=== PATIENT | female | born 1935 | race Caucasian/White ===

== ENCOUNTER 2017-06-09 12:30 | Emergency (ER) | payer MEDICARE, OTHER ==
[~2017-06-09] VITALS: Ht 167.6 cm; Wt 78.8 kg
--- OUTSIDE RECORDS SUMMARY | ~2017-06-09 | XMS ---
Demographics + + + | Address | [address] | | | [place] [address] | + + + | Preferred Language | Unknown | + + + | Marital Status | Unknown | + + + | Cheondoism Affiliation | Unknown | + + + | Race | Unknown | + + + | Ethnic Group | Unknown | + + + Author + + + | Author | [facility] | + + + | Organization | [facility] | + + + | Address | [address] [facility] [address] | | | [place] [id number] | + + + | Phone | | + + + Care Team Providers + + + + | Care Plaster Block Layer Name | Role | Phone | + + + + Unavailable | Unavailable | + + + + PROBLEMS Unknown Problems ALLERGIES Unknown Allergies SOCIAL HISTORY No smoking Hx information available PLAN OF CARE VITAL SIGNS MEDICATIONS Unknown Medications RESULTS No Results PROCEDURES No Known procedures IMMUNIZATIONS No Known Immunizations"
--- OUTSIDE RECORDS SUMMARY | ~2017-06-09 | XMS ---
Demographics + + + | Address | [address] | | | [place] [address] | + + + | Preferred Language | Unknown | + + + | Marital Status | Unknown | + + + | Jain Affiliation | Unknown | + + + | Race | Unknown | + + + | Ethnic Group | Unknown | + + + Author + + + | Author | [facility] | + + + | Organization | [facility] | + + + | Address | [address] | | | [place] [address] | + + + | Phone | | + + + Care Team Providers + + + + | Care Php Mysql Developer Name | Role | Phone | + + + + Unavailable | Unavailable | + + + + PROBLEMS Unknown Problems ALLERGIES No Information SOCIAL HISTORY Never Assessed PLAN OF CARE VITAL SIGNS MEDICATIONS Unknown Medications RESULTS No Results PROCEDURES No Known procedures IMMUNIZATIONS No Known Immunizations MEDICAL (GENERAL) HISTORY + + +---------+ | Type | Description | Date | + + +---------+ | Medical History | Hypertension | | + + +---------+ | Medical History | Hypothyroidism | | + + +---------+ | Medical History | CAD | | + + +---------+ | Medical History | Depression | | + + +---------+ | Medical History | Ovarian Cancer | | + + +---------+ | Surgical 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
--- OUTSIDE RECORDS SUMMARY | ~2017-06-09 | XMS ---
Demographics + + + | Address | [address] | | | [place] [address] | + + + | Preferred Language | Unknown | + + + | Marital Status | Unknown | + + + | Shinto Affiliation | Unknown | + + + | Race | Unknown | + + + | Ethnic Group | Unknown | + + + Author + + + | Author | [facility] | + + + | Organization | [facility] | + + + | Address | [address] [facility] [address] | | | [place] [phone] | + + + | Phone | | + + + Care Team Providers + + + + | Care Advertising Material Distributor Name | Role | Phone | + + + + Unavailable | Unavailable | + + + + PROBLEMS Unknown Problems ALLERGIES Unknown Allergies SOCIAL HISTORY No smoking Hx information available PLAN OF CARE VITAL SIGNS MEDICATIONS Unknown Medications RESULTS No Results PROCEDURES No Known procedures IMMUNIZATIONS No Known Immunizations"
--- OUTSIDE RECORDS SUMMARY | ~2017-06-09 | XMS ---
Demographics + + + | Address | [address] | | | [place] [address] | + + + | Preferred Language | Unknown | + + + | Marital Status | Unknown | + + + | Amish Affiliation | Unknown | + + + | Race | Unknown | + + + | Ethnic Group | Unknown | + + + Author + + + | Author | [facility] | + + + | Organization | [facility] | + + + | Address | [address] | | | [place] [address] | + + + | Phone | | + + + Care Team Providers + + + + | Care Suit Attendant Name | Role | Phone | + + + + Unavailable | Unavailable | + + + + PROBLEMS Unknown Problems ALLERGIES No Known Allergies SOCIAL HISTORY Never Assessed PLAN OF CARE + +---------+ | Activity | Details | + +---------+ +---+ | | +---+ + + + | Follow Up | 2 Months Reason:null | + + + | Pending Test | Urinalysis, Micro | + + + VITAL SIGNS + + + + | Height | 67 in | 2017-03-23 | + + + + | Weight | 153 lbs | 2017-03-23 | + + + + | BMI | 23.96 kg/m2 | 2017-03-23 | + + + + | Heart Rate | 73 /min | 2017-03-23 | + + + + | Blood pressure systolic | 141 mm Hg | 2017-03-23 | + + + + | Blood pressure diastolic | 76 mm Hg | 2017-03-23 | + + + + MEDICATIONS + + + + + + + +--------+ | Medicati | Instruct | Dosage | Frequenc | Start | End Date | Duration | Status | | on | ions | | y | Date | | | | + + + + + + + +--------+ | Detrol | Orally | 1 | 24h | Feb, | 25 Mar, | 30 | Active | | LA 4 MG | Once a | capsule | | 2016 | 2017 | day(s) | | | | day | | | | | | | + + + + + + + +--------+ | Clonazep | Orally | 1 tablet | 12h | | | | Active | | am 0.5 | Twice a | | | | | | | | MG | day | | | | | | | + + + + + + + +--------+ | D3-1000 | Orally | 1 | 24h | | | | Active | | 1000 | Once a | capsule | | | | | | | UNIT | day | | | | | | | + + + + + + + +--------+ | Furosemi | Orally | 1 tablet | 24h | | | | Active | | de 40 MG | Once a | | | | | | | | | day | | | | | | | + + + + + + + +--------+ | Atorvast | Orally | 1 tablet | 24h | | | | Active | | atin | Once a | | | | | | | | Calcium | day | | | | | | | | 40 MG | | | | | | | | + + + + + + + +--------+ | Aspirin | Orally | 1 tablet | 24h | | | | Active | | 81 MG | Once a | | | | | | | | | day | | | | | | | + + + + + + + +--------+ | Levothyr | Orally | 1 tablet | 24h | | | | Active | | oxine | Once a | on an | | | | | | | Sodium | day | empty | | | | | | | 75 MCG | | stomach | | | | | | | | | in the | | | | | | | | | morning | | | | | | + + + + + + + +--------+ | Calcium | Orally | 1 tablet | 24h | | | | Active | | 1200-100 | Once a | with a | | | | | | | 0 | day | meal | | | | | | | MG-UNIT | | | | | | | | + + + + + + + +--------+ | Potassiu | Orally | 1 tablet | 24h | | | | Active | | m 99 MG | Once a | | | | | | | | | day | | | | | | | + + + + + + + +--------+ | Atenolol | Orally | 1 tablet | 24h | | | | Active | | 25 MG | Once a | | | | | | | | | day | | | | | | | + + + + + + + +--------+ | Vision | | | | | | | Active | | Formula | | | | | | | | | - | | | | | | | | + + + + + + + +--------+ | Gabapent | Orally | 1 | 8h | | | | Active | | in 300 | Three | capsule | | | | | | | MG | times a | | | | | | | | | day | | | | | | | + + + + + + + +--------+ RESULTS + +--------+ + + | Name | Result | Date | Reference Range | + +--------+ + + | Urinalysis, Dip | | 2017-03-23 | | | (IH) | | | | + +--------+ + + | Specific [place] | 1.010 | | | + +--------+ + + | pH | 8 | | | + +--------+ + + | Leukocytes | 500 | | | + +--------+ + + | Nitrite, Urine | neg | | | + +--------+ + + | Protein | neg | | | + +--------+ + + | Glucose | norm | | | + +--------+ + + | Ketones | neg | | | + +--------+ + + | Urobilingen, | norm | | | | Semi-Qn | | | | + +--------+ + + | Bilirubin | neg | | | + +--------+ + + | Blood Hemoglobin | TR | | | | (BLD) | | | | + +--------+ + + PROCEDURES + + +--------+ + | Procedure | Date Ordered | Result | Body Site | + + +--------+ + | LAB URINALYSIS (DIP | Mar 23, 2017 | | | | STICK ONLY | | | | + + +--------+ + IMMUNIZATIONS No Known Immunizations MEDICAL (GENERAL) HISTORY [...]
[~2017-06-09 12:30] MED LIST: ASPIRIN EC81 MG PO; ATORVASTATIN CA40 MG PO; CIPROFLOXACIN500 MG PO; CITALOPRAM HBR20 MG PO; CLONAZEPAM0.5 MG PO; CLONAZEPAM1 MG PO; FUROSEMIDE40 MG PO; GABAPENTIN300 MG PO; KEFLEX500 MG PO; LEVOTHYROXINE75 MCG PO; MELOXICAM15 MG PO; NEURONTIN300 MG PO; SERTRALINE HCL100 MG PO; ULTRAM50 MG PO
[2017-06-09] MEDS ORDERED: TAMSULOSIN HCL0.4 MG PO (13:02)
[2017-06-09] MEDS ORDERED: ATENOLOL50 MG PO (13:02)
== END 2017-06-09 15:53 | disposition home or self-care (01) ==
LOC: ED 12:30
DX: M54.5 Low back pain (principal); F41.9 Anxiety disorder, unspecified; I25.2 Old myocardial infarction; Z95.1 Presence of aortocoronary bypass graft; Z90.710 Acquired absence of both cervix and uterus; Z87.891 Personal history of nicotine dependence; Z79.899 Other long term (current) drug therapy; Z79.82 Long term (current) use of aspirin; Z85.43 Personal history of malignant neoplasm of ovary
CPT/HCPCS: 72100; 99283

== ENCOUNTER 2017-07-29 08:15 | Inpatient (IN) | payer MEDICARE, OTHER ==
[~2017-07-29] VITALS: Ht 167.6 cm; Wt 84.7 kg
--- OUTSIDE RECORDS SUMMARY | ~2017-07-29 | XMS | Clinical Summary ---
Demographics + + + | Address | [address] | | | [place] [address] | + + + | Home Phone | | + + + | Preferred Language | Unknown | + + + | Marital Status | | + + + | Shinto Affiliation | Unknown | + + + | Race | White | + + + | Ethnic Group | Not or | + + + Author + + + | Author | [facility] | + + + | Organization | [facility] | + + + | Address | Unknown | + + + | Phone | Unavailable | + + + Support +------+ + + + +-------+ | Name | Relationship | Address | Phone | +------+ + + + +-------+ ECON | [address] | | [place] | [address] | +------+ + + + +-------+ Care Team Providers + +------+ + | Care [place] Representative Name | Role | Phone | + +------+ + PP | Unavailable | + +------+ + Source Comments NANDINI is fully live on both [employer] [facility] and [facility] Allergies Not on File Current Medications + + +-------+---------+------+------+-------+ | Prescription | Sig. | Disp. | Refills | Star | End | Statu | | | | | | t | Date | s | | | | | | Date | | | + + +-------+---------+------+------+-------+ | ATENOLOL 25 MG TAB | 1 tab po daily | | | | | Activ | | | | | | | | e | + + +-------+---------+------+------+-------+ | PRAVASTATIN 40 MG | 1 tab po bid | | | | | Activ | | TAB | | | | | | e | + + +-------+---------+------+------+-------+ | LEVOTHYROXINE 50 | 1 tab po daily | | | | | Activ | | MCG TAB | | | | | | e | + + +-------+---------+------+------+-------+ Active Problems Not on file Family History + + +------+ + | Medical History | Relation | Name | Comments | + + +------+ + | Cancer | Mother | | colon | + + +------+ + + +------+--------+ + | Relation | Name | Status | Comments | + +------+--------+ + | Mother | | | | + +------+--------+ + Social History + +-------+ +--------+------+ | Tobacco Use | Types | Packs/Day | Years | Date | | | | | Used | | + +-------+ +--------+------+ | Never Smoker | | | | | + +-------+ +--------+------+ + + +---------+ + | Alcohol Use | Drinks/We | oz/Week | Comments | | | ek | | | + + +---------+ + | No | | | | + + +---------+ + + + + | Sex Assigned at | Date Recorded | | | | + + + | Not on file | | + + + Last Filed Vital Signs + + + + | Vital Sign | Reading | Time Taken | + + + + | Blood Pressure | 138/72 | 08/25/2006 1:05 PM PST | + + + + | Pulse | - | - | + + + + | Temperature | 36.3 C (97.4 F) | 08/25/2006 1:05 PM PST | + + + + | Respiratory Rate | - | - | + + + + | Oxygen Saturation | - | - | + + + + | Inhaled Oxygen | - | - | | Concentration | | | + + + + | Weight | 76.6 kg (168 lb 12.8 | 08/25/2006 1:05 PM PST | | | oz) | | + + + + | Height | 167.6 cm (5' 6") | 08/25/2006 1:05 PM PST | + + + + | Body Mass Index | 27.25 | 08/25/2006 1:05 PM PST | + + + + Plan of Treatment + + + + + | Health Maintenance | Due Date | Last Done | Comments | + + + + + | INFLUENZA VACCINE | | | | | (FLU SHOT) | 7 | | | + + + + + Results Not on filefrom Last 3 Months
--- OUTSIDE RECORDS SUMMARY | ~2017-07-29 | XMS | Clinical Summary ---
Demographics + + + | Address | [address] | | | [place] [address] | + + + | Home Phone | | + + + | Preferred Language | Unknown | + + + | Marital Status | | + + + | Worship Affiliation | Unknown | + + + [...] [address] | | [place] | [address] | +------+ + + + +-------+ Care Team Providers + +------+ + | Care Detailer Furniture Name | Role | Phone | + +------+ + PP | Unavailable | + +------+ + Source Comments NANDINI is fully live on both [facility] and [facility] Allergies Not on File Current Medications [...]
--- OUTSIDE RECORDS SUMMARY | ~2017-07-29 | XMS | Clinical Summary ---
Demographics + + + | Address | [address] | | | [place] [address] | + + + | Home Phone | | + + + | Preferred Language | Unknown | + + + | Marital Status | | + + + | Adventism Affiliation | Unknown | + + + [...] [address] | | [place] | [address] | +------+ + + + +-------+ Care Team Providers + +------+ + | Care Chief Marketing Officer Name | Role | Phone | + +------+ + PP | Unavailable | + +------+ + Source Comments NANDINI is fully live on both [facility] and [facility] Allergies Not on File Current Medications + [...]
--- OUTSIDE RECORDS SUMMARY | ~2017-07-29 | XMS | Clinical Summary ---
Demographics + + + | Address | [address] | | | [place] [address] | + + + | Home Phone | | + + + | Preferred Language | Unknown | + + + | Marital Status | | + + + | Methodist Affiliation | Unknown | + + + [...] [address] | | [place] | [address] | +------+ + + + +-------+ Care Team Providers + +------+ + | Care Milk Driver Name | Role | Phone | + +------+ + PP | Unavailable | + +------+ + Source Comments NANDINI is fully live on both [facility] and [facility] Allergies Not on File Current [...]
[~2017-07-29 08:15] MED LIST changes: +ATENOLOL50 MG PO; +TAMSULOSIN HCL0.4 MG PO
--- NOTE | 2017-07-29 17:10 | NUR ---
PATIENT TO ROOM FROM ED. PATIENT NEEDING SEVERAL PEOPLE TO ASSIST TO BED. INCREASE PAIN WITH ACTIVITY. DINNER WAS BROUGHT TO ROOM. STARTED ADMIT ASSESSMENT.
[2017-07-29] MEDS ORDERED: ULTRAM50 MG PO (17:28)
--- NOTE | 2017-07-29 18:20 | NUR ---
PATIENT TOLERATED 25 PERCENT OF DINNER. STATING THAT SHE WAS HAVING ACHING ON R SIDE/ HIP AREA. PATIENT GIVEN TYLENOL FOR PAIN. LASIX THAT WAS SCHEDULED ORDERED. PATIENT SITTING UP IN BED. PATIENT ORIENTED TO SELF, DATE, AND LOCATION. FORGETFUL AT TIMES. UNABLE TO ANSWER SOME MEDICAL QUESTIONS. PATIENT REPORTING THAT SHE IS CONSTIPATED. OFFERED PRUNE JUICE AND ADDED BOWEL CARE. PATIENT HAS BED IN LOW POSITION. CALL LIGHT WITHIN REACH. PATIENT HAS BEEN CALLING CORRECTLY.
--- NOTE | 2017-07-29 18:24 | NUR ---
PATIENT ED ADMIT AT 1710. PATIENT LIVES ALONE AT HOME AND HAD A GROUND LEVEL FALL. PAITENT HAS BEEN ALERT AND ORIENTED. FORGETFUL AT TIMES. HAS BEEN USING CALL LIGHT. BEING TREATED WITH ROCEPHEN FOR UTI. TYLENOL FOR PAIN. C/O BEING CONSTIPATED. STOOL SOFTENER ORDERED. PATIENT WAS UNABLE TO GO HOME DUE TO NOT BEING ABLE TO GET OFF OXYGEN. PATIENT UNABLE TO MOVE SELF WITHOUT ASSISTANCES. NEEDING CONTINUED CARE AND PT/OT TO DARRYN.
--- NOTE | 2017-07-29 18:55 | NUR ---
CHANGED PATIENTS ATTENDS. PATIENT HAD HARD STOOL. HAS TO DISIMPACT PATIENT. STOOL SOFTENER ORDERED. FAMILY AT BEDSIDE AFTER ASSESSMENT DONE. PICTURES TAKEN OF COCCYX AND IN CHART.
--- NOTE | 2017-07-29 19:07 | EKG ---
[facility] [address] [facility] [place] [address] Signed Normal sinus rhythm Left ventricular hypertrophy with repolarization abnormality Inferior infarct , age undetermined Abnormal ECG When compared with ECG of 23-SEP-2016 10:36, HI interval has decreased Inferior infarct is now present Inverted T waves have replaced nonspecific T wave abnormality in Lateral leads Confirmed by ERIC ORO MD ([id number]) on 07/29/2017 7:07:24 PM Electronically Signed By: ERIC ORO MD 07/29/17 1907 PATIENT NAME: ROYA LIRA ISELA Electrocardiogram DATE OF : 35 PHYSICIAN: ERIC ORO MD REPORT #: [id number] REPORT IS CONFIDENTIAL AND NOT TO BE RELEASED WITHOUT AUTHORIZATION
--- NOTE | 2017-07-29 19:45 | NUR ---
FAMILY IN ROOM, PT AWAKE, NO S/SX DISCOMFORT, NO REQUESTS AT THIS TIME
--- NOTE | 2017-07-29 20:00 | NUR ---
RECEIVED REPORT AT 1900, FOUND PT IN BED TALKING WITH HER FAMILY. PT HAD NO NEEDS OR COMPLIANTS AT THAT TIME.
--- NOTE | 2017-07-29 22:00 | NUR ---
PT HAD AN ORDER FOR 1800MG OF GABAPENTIN. I ASKED PT HOW MUCH SHE USUALY TAKES, PT AND HER FAMILY WAS UNALBLE TO PROVIDE EXACT DOSE FOR HER GABAPENTIN. MD JAMA WAS CALLED AND ORDER WAS CHANGED TO 600MG FOR THE 2100 DOSE. THIS ISSUE NEEDS TO BE CALRYDIED TOMORROW MORNING WITH HER PCP PERHAPS OR HER FAMILY. V/S ARE WDL, ALL LOBES ARE CLEAR, PT DENIES SOB, ABD SOUNDS ARE PRESENT, NO EDEMA HAS BEEN NOTED. PT HAS NO NEEDS AT THIS TIME.
--- NOTE | 2017-07-30 00:30 | NUR ---
PT IS SLEEPING AT THIS TIME.
--- NOTE | 2017-07-30 02:08 | NUR ---
PT IS TRYING TO SLEEP
--- NOTE | 2017-07-30 02:48 | NUR ---
VITALS AND I&OS DONE AND CHARTED. CHANGED HER ATTEND WITH SOURAV MANSFIELD. BEDSIDE TABLE AND CALL LIGHT WITHIN REACH.
--- NOTE | 2017-07-30 04:10 | NUR ---
PT IS ONLY SLEEPING FOR ABOUT 1/2 HOUR AT THE TIME. PT IS RESTING AT THIS TIME. PT HAS NO NEEDS.
--- NOTE | 2017-07-30 05:31 | NUR ---
PT OVERALL HAD AN UNEVENTFUL NIGHT. V/S OVERALL WERE WDL. PT DID HAVE A SLIGHT TEMP OF 99.1 WITH 0200 V/S. WILL CONTINUE TO MONITOR. ALL LOBES ARE CLEAR, PT DENIED SOB, PT IS ON 2L OF O2 NC. NEW IV PLACED. PT SEEMS TO STILL BE IMPACTED AND STOOL IS SEEPING OUT OF HER RECTUM. DAY SHIFT DID DISIMPACTION YESTERDAY. PT IS STILL VERY WEAK AND NOT ABLE TO STAND OR USE BSC. GABAPENTIN HOME DOSE NEEDS TO BE CLARIEFIED TODAY, SEE E-MAR INSTRUCTION NOTE. FAMILY HAS NOT CALLED BACK SO FAR WITH AT HOME DOSAGE. PT ALSO HAS A POLST FORM IN CHART BUT WAS LISTED A FULL CODE. PLEASE VERIFY DNR/DNI STATUS.
--- NOTE | 2017-07-30 06:57 | NUR ---
VITALS AND I&OS DONE AND CHARTED . SOURAV HARRIS AND I CHANGED PT . GOT HER A WARM BLANKET. BEDSIDE TABLE AND CALL LIGHT WITHIN REACH. FRESH WATER GIVEN.
--- NOTE | 2017-07-30 08:00 | NUR ---
PATIENT MOVED TO CHAIR VIA TWO ASSIST AND HOANG LIFT. TOLERATED WELL. ONCE IN CHAIR PATIENT STATED NO PAIN AT THIS TIME. ATTEMPTED TO TITRATE TO RA. PATIENT SATING 787 ON RA. TOLERATING 1 L PER NC. SATING 91-94 PERCENT ON 1 L. UP EATING BREAKFAST. LUNGS CLEAR. ACTIVE BS. NO EDEMA NOTED. MORNING MEDICATION TAKEN. VITALS TAKEN. PLAN OF CARE DISCUSSED WITH PATIENT.
--- NOTE | 2017-07-30 09:04 | NUR ---
TALKED WITH DR. ORO ABOUT PATIENT BEING IMPACTED. NEW ORDER FOR ENEMA ORDERED.
--- NOTE | 2017-07-30 10:00 | NUR ---
EDEMA GIVEN. PATIENT ATTEMPTED TO HOLD LONG SHE COULD. RT WAS IN ROOM. PLACED PATIENT ON RA. PATIENT SATING 92 PERCENT AT THIS TIME.
--- NOTE | 2017-07-30 10:15 | NUR ---
ENEMA GIVEN. PATIENT TOLERATED WELL.
--- NOTE | 2017-07-30 10:30 | NUR ---
CHANGED ATTENDS PATIENT HAD SOFTER BM. PATIENT VERY PAIN IN R HIP WITH TURNING. REPOSITIONED IN BED WITH PILLOWS AND HEEL PROTECTORS.
--- NOTE | 2017-07-30 10:46 | NUR ---
NURSE AND I CHANGED HER. SHE IS SITTING UP IN HER BED DOING HER IS.
--- NOTE | 2017-07-30 11:20 | NUR ---
MED REC COMPLETE
--- NOTE | 2017-07-30 12:17 | NUR ---
MOUTH SWABS GIVEN FOR C/O OF DRY MOUTH. ULTRAM GIVEN FOR PAIN OF R HIP. FLU SHOT GIVEN IN R ARM. CONSENT PLACED IN CHART.
--- NOTE | 2017-07-30 13:54 | NUR ---
PT IN ROOM WORKING WITH PATIENT. GATO RECOMMENDS SNF PLACEMENT FOR PATIENT.
--- NOTE | 2017-07-30 14:13 | NUR ---
BROUGHT PATIENT AN ICE PACK.
--- NOTE | 2017-07-30 16:01 | NUR ---
PATIENT CONTINUE TO DO WELL. SATING 90 PERCENT ON 2 L PER NC. IS ENCOURAGED. PATIENT AGREED TO SIT IN CHAIR FOR DINNER.
--- NOTE | 2017-07-30 16:15 | NUR ---
PATIENT CONT TO HAVE R HIP PAIN. ULTRAM ADDED FOR PAIN CONTROL. PATIENT WORKED WITH PT TODAY, BUT WAS UNABLE TO STAND FOR MORE THAN A COUPLE SEC. PT IS RECOMMENDING SNF REHAB. OT TO WORK WITH PATIENT. PATINET UNABLE TO TOLERATE RA. PLACED ON 1 - 2 L. NEEDING MORE OXYGEN WITH THE INCREASE OF ACTIVITY. PATIENT C/O DRY MOUTH THROUGHOUT THE DAY. OFFERED MOUTH SWAPS, ICE, AND COLD WATER FOR COMFORT. PATIENT HAS BEEN INCONT OF URINE. ENEMA GIVEN. PATIENT HAS BEEN INCONT OF STOOL WELL URINE.
--- NOTE | 2017-07-30 16:57 | NUR ---
NURSE AND I CHANGED HER THAN HOYERED HER TO HER CHAIR NOW SHE IS EATING HER DINNER. NURSE CHANGED HER BED LINENS.
--- NOTE | 2017-07-30 17:11 | NUR ---
SHERINE MOVED TO CHAIR VIA HOANG LIFT FOR DINNER. PATIENT HAD XLG BM SOFT WHILE IN HOANG LIFT. PATIENT TOLERATED TRANSFER WELL. PATIENT ABLE TO TOLERATE TRANSFER. PAIN REMAINS PRESENT IN R UPPER LEG. WARM BLANKET APPLIED TO LEG. PATIENT STATING MORE IMPROVED THAT EARLIER BUT STILL HURTS WITH ACTIVITY. ATTEMPTING TO TITRATE TO RA AGAIN. SATING 90 PERCENT ON RA.
--- NOTE | 2017-07-30 18:26 | NUR ---
SPOKE WITH PATIENT. PATIENT UP IN CHAIR. PT STATES SHE WANTS TO RETURN HOME. LIVES ALONE BUT DAUGHTER COMES IN DAILY AND GRANDDAUGHTER COMES IN AND CLEANS AND HELPS WITH CARE. PT STATES SHE FEELS SAFE TO GO HOME. DISCUSSED THAT SHE FELL AND CONCERNS ABOUT HER LEGS BEING WEAK. SHE STATES SHE FEELS IT WILL BE BETTER WITH BRACE THAT IS ORDERING. DISCUSSED AND SHE STATES UNDERSTANDING THAT PT WILL CONTINUE WITH HER AND SHE MAY NEED EXTRA HELP AFTER SHE GOES HOME. SHE IS INTERESTED IN CHW CALLING HER AND FOLLOWING UP WITH HER AFTER DISCHARGE.
--- NOTE | 2017-07-30 20:00 | NUR ---
RECEIVED REPORT AT 1900. FOUND PT IN BED WITH FAMILY AT BEDSIDE TALKING. PT STATED THAT SHE FELT MUCH BETTER TODAY. PT HAD NO NEEDS AT THAT TIME.
--- NOTE | 2017-07-30 22:00 | NUR ---
V/S ARE WDL, ALL LOBES ARE CLEAR BUT DIMINISHED, PT IS STILL VERY WEAK, NO EDEMA NOTED. NO NEW CONCERNS.
--- NOTE | 2017-07-31 00:30 | NUR ---
PT IS SLEEPING AT THIS TIME.
--- NOTE | 2017-07-31 02:17 | NUR ---
PT IS RESTING AT THIS TIME. PT WILL BE CHANGED SOON.
--- NOTE | 2017-07-31 02:29 | NUR ---
SOURAV HARRIS AND I CHANGED PTS ATTEND. SHE WAS INCONTINENT AND A SMEAR OF BM. FRESH WATER GIVEN. BEDSIDE TABLE AND CALL LIGHT WITHIN REACH. EMPTIED ONE OF THE GARBAGES.
--- NOTE | 2017-07-31 04:09 | NUR ---
PT IS RESTING AT THIS TIME.
--- NOTE | 2017-07-31 06:40 | NUR ---
V/S ARE WDL, ALL LOBES ARE CLEAR, ABD SOUND ARE PRESENT, NO PERIPHERAL EDEMA NOTED, PT IS STILL NOT ABLE TO STAND UP SO FAR. PT HAS BEEN CHANGED X2 THIS SHIFT. PT RESTED/SLEPT MOST OF THIS SHIFT. NO NEW CONCERNS NOTED SO FAR. PT IS ON ROOM AIR SINCE O2 SATS HAVE REMAINED >92% ALL NIGHT.
--- NOTE | 2017-07-31 08:42 | NUR ---
PT FINISHED BREAKFAST. WHITEBOARD UPDATED AT BEDSIDE SHIFT REPORT. PT APPETITE GOOD. PATIENT ASKED THIS RN "WHO DO I TALK TO ABOUT GOING HOME TODAY?" PATIENT INFORMED DR ORO, HOSPITALIST, WOULD BE THE ONE TO SPEAK TO ABOUT GOING HOME, BUT TO REMEMBER THAT HER STRENGTH IS A SAFETY ISSUE RIGHT NOW. SHE IS OPEN TO THE IDEA OF ASSISTED LIVING "IF I HAVE TO". PT SET UP TO BRUSH TEETH BY THIS NURSE. WATCHING TELEVISION NOW. PROVIDED NEW ICE WATER. MEAL TRAY REMOVED FROM ROOM.
--- NOTE | 2017-07-31 09:42 | NUR ---
TRANSFERRED PATIENT TO BS AND THEN CHAIR WITH 2PA AND FWW AND GAIT BELT. TOLERATED FAIR. UNABLE TO MOVE RIGHT LEG OFF BED FROM LYING POSITION. INCONTINENT OF URINE. CHANGED LINENS AND ATTENDS. RESPIRATORY THERAPIST WORKING WITH PATIENT NOW TO QUALIFY FOR 02. PATIENT KEEPING SATS ABOVE 92%.
[2017-07-31] MEDS ORDERED: NORCO 10-325 T1 EACH PO (09:56)
[2017-07-31] MEDS ORDERED: NEURONTIN300 MG PO (11:30)
--- NOTE | 2017-07-31 15:48 | NUR ---
FAMILY VISITING PATIENT NOW. PATIENT TRANSFERRED TO BED AFTER LUNCH WITH 2PA AND GAIT BELT. TOLERATED WELL. DIFFICULTY WITH STRENGTH.
--- NOTE | 2017-07-31 16:09 | NUR ---
INCONTINENT. 2PA WITH FWW AND GAIT BELT TO TRANSFER TO COMMODE OR CHAIR. SATURATING WELL ON ROOM AIR. SALINE LOCKED. HEEL BOOTS IN BED. ENCOURAGE REPOSITIONING. RIGHT THIGH SORE FROM LIKELY PULLED MUSCLE. TRAMADOL GIVEN X1. PT/OT. UNSAFE TO DISCHARGE HOME. BM 07/31/17 LAST.
--- NOTE | 2017-07-31 19:05 | NUR ---
RECEIVED REPORT FROM RN. PATIENT IS RESTING COMFORTABLY IN BED, BREATHING IS EVEN AND UNLABORED ON ROOM AIR. DENIES NEEDS AT THIS TIME. CALL LIGHT WITHIN REACH.
--- NOTE | 2017-07-31 19:07 | NUR ---
PT WAS TRANSFERED FROM BEDSIDE COMMODE VIA TWO PERSON MANUAL LIFT. PT IS NOW RESTING IN BED SAFELY WITH CALL LIGHT IN REACH.
--- NOTE | 2017-07-31 21:20 | NUR ---
PATIENT RESTING COMFORTABLY IN BED, BREATHING IS EVEN AND UNLABORED. REPORTS 3/10 PAIN IN RIGHT LEG. HOT PACK GIVEN FOR COMFORT. DENIES FURTHER NEEDS AT THIS TIME. ASSESSMENT DONE, MEDICATIONS GIVEN. CALL LIGHT WITHIN REACH.
--- NOTE | 2017-07-31 23:15 | NUR ---
PATIENT RESTING COMFORTABLY IN BED, BREATHING IS EVEN AND UNLABORED. FLACC SCORE OF 0. CALL LIGHT WITHIN REACH.
--- NOTE | 2017-08-01 00:13 | NUR ---
PATIENT'S ATTENDS CHANGED DUE TO INCONTINENCE OF STOOL AND URINE. REQUIRED 2PA TO TURN IN BED FOR ATTENDS CHANGE. PATIENT STATES "THE PAIN ISN'T TOO BAD IF I GO SLOW." DENIES NEEDS AT THIS TIME. CALL LIGHT WITHIN REACH.
--- NOTE | 2017-08-01 03:07 | NUR ---
PATIENT'S ATTENDS CHANGED DUE TO INCONTINENCE OF URINE AND STOOL. REQUIRED 2PA TO TURN IN BED FOR ATTENDS CHANGE. PATIENT REPORTS 3/10 PAIN IN RIGHT LEG, PRN TYLENOL GIVEN PER EMAR. APPLIED HOT PACK FOR COMFORT. PATIENT STATES "THE HOT PACKS ARE HELPING MORE THAN THE ICE WAS." DENIES FURTHER NEEDS. ASSESSMENT DONE. CALL LIGHT WITHIN REACH.
--- NOTE | 2017-08-01 03:13 | NUR ---
SOURAV VALENZUELA AND I CHANGED SOILED ATTENDS, HAD SMALL SOFT BOWEL MOVEMENT. CALL LIGHT WITHIN REACH. ICE WATER REFILLED.
--- NOTE | 2017-08-01 04:30 | NUR ---
PATIENT'S NIGHT HAS BEEN UNEVENTFUL. SHE HAS BEEN RESTING IN BED THROUGHOUT SHIFT. VSS, URINE OUTPUT QS. PAIN HAS BEEN WELL CONTROLLED WITH PRN TYLENOL AND HOT PACK. PATIENT IS ALERT AND ORIENTED X4. REQUIRES FREQUENT ATTENDS CHANGES DUE TO INCONTINENCE OF BOTH URINE AND STOOL. PATIENT REQUIRES 2PA TO TURN IN BED FOR ATTENDS CHANGES, PATIENT'S MOTOR STRENGTH IS OF SIGNIFICANT WEAKNESS. NO ACUTE CHANGES FROM BEGINNING OF SHIFT.
--- NOTE | 2017-08-01 05:37 | NUR ---
PATIENT RESTING COMFORTABLY IN BED, BREATHING IS EVEN AND UNLABORED. FLACC SCORE OF 0. CALL LIGHT WITHIN REACH.
--- NOTE | 2017-08-01 06:23 | NUR ---
PATIENT RESTING COMFORTABLY IN BED, BREATHING IS EVEN AND UNLABORED. ATTENDS CHANGED FOR INCONTINENCE OF URINE. PATIENT CONTINUES TO REQUIRES 2PA TO TURN WHILE IN BED. ONCE AT REST, PATIENT DENIES PAIN, DENIES NEED FOR PAIN MEDICATION. NO NEEDS AT THIS TIME. CALL LIGHT WITHIN REACH.
--- NOTE | 2017-08-01 07:56 | NUR ---
pt asleep during bedside shift report this morning. updated whiteboard. all questions answered during report from Nguyễn BENJAMIN. 2PA with fww and gait belt to bsc now. Pt able to get legs off side of bed on own. encouraged to be more independent and motivated with therapies. flat affect and monotone voice. Right thigh painful with movement. WIll get patient up to chair after finished on commode. linens straightened up. new attends in place. tolerating room air. no SOB. breakfast delivered and ready when patient gets to recliner.
--- NOTE | 2017-08-01 08:00 | NUR ---
ASSISTED SOURAV ALEGRE, GETTING PT UP TO THE COMMODE AND TRANSFERING PT TO THE CHAIR TO SIT UP FOR BREAKFAST. LINENS STRAIGHTENED AND BED MADE. PT STATES NO OTHER NEEDS AT THIS TIME. CALL LIGHT IS IN REACH.
--- NOTE | 2017-08-01 10:11 | NUR ---
PT WORKED WITH PHYSICAL THERAPY. TRANSFERRED FROM CHAIR BACK TO BED. ADJUSTED FOR COMFORT IN BED. ENCOURAGE MOTIVATION FOR PATIENT TO MOVE MORE OFTEN.
--- NOTE | 2017-08-01 12:06 | NUR ---
PT DAUGHTER IN ROOM VISITING WITH PATIENT NOW. NO COMPLAINTS. ULTRAM GIVEN FOR RIGHT LEG PAIN.
--- NOTE | 2017-08-01 13:52 | NUR ---
PT'S VS AND I&O'S TAKEN AND DOCUMENTED. PT WAS CHANGED AND NEW ATTEND WAS PLACED. PT STATES NO OTHER NEEDS AT THIS TIME. INFORMED PT TO CALL IF SHE THINKS OF ANYTHING. CALL LIGHT IS IN REACH.
--- NOTE | 2017-08-01 17:36 | NUR ---
INCONTINENT MOST TIMES. WORKING WITH PHYSICAL THERAPY. TRAMADOL, TYLENOL, AND HEAT PACK FOR RIGHT THIGH. GABAPENTIN STARTED TODAY. PHYSICAL THERAPY. WILL NEED SNF AT DISCHARGE. HELD MIRALAX THIS MORNING. LOOSE STOOL. APPETITE GOOD. ROOM AIR.
--- NOTE | 2017-08-01 18:12 | NUR ---
PT'S VS AND I&O'S TAKEN AND DOCUMENTED. ATTEND CHANGED AND A NEW ONE WAS PLACED. FRESH WATER GIVEN AND CALL LIGHT IS IN REACH.
--- NOTE | 2017-08-01 19:10 | NUR ---
RECEIVED REPORT FROM DAY NURSE SIS. PT WATCHING FOOTBALL GAME.
--- NOTE | 2017-08-01 20:35 | NUR ---
PT INCONT CHANGED, WITH DRAY DRIVER. PT TURNED TO HER RIGHT SIDE, HAD A BM. DENIED PAIN IN HER RIGHT LEG/HIP SAID IS "ISN'T HURTING", AND SAW NO VISUAL SIGN PAIN. RIGHT LEG SUPPORTED ON PILLOW. MEDS GIVEN. DAUGHTER LEFT JUST PRIOR TO INCONT CARE. CALL LIGHT WITH IN REACH. HAS NO OTHER NEEDS AT THIS TIME
--- NOTE | 2017-08-01 23:00 | NUR ---
PT WITH EYES CLOSED RESP EVEN AND UNLABORED. CALL LIGHT WITHIN REACH.
--- NOTE | 2017-08-02 02:30 | NUR ---
PT WITH EYES CLOSED, RESP EVEN AND UNLABORED. NOTED WATER CUP WITH LESS WATER, AND REMOTE CONTROL MOVED SINCE LAST CHECK.
--- NOTE | 2017-08-02 06:28 | NUR ---
PT SLEPT MOST SHIFT, INCONT CARE DONE, TURNED FREQUENTLY. DENIED PAIN WHEN ASKED, SAID ONCE RT. LEG IS ON BED, THE PAIN GOES AWAY. PLEASANT AND COOPERATIVE. NOTE PT WATCHED THIS NURSE GIVE HER FRESH ICEWATER EARLIER, THEN WHEN SHE WAS GIVEN A DRINK OF ICE WATER, SHE SAID "OH I DON'T LIKE ICE IN MY WATER!". ROOM AIR, SATS IN 90'S.
--- NOTE | 2017-08-02 07:40 | NUR ---
patient sitting straight up in bed set up with breakfast tray. water in cup. call button in reach. no other needs at this time.
--- NOTE | 2017-08-02 08:20 | NUR ---
PATIENT DENIES ANY PAIN, FLAT AFFECT. PREPARING FOR BREAFAST, BUT STILL SITTING UP IN BED.
--- NOTE | 2017-08-02 09:30 | NUR ---
PATIENT UP TO BSC WITH 3 PERSON ASSIST WITH FWW AND GATE BELT. PATIENT HAD HARD TIME MOVING RIGHT LEG. DAUGHTER IN ROOM.
--- NOTE | 2017-08-02 10:00 | NUR ---
PATIENT TO CHAIR [place] [facility] [place] 3 PERSON ASSIST WITH FWW AND GATE BELT. CHAIR ALARM ON FEET ELEVATED. PATIENT BRUSHING TEETH. WASH CLOTH GIVEN FOR FACE AND HANDS. OT IN ROOM TO WORK WITH PATIENT. CALL BUTTON IN REACH. NO OTHER NEEDS AT THIS TIME.
--- NOTE | 2017-08-02 10:45 | NUR ---
SPOKE WITH PATIENT IN ROOM. DISCUSSED THAT PATIENT IS NOT ABLE TO TRANSFER OR WALK ON HER OWN AND WILL MOST LIKELY NEED REHAB STAY BEFORE BEING SAFE TO RETURN TO HOME ENVIRONMENT SHE LIVES ALONE. PATIENT IS IN AGREEMENT. SHE STATES SHE WOULD WANT TO STAY IN [place] FOR REHAB. AGREED TO MY SENDING REFERRAL TO [facility]. ASKED IF SHE WANTED ME TO CALL HER DAUGHTER, SHE STATES SHE WILL TELL HER LATER WHEN SHE TALKS WITH HER. DISCUSSED SHE COULD POSSIBLY BE GOING TO SNF TOMORROW.
--- NOTE | 2017-08-02 11:28 | NUR ---
PATIENT UP IN BEDSIDE RECLINER AFTER SEEING PT. PATIENT HAS ALREADY ORDERED LUNCH, AND IS USING A WARM PACK FOR SOME DISCOMFORT IN HER UPPER RT THIGH.
--- NOTE | 2017-08-02 14:00 | NUR ---
PATIENT BACK IN BED NOT HAVING ANY PAIN AT THIS TIME. 2 PERSON ASSIST WITH WALKER. PATIENT ONLY ATE ABOUT 5% OF HER LUNCH.
--- NOTE | 2017-08-02 14:00 | NUR ---
CLINICALS AND FACE SHEET FAXED TO [facility]. FAX CONFIRMATION RECEIVED.
[2017-08-02] MEDS ORDERED: ATENOLOL25 MG PO (14:26)
[2017-08-02] MEDS ORDERED: CLONAZEPAM0.5 MG PO (14:29)
[2017-08-02] MEDS ORDERED: ULTRAM50 MG PO (14:29)
--- NOTE | 2017-08-02 16:26 | NUR ---
PATIENT'S PAIN IS DOWN TO 3/10 IN HER LOWER EXTREMETIES FROM 5/10 WHEN SHE GOT TYLENOL EARLIER. SEE e-MAR. PATIENT COMFORTABLE AT 4/10.
--- NOTE | 2017-08-02 17:24 | NUR ---
PATIENT UP IN THE BEDSIDE RECLINER EATING DINNER AT THIS TIME.
--- NOTE | 2017-08-02 17:57 | NUR ---
PATIENT HAS FINISHED HER DINNER AND IS VISITING WITH FAMILY AT THIS TIME. PATIENT ATE 80% AND IS TAKING FLUIDS WELL.
--- NOTE | 2017-08-02 18:41 | NUR ---
PATIENT HAS HAD A FAIRLY GOOD DAY. ATE A GREAT BREAKFAST, LESS FOR , LUNCH AND DINNER. IV SL PATENT. UP MULTIPLE TIMES TO COMMODE AND TO THE BEDSIDE RECLINER WITH 2 PERSON ASSIST, WALKER, AND GAIT BELT, PLAN TO TRY AND DISCHARGE TO [place] TOMORROW. PATIENT GETTING BACK INTO BED AT THIS TIME.
--- NOTE | 2017-08-02 18:52 | NUR ---
PT CALL LIGHT ON. PT REQUESTS ASSISTANCE TO MOVE BACK TO BED. THIS RN AND KAI RN, ASSISTED PT BACK TO BED. HEEL PROTECTORS APPLIED. PT IN SEMIFOWLES AND WATCHING TV. GRANDDAUGTHER AT BEDSIDE. BED RAILS UP. CALL LIGHT WITHIN REACH.
--- NOTE | 2017-08-02 19:59 | NUR ---
PATIENT CALLED WANTING WARM BLANKET, GIVEN. ASK ABOUT NIGHT MEDS IF GIVEN OR NOT, I TOLD HER I WILL FIND OUT FROM HER RN MERVAT.
--- NOTE | 2017-08-02 20:07 | NUR ---
SOURAV SAEZ NOTIFIED RE; PATIENT'S QUESTION.
--- NOTE | 2017-08-02 20:23 | NUR ---
PT LAYING IN BED, WATCHING TV. FLAT AFFECT, BUT PLEASENT, ANSWERS QUESTIONS APPROPRIATLY, NOT VERY TALKATIVE OTHER THAN ANSWERING QUESTIONS. ALERT AND ORIENTED X4. DENIES PAIN. FRESH ICE WATER AT BEDSIDE. CALL LIGHT IN REACH. NO FURTHER NEEDS. TOLERATING RA.
--- NOTE | 2017-08-02 20:52 | NUR ---
PT INCONTINENT OF URINE. CHANGED ENTIRE BEDDING AND CLEANED PT UP AND NEW ATTENDS IN PLACE. PT TOLERATED WELL. NO FURTHER NEEDS.
--- NOTE | 2017-08-03 | NUR ---
pt incontinent. changed attends. repositioned pt in bed.
--- NOTE | 2017-08-03 02:53 | NUR ---
pt appears to be sleeping. rr wnl and unlabored. lights and tv off in room.
--- NOTE | 2017-08-03 04:51 | NUR ---
PT SLEPT MAJORITY OF SHIFT. INCONTINENT OF URINE SEVERAL TIMES, CALLS WHEN SHE NEEDS CHANGED. ALERT AND ORIENTED X4, FLAT AFFECT. PO ANTIBIOTICS. POSSIBLE DC TO [place] TODAY.
--- NOTE | 2017-08-03 07:34 | NUR ---
REPORT RECEIVED FROM SOURAV SAEZ. PT AWAKE AND ALERT. SITTING UP IN BED EATING BREAKFAST. DENIES NEEDS AT THIS TIME. CALL LIGHT WITHIN REACH.
--- NOTE | 2017-08-03 09:05 | NUR ---
PT UP IN PHYS. THER. ROOM DOING THE EXERCISE BIKE. PT REQUESTED GRAPE JUICE FOR MIRALAX.
--- NOTE | 2017-08-03 09:30 | NUR ---
STUDENT RN IN ROOM TO TAKE VITALS. THIS MUCK MINER BLASTING TALKED TO PATIENT ABOUT SHOWERING THIS AM BEFORE DISCHARGE SNF. PATIENT AGREED. CALL BUTTON IN REACH. FRESH ICE WATER GIVEN. ORAL CARE DONE. HANDS AND FACE WASHED. NO OTHER NEEDS AT THIS TIME. DAUGHTER IN ROOM.
--- NOTE | 2017-08-03 09:40 | NUR ---
PT RETURNED FROM PHYSICAL THERAPY. UP IN CHAIR. PT IS AWAKE AND ALERT. RN PATIENT CARE IN ROOM ASSISTING WITH ADL'S. PT STATES PAIN IS 5/10 AND IS ACCEPTABLE. VS STABLE. DENIES OTHERN NEEDS. COMMUNITY HEALTH WORKER IN, BUT WILL RETURN LATER ALSO.
--- NOTE | 2017-08-03 10:29 | NUR ---
SPOKE WITH PT ABOUT GOING TO [facility] TODAY AND SHE SAID SHE KNEW THAT. PT HAD NO OTHER ISSUES. FAXED ORDERS AND PASRR TO [facility]. CALLED AND SPOKE WITH ELENA AND SHE STATED SHE WILL CALL WHEN THE ORDERS ARE READY.
--- NOTE | 2017-08-03 10:30 | NUR ---
PATIENT UP TO SHOWER CHAIR WITH 3 PERSON ASSIST WITH GATE BELT AND FWW. SHOWER DONE WITH AJAY AND SKIN CARE. PATIENT BACK TO CHAIR WITH FEET ELEVATED. LUNCH SET UP. CALL BUTTON IN REACH. NO OTHER NEEDS AT THIS TIME.
--- NOTE | 2017-08-03 11:51 | NUR ---
PT TOOK SHOWER WITH ASSISTANCE OF GREG RUDOLPH. OUT OF SHOWER AND BACK TO CHAIR WITH LUNCH.
--- NOTE | 2017-08-03 12:57 | NUR ---
PT SHOWERED THIS AM. ATE LUNCH PRIOR TO DISCHARGE. IV DC'D WNL. TRANSFERED TO WHEELCHAIR WITH 2 PERSON, GAIT BELT, AND FWW. VS STABLE. TRANSPORTER FROM [facility] PICKED UP IN WHEELCHAIR. BELONGINGS RETURNED TO PT.
[2017-08-03] MEDS ORDERED: DICLOXACILLIN500 MG PO (13:12)
--- NOTE | 2017-08-04 08:45 | NUR ---
MADE VISIT WITH PATIENT IN ROOM. EXPLAINED THE ROLE OF CHW AND LET HER AND HER DAUGHTER KULWINDER KNOW THAT I WOULD LIKE TO FOLLOW HER TO HELP ENSURE SHE HAS RESOURCES NEEDED FOR A SUCCESSFUL RECOVERY. PATIENT AND DAUGHTER AGREED AND PATIENT SIGNED THE CONSENT. ONCE PATIENT WAS DISCHARGED FROM HOSPITAL. MADE SECOND VISIT WITH PATIENT AT [facility]. PATIENT DOING WELL BUT STATED SHE DIDN'T LIKE THE FACILITY BECAUSE IT IS TOO LOUD. SHE ALSO STATED HER LEG WAS HURTING AND SHE DIDN'T KNOW WHY. SHE DID EXPRESS THAT IT WAS NOT HURTING ANY MORE THAN WHAT IT WAS WHILE SHE WAS IN THE HOSPITAL.
--- NOTE | 2017-08-11 11:42 | NUR ---
Patient visit at [facility]. Overall patient is doing well and eager to return home. Occupational Therapy "Aida" present upon my arrival. Stated patient "Dilia" is slowly making progress. Only receptive to OT the past 4 days. Today Dilia was able to walk an estimate of 20 feet but plans to continue working to increase mobility. She is able to partially dress self using extended gripper. Stands and toilets as 1PA. Physical Therapy arrived at the end of my visit. Pat and I discussed the importance of participation with therapies so she can meet her goal to "go home". Also brought up the idea of a senior clinical informatics specialist when she returns home. Dilia is agreeable to this idea and we will revisit the topic when she is released from [facility]. Dilia did voice some concerns/dislikes that she was experiencing. She was sent with oxygen and insisted she didn't need it. The oxygen was attached to her wheelchair and the bolt holding it on had been poking her in the back. [facility] did remove the oxygen and she is not currently using it. Dilia is still experiencing pain in the groin area. States she is on a pain medication that she is allow every six hours. Dilia states she takes one once a day but when she request additional pain medication she isn't receiving it so her pain continues. Plan to continue to follow patient through transition home and as needed after.
--- NOTE | 2017-08-19 10:20 | NUR ---
Phone call to [facility]. They stated Pat did not get transfered out to [facility] and returned to [facility] as her hip fx presented stable.
== END 2017-08-03 12:41 | disposition home or self-care (01) | DRG 690 ==
LOC: ED 08:15 → MS 08:17 → ED 15:55 → MS 15:55
PROVIDERS: ADMIT Internal Medicine
DX: N39.0 Urinary tract infection, site not specified (principal); F11.20 Opioid dependence, uncomplicated; I10 Essential (primary) hypertension; E03.9 Hypothyroidism, unspecified; F41.8 Other specified anxiety disorders; Z79.899 Other long term (current) drug therapy; Z66 Do not resuscitate; R26.2 Difficulty in walking, not elsewhere classified; Z91.81 History of falling; I25.10 Atherosclerotic heart disease of native coronary artery without angina pectoris; Z95.1 Presence of aortocoronary bypass graft; Z85.44 Personal history of malignant neoplasm of other female genital organs; Z90.710 Acquired absence of both cervix and uterus; Z87.891 Personal history of nicotine dependence; B95.8 Unspecified staphylococcus as the cause of diseases classified elsewhere; G89.4 Chronic pain syndrome
CPT/HCPCS: 36415; 71046; 71260; 73502; 80048; 80053; 81001; 82803; 84484; 85025; 85379; 87077; 87088; 87186; 87502; 90662; 93005; 93010; 94761; 96361; 96374; 97110; 97116; 97162; 97165; 97530; 99285; J0696; J7040; Q9967

== ENCOUNTER 2017-08-13 14:20 | Emergency (ER) | payer MEDICARE, OTHER ==
[~2017-08-13] VITALS: Ht 167.6 cm; Wt 84.7 kg
[~2017-08-13 14:20] MED LIST changes: +ATENOLOL25 MG PO; +DICLOXACILLIN500 MG PO; +NORCO 10-325 T1 EACH PO
== END 2017-08-13 16:13 | disposition home or self-care (01) ==
LOC: ED 14:20
PROC: 0T9B70Z Drainage of Bladder with Drainage Device, Via Natural or Artificial Opening (ICD-10-PCS; principal; 2017-08-13)
DX: S72.92XD Unspecified fracture of left femur, subsequent encounter for closed fracture with routine healing (principal); E03.9 Hypothyroidism, unspecified; E78.5 Hyperlipidemia, unspecified; I25.2 Old myocardial infarction; Z87.891 Personal history of nicotine dependence; Z79.82 Long term (current) use of aspirin; Z79.899 Other long term (current) drug therapy; W19.XXXD Unspecified fall, subsequent encounter
CPT/HCPCS: 51702; 80053; 81001; 85025; 99283

== ENCOUNTER 2019-02-12 14:37 | Inpatient (IN) | payer MEDICARE, OTHER ==
[~2019-02-12] VITALS: Ht 167.6 cm; Wt 78.0 kg
--- OUTSIDE RECORDS SUMMARY | 2019-02-12 14:40 | XMS ---
PreManage Notification: ROYA LIRA Security Grapple Crew Leader Events No recent Security Events currently on file CRITERIA MET - [facility] C[facility] PROVIDERS [facility] Family [facility] 08/29/2018-Current PHONE: Unknown [facility] Case or Batch Plant Supervisor 07/14/2017-[facility] PHONE: [phone] Albert Gates MD PHONE: Unknown Dr. Petersen Primary Care David Gates MD PHONE: [phone] Estefania has no Care Guidelines for this patient. Ivette VISIT COUNT (12 MO.) 2 JEAN CARLOS Sim TOTAL 2 NOTE: Visits indicate total known visits. ED/UCC VISIT TRACKING (12 MO.) 02/12/2019 14:38 JEAN CARLOS [facility] [place] TYPE: Emergency COMPLAINT: - GROIN PAIN 08/26/2018 07:05 JE[facility] CARLOS [facility] TYPE: Emergency COMPLAINT: - HEAD LAC/GLF DIAGNOSES: - MCC (current) use of aspirin - Old myocardial infarction - Other fpc (current) drug therapy - Personal history of malignant neoplasm of ovary - Acquired absence of both cervix and uterus - Personal history of nicotine dependence - Laceration without foreign body of scalp, initial encounter - Kitchen of unspecified non-institutional (private) residence as the place of occurrence of the external cause - Anxiety disorder, unspecified - Hyperlipidemia, unspecified - Fall on same level from slipping, tripping and stumbling with subsequent striking against unspecified object, initial encounter - Gastro-esophageal reflux disease without esophagitis - Hypothyroidism, unspecified INPATIENT VISIT TRACKING (12 MO.) No inpatient visits to display in this time frame [email or web address]
--- NOTE | 2019-02-12 19:13 | NUR ---
PT ARRIVED TO THE FLOOR VIA STRETCHER WITH DAY CARE DIRECTOR. ASSESSMENT COMPLETE. PT IS ALERT AND ORIENTED, SLIGHTLY CONFUSED. PLEASANT AND COOPERATIVE. PT STATES HER ONLY PERSONAL BELONGING IS HER RING, WHICH WAS LEFT ON HER FINGER. OFFERED TO PLACE HER RING IN THE SAFE AND PT DECLINED. PT HAS HER LIFE ALERT ALARM IN HER ROOM. PT IS ABLE TO ROLL SIDE TO SIDE WITH ASSISTANCE. PT REPORTS NO PAIN, EXCEPT WHEN SHE TRIES TO AMBULATE. PT WEARS ATTENDS AT BASELINE DUE TO INCONTIENCE. DRIED FECAL MATTER ON HER HIPS. ATTEMPTED TO STRAIGHT CATH PT, GOT A FEW DROPS OF URINE, BUT NOT ENOUGH TO SAMPLE. ADVISED SOURAV RIVAS TO ATTEMPT CATH AT A LATER TIME. IVF HANGING.
--- NOTE | 2019-02-12 19:20 | NUR ---
RECEIVED REPORT FROM SOURAV PIEDRA. pt RESTING IN BED. REQUESTED SANDWICH, SEAFOOD AND SERVICE MEAT MANAGER AWARE. WHITEBOARD UPDATED. CALL LIGHT WITHIN REACH.
--- NOTE | 2019-02-12 19:38 | NUR ---
CALL LIGHT ANSWERED. PATIENT STATED SHE IS HUNGRY, DID NOT EAT SINCE BREAKFAST. ENSURE PROVIDED WHILE WAITING FOR THE ELECTRICAL SIGN SERVICER BRING THE FOOD.
--- NOTE | 2019-02-12 19:47 | NUR ---
SNACK PACK CAME AND BROUGHT TO PATIENT. PATIENT ASKED HELP TO PUT MUSTARD AND HERNDON STATED HER RIGHT HAND IS BAD. PATIENT IS EATING NOW.
--- NOTE | 2019-02-12 20:51 | NUR ---
V/S AND I&O TAKEN AND RECORDED. CHANGED BED LINEN AND ATTENDS. PATIENT IS INCONTENENT. FAMILY IN ROOM.
--- NOTE | 2019-02-12 21:30 | NUR ---
MEDICATIONS ADMINISTERED. DENIES PAIN AT THIS TIME. STRAIGHT CATH DONE FOR UA. pt TOLERATED WELL. CALL LIGHT WITHIN REACH. NO REQUESTS AT THIS TIME.
--- NOTE | 2019-02-12 21:40 | NUR ---
INSTRUMENT CALIBRATOR ROUNDING NOTE. PRIMARY RN IN ROOM TO ADMINISTER PILLS. THIS KILN LABOURER ASSISTS WITH OBTAINING CATH SAMPLE URINE. PT TOLERATED WELL. PT DENIES QUESTIONS OR CONCERNS. CALL LIGHT IN REACH. WHITE BOARD UPDATED.
--- NOTE | 2019-02-12 22:26 | NUR ---
CALL LIGHT ANSWERED. PATIENT NEEDS HELP ADJUSTING HER LEGS. DONE.
--- NOTE | 2019-02-12 22:40 | NUR ---
IV PUMP BEEPING. NEW FLUIDS HUNG AND INFUSING PER ORDERS (SEE MAR). pt DESCRIBED "ALL OVER, UNCOMFORTABLE, I JUST CAN'T GET SO I CAN SLEEP" REQUESTED PAIN MEDICATION, PRN GIVEN SINCE TYLENOL WAS RECENTLY ADMINISTERED (SEE MAR). CALL LIGHT WITHIN REACH.
--- NOTE | 2019-02-12 23:36 | NUR ---
CALLED MD WITH LAB RESULTS FROM . NEW ORDER ENTERED.
--- NOTE | 2019-02-13 | NUR ---
IV ABX HUNG AND INFUSING (SEE MAR). pt RESTING WITH EYES CLOSED, RESPIRATIONS REGULAR AND UNLABORED, RATE = 18. CALL LIGHT WITHIN REACH.
--- NOTE | 2019-02-13 01:28 | NUR ---
ROUNDED ON pt. RESTING WITH EYES CLOSED, RESPIRATIONS REGULAR AND UNLABORED, RATE = 18. CALL LIGHT WITHIN REACH.
--- NOTE | 2019-02-13 02:00 | NUR ---
VITALS AND I&O RECORDED. pt CHANGED, PERICARE DONE. ASSESSMENT DONE. DENIES PAIN AT THIS TIME. O2 SAT <90, RT INSTRUCTED IS, O2 SAT 94%. CALL LIGHT WITHIN REACH. WATER PROVIDED. POSSESSIONS WITHIN REACH.
--- NOTE | 2019-02-13 03:40 | NUR ---
CHANGED PATIENT'S ATTENDS. PATIENT IS INCONTINENT.
--- NOTE | 2019-02-13 04:48 | NUR ---
ROUNDED ON pt. RESTING WITH EYES CLOSED, RESPIRATIONS REGULAR AND UNLABORED, CALL LIGHT WITHIN REACH.
--- NOTE | 2019-02-13 05:33 | NUR ---
pt RESTED ON AND OFF DURING SHIFT. PAIN CONTROLLED WITH PRN AND SCHEDULED MEDS. INCONTENIENT OF STOOL AND URINE AT BASELINE. WEIGHT BEARING TOLERATED. LAST ORDERED BAG OF IVF INFUSING, IV ABX. USES CALL LIGHT APPROPRIATELY.
--- NOTE | 2019-02-13 06:00 | NUR ---
CHANGED ATTENDS. V/S AND I&O TAKEN AND RECORDED.
--- NOTE | 2019-02-13 06:09 | NUR ---
MEDICATION GIVEN (SEE MAR). PATIENT CHANGED. VITALS AND I&O RECORDED. BREAKFAST ORDER TAKEN. WATER PROVIDED. CALL LIGHT WITHIN REACH. NO REQUESTS AT THIS TIME.
--- NOTE | 2019-02-13 07:23 | NUR ---
RECIEVED BEDSIDE REPORT FROM SOURAV RIVAS. PT IS AWAKE AND ALERT IN BED. PT WAS INCONTIENT OVERNIGHT. STRAIGHT CATH RECIEVED AND SENT TO LAB.
--- NOTE | 2019-02-13 09:15 | NUR ---
PATIENT WITH STAFF. WILL RETURN LATER.
--- NOTE | 2019-02-13 09:25 | NUR ---
PT'S DAUGHTER BROUGHT IN A BACKPACK OF HER HOME MEDS. CALLED PHARMACY TO COME LOOK AT MEDS. MEDS AT RN STATION.
[2019-02-13] MEDS ORDERED: CITALOPRAM HBR20 MG PO (09:41)
[2019-02-13] MEDS ORDERED: TROSPIUM CHLORI20 MG PO (09:43)
[2019-02-13] MEDS ORDERED: TAMSULOSIN HCL0.4 MG PO (09:44)
[2019-02-13] MEDS ORDERED: BACTRIM DS TAB1 EACH PO (09:45)
[2019-02-13] MEDS ORDERED: VITAMIN D-32000 UNIT PO (10:26)
[2019-02-13] MEDS ORDERED: CALCIUM + VITA1 EACH PO (10:27)
[2019-02-13] MEDS ORDERED: B COMPLEX1 EACH PO (10:28)
[2019-02-13] MEDS ORDERED: POTASSIUM99 M1 PO (10:29)
[2019-02-13] MEDS ORDERED: LIQUITEARS15 ML OU (10:29)
[2019-02-13] MEDS ORDERED: PROBIOTIC1 EAC5 PO (10:30)
--- NOTE | 2019-02-13 10:31 | NUR ---
Patient's medications mostly reconciled. This pharmacist reviewed pharmacy records and physically verified patient's current home medications brought in by patient's daughter. Only additional verification needed is to determine how patient takes her gabapentin. Per daughter, she takes (8) gabapentin 300mg capsules daily. It appears that the patient splits her doses to twice daily, but I will verify that once daughter returns. She will use her own artificial tears at beside during her stay
--- NOTE | 2019-02-13 12:43 | EKG ---
[facility] [address] [place] [address] Signed Sinus rhythm with 1st degree AV block Incomplete right bundle branch block Minimal voltage criteria for LVH, may be normal variant Nonspecific T wave abnormality Abnormal ECG When compared with ECG of 29-JUL-2017 08:27, [place] interval has increased Incomplete right bundle branch block is now present Confirmed by ROMY GARCIA MD ([id number]) on 02/13/2019 12:42:52 PM Electronically Signed By: ROMY GARCIA MD 02/13/19 1243 PATIENT NAME: ROYA LIRA ISELA Electrocardiogram DATE OF : 35 PHYSICIAN: ROMY GARCIA MD REPORT #: [id number] REPORT IS CONFIDENTIAL AND NOT TO BE RELEASED WITHOUT AUTHORIZATION
--- NOTE | 2019-02-13 13:00 | NUR ---
SPOKE WITH PATIENT IN ROOM. PATIENT LIVES ALONE. IS NOT SURE HOW SHE FELL, IS UNSURE IF SHE CAUGHT HER FOOT ON WALKER OR TOOK A TURN TO FAST. PATIENT STATES SHE WANTS TO RETURN HOME EVENTUALLY BUT THAT SHE PROBABLY NEEDS TO GO TO [place] FIRST SHE DOESN'T THINK SHE CAN GET AROUND AT HOME. PATIENT STATES SHE WAS THERE BEFORE AND THEY "DID A GOOD JOB GETTING ME BACK ON MY FEET". PATIENT STATES SHE HAS FWW AND 4WW, HER 4WW IS HERE IN ROOM. DISCUSSED THAT MAYBE SHE SHOULD CONSIDER ASSISTED LIVING SO THAT SHE WOULD HAVE HELP / SHE HAS HAD A LONG HISTORY OF FALLS. SHE STATES SHE HAS BEEN THINKING OF THIS. QUESTIONS ANSWERED. SHE STATES SHE IS GOING TO HAVE HER DAUGHTER LOOK INTO SOME IN TOWN. WILL CONTINUE TO FOLLOW.
--- NOTE | 2019-02-13 14:00 | NUR ---
PT WAS SLEEPING, SOURAV PIEDRA REQUESTED I LET PT REST. WILL FOLLOW NEEDED
--- NOTE | 2019-02-13 19:03 | NUR ---
CHARGE NURSE REPORT RECEIVED FROM RASHAD. PT IN BED, NO NEEDS.
--- NOTE | 2019-02-13 19:49 | NUR ---
3 PA HELPED PATIENT USE THE BEDSIDE COMMODE USING WALKER AND GAIT BELT. CHANGED BED LINEN. PATIENT IS INCONTINENT. PATIENT IS BACK IN BED. FAMILY IN THE ROOM.
--- NOTE | 2019-02-13 19:54 | NUR ---
RECEIVED REPORT FROM DAY SHIFT RN. PATIENT ASSISTED A 3PA W/FWW, [place]IV[place] [facility] [place] HAD LARGE LOOSE BM. PATIENTS ATTEND AND BEDDING WAS SOAKED WITH URINE. PATIENTS ATTEND AND BEDDING CHANGED. PATIENTS GOWN CHANGED. AJAY CARE COMPLETED. PATIENT IS BACK IN BED RESTING. PATIENT DENIES ANY NEEDS. PATIENT DENIES ANY NEEDS. CALL LIGHT IN REACH. VISITOR AT THE BEDSIDE.
--- NOTE | 2019-02-13 21:23 | NUR ---
PATIENT IS RESTING IN BED WATCHING TV. PATIENTS ASSESMENT COMPLETED. PATIENTS VITALS TAKEN AND RECORDED. PATIENTS INTAKE AND OUPUT RECORDED. PATIENTS EVENING MEDICATIONS GIVEN PER ORDER. PATIENT DENIES ANY PAIN AT REST BUT STATED "IT GETS BAD WHEN I AM UP". PATIENT DENIES THE NEED FOR PAIN MEDICATION. NO FURTHER NEEDS NOTED AT THIS TIME. CALL LIGHT IN REACH.
--- NOTE | 2019-02-13 23:38 | NUR ---
PATIENT IS RESTING IN BED WITH EYES CLOSED, RR 17. CALL LIGHT IN REACH.
--- NOTE | 2019-02-13 23:58 | NUR ---
CALL LIGHT ANSWERED. PRIMARY RN AND THIS BILLIARD PLAYER CHANGED PATIENT'S ATTENDS.
--- NOTE | 2019-02-14 00:51 | NUR ---
PATIENTS ATTEDN CHANGED. BARRIER CREAM APPLIED. PATIENT TOLERATED ACTIVITY WELL. PATIENT DENIES ANY NEEDS. CALL LIGHT IN REACH.
--- NOTE | 2019-02-14 01:52 | NUR ---
CALL LIGHT ANSWERED. CHANGED ATTENDS/PATIENT IS INCONTINENT. ICE WATER REFILLED. PHYSICIAN LIAISON AND THIS PROGRAMS ASSISTANT REPOSITIONED PATIENT. CALL LIGHT AND TABLE IN REACH.
--- NOTE | 2019-02-14 02:25 | NUR ---
PATIENT IS RESTING IN BED WITH EYES CLOSED, RR 17. CALL LIGHT IN REACH.
--- NOTE | 2019-02-14 04:21 | NUR ---
PATIENT REPOSITIONED IN BED. PATIENTS ATTEND IS DRY AT THIS TIME. PATIENT DENIES ANY PAIN. NO NEEDS NOTED. CALL LIGHT IN REACH.
--- NOTE | 2019-02-14 04:52 | NUR ---
PATIENT CALLED AND REQUESTED HER ATTEND TO BE CHANGED. AJAY CARE COMPLETED. PATIENTS VITALS TAKEN AND RECORDED. PATIENTS INTAKE AND OUPUT RECORDED. PATIENT DENIES ANY PAIN. NO FURTHER NEEDS NOTED. CALL LIGHT IN REACH.
--- NOTE | 2019-02-14 04:53 | NUR ---
V/S AND I&O TAKEN AND CHARTED. PRIMARY RN AND THIS INSTRUCTOR EXTENSION WORK CHANGED PATIENT'S ATTENDS.
--- NOTE | 2019-02-14 05:06 | NUR ---
PATIENT RESTED ON AND OFF THROUGHOUT THE SHIFT. PATIENT IS ON A 2GM NA LIMIT DIET, TOLERATING WELL, AND NO COMPLAINTS OF NAUSEA. PATIENT ENCOURAGED TO DRINK ENSURES. PATIENT IS A 2-3PA W/FWW, PIVOT TRANSFER TO [facility] [place] PATIENT IS SL. PATIENT IS ON RA. PATIENT HAD LARGE FORMED BM X1. PATIENT HAS NO PAIN AT REST AND IT GOES UP TO 6-7 WITH MOVEMENT. PATIENT HAS DENIED THE NEED FOR PRN PAIN MEDICATION. PATIENT IS AAOX3 AND USES CALL LIGHT APPROPRIATELY.
--- NOTE | 2019-02-14 06:23 | NUR ---
PATIENTS VITALS TAKEN AND RECORDED. PATIENTS ATTEND CHANGED. PATIENTS INTAKE AND OUPUT RECORDED. PATIENT DENIES ANY PAIN AT REST. PATIENT DENIES THE NEED FOR PAIN MEDICATION AT THIS TIME. PATIENTS MORNING MEDICATIONS GIVEN PER ORDER. NO FURTHER NEEDS NOTED. CALL LIGHT IN REACH.
--- NOTE | 2019-02-14 07:25 | NUR ---
Recieved report from [place]. Pt resting quietly in bed with even and unlabored respirations. Call light within reach.
--- NOTE | 2019-02-14 08:30 | NUR ---
Pt resting quietly in bed. Pt morning medications given and assessment complete. Pt eating breakfast; armenian toast. Pt states that she normally only eats one meal a day and protein shakes for the rest of her meals. Pt currently in no pain at this time, states the only time that she gets pain is when she is up ambulating. Pt has slight redness to bilateral heels. Heel protectors placed. Call light within reach no needs/concerns at this time.
--- NOTE | 2019-02-14 10:56 | NUR ---
Pt resting in bed watching tv with no needs/concerns at this time. Pt states that she is a little sore from doing thearpy. Pt states pain is 5/10. Pt declines pain medication at this time and states that she would like to take before therapy. This nurse verified therapy time at 1400. Will administer prn pain medication at 1315. Pt agrees and does not want pain medication at this time. Call light within reach no further needs/concerns at this time.
--- NOTE | 2019-02-14 11:22 | NUR ---
Patient has been up and changed twice 3 PA early am she was transfered to the bed side [facility]. Therphy came in and GREG Castanon and GREG Palomino changed patient re positioned patient up in bed. Patient is now resting in Bed. call light in reach ADLs done by Patient with 1PA,
--- NOTE | 2019-02-14 12:40 | NUR ---
Pt up to chair reading a magazine. Pt just finished lunch; steak and states that it was very good. Pt states that she was not very hungry due to eating a large breakfast. Call light within reach. No needs/concerns at this time.
--- NOTE | 2019-02-14 13:34 | NUR ---
PT SITTING IN CHAIR-GREG DOWNS IN TAKING VS. PT KEPT BLANK EXPRESSION ON HER FACE, ANSWERED QUESTIONS AND MILDLY ENGAGED IN CONVERSATION MATTER OF FACTLY. LEFT G.POST AND EXTENDED A BLESSING. WILL FOLLOW NEEDED
--- NOTE | 2019-02-14 13:40 | NUR ---
Pt resting quietly in chair. Assessment complete and afternoon medication given. Pt waiting for physical thearpy to come in at 1400. Water refilled. Call light within reach.
--- NOTE | 2019-02-14 15:17 | NUR ---
Pt working with PT. Answered call light they need assistance with changing brief. Pt cleaned and new brief placed. Pt walking with gait belt and 2PA. Pt states that her pain is in legs 12/05. Scheduled tyelnol given. Drink glass refilled. No additional needs/concerns at this time. Call light within reach.
--- NOTE | 2019-02-14 16:04 | NUR ---
Answered call light pt needs phone to contact daughter. Phone given to pt. No further needs/concerns at this time. Call light within reach.
--- NOTE | 2019-02-14 19:40 | NUR ---
PATIENT RESTING IN BED WATCHING TV AND IN NO DISTRESS, REPOSITIONED.
--- NOTE | 2019-02-14 20:46 | NUR ---
PATIENT CHUX AND ATTENDS CHANGED DUE TO INCONTINENCE. PATIENT REPOSITIONED. PATIENT HAVING SOME NAUSEA AND GIVEN 4MG IV ZOFRAN.
--- NOTE | 2019-02-14 23:00 | NUR ---
PATIENT RESTING QUIETLY IN BED, RESPIRATIONS REGULAR AND EVEN AT 16 AND IN NO DISTRESS. EYES CLOSED.
--- NOTE | 2019-02-14 23:26 | NUR ---
PATIENT JUST INCONTINENT OF URINE AND PATIENT CLEANED AND NEW ATTENDS AND CHUX PLACED WITH GREG MOORE.
--- NOTE | 2019-02-14 23:31 | NUR ---
CALL LIGHT ANSWERED. 2 PA CHANGED PATIENT'S ATTEND. ICE WATER REFILLED.
--- NOTE | 2019-02-15 01:08 | NUR ---
PATIENT RESTING QUIETLY IN SEMI-FOWLERS POSITION, RESPIRATIONS REGULAR AND EVEN AT 16 AND IN NO DISTRESS. CALL LIGHT IN REACH.
--- NOTE | 2019-02-15 02:26 | NUR ---
CALL LIGHT ANSWERED. JOB DEVELOPER AND THIS HAND TAPPER CHANGED PATIENT'S ATTENDS.
--- NOTE | 2019-02-15 03:09 | NUR ---
PATIENT RESTING QUIETLY IN HER SEMI-FOWLERS POSITION. NO S/S OF PAIN NOTED. CALL LIGHT IN REACH.
--- NOTE | 2019-02-15 05:00 | NUR ---
PATIENT HAS RESTED WELL MOSTOFTHE NIGHT WITHJUST SOME TYLENOL FOR DISCOMFORT. INCONTITNENT A COUPLE OF TIMES AND HAD TO BE CHANGED, IS A BIT FORETFUL, BUT ALL IN ALL HAS HAD A GOOD.
--- NOTE | 2019-02-15 07:40 | NUR ---
PATIENT RESTING IN BED. FACE AND HANDS CLEANED. PATIENT'S BREAKFAST ORDERED. CALL LIGHT WITHIN REACH. NO OTHER NEEDS AT THIS TIME
--- NOTE | 2019-02-15 08:55 | NUR ---
PATIENT SITTING UP IN BED WATCHING TV. VITAL SIGNS AND I&O DONE. CALL LIGHT WITHIN REACH. NO OTHER NEEDS AT THIS TIME
[2019-02-15] MEDS ORDERED: OXYCODONE HCL5 MG PO (09:38)
[2019-02-15] MEDS ORDERED: CLONAZEPAM0.5 MG PO (09:38)
[2019-02-15] MEDS ORDERED: GABAPENTIN600 MG PO (09:38)
[2019-02-15] MEDS ORDERED: GABAPENTIN300 MG PO (09:39)
--- NOTE | 2019-02-15 09:45 | NUR ---
IN ROOM WITH PT AND SHE AND I WERE DISCUSSING IF HER DAUGHTER WAS AWARE OF THE PLAN FOR HER TO GO TO [facility] TODAY. PT STATED SHE LEFT RIGHT BEFORE THEY CAME AND SAID ANYTHING ABOUT IT. SHE SAID IF I COULD REACH THE PHONE I WOULD CALL HER. PHONE GIVEN TO PT, PT DIALED HER DAUGHTER # NO ANSWER. UNSURE IF PT LEFT A MESSAGE OF NOT FOR HER DAUGHTER.
--- NOTE | 2019-02-15 09:55 | NUR ---
FAXED ORDERS, PASRR AND RX TO [facility], RECEIVED CONFIRMATION OF FAX. ALSO ATTEMPTED TO CALL PT DAUGHTER NIYAH AT [phone], MESSAGE LEFT FOR HER TO CALL HERE.
--- NOTE | 2019-02-15 09:55 | NUR ---
PT RESTING IN BED ALERT AND ORIENTED, DAUGHTER IN RM. PT DENIES ANY PAIN WHILE LAYING IN BED. PT PRE-MEDICATED FOR PHYSICAL THERAPY. DR. SEN IN PT ROOM DISCUSSING PLAN OF CARE AND DISCHARGE TO [place]. PT ATTENDS CHANGED WITH 2 RN ASSIST. CALL LIGHT WITHIN REACH.
--- NOTE | 2019-02-15 11:00 | NUR ---
PATIENT RESTING IN BED. RN IN ROOM. ATTENDS CHANGED. TWO PERSON ASSISTING. CALL LIGHT WITHIN REACH. NO OTHER NEEDS AT THIS TIME
--- NOTE | 2019-02-15 11:24 | NUR ---
PT DRESSED AND PERSONAL BELONGINGS GATHERED FOR ANTICIPATED DISCHARGE TO [place].
--- NOTE | 2019-02-15 11:38 | NUR ---
attempted to CALL AND TALK WITH THE PT DAUGHTER NIYAH AND THE WRONG PHONE NUMBER IS IN HER ASSESSMENT SO TRIED THE NUMBER THAT IS ON THE PT FACE SHEET [phone] MESSAGE LEFT FOR HER TO CALL THIS OFFICE.
--- NOTE | 2019-02-15 13:26 | NUR ---
PATIENT SITTING UP IN WHEELCHAIR. VITAL SIGNS AND I&O DONE BEFORE TO DISCHARGE FROM THE UNIT.
== END 2019-02-15 13:25 | DRG 536 ==
LOC: ED 14:37 → MS 17:14
PROVIDERS: ADMIT Internal Medicine
DX: S32.591A Other specified fracture of right pubis, initial encounter for closed fracture (principal); N17.9 Acute kidney failure, unspecified; F13.20 Sedative, hypnotic or anxiolytic dependence, uncomplicated; I50.22 Chronic systolic (congestive) heart failure; E86.0 Dehydration; F41.9 Anxiety disorder, unspecified; G62.9 Polyneuropathy, unspecified; I10 Essential (primary) hypertension; I25.10 Atherosclerotic heart disease of native coronary artery without angina pectoris; E03.9 Hypothyroidism, unspecified; W18.30XA Fall on same level, unspecified, initial encounter; Z66 Do not resuscitate; Z79.82 Long term (current) use of aspirin; Z79.899 Other long term (current) drug therapy
CPT/HCPCS: 36415; 51701; 73502; 80048; 80053; 81001; 82565; 82570; 84300; 84520; 84540; 85025; 93005; 93010; 97110; 97116; 97162; 97165; 97535; 99285-25; J0696; J1650; J2405; J7030; J7120

== ENCOUNTER 2019-08-03 11:07 | Emergency (ER) | payer MEDICARE, OTHER ==
[~2019-08-03] VITALS: Ht 167.6 cm; Wt 80.7 kg
[~2019-08-03 11:07] MED LIST changes: +B COMPLEX1 EACH PO; +BACTRIM DS TAB1 EACH PO; +CALCIUM + VITA1 EACH PO; +GABAPENTIN600 MG PO; +LIQUITEARS15 ML OU; +OXYCODONE HCL5 MG PO; +POTASSIUM99 M1 PO; +PROBIOTIC1 EAC5 PO; +TROSPIUM CHLORI20 MG PO; +VITAMIN D-32000 UNIT PO
--- OUTSIDE RECORDS SUMMARY | 2019-08-03 11:10 | XMS ---
PreManage Notification: ROYA LIRA Security Organizational Development Specialist Events No recent Security Events currently on file CRITERIA MET - PDMP CARE PROVIDERS Name Unknown Senior Living Facility Current PHONE: [phone] [facility] 08/29/2018-Current PHONE: [phone] [facility] Case or Vessel Ordinary Seaman 07/14/2017-[facility] PHONE: [phone] Albert Gates MD PHONE: Unknown Dr. Petersen [facility] Current MD Yajaira PHONE: [phone] Estefania has no Care Guidelines for this patient. EEnrico. VISIT COUNT (12 MO.) 3 [facility] TOTAL 3 NOTE: Visits indicate total known visits. ED/UCC VISIT TRACKING (12 MO.) 08/03/2019 11:08 [facility] [place] TYPE: Emergency COMPLAINT: - BACK PAIN 02/12/2019 14:38 [facility] [place] TYPE: Emergency COMPLAINT: - GROIN PAIN 08/26/2018 07:05 [facility] [place] TYPE: Emergency COMPLAINT: - HEAD LAC/GLF DIAGNOSES: - long-term (current) use of aspirin - Old myocardial infarction - Other skilled nursing (current) drug therapy - Personal history of malignant neoplasm of ovary - Acquired absence of both cervix and uterus - Personal history of nicotine dependence - Laceration without foreign body of scalp, initial encounter - [facility] (private) residence as place - Anxiety disorder, unspecified - Hyperlipidemia, unspecified - Fall same lev from slip/trip w strike agnst [facility] obj, init - Gastro-esophageal reflux disease without esophagitis - Hypothyroidism, unspecified INPATIENT VISIT TRACKING (12 MO.) 02/12/2019 17:[address] 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 - Sedative, hypnotic or anxiolytic dependence, uncomplicated - Sedative, hypnotic or anxiolytic dependence, uncomplicated - Other intermediate project manager (current) drug therapy - Acute kidney failure, unspecified - long-term (current) use of aspirin - Acute kidney failure, unspecified - Fall on same level, unspecified, initial encounter - Fall on same level, unspecified, initial encounter - Other skilled nursing (current) drug therapy - Oth fracture of right pubis, init encntr for closed fracture - Anxiety disorder, unspecified - Chronic systolic (congestive) heart failure - long-term (current) use of aspirin - Essential (primary) hypertension - Anxiety disorder, unspecified - Essential (primary) hypertension - Polyneuropathy, unspecified - Chronic systolic (congestive) heart failure [email or web address]
[2019-08-03] MEDS ORDERED: NORCO 5-325 TA1 EACH PO (13:49)
== END 2019-08-03 15:17 | disposition home or self-care (01) ==
LOC: ED 11:07
DX: S32.029A Unspecified fracture of second lumbar vertebra, initial encounter for closed fracture (principal); S32.039A Unspecified fracture of third lumbar vertebra, initial encounter for closed fracture; S32.049A Unspecified fracture of fourth lumbar vertebra, initial encounter for closed fracture; X58.XXXA Exposure to other specified factors, initial encounter; F41.9 Anxiety disorder, unspecified; E78.5 Hyperlipidemia, unspecified; E03.9 Hypothyroidism, unspecified; K21.9 Gastro-esophageal reflux disease without esophagitis; Z87.891 Personal history of nicotine dependence; Z79.899 Other long term (current) drug therapy; Z79.82 Long term (current) use of aspirin
CPT/HCPCS: 36415; 72080; 80053; 83880; 85025; 99284-25

== ENCOUNTER 2020-03-13 13:07 | Emergency (ER) | payer OTHER, MEDICARE ==
[~2020-03-13] VITALS: Ht 167.6 cm; Wt 80.7 kg
--- OUTSIDE RECORDS SUMMARY | ~2020-03-13 | XMS | Encounter Summary ---
Demographics + + + | Address | [address] | | | [place] [address] | + + + | Home Phone | | + + + | Preferred Language | Unknown | + + + | Marital Status | | + + + | Yazdanism Affiliation | Unknown | + + + | Race | White | + + + | Ethnic Group | Not or | + + + Author + + + | Author | [facility] | + + + | Organization | [facility] | + + + | Address | Unknown | + + + | Phone | Unavailable | + + + Support + + + + + | Name | Relationship | Address | Phone | + + + + + | Papa Klein | ECON | [address] | | | | | [place] | | | | | [address] | | + + + + + Care Team Providers + +------+ + | Care Journeyman Pressman Name | Role | Phone | + +------+ + PCP | Unavailable | + +------+ + Encounter Details +--------+ + + + + | Date | Type | Department | Care Team | Description | +--------+ + + + + | 08/09/ | Discharge | [facility] Clinic at | Summary, Discharge | D/C Summary ODDS | | 2007 | Summary-Tra | [facility] [address] | | | | | nscribed | [address] | | | | | | [place] | | | | | | [facility] floor | | | | | | [place], [place] | | | | | | [address] | | | | | | [phone] | | | +--------+ + + + + Social History + +-------+ +--------+------+ | Tobacco Use | Types | Packs/Day | Years | Date | | | | | Used | | + +-------+ +--------+------+ | Never Smoker | | | | | + +-------+ +--------+------+ + + +---------+ + | Alcohol Use | Drinks/Week | oz/Week | Comments | + + +---------+ + | No | | | | + + +---------+ + + + + | Sex Assigned at | Date Recorded | | | | + + + | Not on file | | + + + documented as of this encounter Discharge Summaries Interface, Special Education Curriculum Specialist In - 10/14/2006 2:37 AM PDT [id number] SORAYA Michel [id number] Admission Date: 08/05/2006 Discharge Date: 08/09/2006 Staff Physician: Giovany Suarez M.D. Principal Final Diagnosis: Ovarian carcinoma. Additional Diagnosis: None. Principal Procedure: Exploratory laparotomy. Additional Procedures: Epidural anesthesia, general endotracheal anesthesia, total abdominal hysterectomy, bilateral salpingo-oophorectomy, omentectomy, pelvic and periaortic lymph node dissection, and peritoneal biopsies. Reason for Admission: Ms. Klein is a 71-year-old female with a history of a pelvic mass discovered incidentally on pelvic exam in April 2006. Subsequent evaluation revealed the complex mass with no evidence of any other intraabdominal disease. 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 She underwent an optimal staging of her malignancy. She tolerated the procedure well. Please see operative note for further details. Postoperatively, she did quite well. We slowly advanced her diet due to her omentectomy, but she tolerated clears and began passing flatus on postoperative day #2. She initially had an epidural for pain control, but this was discontinued on postoperative day #2, and she was transitioned to oral pain medications. Her Perez catheter was discontinued also on postoperative day #2, and she began voiding without difficulty. Her only postoperative issue was a decrease in O2 saturation on postop day #3, and this was evaluated closely but did not ultimately require augmentation with any supplementary oxygen. Her postoperative hematocrit remained stable at 31.9%, and she was asymptomatic from blood loss. By postoperative day #4, she was ambulating, voiding, tolerating a regular diet, had passed flatus and bowel movement, and her pain was well controlled with p.o. pain medications. She felt ready for discharge to home. She was discharged home in good condition. Discharge Medication(s): Oxycodone 5 mg, to be taken 1 tablet p.o. q.4-6 h. p.r.n. pain; also ibuprofen 600 mg, to be taken 1 tablet p.o. q.6 h. p.r.n. pain; and Colace 100 mg, to be taken 1 tablet p.o. b.i.d. Discharge Instruction(s): Her discharge diet will be regular. Activity will be no driving while on pain medication. No lifting greater than 15 pounds x6 weeks, no strenuous activity x6 weeks, no sexual activity x6 weeks, and no tub bath x2 weeks. Shower is okay. Stairs are okay slowly and return to work or school in 2 to 4 weeks or as tolerated. Her followup will be with her primary doctor in 4 to 5 days in [place] for staple removal and also with Dr. Suarez in 2 to 3 weeks for postoperative appointment to determine postop treatment course. Jas Faulkner M.D. Giovany Suarez M.D. [facility] / [id number] / [id number] / [id number] / [id number] Reviewed or Edited By Jas Faulkner on 08-18-2006 Electronically signed by Giovany Suarez 10-13-2006 04:22:38 PM documented in this encounter Plan of Treatment Not on filedocumented as of this encounter Visit Diagnoses Not on filedocumented in this encounter"
--- OUTSIDE RECORDS SUMMARY | ~2020-03-13 | XMS | Encounter Summary ---
Demographics + + + | Address | [address] | | | [place] [address] | + + + | Home Phone | | + + + | Preferred Language | Unknown | + + + | Marital Status | | + + + | Gnosticism Affiliation | Unknown | + + + | Race | White | + + + | Ethnic Group | Not or | + + + Author + + + | Author | [facility] | + + + | Organization | [facility] | + + + | Address | Unknown | + + + | Phone | Unavailable | + + + Support + + + + + | Name | Relationship | Address | Phone | + + + + + | Papa Klein | ECON | [address] | | | | | [place] | | | | | [address] | | + + + + + Care Team Providers + +------+ + | Care Mathematician Research Name | Role | Phone | + +------+ + PCP | Unavailable | + +------+ + Encounter Details +--------+ + + + + | Date | Type | Department | Care Team | Description | +--------+ + + + + | 03/12/ | [facility] Only | [facility] | Kaylene Bautista MD | | | 2012 | | [facility] | [address] | | | | | [address] | [address] | | | | | [address] | [place], [place] | | | | | [address] floor | [address] | | | | | [place], [place] | [phone] | | | | | [address] | | | | | | [phone] | | | +--------+ + + + [...] + + documented as of this encounter Plan of Treatment Not on filedocumented as of this encounter Visit Diagnoses Not on filedocumented in this encounter"
--- OUTSIDE RECORDS SUMMARY | ~2020-03-13 | XMS | Clinical Summary ---
Demographics + + + | Address | [address] | | | [place] [address] | + + + | Home Phone | | + + + | Preferred Language | Unknown | + + + | Marital Status | | + + + | Hinduism Affiliation | Unknown | + + + | Race | White | + + + | Ethnic Group | Not or | + + + Author + + + | Author | [facility] | + + + | Organization | [facility] | + + + | Address | Unknown | + + + | Phone | Unavailable | + + + Support + + + + + | Name | Relationship | Address | Phone | + + + + + | Papa Klein | JERONIMO | [address] | | | | | [place] | | | | | [address] | | + + + + + Care Team Providers + +------+ + | Care Psychological Operations Specialist Name | Role | Phone | + +------+ + PCP | Unavailable | + +------+ + Source Comments NANDINI is fully live on both [facility] Ambulatory and [facility] InPatient.[facility] Allergies Not on File Medications + + + +---------+------+------+-------+ | Medication | Sig | Dispensed | Refills | Star | End | Statu | | | | | | t | Date | s | | | | | | Date | | | + + + +---------+------+------+-------+ | ATENOLOL 25 MG TAB | 1 tab po daily | | 0 | | | Activ | | | | | | | | e | + + + +---------+------+------+-------+ | PRAVASTATIN 40 MG | 1 tab po bid | | 0 | | | Activ | | TAB | | | | | | e | + + + +---------+------+------+-------+ | LEVOTHYROXINE 50 | 1 tab po daily | | 0 | | | Activ | | MCG TAB | | | | | | e | + + + +---------+------+------+-------+ Active Problems Not on file Family History [...] Filed Vital Signs + + + + + | Vital Sign | Reading | Time Taken | Comments | + + + + + | Blood Pressure | 138/72 | 08/25/2006 1:05 PM | | | | | PST | | + + + + + | Pulse | - | - | | + + + + + | Temperature | 36.3 C (97.4 F) | 08/25/2006 1:05 PM | | | | | PST | | + + + + + | Respiratory Rate | - | - | | + + + + + | Oxygen Saturation | - | - | | + + + + + | Inhaled Oxygen | - | - | | | Concentration | | | | + + + + + | Weight | 76.6 kg (168 lb 12.8 | 08/25/2006 1:05 PM | | | | oz) | PST | | + + + + + | Height | 167.6 cm (5' 6") | 08/25/2006 1:05 PM | | | | | PST | | + + + + + | Body Mass Index | 27.25 | 08/25/2006 1:05 PM | | | | | PST | | + + + + + Plan of Treatment + + +-------+ + | Health Maintenance | Due Date | Last | Comments | | | | Done | | + + +-------+ + | Pneumococcal | | | | | vaccination (1 of 1 | 0 | | | | - PPSV23) | | | | + + +-------+ + | Influenza (Flu) | | | | | vaccination (#1) | 0 | | | + + +-------+ + Results Not on filefrom Last 3 Months Insurance + +--------+ +--------+ + +--------+ | Payer | Benefi | Subscriber | Effect | Phone | Address | Type | | | t Plan | ID | howard | | | | | | / | | Dates | | | | | | Group | | | | | | + +--------+ +--------+ + +--------+ | MEDICARE | MEDICA | [id number] | 09/27/19 | [phone] | [address] | [address] | | | RE A & | | 01-Pre | [address] | [phone] | | | [address] | | sent | | [place], [place] | | | | | | | | [address] | | + +--------+ +--------+ + +--------+ | COMMERCIAL | INDIVI | [id number] | | | | Indemn | | INDIVIDUAL | DUAL | 98 | 007-Pr | | | ity | | | COMMER | | esent | | | | | | CIAL | | | | | | + +--------+ +--------+ + +--------+ + +--------+ +--------+ + + | Guarantor Name | Accoun | Relation to | Date | Phone | Billing Address | | | t Type | Patient | of | | | | | | | | | | + +--------+ +--------+ + + | Shereen Klein | Person | Self [birth year] | [address] | | | al/Fam | | 1935 | [phone] | [place] [address] | | | mell | | | 6 (Home) | | + +--------+ +--------+ + +
--- OUTSIDE RECORDS SUMMARY | ~2020-03-13 | XMS | Encounter Summary ---
Demographics + + + | Address | [address] | | | [place] [address] | + + + | Home Phone | | + + + | Preferred Language | Unknown | + + + | Marital Status | | + + + | Congregational Affiliation | Unknown | + + + | Race | White | + + + | Ethnic Group | Not or | + + + Author + + + | Author | [facility] | | | and [place] | + + + | Organization | [facility] | | | and [place] | + + + | Address | Unknown | + + + | Phone | Unavailable | + + + Support + + +---------+ + | Name | Relationship | Address | Phone | + + +---------+ + | Josias Melara Ernie | ECON | Unknown | | + + +---------+ + Care Team Providers + +------+ + | Care Electrical Technician Instructor Name | Role | Phone | + +------+ + | Nicola Gates | PCP | | | MD | | | + +------+ + Encounter Details +--------+ + + + + | Date | Type | Department | Care Team | Description | +--------+ + + + + | /15/ | Orders Only | [facility] | Conversion | | | 2019 | | CONVERSION [address] | Transaction, | | | | | [address] | Provider Unknown | | | | | [place], [place] | [phone] | | | | | [address] | | | | | | [phone] | | | +--------+ + + + + Social History + +-------+ +--------+------+ | Tobacco Use | Types | Packs/Day | Years | Date | | | | | Used | | + +-------+ +--------+------+ | Never Assessed | | | | | + +-------+ +--------+------+ + + + | Sex Assigned at | Date Recorded | | | | + + + | Not on file | | + + + documented as of this encounter Plan of Treatment Not on filedocumented as of this encounter Visit Diagnoses Not on filedocumented in this encounter"
--- OUTSIDE RECORDS SUMMARY | ~2020-03-13 | XMS | Encounter Summary ---
Demographics + + + | Address | [address] | | | [place] [address] | + + + | Home Phone | | + + + | Preferred Language | Unknown | + + + | Marital Status | | + + + | Yazidi Affiliation | Unknown | + + + | Race | White | + + + | Ethnic Group | Not or | + + + Author + + + | Author | [facility] | + + + | Organization | [facility] | + + + | Address | Unknown | + + + | Phone | Unavailable | + + + Support + + + + + | Name | Relationship | Address | Phone | + + + + + | Papa Klein | ECON | [address] | | | | | [place] | | | | | [address] | | + + + + + Care Team Providers + +------+ + | Care Roll On Worker Name | Role | Phone | + +------+ + PCP | Unavailable | + +------+ + Encounter Details +--------+ + + + + | Date | Type | Department | Care Team | Description | +--------+ + + + + | 08/05/ | Hospital | Registration 3181 | Giovany Suarez, | | | 2006 | Activity | [address] | Obstetrics and | | | | | Rafael Mailcode: [id number] | [facility] [address] | | | | | [place] | [address] | | | | | [address] | [place], [place] | | | | | [phone] | [address] | | | | | | [phone] | | +--------+ + + + + [...] Not on filedocumented as of this encounter Procedures + +--------+ + + + | Procedure Name | Priori | Date/Time | Associated Diagnosis | Comments | | | ty | | | | + +--------+ + + + | SPECIMEN ROUTING | Routin | 08/08/2006 | | Results for this | | | e | 10:31 AM | | procedure are in the | | | | PST | | results section. | + +--------+ + + + | CULTURE, VRE SCREEN | Routin | 08/08/2006 | | Results for this | | ONLY | e | 10:30 AM | | procedure are in the | | | | PST | | results section. | + +--------+ + + + | BASIC METABOLIC SET | Routin | 08/06/2006 | | Results for this | | (NA, K, CL, TCO2, | e | 6:28 AM | | procedure are in the | | BUN, CR, GLU, CA) | | PST | | results section. | + +--------+ + + + | CBC ONLY | Routin | 08/06/2006 | | Results for this | | | e | 6:28 AM | | procedure are in the | | | | PST | | results section. | + +--------+ + + + | TYPE AND SCREEN | Urgent | 08/05/2006 | | Results for this | | | | 6:30 AM | | procedure are in the | | | | PST | | results section. | + +--------+ + + + | NON VIDEO GAME ANIMATOR CYTOLOGY | Routin | 08/05/2006 | | Results for this | | | e | | | procedure are in the | | | | | | results section. | + +--------+ + + + | SURGICAL PATHOLOGY | Routin | 08/05/2006 | | Results for this | | | e | | | procedure are in the | | | | | | results section. | + +--------+ + + + documented in this encounter Results SPECIMEN ROUTING (08/08/2006 10:31 AM PST) + + + + + + | Component | Value | Ref Range | Performed | Pathologist | | | | | At | Signature | + + + + + + | SAMPLE | Rectal Swab | | [facility] | | | TYPE-ROUTIN | | | DEPARTMENT | | | G | | | OF | | | | | | PATHOLOGY | | + + + + + + | TEST | VRE PCR | | [facility] | | | REQUESTED | | | DEPARTMENT | | | | | | OF | | | | | | PATHOLOGY | | + + + + + + | SENT TO | [facility] | | [facility] | | | | [id number] | | DEPARTMENT | | | | [place], [facility], | | [place] | | | | [place] [address] | | PATHOLOGY | | + + + + + + + + | Specimen | + + | | + + + + + + + | Performing | Address | City/State/Zipcode | Phone Number | | Organization | | | | + + + + + | [facility] | [facility] | [place] [address] | | | PATHOLOGY | [address] | | | + + + + + | [facility] | [address] [facility] | [place] [address] | | | PATHOLOGY | [address] | | | + + + + + CULTURE, VRE SCREEN ONLY (08/08/2006 10:30 AM PST) + + + + + + | Component | Value | Ref Range | Performed | Pathologist | | | | | At | Signature | + + + + + + | SOURCE BODY | Rectal Swab | | | | | SITE | | | | | + + + + + + | CULTURE | VRE Screen | | | | | RESULT | Source...............: | | | | | | Rectal Swab | | | | | | Culture: Vancomycin | | | | | | Resistant Enterococci | | | | | | NOT Isolated. Final | | | | | | ReportComment: Test | | | | | | performed at [place] | | | | | | [facility] | | | | | | Laboratory. | | | | + + + + + + + + | Specimen | + + | | + + + + + + + | Performing | Address | City/State/Zipcode | Phone Number | | Organization | | | | + + + + + | [facility] | [address] | [place] [address] | | | LAB-MICRO | | | | + + + + + BASIC METABOLIC SET (08/06/2006 6:28 AM PST) + +---------+ + + + | Component | Value | Ref Range | Performed | Pathologist | | | | | At | Signature | + +---------+ + + + | GLUCOSE, | 110 | 65 - 110 mg/dL | [facility] | | | PLASMA | | | DEPARTMENT | | | (LAB) | | | OF | | | | | | PATHOLOGY | | + +---------+ + + + | BUN, PLASMA | 7 | 6 - 20 mg/dL | [facility] | | | (LAB) | | | DEPARTMENT | | | | | | OF | | | | | | PATHOLOGY | | + +---------+ + + + | CREATININE | 1.1 | 0.6 - 1.1 mg/dL | [facility] | | | PLASMA | | | DEPARTMENT | | | (LAB) | | | OF | | | | | | PATHOLOGY | | + +---------+ + + + | SODIUM, | 139 | 136 - 145 | [facility] | | | PLASMA | | mmol/L | DEPARTMENT | | | (LAB) | | | OF | | | | | | PATHOLOGY | | + +---------+ + + + | POTASSIUM, | 3.9 | 3.5 - 5.1 | [facility] | | | PLASMA | | mmol/L | DEPARTMENT | | | (LAB) | | | OF | | | | | | PATHOLOGY | | + +---------+ + + + | CHLORIDE, | 109 (H) | 98 - 107 mmol/L | [facility] | | | PLASMA | | | DEPARTMENT | | | (LAB) | | | OF | | | | | | PATHOLOGY | | + +---------+ + + + | TOTAL CO2, | 25 | 23 - 29 mmol/L | [facility] | | | PLASMA | | | DEPARTMENT | | | (LAB) | | | OF | | | | | | PATHOLOGY | | + +---------+ + + + | CALCIUM, | 8.3 (L) | 8.5 - 10.5 | [facility] | | | PLASMA | | mg/dL | DEPARTMENT | | | (LAB) | | | OF | | | | | | PATHOLOGY | | + +---------+ + + + + + | Specimen | + + | | + + + + + + + | Performing | Address | City/State/Zipcode | Phone Number | | Organization | | | | + + + + + | [facility] | [address] | [place] [address] | | | PATHOLOGY | [address] | | | + + + + + | [facility] | [address] | [place] [address] | | | PATHOLOGY | [address] | | | + + + + + CBC ONLY WITH PLATELET (08/06/2006 6:28 AM PST) + + + + + + | Component | Value | Ref Range | Performed | Pathologist | | | | | At | Signature | + + + + + + | WHITE CELL | 11.0 | 4.4 - 11.0 K/cu | [facility] | | | COUNT | | mm | DEPARTMENT | | | | | | OF | | | | | | PATHOLOGY | | + + + + + + | RED CELL | 3.69 (L) | 4.00 - 5.20 | [facility] | | | COUNT | | M/cu mm | DEPARTMENT | | | | | | OF | | | | | | PATHOLOGY | | + + + + + + | HEMOGLOBIN | 10.8 (L) | 12.0 - 16.0 | [facility] | | | | | g/dL | DEPARTMENT | | | | | | OF | | | | | | PATHOLOGY | | + + + + + + | HEMATOCRIT | 31.9 (L) | 36.0 - 46.0 % | [facility] | | | | | | DEPARTMENT | | | | | | OF | | | | | | PATHOLOGY | | + + + + + + | MCV | 86.5 | 80.0 - 96.0 fL | [facility] | | | | | | DEPARTMENT | | | | | | OF | | | | | | PATHOLOGY | | + + + + + + | MCHC | 33.8 | 33.4 - 35.5 | [facility] | | | | | g/dL | DEPARTMENT | | | | | | OF | | | | | | PATHOLOGY | | + + + + + + | RDW | 15.5 (H) | 11.5 - 15.0 % | [facility] | | | | | | DEPARTMENT | | | | | | OF | | | | | | PATHOLOGY | | + + + + + + | PLATELET | 218 | 150 - 400 K/cu | [facility] | | | COUNT | | mm | DEPARTMENT | | | | | | OF | | | | | | PATHOLOGY | | + + + + + + + + | Specimen | + + | | + + + + + + + | Performing | Address | City/State/Zipcode | Phone Number | | Organization | | | | + + + + + | [facility] | [address] [facility] | [place] [address] | | | PATHOLOGY | [address] | | | + + + + + | [facility] | [address] [facility] | [facility] [place] [address] | | | PATHOLOGY | [address] | | | + + + + + TYPE AND SCREEN (08/05/2006 6:30 AM PST) + +-------+ + + + | Component | Value | Ref Range | Performed | Pathologist | | | | | At | Signature | + +-------+ + + + | ABO GROUP | A | | [facility] | | | | | | DEPARTMENT | | | | | | OF | | | | | | PATHOLOGY | | + +-------+ + + + | RH TYPE | POS | | [facility] | | | | | | DEPARTMENT | | | | | | OF | | | | | | PATHOLOGY | | + +-------+ + + + | ANTIBODY | NEG | | [facility] | | | SCREEN | | | DEPARTMENT | | | | | | OF | | | | | | PATHOLOGY | | + +-------+ + + + + + | Specimen | + + | | + + + + + | Narrative | Performed At | + + + | Instrument Testing Instrument Testing | [facility] | | | DEPARTMENT OF | | | PATHOLOGY | + + + + + + + + | Performing | Address | City/State/Zipcode | Phone Number | | Organization | | | | + + + + + | [facility] | [address] | [place] [address] | | | PATHOLOGY | [address] | | | + + + + + | [facility] | [address] [place] [address] | [place] [address] | | | PATHOLOGY | [address] | | | + + + + + NON-VIDEO GAME ANIMATOR CYTOLOGY (08/05/2006) + + + + + + | Component | Value | Ref Range | Performed | Pathologist | | | | | At | Signature | + + + + + + | NON-VIDEO GAME ANIMATOR | SOURCE OF SPECIMEN:A | | [facility] | | | CYTOLOGY | Peritoneal fluid | | DEPARTMENT | | | | washingsGROSS | | OF | | | | DESCRIPTION: 70 ml | | PATHOLOGY | | | | bloody fluid: 1 | | | | | | [employer] slide and a | | | | | | cell | | | | | | blockprepared.CLINICAL | | | | | | HISTORY: None given | | | | | | Diagnosis:Positive for | | | | | | malignancy - | | | | | | adenocarcinoma. | | | | | | Adequacy:Satisfactory | | | | | | for evaluation. The | | | | | | diagnosis is based on | | | | | | gross and microscopic | | | | | | examinations. It was | | | | | | madeby the attending | | | | | | pathologist after review | | | | | | of all microscopic | | | | | | slides. Body Site:Pelvic | | | | | | cavity Specimen | | | | | | Type:Washing Specimen | | | | | | Description:70 ml bloody | | | | | | fluid: 1 [employer] | | | | | | slide and a cell block | | | | | | prepared. Specimen: A. | | | | | | Peritoneal fluid | | | | | | washings Final | | | | | | Cytologic | | | | | | Diagnosis:Rendering | | | | | | Diagnostician: Derrick | | | | | | Veyliotti | | | | | | CT([facility])Electric Lineman | | | | | | Electronically Signed | | | | | | 08/06/2006Rendering | | | | | | Diagnostician: Malcolm | | | | | | Dontrell Gamboa, | | | | | | Ph.DPathologistElectroni | | | | | | taylor Signed 08/06/2006 | | | | + + + + + + + + | Specimen | + + | | + + + + + + + | Performing | Address | City/State/Zipcode | Phone Number | | Organization | | | | + + + + + | [facility] | [address] [place] [address] | [place] [address] | | | PATHOLOGY | [address] | | | + + + + + | [facility] | [address] [place] [address] | [place] [address] | | | PATHOLOGY | [address] | | | + + + + + SURGICAL PATHOLOGY (08/05/2006) + + + + + + | Component | Value | Ref Range | Performed | Pathologist | | | | | At | Signature | + + + + + + | SURGICAL | SOURCE OF SPECIMEN:A | | [facility] | | | PATHOLOGY | Peritoneal Fluid, Sent | | DEPARTMENT | | | | to CytologySOURCE OF | | OF | | | | SPECIMEN:B Left ovary | | PATHOLOGY | | | | and fallopian | | | | | | yvbi-TW-lieu out | | | | | | cancerSOURCE OF | | | | | | SPECIMEN:C Uterus, right | | | | | | ovary and fallopian | | | | | | tubeSOURCE OF SPECIMEN:D | | | | | | OmentumSOURCE OF | | | | | | SPECIMEN:E Left pelvic | | | | | | peritoneal biopsySOURCE | | | | | | OF SPECIMEN:F Right | | | | | | pelvic peritoneal | | | | | | biopsySOURCE OF | | | | | | SPECIMEN:G Bladder | | | | | | peritoneal biopsySOURCE | | | | | | OF SPECIMEN:H Left | | | | | | pelvic lymph nodesSOURCE | | | | | | OF SPECIMEN:I Right | | | | | | pelvic lymph nodesSOURCE | | | | | | OF SPECIMEN:J Right | | | | | | ovarian veinSOURCE OF | | | | | | SPECIMEN:K Periaortic | | | | | | lymph nodes Final | | | | | | Pathologic Diagnosis:A: | | | | | | Peritoneal fluid: | | | | | | - Positive for | | | | | | malignancy Cytology | | | | | | ([id number])B: Left | | | | | | ovary and fallopian | | | | | | tube, | | | | | | salpingo-oophorectomy: | | | | | | - 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, grade 3 | | | | | | of 3 (see Staging | | | | | | Summary) - | | | | | | Fallopian tube with no | | | | | | diagnostic abnormalityC: | | | | | | Uterus, right ovary, | | | | | | and fallopian tube, | | | | | | hysterectomy and | | | | | | unilateralsalpingo-oopho | | | | | | rectomy: - Cervix | | | | | | with no diagnostic | | | | | | abnormality - | | | | | | 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 - | | | | | | 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 - | | | | | | Right ovary negative for | | | | | | malignancy - | | | | | | Fallopian tube with no | | | | | | diagnostic abnormalityD: | | | | | | Omentum, resection: | | | | | | - Omentum with no | | | | | | diagnostic abnormalityE: | | | | | | Left pelvic | | | | | | peritoneal, biopsy: | | | | | | - Fibroconnective | | | | | | tissue, negative for | | | | | | malignancyF: Right | | | | | | pelvic peritoneal, | | | | | | biopsy: - | | | | | | Fibroconnective tissue, | | | | | | negative for | | | | | | malignancyG: Bladder | | | | | | peritoneal, biopsy: | | | | | | - Dense | | | | | | fibroconnective tissue, | | | | | | negative for | | | | | | malignancyH: Lymph | | | | | | node, left pelvic, | | | | | | dissection: - | | | | | | Twelve lymph nodes, | | | | | | negative for malignancy | | | | | | (0/12)I: Lymph node, | | | | | | right pelvic, | | | | | | dissection: - | | | | | | Sixteen lymph nodes, | | | | | | negative for malignancy | | | | | | (0/16)J: Right ovarian | | | | | | vein, biopsy: - | | | | | | Vascular connective | | | | | | tissue, negative for | | | | | | malignancyK: Lymph | | | | | | node, periaortic, | | | | | | biopsy: - One | | | | | | lymph node, negative for | | | | | | malignancy (0/1) Ovary | | | | | | Cancer SynopsisSpecimens | | | | | | InvolvedSpecimens: | | | | | | B: Left ovary and | | | | | | fallopian twod-OW-nnzq | | | | | | out cancerSpecimen Type: | | | | | | Left | | | | | | salpingo-oophorectomyPri | | | | | | jeff tumor site: Left | | | | | | ovaryGrowth: | | | | | | Parenchymal | | | | | | growthSpecimen | | | | | | integrity: IntactTumor | | | | | | size greatest dimension: | | | | | | 14 cmHistologic Type: | | | | | | Serous, | | | | | | carcinomaHistologic | | | | | | Grade: G3: Poorly | | | | | | differentiatedAJCC Stage | | | | | | (pTNM- FIGO)Primary | | | | | | Tumor (pT): pT1c | | | | | | (IC)Regional Lymph Nodes | | | | | | (pN): mV7Vxcswp of | | | | | | regional nodes | | | | | | involved: 0Number of | | | | | | regional nodes examined: | | | | | | 29Distant Metastasis | | | | | | (pM): pMX: Cannot be | | | | | | assessedImplants | | | | | | (borderline tumors): Not | | | | | | applicable/none | | | | | | sampledOrgans/Tissues | | | | | | Microscopically involved | | | | | | by tumor: One | | | | | | ovaryAngiolymphatic | | | | | | Invasion: Absent Case | | | | | | reviewed by:Calixto | | | | | | Jim /Student | | | | | | FellowMalcolm Jon, | | | | | | MUrbano, Ph.D. | | | | | | /PathologistT:08/09/06 | | | | | | I have reviewed all | | | | | | diagnostic slides and | | | | | | have edited the gross | | | | | | and/ormicroscopic | | | | | | portion of this report | | | | | | as part of my pathologic | | | | | | assessment andfinal | | | | | | diagnosis. Frozen | | | | | | Section Diagnosis:Left | | | | | | ovary and fallopian tube | | | | | | (specimen B): - | | | | | | Adenocarcinoma, favor | | | | | | papillary serous | | | | | | adenocarcinoma Confirmed | | | | | | by: Tu Pires, | | | | | | Student Fellow and | | | | | | Jonny Winn | | | | | | Cooper Wyman, Ph.D. / | | | | | | Pathologist Clinical | | | | | | History:71-year-old | | | | | | female with pelvic mass. | | | | | | Per LCR: Imaging of | | | | | | the massdemonstrated a | | | | | | 10 cm solid mass located | | | | | | adjacent to the fundus | | | | | | of theuterus. Gross | | | | | | Description:Eleven | | | | | | specimens are received | | | | | | fresh in containers with | | | | | | the patient'sinitials | | | | | | PD. A: Peritoneal | | | | | | fluid washings: | | | | | | Specimen sent to | | | | | | Cytology. B: Left | | | | | | ovary and fallopian | | | | | | tube, FS: Received is | | | | | | a | | | | | | 367.0-grammultilobulated | | | | | | , predominantly solid, | | | | | | well circumscribed, | | | | | | dusky red-purplemass | | | | | | that measures 14.0 x | | | | | | 11.0 x 8.0 cm. There | | | | | | is an attached | | | | | | fallopiantube with | | | | | | mesovarian and | | | | | | mesosalpingeal tissue | | | | | | measuring 7.0 cm in | | | | | | length x0.6 cm in | | | | | | diameter. The serosa | | | | | | is dusky red-purple. | | | | | | The specimen is | | | | | | inkedand sectioned to | | | | | | reveal a predominantly | | | | | | solid, lobular mass with | | | | | | focalfluid-filled cysts | | | | | | containing | | | | | | serosanguineous fluid. | | | | | | The solid componenthas | | | | | | a granular, homogeneous | | | | | | floyd cut surface with a | | | | | | bulging, focally | | | | | | friableappearance. | | | | | | There are hemorrhagic | | | | | | and gross necrotic foci. | | | | | | The cysticcomponents | | | | | | reveal focal | | | | | | excrescences having a | | | | | | papillary, granular, | | | | | | floyd-pinkappearance that | | | | | | measures up to 3.0 x 1.5 | | | | | | x 1.0 cm. No obvious | | | | | | residualovarian | | | | | | parenchyma is | | | | | | identified. Sectioning | | | | | | of the fallopian tube | | | | | | revealsno obvious | | | | | | lesions, and there is a | | | | | | thin-walled cyst | | | | | | containing clear | | | | | | serousfluid within the | | | | | | mesosalpingeal tissue | | | | | | that measures 0.9 x 0.8 | | | | | | x 0.6 cm.The cyst has a | | | | | | smooth inner lining, and | | | | | | the wall averages less | | | | | | than 0.1 cmthick. | | | | | | Portions of the mass | | | | | | are submitted for Tumor | | | | | | Bank. | | | | | | Representativesections | | | | | | are submitted. C: | | | | | | Uterus and right ovary | | | | | | and fallopian tube: | | | | | | Received is a | | | | | | 59.0-gram,8.0 (SI) x 4.0 | | | | | | (ML) x 3.0 (AP)-cm | | | | | | uterus with attached | | | | | | right adnexa andcervix. | | | | | | The serosa is smooth, | | | | | | dusky red-purple. The | | | | | | cervix measures 3.0(ML) | | | | | | x 2.7 (AP) cm. The | | | | | | exocervix is | | | | | | predominantly smooth | | | | | | lerner-white withfocal | | | | | | hemorrhage noted from | | | | | | 5:00-9:00. The os | | | | | | appears pinpoint | | | | | | andstenotic and measures | | | | | | 0.2 cm in greatest | | | | | | dimension. The outer | | | | | | endocervicaltissues are | | | | | | inked. On opening, the | | | | | | endocervical canal is | | | | | | patent andgrossly | | | | | | unremarkable. The | | | | | | endometrial cavity | | | | | | measures 3.4 cm in | | | | | | length and2.6 cm in | | | | | | width. The endometrium | | | | | | is smooth, floyd, and | | | | | | averages less than0.1 cm | | | | | | thick. The myometrium | | | | | | averages 1.5 cm thick | | | | | | and on sectioningreveals | | | | | | ten intramural, well | | | | | | circumscribed nodules, | | | | | | each with a | | | | | | whorled,bulging, | | | | | | lerner-white, floyd cut | | | | | | surface consistent with | | | | | | myomata, ranging from0.2 | | | | | | x 0.2 x 0.2 cm to 1.0 x | | | | | | 0.7 x 0.7 cm. No | | | | | | areas of hemorrhage | | | | | | orsoftening consistent | | | | | | with necrosis are noted. | | | | | | The right fallopian | | | | | | tubemeasures 8.5 cm in | | | | | | length x 0.3 cm in | | | | | | diameter with a dusky | | | | | | red-purple,smooth | | | | | | serosa. There is a | | | | | | paratubal, thin-walled | | | | | | cyst containing | | | | | | clearserous fluid that | | | | | | measures 2.0 x 1.7 x1.2 | | | | | | cm. The inner lining | | | | | | of the cyst is smooth | | | | | | with a wall averaging | | | | | | lessthan 0.1 cm thick. | | | | | | The right ovary | | | | | | measures 2.5 x 1.5 x 0.8 | | | | | | cm with aslightly | | | | | | nodular, pale floyd, | | | | | | unremarkable serosal | | | | | | surface. | | | | | | Sectioningreveals an | | | | | | unremarkable cut | | | | | | surface. The attached | | | | | | mesovarian | | | | | | andmesosalpingeal | | | | | | tissues are | | | | | | unremarkable. | | | | | | [employer] | | | | | | sections aresubmitted. | | | | | | D: Omentum: Received | | | | | | is a 43.0 x 11.2 x | | | | | | 1.3-cm finely lobulated, | | | | | | goldenyellow, fatty | | | | | | tissue consistent with | | | | | | omentum. Sectioning | | | | | | and palpationreveals no | | | | | | obvious lesions. The | | | | | | specimen has a finely | | | | | | lobulated, fatty | | | | | | cutsurface. | | | | | | [employer] Super[employer] | | | | | | sections are submitted. | | | | | | E: Left pelvic | | | | | | peritoneal biopsy: | | | | | | Received is a 3.8 x | | | | | | 1.2 x 0.1-cmirregular | | | | | | tissue. One aspect is | | | | | | smooth, dusky congested | | | | | | red-purple, andthe | | | | | | opposite is rough with | | | | | | areas of cautery. No | | | | | | obvious lesions | | | | | | arepalpated, and the | | | | | | specimen is entirely | | | | | | submitted. F: Right | | | | | | pelvic peritoneal | | | | | | biopsy: Received is a | | | | | | 2.8 x 1.8 x | | | | | | 0.8-cmirregular tissue. | | | | | | One aspect is | | | | | | predominantly smooth, | | | | | | congested | | | | | | duskyred-purple. The | | | | | | opposite has extensive | | | | | | cautery. Sectioning | | | | | | and palpationreveals no | | | | | | obvious lesions. The | | | | | | specimen is submitted in | | | | | | toto. G: Bladder | | | | | | peritoneal biopsy: | | | | | | Received are two | | | | | | irregular, | | | | | | translucenttissues, each | | | | | | with one aspect having | | | | | | a smooth appearance | | | | | | consistent | | | | | | withperitoneum, | | | | | | measuring 1.0 x 0.5 x | | | | | | 0.2 cm and 2.2 x 1.0 x | | | | | | 0.2 cm. | | | | | | Palpationreveals no | | | | | | suspicious areas of | | | | | | induration, and the | | | | | | specimen is submitted | | | | | | intoto. H: Left pelvic | | | | | | lymph nodes: Received | | | | | | are multiple irregular, | | | | | | yellow,lobular to dusky | | | | | | purple, fatty tissues | | | | | | that measure 6.0 x 4.5 x | | | | | | 2.0 cm inaggregate. | | | | | | Sectioning and | | | | | | palpation reveals seven | | | | | | possible pale | | | | | | floyd-yellowlymph nodes | | | | | | ranging from 0.8 x 0.6 x | | | | | | 0.3 cm to 2.5 x 1.5 x | | | | | | 1.0 cm. Alllymphoid | | | | | | tissue is submitted in | | | | | | toto. I: Right pelvic | | | | | | lymph nodes: Received | | | | | | are multiple irregular, | | | | | | yellow,lobular to dusky | | | | | | purple, fatty tissues | | | | | | measuring 6.2 x 4.8 x | | | | | | 2.0 cm inaggregate. | | | | | | Sectioning and | | | | | | palpation reveals | | | | | | possible | | | | | | [id number] | | | | | | lymph nodes, ranging | | | | | | from 0.5 x 0.4 x 0.3 cm | | | | | | to 3.0 x 1.5 x0.8 cm. | | | | | | All lymphoid tissue is | | | | | | submitted in toto. J: | | | | | | Right ovarian vein: | | | | | | Received is a 6.3 cm | | | | | | in length portion of | | | | | | vesselaveraging 0.5 cm | | | | | | in diameter. No | | | | | | orientation is given to | | | | | | the specimen, andthe | | | | | | adventitia has a | | | | | | moderate amount of | | | | | | attached focally | | | | | | hemorrhagic | | | | | | fat.Sectioning reveals | | | | | | the vessel to have an | | | | | | unremarkable lumen. | | | | | | Thesurrounding soft | | | | | | tissues are | | | | | | unremarkable. Specimen | | | | | | is entirely | | | | | | submittedsequentially. | | | | | | K: Periaortic lymph | | | | | | nodes: Received are | | | | | | multiple yellow, lobular | | | | | | to duskyred-purple, | | | | | | fatty tissues that | | | | | | measure 4.0 x 3.3 x 1.8 | | | | | | cm in aggregate. | | | | | | Sectioning and palpation | | | | | | reveals two possible | | | | | | pale floyd-pink lymph | | | | | | nodesmeasuring 0.5 x 0.5 | | | | | | x 0.4 cm and 1.2 x 0.6 | | | | | | x 0.4 cm. All lymphoid | | | | | | tissueis submitted in | | | | | | toto. Cassette Index:A: | | | | | | Peritoneal fluid | | | | | | washings:Sent to | | | | | | CytologyB: Left ovary | | | | | | and fallopian tube, | | | | | | FS:B1, frozen section | | | | | | residueB2, fallopian | | | | | | tube with mesovarian and | | | | | | mesosalpingeal | | | | | | tissueB3, remnant of | | | | | | attached round | | | | | | ligamentB4-10, massC: | | | | | | Uterus and right ovary | | | | | | and fallopian tube:C1, | | | | | | anterior cervixC2, | | | | | | posterior cervix and | | | | | | posterior serosaC3, | | | | | | anterior endomyometrium | | | | | | with leiomyomaC4, | | | | | | posterior | | | | | | endomyometriumC5, six | | | | | | possible leiomyomataC6, | | | | | | four possible | | | | | | leiomyomataC7, entire | | | | | | bisected right ovaryC8, | | | | | | right fallopian tube | | | | | | with mesovarian and | | | | | | mesosalpingeal tissueC9, | | | | | | right parametrial | | | | | | alxjwrX01, left | | | | | | parametrial tissueD: | | | | | | Omentum:D1-3E: Left | | | | | | pelvic peritoneal | | | | | | biopsy:E1F: Right | | | | | | pelvic peritoneal | | | | | | biopsy:F1G: Bladder | | | | | | peritoneal biopsy:G1H: | | | | | | Left pelvic lymph | | | | | | nodes:H1, three possible | | | | | | lymph nodesH2, two | | | | | | possible lymph nodesH3, | | | | | | one possible bisected | | | | | | lymph nodeH4-5, one | | | | | | possible lymph nodeI: | | | | | | Right pelvic lymph | | | | | | nodes:I1, four possible | | | | | | lymph nodesI2, one | | | | | | possible bisected lymph | | | | | | nodeI3, one possible | | | | | | bisected lymph nodeI4, | | | | | | one possible bisected | | | | | | lymph nodeI5, one | | | | | | possible bisected lymph | | | | | | nodeJ: Right ovarian | | | | | | vein:J1-3, sequential | | | | | | sectionsK: Periaortic | | | | | | lymph nodes:K1, two | | | | | | possible lymph | | | | | | nodesJK:JOSEPHD:labRendering | | | | | | Diagnostician: Malcolm | | | | | | Dontrell Gamboa, | | | | | | Ph.DPathologistElectroni | | | | | | taylor Signed 08/09/2006 | | | | + + + + + + + + | Specimen | + + | | + + + + + + + | Performing | Address | City/State/Zipcode | Phone Number | | Organization | | | | + + + + + | [facility] | [address] | [place] [address] | | | PATHOLOGY | [address] | | | + + + + + | [facility] | [address] | [place] [address] | | | PATHOLOGY | [address] | | | + + + + + documented in this encounter Visit Diagnoses Not on filedocumented in this encounter"
--- OUTSIDE RECORDS SUMMARY | ~2020-03-13 | XMS | Encounter Summary ---
Demographics + + + | Address | [address] | | | [place] [address] | + + + | Home Phone | | + + + | Preferred Language | Unknown | + + + | Marital Status | | + + + | Nondenominational Affiliation | Unknown | + + + | Race | White | + + + | Ethnic Group | Not or | + + + Author + + + | Author | [facility] | + + + | Organization | [facility] | + + + | Address | Unknown | + + + | Phone | Unavailable | + + + Support + + + + + | Name | Relationship | Address | Phone | + + + + + | Papa Klein | ECON | [address] | | | | | [place] | | | | | [address] | | + + + + + Care Team Providers + +------+ + | Care Astro Technician Name | Role | Phone | + +------+ + PCP | Unavailable | + +------+ + Reason for Visit + + + | Reason | Comments | + + + | Cancer of ovary | | + + + Encounter Details +--------+---------+ + + + | Date | Type | Department | Care Team | Description | +--------+---------+ + + + | 08/25/ | Office | [facility] | Cappuccini, Giovany, | Ovarian Cancer (HCC) | | 2006 | Visit | [facility] | Obstetrics and | (Primary Dx) | | | | [address] | Gynecology [address] | | | | | [address] | [address] | | | | | [address], [address]th floor | [place], [place] | | | | | [place], [place] | [address] | | | | | [address] | [phone] | | | | | [phone] | | | +--------+---------+ + + + Social History + +-------+ [...] + + documented as of this encounter Last Filed Vital Signs + + + [...] + + + documented in this encounter Progress Notes Joi Augustin - 08/25/2006 2:09 PM PST Shereen Klein is a 71 y.o. female here for chemotherapy consult and discussion of her pa thology. She had surgical staging on August 05, 2006. 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 She is without complaint today--she feels she has recovered well from surgery. For full review of systems completed today, see below. Review of systems: fever-no, fatigue-no, nausea/vomiting-no, anorexia-no, changes in taste -no, stomatitis-no, irregular heart beat-no, abdominal/pelvic pain-yes, mild, constipation-n o, diarrhea-no, vaginal bleeding-no, rectal bleeding-no, peripheral neuropathy-no, bone pain /myalgia-no, plantar/palmar erythema-no, other-diffuse firm feeling in abdomen. Physical Exam: BP 138/72 | Temp (Src) 97.4 F (36.3 C) (Oral) | Ht 1.676 m (5' 6") | Wt 76.567 kg (168 lbs 12.8 oz) | LMP Hysterectomy General: well-appearing, pleasant, appears younger than stated age. Skin: warm, dry, some superficial scaling on abdomen, without lesions. Lymph nodes: peripheral lymph node survey is negative. Lungs: clear to auscultation in all le. Heart: regular rate, rhythm with no murmur. Abdomen: Soft, some tenderness in lower quadrants, no masses, no hernias. No hepatosplenome maria c. Incision is closed and healing well--ermelinda were removed by PCP, steri-strips are still in place. No drainage or erythema. Pelvic Exam: deferred Rectal exam: deffered Extremities: normal muscle tone, without cyanosis or edema. Assessment: 71 y.o. female with stage IC serous ovarian carcinoma. Plan: Reviewed patients pathology and staging in detail with her and her . Recommend 4 cy cles of IV CarboTaxol, to begin in one to two weeks. Full PARQ held on the potential toxic ites and complications of chemotherapy, including mylesuppresion, increased risk of bleeding , increased risk of infection, anemia, peripheral neuropathy, nausea/vomiting, alopecia, sto matitis, bone pain. Patient indicates understanding. Counseling on nature of disease cours e, toxicity management, and treatment plan completed. Follow-up in clinic in 1-2 weeks for the first cycle of CarboTaxol. Need post-op CA125 at that time, prior to initiating chemoth erapy. Giovany Barkley - 08/25/19 1:53 PM PSTPt is here for post-surgical adjuvant chemotherapy consultation. I saw and ex amined the patient with PA. Mrs. Joi Augustin. I agree with the assessmnet and plan. 90% of th e time was spent in face to face consultation. Giovany Suarez M.D. d ocumented in this encounter Plan of Treatment Not on filedocumented as of this encounter Procedures + +--------+ + + + | Procedure Name | Priori | Date/Time | Associated Diagnosis | Comments | | | ty | | | | + +--------+ + + + | CA 125, SERUM | Routin | 08/25/2006 | | Results for this | | | e | 2:00 PM | | procedure are in the | | | | PST | | results section. | + +--------+ + + + | COMPLETE METABOLIC | Routin | 08/25/2006 | | Results for this | | SET | e | 2:00 PM | | procedure are in the | | (NA,K,CL,CO2,BUN,CRE | | PST | | results section. | | AT,GLUC,CA,AST,ALT,B | | | | | | RODRIGUE TOTAL,ALK | | | | | | PHOS,ALB,PROT TOTAL) | | | | | + +--------+ + + + | CBC ONLY | Routin | 08/25/2006 | | Results for this | | | e | 2:00 PM | | procedure are in the | | | | PST | | results section. | + +--------+ + + + documented in this encounter Results CA 125 (08/25/2006 2:00 PM PST) + + + + + + | Component | Value | Ref Range | Performed | Pathologist | | | | | At | Signature | + + + + + + | CA-125, JERSON | No specimen received in | U/mL | | | | [facility] | lab. | | | | + + + + + + + + | Specimen | + + | | + + + + + + + | Performing | Address | City/State/Zipcode | Phone Number | | Organization | | | | + + + + + | [facility] | [address] | [place] [address] | | | LABORATORY | | | | + + + + + CBC ONLY WITH PLATELET (08/25/2006 2:00 PM PST) + + + + + + | Component | Value | Ref Range | Performed | Pathologist | | | | | At | Signature | + + + + + + | WHITE CELL | Not Recd | 4.4 - 11.0 K/cu | [facility] | | | COUNT | | mm | DEPARTMENT | | | | | | OF | | | | | | PATHOLOGY | | + + + + + + | RED CELL | Not Recd | 4.00 - 5.20 | [facility] | | | COUNT | | M/cu mm | DEPARTMENT | | | | | | OF | | | | | | PATHOLOGY | | + + + + + + | HEMOGLOBIN | Not Recd | 12.0 - 16.0 | [facility] | | | | | g/dL | DEPARTMENT | | | | | | OF | | | | | | PATHOLOGY | | + + + + + + | HEMATOCRIT | Not Recd | 36.0 - 46.0 % | [facility] | | | | | | DEPARTMENT | | | | | | OF | | | | | | PATHOLOGY | | + + + + + + | MCV | Not Recd | 80.0 - 96.0 fL | [facility] | | | | | | DEPARTMENT | | | | | | OF | | | | | | PATHOLOGY | | + + + + + + | MCHC | Not Recd | 33.4 - 35.5 | [facility] | | | | | g/dL | DEPARTMENT | | | | | | OF | | | | | | PATHOLOGY | | + + + + + + | RDW | Not Recd | 11.5 - 15.0 % | [facility] | | | | | | DEPARTMENT | | | | | | OF | | | | | | PATHOLOGY | | + + + + + + | PLATELET | Not Recd | 150 - 400 K/cu | [facility] [...] | + + + + + | [facility] DEPARTMENT OF | [address] [facility] | [place] [address] | | | PATHOLOGY | [address] | | | + + + + + | [facility] DEPARTMENT OF | [address] [facility] | [place] [address] | | | PATHOLOGY | [address] | | | + + + + + COMP METABOLIC SET (08/25/2006 2:00 PM PST) + + + + + + | Component | Value | Ref Range | Performed | Pathologist | | | | | At | Signature | + + + + + + | GLUCOSE, | Not Recd | 65 - 110 mg/dL | [facility] | | | PLASMA | | | DEPARTMENT | | | (LAB) | | | OF | | | | | | PATHOLOGY | | + + + + + + | BUN, PLASMA | Not Recd | 6 - 20 mg/dL | [facility] | | | (LAB) | | | DEPARTMENT | | | | | | OF | | | | | | PATHOLOGY | | + + + + + + | CREATININE | Not Recd | 0.6 - 1.1 mg/dL | [facility] | | | PLASMA | | | DEPARTMENT | | | (LAB) | | | OF | | | | | | PATHOLOGY | | + + + + + + | TOTAL | Not Recd | 6.1 - 7.9 g/dL | [facility] | | | PROTEIN, | | | DEPARTMENT | | | PLASMA | | | OF | | | (LAB) | | | PATHOLOGY | | + + + + + + | ALBUMIN, | Not Recd | 3.5 - 4.7 g/dL | [facility] | | | PLASMA | | | DEPARTMENT | | | (LAB) | | | OF | | | | | | PATHOLOGY | | + + + + + + | CALCIUM, | Not Recd | 8.5 - 10.5 | [facility] | | | PLASMA | | mg/dL | DEPARTMENT | | | (LAB) | | | OF | | | | | | PATHOLOGY | | + + + + + + | BILIRUBIN | Not Recd | 0.3 - 1.2 mg/dL | [facility] | | | TOTAL | | | DEPARTMENT | | | | | | OF | | | | | | PATHOLOGY | | + + + + + + | ALK PHOS | Not Recd | 53 - 141 U/L | [facility] | | | | | | DEPARTMENT | | | | | | OF | | | | | | PATHOLOGY | | + + + + + + | AST(SGOT) | Not Recd | 15 - 41 U/L | [facility] | | | | | | DEPARTMENT | | | | | | OF | | | | | | PATHOLOGY | | + + + + + + | SODIUM, | Not Recd | 136 - 145 | [facility] | | | PLASMA | | mmol/L | DEPARTMENT | | | (LAB) | | | OF | | | | | | PATHOLOGY | | + + + + + + | POTASSIUM, | Not Recd | 3.5 - 5.1 | [facility] | | | PLASMA | | mmol/L | DEPARTMENT | | | (LAB) | | | OF | | | | | | PATHOLOGY | | + + + + + + | CHLORIDE, | Not Recd | 98 - 107 mmol/L | [facility] | | | PLASMA | | | DEPARTMENT | | | (LAB) | | | OF | | | | | | PATHOLOGY | | + + + + + + | TOTAL CO2, | Not Recd | 23 - 29 mmol/L | [facility] | | | PLASMA | | | DEPARTMENT | | | (LAB) | | | OF | | | | | | PATHOLOGY | | + + + + + + | ALT (SGPT) | Not Recd | 13 - 48 U/L | [facility] | | | | | [...] | [facility] DEPARTMENT OF | [address] | [place] [address] | | | PATHOLOGY | [address] | | | + + + + + | [facility] | [address] | [place] [address] | | | PATHOLOGY | [address] | | | + + + + + documented in this encounter Visit Diagnoses + + | Diagnosis | + + | Ovarian cancer (HCC) - Primary Malignant neoplasm of ovary | + + documented in this encounter
--- OUTSIDE RECORDS SUMMARY | ~2020-03-13 | XMS | Encounter Summary ---
Demographics + + + | Address | [address] | | | [place] [address] | + + + | Home Phone | | + + + | Preferred Language | Unknown | + + + | Marital Status | | + + + | Quaker Affiliation | Unknown | + + + | Race | White | + + + | Ethnic Group | Not or | + + + Author + + + | Author | [facility] | | | and [place] | + + + | Organization | [facility] | | [...] Team Providers + +------+ + | Care Match Maker Name | Role | Phone | + +------+ + | Nicola Gates | PCP | | | MD | | | + +------+ + Encounter Details +--------+ + + + + | Date | Type | Department | Care Team | Description | +--------+ + + + + | 05/30/ | Orders Only | [facility] | Conversion | | | 2019 | | CONVERSION [address] | Transaction, | | | | | [address] | Provider Unknown | | | | [facility] | [phone] | | | | | [address] | | | | | | [phone] | | | +--------+ + + + + Social History + +-------+ +--------+------+ | Tobacco Use | Types | Packs/Day | Years | Date | | | | | Used | | + +-------+ +--------+------+ | Former Smoker | | 1 | | | + +-------+ +--------+------+ + + + | Sex Assigned at | Date Recorded | | | | + + + | Not on file | | + + + documented as of this encounter Plan of Treatment Not on filedocumented as of this encounter Visit Diagnoses Not on filedocumented in this encounter"
--- OUTSIDE RECORDS SUMMARY | ~2020-03-13 | XMS | Encounter Summary ---
Demographics + + + | Address | [address] | | | [place] [address] | + + + | Home Phone | | + + + | Preferred Language | Unknown | + + + | Marital Status | | + + + | Tenriism Affiliation | Unknown | + + + | Race | White | + + + | Ethnic Group | Not or | + + + Author + + + | Author | [facility] | + + + | Organization | [facility] | + + + | Address | Unknown | + + + | Phone | Unavailable | + + + Support + + + + + | Name | Relationship | Address | Phone | + + + + + | Papa Klein | ECON | [address] | | | | | [place] | | | | | [address] | | + + + + + Care Team Providers + +------+ + | Care Lime Kiln Worker Helper Name | Role | Phone | + +------+ + PCP | Unavailable | + +------+ + Reason for Visit + +--------+ + | Reason | Onset | Comments | | | Date | | + +--------+ + | New patient | | | | consultation | | | + +--------+ + | Pelvic mass | | | + +--------+ + | Pre-op evaluation | 08/04/ | | | | 2007 | | + +--------+ + Encounter Details +--------+---------+ + + + | Date | Type | Department | Care Team | Description | +--------+---------+ + + + | 08/04/ | Office | [facility] | Giovany Suarez, | Pelvic Mass (Primary | | 2006 | Visit | [facility] | Obstetrics and | Dx) | | | | [address] | Gynecology [address] | | | | | [address] | [facility] | | | | | [address], [facility] | [place], [place] | | | | | [place], [place] | [address] | | | | | [address] | [phone] | | | | | [phone] | | | +--------+---------+ + + + [...] + + + | Blood Pressure | 126/70 | 08/04/2006 12:24 PM | | | | | PST | | + + + + + | Pulse | - | - | | + + + + + | Temperature | 36.8 C (98.2 F) | 08/04/2006 12:24 PM | | | | | PST [...] + + + + | Weight | 78.1 kg (172 lb 1.6 | 08/04/2006 12:24 PM | | | | oz) | PST | | + + + + + | Height | 170.2 cm (5' 7") | 08/04/2006 12:24 PM | | | | | PST | | + + + + + | Body Mass Index | 26.95 | 08/04/2006 12:24 PM | | | | | PST | | + + + + + documented in this encounter Giovany Martinez - 08/04/2006 2:22 PM OSCAR saw and examined and consuled the patient with the chief resident, I agree with the assessment and plan. Giovany Suarez M.D. Jas De La Torre Md - 08/04/2006 1:29 PM PST Pre-Procedure History and Physical Date of Admission:08/05/2006 HISTORY: 71 year old female who was noted to have a mass on pelvic exam at her [facility] well-woman visit. She has been asymptomatic, without change in weight, appetite, bowel movements. No menopausal bleeding. Imaging of the mass demonstrated a 6x8x10 cm solid mass located adjacent to the fundus of the uterus. No ascites. No peritoneal disease. Suspicio us for fibroid or ovarian tumor. CURRENT PROBLEM LIST: There is no problem list on file for this patient. 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 Allergies not on file. FAMILY HISTORY: Family History Problem Relation Cancer Mother colon REVIEW OF SYSTEMS: Review of Systems: General: No constitutional symptoms of fevers, fatigue, chills, weight loss or sweats. Eyes: No changes in vision loss, double vision, eye pain, eye irritation, discharge, blurr ed vision or light sensitivity. Ears, Nose and Throat: No hearing loss, ringing in the ears, ear discharge, earache, noseb jabari, nasal congestion, difficulty swallowing, hoarseness or sore throat. Respiratory: No shortness of breath, coughing up blood, excessive sputum, cough, chest dis comfort or wheezing. Musculoskeletal: No joint pain, swelling, stiffness, back pain, arthritis, muscle aches, m uscle cramps or loss of strength. Cardiovascular: No chest pain, skipping beats, lightheadedness, difficulty breathing uprig ht or lying down, fatigue, near fainting or fainting, palpitations, weight gain, edema, leg cramps. Gastrointestinal: No loss of appetite, excessive appetite, indigestion, vomiting, nausea, constipation, gas, abdominal pain, hemorrhoids, diarrhea, bloating, bloody stools or dark ta rry stools. Genitourinary: No urinary frequency, blood in urine, difficulty in urination, discharge, p ainful urination, urinary urgency or genital sores. Occasionally has stress urinary inconti nence Neurologic: No unusual headaches, inability to speak, poor balance, numbness, tingling, tr emors, memory loss, disturbances in coordination or sensation of room spinning. Skin: No itching, rash, poor wound healing, night sweats, changes in skin color, dryness, flushing or suspicious lesions. Psychological: No abnormal anxiety, depression, thoughts of suicide or hallucinations. Heme/Lymphatic: No skin discoloration, abnormal bleeding or enlarged lymph nodes. Endrocrine: No heat intolerance, cold intolerance, excessive hunger or excessive thirst. Occasional hot flashes Allergic: No seasonal allergies, hives or rash, persistent infections or HIV exposure. PHYSICAL EXAM: VITALS: Visit Vitals Item Reading BP 126/70 Temp (Src) 98.2 F (36.8 C) (Oral) Ht 1.702 m (5' 7") Wt 78.064 kg (172 lbs 1.6 oz) HEENT: Normal NECK: Normal CHEST/LUNGS: Normal HEART: Normal ABDOMEN: Normal -can palpate mass in RLQ on abdominal exam BACK: Normal EXTREMITIES: Normal NEUROLOGICAL: Normal G.U.: See Notes: Normal external genitalia, enlarged nontender uterus, no adnexal masses or thickening noted, uterus freely mobile. No posterior culdesac mass PROVISIONAL DIAGNOSIS: pelvic mass PLANNED COURSE OF ACTION: exploratory laparotomy, PRINCESS/BSO/possible staging PARQ: A PARQ session was held, additional questions with discussion were completed. documented in this enco unter Procedure Notes Documentation, Teaching Physician - 08/05/2006 12:00 AM PSTAssociated Order(s): TEACHING PH YSICIAN [id number] SORAYA Michel [id number] Date: 08/05/2006 Attending Surgeon: Giovany Suarez M.D. Flight Line Service Attendant(s): Pursuant to Medicare Federal billing regulation, I certify that I was present for the entire surgical procedure, and I personally performed all of the major steps of the surgery. Postoperative Diagnosis(es): Procedures Performed: Giovany Suarez M.D. / CAMI [id number] / [id number] / [id number] / Electronically signed by Giovany Suarez 10-13-2006 04:22:32 PM documented in this encou nter Plan of Treatment Not on filedocumented as of this encounter Procedures + +--------+ + + + | Procedure Name | Priori | Date/Time | Associated Diagnosis | Comments | | | ty | | | | + +--------+ + + + | TEACHING PHYSICIAN | | 08/05/2006 | | Results for this | | | | 12:00 AM | | procedure are in the | | | | PST | | results section. | + +--------+ + + + documented in this encounter Results TEACHING PHYSICIAN (08/05/2006 12:00 AM PST) + + | Procedure Note | + + | 08/05/2006 12:00 AM PST | | [id number] | | [id number] SORAYA Michel [id number] | | | | Date: 08/05/2006 | | | | Attending Surgeon: Giovany Suarez M.D. | | | | Flight Line Service Attendant(s): | | | | Pursuant to Medicare Federal billing regulation, I certify that I was | | present for the entire surgical procedure, and I personally performed all | | of the major steps of the surgery. | | | | Postoperative Diagnosis(es): | | | | Procedures Performed: | | | | | | | | | | Giovany Suarez M.D. | | | | FC / HS | | [id number] / [id number] / [id number] / | | | | | | | | | | | | Electronically signed by Giovany Suarez 10-13-2006 04:22:32 PM | | | | | + + documented in this encounter Visit Diagnoses + + | Diagnosis | + + | Pelvic mass - Primary Abdominal or pelvic swelling, mass or lump, unspecified site | + + documented in this encounter
--- OUTSIDE RECORDS SUMMARY | ~2020-03-13 | XMS | Encounter Summary ---
Demographics + + + | Address | [address] | | | [place] [address] | + + + | Home Phone | | + + + | Preferred Language | Unknown | + + + | Marital Status | | + + + | Yarsani Affiliation | Unknown | + + + | Race | White | + + + | Ethnic Group | Not or | + + + Author + + + | Author | [facility] | | | and [place] | + + + | Organization | [facility] | | | and [place] | + + + | Address | Unknown | + + + | Phone | Unavailable | + + + Support + + +---------+ + | Name | Relationship | Address | Phone | + + +---------+ + | MickieSaritha Klein | ECON | Unknown | | + + +---------+ + Care Team Providers + +------+ + | Care Explosive Expert Name | Role | Phone | + +------+ + PCP | Unavailable | + +------+ + Encounter Details +--------+ + + + + | Date | Type | Department | Care Team | Description | +--------+ + + + + | 10/14/ | Hospital | [facility] | [facility] | [facility] | | 2004 - | Encounter | [facility] | MD [address] | [facility] | | | | CARE FLOOR [address] | [facility] [address] | | | 10/20/ | | [address] | [place], [place] | | | 2004 | | [place], [place] | [phone] | | | | | [address] | | | | | | [phone] | Ramon Sharp MD | | | | | | [address] | | | | | | [place] [address] | | | | | | [phone] | | | | | | | | +--------+ + + + [...] filedocumented as of this encounter Visit Diagnoses + + | Diagnosis | + + | Intermediate coronary syndrome (HCC) Intermediate coronary syndrome | + + documented in this encounter"
--- OUTSIDE RECORDS SUMMARY | ~2020-03-13 | XMS | Encounter Summary ---
Demographics + + + | Address | [address] | | | [place] [address] | + + + | Home Phone | | + + + | Preferred Language | Unknown | + + + | Marital Status | | + + + | Mandaeism Affiliation | Unknown | + + + | Race | White | + + + | Ethnic Group | Not or | + + + Author + + + | Author | [facility] | | | and [place] | + + + | Organization | [facility] | | | and [...] Team Providers + +------+ + | Care Porcelain Turner Name | Role | Phone | + +------+ + | Nicola Gates | PCP | | | MD | | | + +------+ + Encounter Details +--------+ + + + + | Date | Type | Department | Care Team | Description | +--------+ + + + + | 06/13/ | Orders Only | [facility] | Conversion | | | 2015 | | CONVERSION [address] | Transaction, | | | | | [address] | Provider Unknown | | | | | [place], [place] | [phone] | | | | | [address] | | | | | | [phone] | | | +--------+ + + + [...]
--- OUTSIDE RECORDS SUMMARY | ~2020-03-13 | XMS | Encounter Summary ---
Demographics + + + | Address | [address] | | | [place] [address] | + + + | Home Phone | | + + + | Preferred Language | Unknown | + + + | Marital Status | | + + + | Yarsani Affiliation | Unknown | + + + | Race | White | + + + | Ethnic Group | Not or | + + + Author + + + | Author | [facility] | + + + | Organization | [facility] | + + + | Address | Unknown | + + + | Phone | Unavailable | + + + Support + + + + + | Name | Relationship | Address | Phone | + + + + + | Papa Klein | ECON | [address] | | | | | [place] | | | | | [address] | | + + + + + Care Team Providers + +------+ + | Care Agricultural Aircraft Pilot Name | Role | Phone | + +------+ + PCP | Unavailable | + +------+ + Encounter Details +--------+ + + + + | Date | Type | Department | Care Team | Description | +--------+ + + + + | 08/06/ | Documentati | Anesthesiology | Unknown . | | | 2006 | on | [address] | | | | | | [place], | | | | | | [place] [address] | | | +--------+ + + + [...] + + documented as of this encounter Procedure Notes Unknown - 08/06/2006 11:29 AM PSTAssociated Order(s): ANESTHESIA/SEDATION Anesthesia PostO p Report Patient: SHEREEN KLEIN Med Rec: [id number] Sex F Bdate: 1935 Date/Time Data Entered Into [facility] Anesth PostOp Surgery Date [id number] 08/06/06 11:29 Anesthesiologist CAL FLANNERY 08/06/06 11:29 Resident Anesthesiolog MARKUS PINON 08/06/06 11:29 documented in this encounter Plan of Treatment Not on filedocumented as of this encounter Procedures + +--------+ + + + | Procedure Name | Priori | Date/Time | Associated Diagnosis | Comments | | | ty | | | | + +--------+ + + + | ANESTHESIA/SEDATION | | 08/06/2006 | | Results for this | | | | 11:29 AM | | procedure are in the | | | | PST | | results section. | + +--------+ + + + documented in this encounter Results ANESTHESIA/SEDATION (08/06/2006 11:29 AM PST) + + + | Narrative | Performed At | + + + | Ordered by an unspecified provider. | | + + + + + | Transcriptions | + + | 08/06/2006 11:29 AM [facility] Anesthesia PostOp Report | | | | Patient: SHEREEN KLEIN Med Rec: [id number] Sex F Bdate: 1935 | | Date/Time Data | | Entered Into [facility] | | Anesth PostOp | | Surgery Date [id number] 08/06/06 11:29 | | Anesthesiologist CAL FLANNERY 08/06/06 11:29 | | Resident Anesthesiolog MARKUS PINON 08/06/06 11:29 | | | + + documented in this encounter Visit Diagnoses Not on filedocumented in this encounter"
--- OUTSIDE RECORDS SUMMARY | ~2020-03-13 | XMS | Encounter Summary ---
Demographics + + + | Address | [address] | | | [place] [address] | + + + | Home Phone | | + + + | Preferred Language | Unknown | + + + | Marital Status | | + + + | Buddhist Affiliation | Unknown | + + + | Race | White | + + + | Ethnic Group | Not or | + + + Author + + + | Author | [facility] | + + + | Organization | [facility] | + + + | Address | Unknown | + + + | Phone | Unavailable | + + + Support + + + + + | Name | Relationship | Address | Phone | + + + + + | Papa Klein | ECON | [address] | | | | | [place] | | | | | [address] | | + + + + + Care Team Providers + +------+ + | Care Guest Experience Captain Name | Role | Phone | + +------+ + PCP | Unavailable | + +------+ + Encounter Details +--------+ + + + + | Date | Type | Department | Care Team | Description | +--------+ + + + + | 08/05/ | Procedure - | [facility] | Record, Operation | Operative Report | | 2006 | | [place] [id number] | | | | | Transcribed | [facility] | | | | | | [facility] | | | | | | [facility], [address] | | | | | | [place], [place] | | | | | | [address] | | | | | | [phone] | | | +--------+ + + + [...] documented as of this encounter Procedure Notes Record, Operation - 08/05/2006 12:00 AM PSTAssociated Order(s): OPERATION RECORD [id number] SORAYA Michel [id number] Date: 08/05/2006 Attending Surgeon: Giovany Suarez M.D. Clinical Quality Rn(s): Jas Faulkner M.D. Preoperative Diagnosis(es): Pelvic mass. 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 Procedures Performed: Total abdominal hysterectomy, bilateral salpingo-oophorectomy, omentectomy, and bilateral pelvic and periaortic lymphadenectomies. Anesthesia: General endotracheal anesthesia and epidural anesthesia. IV Fluids: Crystalloid, 3400 cc. Urine Output: Clear urine at the end of the procedure, 150 cc. Estimated Blood Loss: 250 cc. Complications: None. Specimens: Uterus, tubes, ovaries, omentum, pelvic, and periaortic lymph nodes and also peritoneal biopsies from the right and left pelvic and bladder peritoneum. Indications: Ms. Klein is a 71-year-old female with a history of pelvic mass discovered on pelvic exam in her annual physical examination. Subsequent evaluation revealed an ectopic pelvic mass on ultrasound and an elevated CA125 at 170. She was appropriately consented for exploratory laparotomy with tumor debulking and taken to the operating room on August 05, 2006, where general endotracheal anesthesia was induced without difficulty. She had previously had epidural anesthesia placed in the preoperative area and this was adequate. Procedure: The patient was prepped and draped in dorsal supine position. A Perez catheter was placed using sterile technique. The skin incision was made sharply using a scalpel and carried down to the underlying fascia using Bovie cautery. The fascia was then nicked in the midline, and Bovie cautery was used to extend the fascial incision inferiorly and superiorly. The peritoneum was identified and entered sharply, and this peritoneal incision was extended superiorly and inferiorly with Bovie cautery with good visualization into the bladder. Pelvic washes were obtained. The Bookwalter retractor was directed, and the bowel was packed superiorly. A small amount of lysis of adhesions was needed to free the omentum further right pelvic sidewall, but this was minimal. An approximately 12 x 10-cm lobulated left ovarian mass was noted upon entry into the abdomen. This was visibly suspicious for malignancy. The left round ligament was identified and opened and transected using Bovie cautery. The broad ligament was opened, and the ureter was visualized well away from the infundibulopelvic pedicle. The IP was isolated and doubly clamped using Vanessa clamps and transected and suture tied with a tie of 0 Vicryl and suture ligated and noted to be hemostatic. A Pean clamp was then placed across the cornu, and the ovary was removed from the uterus and submitted for a frozen section. We then proceeded with the remainder of the hysterectomy. The right round ligament was grasped and transected using Bovie cautery. The broad ligament was opened, and the ureter was visualized. The right infundibulopelvic ligament was isolated and doubly clamped using Vanessa clamps and transected and suture ligated in the usual fashion. The peritoneal broad ligament opening was extended anteriorly to create the bladder flap, and the uterine arteries were skeletonized bilaterally, and 2 Vanessa clamps were placed across the uterine arteries, and these were transected and suture ligated and noted to be hemostatic. In a serial fashion using curved Vanessa clamps, we then transected the cardinal and uterosacral ligaments and were able to place curved Vanessa clamps across the cervix and transect the uterus and right fallopian tube and ovary and sent it for evaluation. Following the removal of the uterus, the right fallopian tube, and ovary, the pathologist did call back that the diagnosis was papillary serous carcinoma of the ovary, and so we undertook the omentectomy. Omentectomy was performed by lifting the omentum off the transverse colon and incising it and getting access to the lesser sac and taking the omentum off the greater curvature of the stomach. All pedicles were hemostatic and tied with 2-0 Vicryl ties. We completed the omentectomy from the patient's right to the left side and completely dissected the omentum and the transverse colon of the stomach and submitted specimen in total. Attention was then turned to the pelvic lymphadenectomy. We removed the left lymphoid tissue from above the external and internal iliac arteries and internal iliac veins, and the borders of the dissection laterally to have the femoral nerve medially to ureter, superiorly to bifurcation of the common iliac artery, and inferiorly to deep circumflex iliac vein. The obturator nerve was visualized during the dissection. A similar procedure was repeated on the right side. We then performed a periaortic lymph node dissection. After this, we performed periaortic lymph node sampling. We incised the peritoneum above the right ureter and at the level of the bifurcation of the common iliac vessels and higher peritoneum was opened and the vena cava was visualized. Aorta and caval nodes were removed using sharp dissection and clips were applied for hemostasis. At all points during the surgery, the pelvis was copiously irrigated. At the conclusion of the procedure, we closed the abdominal fascia with a running layer of #1 PDS. The skin was then closed with ermelinda. Sponge, lap, and needle counts were correct x2. The patient did receive 2 g of Ancef prior to skin incision. There were no complications. Jas Faulkner M.D. Giovany Suarez M.D. [facility] / [id number] / [id number] / [id number] / [id number] Reviewed or Edited By Jas Faulkner on 08-18-2006 Electronically signed by Giovany Suarez 10-13-2006 04:22:35 PM documented in this encou nter Plan of Treatment Not on filedocumented as of this encounter Procedures + +--------+ + + + | Procedure Name | Priori | Date/Time | Associated Diagnosis | Comments | | | ty | | | | + +--------+ + + + | OPERATION RECORD | | 08/05/2006 | | Results for this | | | | 12:00 AM | | procedure are in the | | | | PST | | results section. | + +--------+ + + + documented in this encounter Results OPERATION RECORD (08/05/2006 12:00 AM PST) + + | Procedure Note | + + | 08/05/2006 12:00 AM PST | | [id number] | | [id number] SORAYA Michel [id number] | | | | Date: 08/05/2006 | | | | Attending Surgeon: Giovany Suarez M.D. | | | | Clinical Quality Rn(s): Jas Faulkner M.D. | | | | | | Preoperative Diagnosis(es): | | Pelvic mass. | | | | Postoperative Diagnosis(es): | | Papillary serous carcinoma of the ovary. | | | | Procedures Performed: | | Total abdominal hysterectomy, bilateral salpingo-oophorectomy, omentectomy, | | and bilateral pelvic and periaortic lymphadenectomies. | | | | Anesthesia: | | General endotracheal anesthesia and epidural anesthesia. | | | | IV Fluids: | | Crystalloid, 3400 cc. | | | | Urine Output: | | Clear urine at the end of the procedure, 150 cc. | | | | Estimated Blood Loss: | | 250 cc. | | | | Complications: | | None. | | | | Specimens: | | Uterus, tubes, ovaries, omentum, pelvic, and periaortic lymph nodes and | | also peritoneal biopsies from the right and left pelvic and bladder | | peritoneum. | | | | Indications: | | Ms. Klein is a 71-year-old female with a history of pelvic mass | | discovered on pelvic exam in her annual physical examination. Subsequent | | evaluation revealed an ectopic pelvic mass on ultrasound and an elevated | | CA125 at 170. She was appropriately consented for exploratory laparotomy | | with tumor debulking and taken to the operating room on August 05, 2006, | | where general endotracheal anesthesia was induced without difficulty. She | | had previously had epidural anesthesia placed in the preoperative area and | | this was adequate. | | | | Procedure: | | The patient was prepped and draped in dorsal supine position. A Perez | | catheter was placed using sterile technique. The skin incision was made | | sharply using a scalpel and carried down to the underlying fascia using | | Bovie cautery. The fascia was then nicked in the midline, and Bovie | | cautery was used to extend the fascial incision inferiorly and superiorly. | | | | The peritoneum was identified and entered sharply, and this peritoneal | | incision was extended superiorly and inferiorly with Bovie cautery with | | good visualization into the bladder. Pelvic washes were obtained. The | | Bookwalter retractor was directed, and the bowel was packed superiorly. A | | small amount of lysis of adhesions was needed to free the omentum further | | right pelvic sidewall, but this was minimal. | | | | An approximately 12 x 10-cm lobulated left ovarian mass was noted upon | | entry into the abdomen. This was visibly suspicious for malignancy. The | | left round ligament was identified and opened and transected using Bovie | | cautery. The broad ligament was opened, and the ureter was visualized well | | away from the infundibulopelvic pedicle. The IP was isolated and doubly | | clamped using Vanessa clamps and transected and suture tied with a tie of 0 | | Vicryl and suture ligated and noted to be hemostatic. A Pean clamp was | | then placed across the cornu, and the ovary was removed from the uterus and | | submitted for a frozen section. | | | | We then proceeded with the remainder of the hysterectomy. The right round | | ligament was grasped and transected using Bovie cautery. The broad | | ligament was opened, and the ureter was visualized. The right | | infundibulopelvic ligament was isolated and doubly clamped using Vanessa | | clamps and transected and suture ligated in the usual fashion. | | | | The peritoneal broad ligament opening was extended anteriorly to create the | | bladder flap, and the uterine arteries were skeletonized bilaterally, and 2 | | Vanessa clamps were placed across the uterine arteries, and these were | | transected and suture ligated and noted to be hemostatic. In a serial | | fashion using curved Vanessa clamps, we then transected the cardinal and | | uterosacral ligaments and were able to place curved Vanessa clamps across | | the | | cervix and transect the uterus and right fallopian tube and ovary and sent | | it for | | evaluation. | | | | Following the removal of the uterus, the right fallopian tube, and ovary, | | the pathologist did call back that the diagnosis was papillary serous | | carcinoma of the ovary, and so we undertook the omentectomy. Omentectomy | | was performed by lifting the omentum off the transverse colon and incising | | it and getting access to the lesser sac and taking the omentum off the | | greater curvature of the stomach. All pedicles were hemostatic and tied | | with 2-0 Vicryl ties. We completed the omentectomy from the patient's | | right to the left side and completely dissected the omentum and the | | transverse colon of the stomach and submitted specimen in total. | | | | Attention was then turned to the pelvic lymphadenectomy. We removed the | | left lymphoid tissue from above the external and internal iliac arteries | | and | | internal iliac veins, and the borders of the dissection laterally to have | | the femoral nerve medially to ureter, superiorly to bifurcation of the | | common iliac artery, and inferiorly to deep circumflex iliac vein. The | | obturator nerve was visualized during the dissection. A similar procedure | | was repeated on the right side. | | | | We then performed a periaortic lymph node dissection. After this, we | | performed periaortic lymph node sampling. We incised the peritoneum above | | the right ureter and at the level of the bifurcation of the common iliac | | vessels and higher peritoneum was opened and the vena cava was visualized. | | Aorta and caval nodes were removed using sharp dissection and clips were | | applied for hemostasis. At all points during the surgery, the pelvis was | | copiously irrigated. | | | | At the conclusion of the procedure, we closed the abdominal fascia with a | | running layer of #1 PDS. The skin was then closed with ermelinda. Sponge, | | lap, and needle counts were correct x2. The patient did receive 2 g of | | Ancef prior to skin incision. There were no complications. | | | | | | | | | | Jas Faulkner M.D. | | | | | | | | Giovany Suarez M.D. | | | | [facility] / | | [id number] / [id number] / [id number] / [id number] | | | | | | | | | | | | Reviewed or Edited By Jas Faulkner on 08-18-2006 | | Electronically signed by Giovany Suarez 10-13-2006 04:22:35 PM | | | | | + + documented in this encounter Visit Diagnoses Not on filedocumented in this encounter"
--- OUTSIDE RECORDS SUMMARY | ~2020-03-13 | XMS | Encounter Summary ---
Demographics + + + | Address | [address] | | | [place] [address] | + + + | Home Phone | | + + + | Preferred Language | Unknown | + + + | Marital Status | | + + + | Scientology Affiliation | Unknown | + + + | Race | White | + + + | Ethnic Group | Not or | + + + Author + + + | Author | [facility] | | | and [place] | + + + | Organization | [facility] | | | and [...] Team Providers + +------+ + | Care Ward Attendant Name | Role | Phone | + +------+ + | Nicola Gates | PCP | | | MD | | | + +------+ + Encounter Details +--------+ + + + + | Date | Type | Department | Care Team | Description | +--------+ + + + + | 01/21/ | Orders Only | [facility] | Conversion | | | 2017 | | CONVERSION [address] | Transaction, | | | | | [address] | Provider Unknown | | | | | [place], [place] | [phone] | | | | | [address] | | | | | | [phone] | | | +--------+ + + + [...]
--- OUTSIDE RECORDS SUMMARY | ~2020-03-13 | XMS | Encounter Summary ---
Demographics + + + | Address | [address] | | | [place] [address] | + + + | Home Phone | | + + + | Preferred Language | Unknown | + + + | Marital Status | | + + + | Bahai Affiliation | Unknown | + + + | Race | White | + + + | Ethnic Group | Not or | + + + Author + + + | Author | [facility] | | | and [place] | + + + | Organization | [facility] | | | [...] Team Providers + +------+ + | Care Machinery Cleaner Name | Role | Phone | + +------+ + | Nicola Gates | PCP | | | MD | | | + +------+ + Encounter Details +--------+ + + + + | Date | Type | Department | Care Team | Description | +--------+ + + + + | 08/16/ | Orders Only | [facility] | Vijaya Stack | Atherosclerosis of | | 2019 | | [facility]ARDIOLOGY [place] | [address] | coronary artery | | | | [address] | [address] | bypass graft without | | | | [address] | [place] [address] | angina pectoris; | | | | [place], [place] | [phone] | Essential (primary) | | | | [address] | | hypertension; | | | | [phone] | | Chronic systolic | | | | | | congestive heart | | | | | | failure (HCC); | | | | | | Encounter for | | | | | | therapeutic drug | | | | | | level monitoring; | | | | | | Chronic kidney | | | | | | disease, stage III | | | | | | (moderate) (HCC) | +--------+ + + + + Social [...] as of this encounter Plan of Treatment + +------+--------+ + + | Name | Type | Priori | Associated Diagnoses | Order Schedule | | | | ty | | | + +------+--------+ + + | Comprehensive | Lab | Routin | Atherosclerosis of | Expected: | | Metabolic Panel | | e | coronary artery | 06/16/2018, Expires: | | | | | bypass graft without | 12/16/2019 | | | | | angina pectoris | | | | | | Essential (primary) | | | | | | hypertension | | | | | | Chronic systolic | | | | | | congestive heart | | | | | | failure (HCC) | | | | | | Encounter for | | | | | | therapeutic drug | | | | | | level monitoring | | + +------+--------+ + + | Basic Metabolic | Lab | Routin | Encounter for | Expected: | | Panel | | e | therapeutic drug | 11/09/2018, Expires: | | | | | level monitoring | 10/10/2019 | | | | | Chronic systolic | | | | | | congestive heart | | | | | | failure (HCC) | | | | | | Chronic kidney | | | | | | disease, stage III | | | | | | (moderate) (HCC) | | + +------+--------+ + + documented as of this encounter Visit Diagnoses + + | Diagnosis | + + | Atherosclerosis of coronary artery bypass graft without angina pectoris Coronary | | atherosclerosis of unspecified type of bypass graft | + + | Essential (primary) hypertension Unspecified essential hypertension | + + | Chronic systolic congestive heart failure (HCC) Chronic systolic heart failure | + + | Encounter for therapeutic drug level monitoring Encounter for therapeutic drug | | monitoring | + + | Chronic kidney disease, stage III (moderate) (HCC) Chronic kidney disease, Stage III | | (moderate) | + + documented in this encounter"
--- OUTSIDE RECORDS SUMMARY | ~2020-03-13 | XMS | Encounter Summary ---
Demographics + + + | Address | [address] | | | [place] [address] | + + + | Home Phone | | + + + | Preferred Language | Unknown | + + + | Marital Status | | + + + | Oriental Orthodox Affiliation | Unknown | + + + | Race | White | + + + | Ethnic Group | Not or | + + + Author + + + | Author | [facility] | | | and [place] | + + + | Organization | [facility] | | | and [...] Team Providers + +------+ + | Care Kickboxing Instructor Name | Role | Phone | + +------+ + | Nicola Gates | PCP | | | MD | | | + +------+ + Encounter Details +--------+ + + + + | Date | Type | Department | Care Team | Description | +--------+ + + + + | 05/03/ | Orders Only | [facility] | Conversion | | | 2012 | | CONVERSION [address] | Transaction, | | | | | [address] | Provider Unknown | | | | | [place], [place] | [phone] | | | | | [address] | | | | | | [phone] | | | +--------+ + + + [...]
--- OUTSIDE RECORDS SUMMARY | ~2020-03-13 | XMS | Encounter Summary ---
Demographics + + + | Address | [address] | | | [place] [address] | + + + | Home Phone | | + + + | Preferred Language | Unknown | + + + | Marital Status | | + + + | Muslim Affiliation | Unknown | + + + [...] Team Providers + +------+ + | Care National Coverage Specialist Name | Role | Phone | + +------+ + | Nicola Gates | PCP | | | MD | | | + +------+ + Encounter Details +--------+ + + + + | Date | Type | Department | Care Team | Description | +--------+ + + + + | 12/ | Orders Only | [facility] | Conversion | | | 2018 | | CONVERSION [address] | Transaction, | | | | | [address] | Provider Unknown | | | | | [place], [place] | [phone] | | | | | [address] | | | | | | [phone] | | | +--------+ + + + [...]
--- OUTSIDE RECORDS SUMMARY | ~2020-03-13 | XMS | Encounter Summary ---
Demographics + + + | Address | [address] | | | [place] [address] | + + + | Home Phone | | + + + | Preferred Language | Unknown | + + + | Marital Status | | + + + | Scientologist Affiliation | Unknown | + + + | Race | White | + + + | Ethnic Group | Not or | + + + Author + + + | Author | [facility] | | | and [place] | + + + | Organization | [facility] | | | [...] Team Providers + +------+ + | Care Lathe Hand Name | Role | Phone | + +------+ + | Nicola Gates | PCP | | | MD | | | + +------+ + Encounter Details +--------+ + + + + | Date | Type | Department | Care Team | Description | +--------+ + + + + | 07/05/ | Orders Only | [facility] | Vijaya Stack | | | 2019 | | CONVERSION [address] | Ashley, STATISTICAL METHODS TEACHER [address] | | | | | [address] | [place] | | | | | [place], [place] | [place] [address] | | | | | [address] | [phone] | | | | | [phone] | | | +--------+ + + + [...] | + +--------+ + + + | ECHO INTERPRETATION | Routin | 07/05/2018 | | Results for this | | OF OUTSIDE FILMS | e | 5:28 PM | | procedure are in the | | | | PST | | results section. | + +--------+ + + + documented in this encounter Results ECHO Interpretation of Outside Films (07/05/2018 5:28 PM PST) + + | Specimen | + + | | + + + + + | Impressions | Performed At | + + + | 1. Overall left ventricular systolic function is low-normal with an | | | EF of 50%. There are inferior wall motion abnormaliities suggestive | | | of CAD. 2. The right ventricle is normal in size and function. 3. No | | | significant valvular abnormalities are noted. 4. Other than for a | | | slight increase in the LVEF, there are no clinically significant | | | changes noted in comparison to the previous echocardiographic study, | | | done 12/10/16. | | + + + + + + | Narrative | Performed At | + + + | Patient Name: Shereen Klein Date of : 1935 | | | Performing Physician: DELFINO CARRERA MD | | | | | | INDICATIONS CAD, HTN, Chronic systolic heart failure | | | CONCLUSIONS 1. Overall left ventricular systolic | | | function is low-normal with an EF of 50%. There are inferior wall | | | motion abnormaliities suggestive of CAD. 2. The right ventricle is | | | normal in size and function. 3. No significant valvular abnormalities | | | are noted. 4. Other than for a slight increase in the LVEF, there are | | | no clinically significant changes noted in comparison to the previous | | | echocardiographic study, done 12/10/16. FINDINGS -------- ECG | | | rhythm: Sinus rhythm. Study: A 2-dimensional transthoracic | | | echocardiogram with m-mode, spectral and color flow Doppler was | | | perfomed at [facility]. Study: This was a technically adequate study. Left | | | Ventricle: Overall left ventricular systolic function is low-normal | | | with an EF of 50%, slightly increased from an EF of 40 - 45% on the | | | previous study. Left Ventricle: The left ventricle cavity size is | | | normal. Left Ventricle: Left ventricular wall thickness is normal. | | | Left Ventricle: Sigmoid shaped septum with focal hypertrophy of the | | | basal septum. Left Ventricle: The diastolic filling pattern indicates | | | impaired relaxation consistent with mild dysfunction (Grade I). Left | | | Ventricle: Mid to basal lateral and inferior hypokinesia. Left | | | Ventricle: The following regional wall motion abnormalities include: | | | Left Ventricle: mid inferoseptal - mildly hypokinetic; Left | | | Ventricle: basal inferior - severely hypokinetic; Left Ventricle: | | | apical septum - moderately hypokinetic; Left Ventricle: The | | | remaining left ventricular segments contract normally. This is | | | similar to the findings on the previous study. Right Ventricle: The | | | right ventricle is normal in size and function. Left Atrium: The left | | | atrium is mildly enlarged. Right Atrium: The right atrium is normal | | | in size. Aortic Valve: Aortic valve is trileaflet in structure, with | | | mildly thickened leaflets. Aortic Valve: There is mild aortic valve | | | sclerosis without stenosis. Aortic Valve: There is no evidence of | | | aortic regurgitation. Mitral Valve: The mitral valve is normal. | | | Mitral Valve: There is trace mitral regurgitation. Mitral Valve: No | | | evidence of MVP. Tricuspid Valve: The tricuspid valve appears | | | structurally normal. Tricuspid Valve: Trace tricuspid regurgitation | | | present. Tricuspid Valve: There is no evidence of pulmonary | | | hypertension. Tricuspid Valve: The right ventricular systolic | | | pressure (pulmonary artery systolic pressure), as measured by Doppler, | | | is 22.70mmHg. Pulmonic Valve: The pulmonic valve was not well | | | visualized. Pericardium: There is no pericardial effusion. | | | IVC/Hepatic Veins: The IVC is normal size (1.5-2.5cm) and collapses | | | >50% with sniff, consistent with central venous pressures of 5-10mmHg. | | | Aorta: Ascending and arch aorta not well seen. Mass: No mass | | | visualized Thrombus: No clot visualized Thrombus: No vegetation | | | visualized. Septum: No ASD observed. Septum: No VSD observed. | | | MEASUREMENTS Ao Diam: 2.71 cm Ao sinus: 3.21 cm | | | Ao st junct: 2.62 cm IVC: 1.93 cm LA Major: 5.49 cm | | | EDV(Teich): 133.76 ml IVSd: 0.83 cm LVIDd: 5.27 cm LVPWd: | | | 0.71 cm LVOT Area: 3.80 cm2 LVOT Diam: 2.20 cm %FS: | | | 20.96 % EF(Teich): 42.32 % ESV(Teich): 77.15 ml LVIDs: | | | 4.16 cm SV(Teich): 56.61 ml RA Major: 4.08 cm RV Major: | | | 5.60 cm RV Minor: 2.90 cm RVIDd: 2.65 cm LVEF MOD A2C: | | | 47.64 % SV MOD A2C: 51.32 ml LVEF MOD A4C: 37.02 % SV MOD | | | A4C: 38.40 ml EF Biplane: 43.53 % LVEDV MOD BP: 107.60 ml | | | LVESV MOD BP: 60.75 ml LVEDV MOD A2C: 107.73 ml LVLd A2C: | | | 7.20 cm LVEDV MOD A4C: 103.73 ml LVLd A4C: 7.49 cm LVESV MOD | | | A2C: 56.40 ml LVLs A2C: 6.39 cm LVESV MOD A4C: 65.33 ml | | | LVLs A4C: 6.37 cm LAESV(A-L): 73.25 ml LAESV Index (A-L): | | | 38.96 ml/m2 LAAs A2C: 23.48 cm2 LAESV A-L A2C: 80.50 ml LALs | | | A2C: 5.81 cm LAAs A4C: 20.62 cm2 LAESV A-L A4C: 64.33 ml | | | LALs A4C: 5.61 cm RAAs: 10.85 cm2 RAESV A-L: 23.05 ml | | | RAESV MOD: 21.85 ml RALs: 4.33 cm TAPSE: 1.97 cm AV maxPG: | | | 4.44 mmHg AV meanP.51 mmHg AV Vmax: 1.05 m/s AV | | | Vmean: 0.74 m/s AV VTI: 23.82 cm JUANI Vmax: 2.72 cm2 JUANI | | | (VTI): 2.76 cm2 AVAI Vmax: 0.00 cm2/m2 AVAI (VTI): 0.00 | | | cm2/m2 LVOT maxP.27 mmHg LVOT meanP.21 mmHg LVSI | | | Dopp: 34.97 ml/m2 LVSV Dopp: 65.76 ml LVOT Vmax: 0.75 m/s | | | LVOT Vmean: 0.52 m/s LVOT VTI: 17.26 cm MV A Jimmie: 0.77 m/s | | | MV Dec Robeson: 2.19 m/s2 MV DecT: 184.74 ms MV E Jimmie: 0.40 | | | m/s MV E/A Ratio: 0.52 MV PHT: 53.57 ms MVA By PHT: 4.10 | | | cm2 Septal e': 0.02 m/s Septal E/e': 15.29 Lateral e': | | | 0.06 m/s Lateral E/e': 6.16 RAP: 5 mmHg RVSP: 22.69 mmHg | | | TR maxP.69 mmHg TR Vmax: 2.10 m/s RV s': 0.08 m/s | | | Medicine Assistant: KARY Authenticated by: DELFINO CARRERA MD Report | | | Date/Time: 07-05-2018 18:13:25 | | + + + + + | Procedure Note | + + | Murali, Rad Conversion - 02/16/2019 12:20 PM PDT Patient Name: Erasmo Klein | | of : 1935 Performing Physician: DELFINO CARRERA, | | MD INDICATIONS C | | AD, HTN, Chronic systolic heart failure CONCLUSIONS 1. Overall left | | ventricular systolic function is low-normal with an EF of 50%. There are inferior wall | | motion abnormaliities suggestive of CAD.2. The right ventricle is normal in size and | | function. 3. No significant valvular abnormalities are noted. 4. Other than for a slight | | increase in the LVEF, there are no clinically significant changes noted in comparison | | to the previous echocardiographic study, done 12/10/16. FINDINGS--------ECG rhythm: Sinus | | rhythm.Study: A 2-dimensional transthoracic echocardiogram with m-mode, spectral and | | color flow Doppler was perfomed at [facility].Study: This was a technically adequate study.Left | | Ventricle: Overall left ventricular systolic function is low-normal with an EF of 50%, | | slightly increased from an EF of 40 - 45% on the previous study.Left Ventricle: The left | | ventricle cavity size is normal.Left Ventricle: Left ventricular wall thickness is | | normal.Left Ventricle: Sigmoid shaped septum with focal hypertrophy of the basal | | septum.Left Ventricle: The diastolic filling pattern indicates impaired relaxation | | consistent with mild dysfunction (Grade I).Left Ventricle: Mid to basal lateral and | | inferior hypokinesia.Left Ventricle: The following regional wall motion abnormalities | | include:Left Ventricle: mid inferoseptal - mildly hypokinetic;Left Ventricle: basal | | inferior - severely hypokinetic;Left Ventricle: apical septum - moderately | | hypokinetic;Left Ventricle: The remaining left ventricular segments contract normally. | | This is similar to the findings on the previous study.Right Ventricle: The right | | ventricle is normal in size and function.Left Atrium: The left atrium is mildly | | enlarged.Right Atrium: The right atrium is normal in size.Aortic Valve: Aortic valve is | | trileaflet in structure, with mildly thickened leaflets.Aortic Valve: There is mild | | aortic valve sclerosis without stenosis.Aortic Valve: There is no evidence of aortic | | regurgitation.Mitral Valve: The mitral valve is normal.Mitral Valve: There is trace | | mitral regurgitation.Mitral Valve: No evidence of MVP.Tricuspid Valve: The tricuspid | | valve appears structurally normal.Tricuspid Valve: Trace tricuspid regurgitation | | present.Tricuspid Valve: There is no evidence of pulmonary hypertension.Tricuspid Valve: | | The right ventricular systolic pressure (pulmonary artery systolic pressure), as | | measured by Doppler, is 22.70mmHg.Pulmonic Valve: The pulmonic valve was not well | | visualized.Pericardium: There is no pericardial effusion.IVC/Hepatic Veins: The IVC is | | normal size (1.5-2.5cm) and collapses >50% with sniff, consistent with central venous | | pressures of 5-10mmHg.Aorta: Ascending and arch aorta not well seen.Mass: No mass | | visualizedThrombus: No clot visualizedThrombus: No vegetation visualized.Septum: No ASD | | observed.Septum: No VSD observed. MEASUREMENTS Ao Diam: 2.71 cmAo sinus: | | 3.[address] junct: 2.62 cmIVC: 1.93 cmLA Major: 5.49 cmEDV(Teich): 133.76 | | mlIVSd: 0.83 cmLVIDd: 5.27 cmLVPWd: 0.71 cmLVOT Area: 3.80 [id number] Diam: 2.20 | | cm%FS: 20.96 %EF(Teich): 42.32 %ESV(Teich): 77.15 mlLVIDs: 4.16 cmSV(Teich): | | 56.61 mlRA Major: 4.08 cmRV Major: 5.60 cmRV Minor: 2.90 cmRVIDd: 2.65 cmLVEF | | MOD A2C: 47.64 %SV MOD A2C: 51.32 mlLVEF MOD A4C: 37.02 %SV MOD A4C: 38.40 mlEF | | Biplane: 43.53 %LVEDV MOD BP: 107.60 mlLVESV MOD BP: 60.75 mlLVEDV MOD A2C: | | 107.73 mlLVLd A2C: 7.20 cmLVEDV MOD A4C: 103.73 mlLVLd A4C: 7.49 cmLVESV MOD A2C: | | 56.40 mlLVLs A2C: 6.39 cmLVESV MOD A4C: 65.33 mlLVLs A4C: 6.37 cmLAESV(A-L): | | 73.25 mlLAESV Index (A-L): 38.96 ml/m2LAAs A2C: 23.48 [id number] A-L A2C: 80.50 | | mlLALs A2C: 5.81 cmLAAs A4C: 20.62 [id number] A-L A4C: 64.33 mlLALs A4C: 5.61 | | cmRAAs: 10.85 [id number] A-L: 23.05 mlRAESV MOD: 21.85 mlRALs: 4.33 cmTAPSE: | | 1.97 cmAV maxP.44 mmHgAV meanP.51 mmHgAV Vmax: 1.05 m/Joseph Vmean: 0.74 | | m/Joseph VTI: 23.82 cmAVA Vmax: 2.72 cm2AVA (VTI): 2.76 lm0COAM Vmax: 0.00 | | cm2/m2AVAI (VTI): 0.00 cm2/m2LVOT maxP.27 mmHgLVOT meanP.21 mmHgLVSI Dopp: | | 34.97 ml/m2LVSV Dopp: 65.76 mlLVOT Vmax: 0.75 m/sLVOT Vmean: 0.52 m/sLVOT VTI: | | 17.26 cmMV A Jimmie: 0.77 m/sMV Dec Robeson: 2.19 m/s2MV DecT: 184.74 msMV E Jimmie: | | 0.40 m/sMV E/A Ratio: 0.52MV PHT: 53.57 msMVA By PHT: 4.10 zw2Efsnou e': 0.02 | | m/sSeptal E/e': 15.29Lateral e': 0.06 m/sLateral E/e': 6.16RAP: 5 mmHgRVSP: | | 22.69 mmHgTR maxP.69 mmHgTR Vmax: 2.10 m/sRV s': 0.08 m/s Medicine Assistant: | | DHAuthenticated by: Salazar [facility] Date/Time: 07-05-2018 18:13:25 IMPRESSION: 1. | | Overall left ventricular systolic function is low-normal with an EF of 50%. There are | | inferior wall motion abnormaliities suggestive of CAD.2. The right ventricle is normal | | in size and function. 3. No significant valvular abnormalities are noted. 4. Other than | | for a slight increase in the LVEF, there are no clinically significant changes noted in | | comparison to the previous echocardiographic study, done 12/10/16. | |Ao st junct: 2.62 cm | |IVC: 1.93 cm | |LA Major: 5.49 cm | |EDV(Teich): 133.76 ml | |IVSd: 0.83 cm | |LVIDd: 5.27 cm | |LVPWd: 0.71 cm | |LVOT Area: 3.80 cm2 | |LVOT Diam: 2.20 cm | |%FS: 20.96 % | |EF(Teich): 42.32 % | |ESV(Teich): 77.15 ml | |LVIDs: 4.16 cm | |SV(Teich): 56.61 ml | |RA Major: 4.08 cm | |RV Major: 5.60 cm | |RV Minor: 2.90 cm | |RVIDd: 2.65 cm | |LVEF MOD A2C: 47.64 % | |SV MOD A2C: 51.32 ml | |LVEF MOD A4C: 37.02 % | |SV MOD A4C: 38.40 ml | |EF Biplane: 43.53 % | |LVEDV MOD BP: 107.60 ml | |LVESV MOD BP: 60.75 ml | |LVEDV MOD A2C: 107.73 ml | |LVLd A2C: 7.20 cm | |LVEDV MOD A4C: 103.73 ml | |LVLd A4C: 7.49 cm | |LVESV MOD A2C: 56.40 ml | |LVLs A2C: 6.39 cm | |LVESV MOD A4C: 65.33 ml | |LVLs A4C: 6.37 cm | |LAESV(A-L): 73.25 ml | |LAESV Index (A-L): 38.96 ml/m2 | |LAAs A2C: 23.48 cm2 | |LAESV A-L A2C: 80.50 ml | |LALs A2C: 5.81 cm | |LAAs A4C: 20.62 cm2 | |LAESV A-L A4C: 64.33 ml | |LALs A4C: 5.61 cm | |RAAs: 10.85 cm2 | |RAESV A-L: 23.05 ml | |RAESV MOD: 21.85 ml | |RALs: 4.33 cm | |TAPSE: 1.97 cm | |AV maxP.44 mmHg | |AV meanP.51 mmHg | |AV Vmax: 1.05 m/s | |AV Vmean: 0.74 m/s | |AV VTI: 23.82 cm | |JUANI Vmax: 2.72 cm2 | |JUANI (VTI): 2.76 cm2 | |AVAI Vmax: 0.00 cm2/m2 | |AVAI (VTI): 0.00 cm2/m2 | |LVOT maxP.27 mmHg | |LVOT meanP.21 mmHg | |LVSI Dopp: 34.97 ml/m2 | |LVSV Dopp: 65.76 ml | |LVOT Vmax: 0.75 m/s | |LVOT Vmean: 0.52 m/s | |LVOT VTI: 17.26 cm | |MV A Jimmie: 0.77 m/s | |MV Dec Robeson: 2.19 m/s2 | |MV DecT: 184.74 ms | |MV E Jimmie: 0.40 m/s | |MV E/A Ratio: 0.52 | |MV PHT: 53.57 ms | |MVA By PHT: 4.10 cm2 | |Septal e': 0.02 m/s | |Septal E/e': 15.29 | |Lateral e': 0.06 m/s | |Lateral E/e': 6.16 | |RAP: 5 mmHg | |RVSP: 22.69 mmHg | |TR maxP.69 mmHg | |TR Vmax: 2.10 m/s | |RV s': 0.08 m/s | | | |Medicine Assistant: | |Authenticated by: DELFINO CARRERA MD | |Report Date/Time: 07-05-2018 18:13:25 | | | |IMPRESSION: | |1. Overall left ventricular systolic function is low-normal with an EF of 50%. There are i nferior wall motion abnormaliities suggestive of CAD. | |2. The right ventricle is normal in size and function. 3. No significant valvular abnormali ties are noted. 4. Other than for a slight increase in the LVEF, there are no clinically sig nificant changes noted in comparison | |to the previous echocardiographic | |study, done 12/10/16. | + + documented in this encounter Visit Diagnoses Not on filedocumented in this encounter"
--- OUTSIDE RECORDS SUMMARY | ~2020-03-13 | XMS | Encounter Summary ---
Demographics + + + | Address | [address] | | | [place] [address] | + + + | Home Phone | | + + + | Preferred Language | Unknown | + + + | Marital Status | | + + + | Mormonism Affiliation | Unknown | + + + | Race | White | + + + | Ethnic Group | Not or | + + + Author + + + | Author | [facility] | | | and [place] | + + + | Organization | [facility] | | | and [...] Team Providers + +------+ + | Care Mechanical Development Engineer Name | Role | Phone | + +------+ + PCP | Unavailable | + +------+ + Encounter Details +--------+ + + + + | Date | Type | Department | Care Team | Description | +--------+ + + + + | 05/14/ | Hospital | [facility] | [place], | | | 2006 - | Encounter | [facility] | Anton Barba MD [address] | | | | | [address] | [facility] | | | 05/27/ | | [place] | [address] [place], [place] | | | 2006 | | [address] | [address] | | | | | [phone] | | | +--------+ + + + [...]
--- OUTSIDE RECORDS SUMMARY | ~2020-03-13 | XMS | Encounter Summary ---
Demographics + + + | Address | [address] | | | [place] [address] | + + + | Home Phone | | + + + | Preferred Language | Unknown | + + + | Marital Status | | + + + | Congregation Affiliation | Unknown | + + + | Race | White | + + + | Ethnic Group | Not or | + + + Author + + + | Author | [facility] | | | and [place] | + + + | Organization | [facility] | | | and [...] Team Providers + +------+ + | Care Bi Analyst Name | Role | Phone | + +------+ + PCP | Unavailable | + +------+ + Encounter Details +--------+ + + + + | Date | Type | Department | Care Team | Description | +--------+ + + + + | 11/05/ | Hospital | [facility] | [place], | | | 2006 - | Encounter | [facility] | Anton Barba MD [address] | | | | | [address] | [facility] | | | 11/25/ | | [place] | [address] [place], [place] | | | 2006 | | [address] | [address] | | | | | [phone] | | | +--------+ + + + [...]
--- OUTSIDE RECORDS SUMMARY | ~2020-03-13 | XMS | Encounter Summary ---
Demographics + + + | Address | [address] | | | [place] [address] | + + + | Home Phone | | + + + | Preferred Language | Unknown | + + + | Marital Status | | + + + | Muslim Affiliation | Unknown | + + + | Race | White | + + + | Ethnic Group | Not or | + + + Author + + + | Author | [facility] | | | and [place] | + + + | Organization | [facility] | | | and [...] Team Providers + +------+ + | Care Industrial Sales Engineer Name | Role | Phone | + +------+ + | Nicola Gates | PCP | | | MD | | | + +------+ + Encounter Details +--------+ + + + + | Date | Type | Department | Care Team | Description | +--------+ + + + + | 09/17/ | Orders Only | [facility] | Conversion | | | 2017 | | CONVERSION [address] | Transaction, | | | | | [address] | Provider Unknown | | | | | [place], [place] | [phone] | | | | | [address] | | | | | | [phone] | | | +--------+ + + + [...]
--- OUTSIDE RECORDS SUMMARY | ~2020-03-13 | XMS | Encounter Summary ---
Demographics + + + | Address | [address] | | | [place] [address] | + + + | Home Phone | | + + + | Preferred Language | Unknown | + + + | Marital Status | | + + + | Taoist Affiliation | Unknown | + + + | Race | White | + + + | Ethnic Group | Not or | + + + Author + + + | Author | [facility] | | | and [place] | + + + | Organization | [facility] | | [...] Team Providers + +------+ + | Care Biomedical Service Engineer Name | Role | Phone | + +------+ + PCP | Unavailable | + +------+ + Encounter Details +--------+ + + + + | Date | Type | Department | Care Team | Description | +--------+ + + + + | 11/11/ | Hospital | [facility] | [facility]att[place], | SURGERY FOLLOWUP, | | 2005 | Encounter | CONVERSION [address] | [address] | [facility] | | | | [address] | [facility] [address] | | | | | [place], [place] | [place] [address] | | | | | [address] | [phone] | | | | | [phone] | | | +--------+ + + + [...] + | Diagnosis | + + | Follow-up examination, following unspecified surgery | + + documented in this encounter"
--- OUTSIDE RECORDS SUMMARY | ~2020-03-13 | XMS | Clinical Summary ---
Demographics + + + | Address | [address] | | | [place] [address] | + + + | Home Phone | | + + + | Preferred Language | Unknown | + + + | Marital Status | | + + + | Mandaen Affiliation | Unknown | + + + | Race | White | + + + | Ethnic Group | Not or | + + + Author + + + | Author | [facility] | | | and [place] | + + + | Organization | [facility] | | | [...] Team Providers + +------+ + | Care Animation Camera Operator Name | Role | Phone | + +------+ + | Nicola Gates | PCP | | | MD | | | + +------+ + Allergies No Known Allergies Medications + + + +---------+------+------+-------+ | Medication | Sig | Dispensed | Refills | Star | End | Statu | | | | | | t | Date | s | | | | | | Date | | | + + + +---------+------+------+-------+ | aspirin 81 MG EC | Take 81 mg by mouth | | 0 | 11/0 | | Activ | | tablet | daily. | | | 6/20 | | e | | | | | | 13 | | | + + + +---------+------+------+-------+ | levothyroxine | Take 75 mcg by mouth | | 0 | 11/0 | | Activ | | (SYNTHROID) 75 MCG | every morning | | | 6/20 | | e | | tablet | before breakfast. | | | 13 | | | | | Indications: | | | | | | | | Underactive Thyroid | | | | | | + + + +---------+------+------+-------+ | clonazePAM | Take 0.5 mg by mouth | | 0 | 11/0 | | Activ | | (KLONOPIN) 0.5 mg | 2 (two) times daily | | | 6/20 | | e | | tablet | as needed. | | | 13 | | | + + + +---------+------+------+-------+ | gabapentin | Take 2,400 mg by | | 0 | 12/1 | | Activ | | (NEURONTIN) 300 mg | mouth nightly. | | | 01/14 | | e | | capsule | | | | 15 | | | + + + +---------+------+------+-------+ | Probiotic Product | Take 1 capsule by | | 0 | 12/2 | | Activ | | (PROBIOTIC ADVANCED | mouth daily. | | | 020 | | e | | PO) | | | | 18 | | | + + + +---------+------+------+-------+ | B Complex Vitamins | Take by mouth | | 0 | 04/1 | | Activ | | (B COMPLEX PO) | daily. | | | 11/14 | | e | | | | | | 19 | | | + + + +---------+------+------+-------+ | citalopram | Take 20 mg by mouth | | 0 | 03/2 | | Activ | | (CELEXA) 20 mg | every morning. | | | 09/14 | | e | | tablet | Indications: | | | 17 | | | | | Depression | | | | | | + + + +---------+------+------+-------+ | tobramycin | Place 1 drop into | | 0 | 07/2 | | Activ | | (TOBREX) 0.3% | both eyes every 4 | | | 7/20 | | e | | ophthalmic solution | (four) hours. | | | 17 | | | + + + +---------+------+------+-------+ | Calcium | Take 1 tablet by | | 0 | 12/2 | | Activ | | Carb-Cholecalciferol | mouth daily. | | | 0/20 | | e | | (CALCIUM 600+D) | | | | 18 | | | | 600-800 MG-UNIT TABS | | | | | | | + + + +---------+------+------+-------+ | potassium 99 mg | Take 1 tablet by | | 0 | 12/2 | | Activ | | tablet | mouth daily. | | | 0/20 | | e | | | | | | 18 | | | + + + +---------+------+------+-------+ | Magnesium | Take by mouth 2 | | 0 | 04/1 | | Activ | | Gluconate 250 MG | (two) times daily. | | | 5/20 | | e | | TABS | | | | 19 | | | + + + +---------+------+------+-------+ | trospium 20 MG | Take 20 mg by mouth | | 0 | 05/3 | | Activ | | tablet | every evening. | | | 0/20 | | e | | | | | | 19 | | | + + + +---------+------+------+-------+ | tamsulosin | Take 0.4 mg by mouth | | 0 | 05/3 | | Activ | | (FLOMAX) 0.4 mg CAPS | After dinner. | | | 0/20 | | e | | | | | | 19 | | | + + + +---------+------+------+-------+ | furosemide (LASIX) | Take 1 tablet by | 45 | 3 | 05/3 | | Activ | | 20 mg tablet | mouth every other | tablet | | 0/20 | | e | | | day. | | | 19 | | | + + + +---------+------+------+-------+ Active Problems + + + | Problem | Noted Date | + + + | Essential hypertension | 09/15/2018 | + + + | History of four vessel coronary artery bypass graft | 09/15/2018 | + + + + + | Overview: Hx CAB10/15/2004, CABGx4 (THOMPSON to LAD, SVG to D1, | | SVG to OM, SVG to RCA). | + + + + + | Has written advance directive indicating do not resuscitate | 09/15/2018 | | status | | + + + | Chronic kidney disease, stage III (moderate) | 09/15/2018 | + + + | Pedal edema | 09/15/2018 | + + + | Chronic systolic heart failure | 06/16/2018 | + + + | H/O ovarian cancer | 06/04/2014 | + + + | CAD (coronary artery disease) | 05/18/2013 | + + + + + | Overview: Last Cath, 10/14/2004: 60% distal left main, 90% | | prox LAD, 80% ostial D1, LCx occluded, 60% prox-RCA. Lateral | | hypokinesis, LVEF 55%. | + + + + + | Dyslipidemia | 05/18/2013 | + + + | Encounter for monitoring diuretic therapy | 05/03/2013 | + + + Family History + +------+ + + | Relation | Name | Status | Comments | + +------+ + + | Father | | | MVA | | | | (Age | | | | | 65) | | + +------+ + + | Mother | | | hiatal hernia | | | | (Age | | | | | 95) | | + +------+ + + Social History + +-------+ +--------+------+ [...] + + + | Blood Pressure | 118/70 | 11/24/2018 2:01 PM | | | | | PDT | | + + + + + | Pulse | 77 | 11/24/2018 2:01 PM | | | | | PDT | | + + + + + | Temperature | - | - | | + + + + + | Respiratory Rate | 18 | 11/24/2018 2:01 PM | | | | | PDT | | + + + + + | Oxygen Saturation | - | - | | + + + + + | Inhaled Oxygen | - | - | | | Concentration | | | | + + + + + | Weight | 78.7 kg (173 lb 9.6 | 11/24/2018 2:01 PM | | | | oz) | PDT | | + + + + + | Height | 167.6 cm (5' 6") | 11/24/2018 2:01 PM | | | | | PDT | | + + + + + | Body Mass Index | 28.02 | 11/24/2018 2:01 PM | | | | | PDT | | + + + + + Plan of Treatment + + + + + | Health Maintenance | Due Date | Last | Comments | | | | Done | | + + + + + | Med Mgmt: TSH | | | | | | 5 | | | + + + + + | Medication | | | | | Management | 5 | | | + + + + + | Vaccine: | | | | | Dtap/Tdap/Td (1 - | 4 | | | | Tdap) | | | | + + + + + | Vaccine: Zoster (1 | | | | | of 2) | 5 | | | + + + + + | Vaccine: | | | | | Pneumococcal 65+ (1 | 0 | | | | of 1 - PPSV23) | | | | + + + + + | Med Mgmt: Cr | | 06/18/20 | | | | 6 | 15 | | + + + + + | Med Mgmt: K | | 06/18/20 | | | | 6 | 15 | | + + + + + | Med Mgmt: Na | | 06/18/20 | | | | 6 | 15 | | + + + + + | Med Mgmt: eGFR | | 06/18/20 | | | | 6 | 15 | | + + + + + | Adult Annual | | | | | Wellness Visit | 9 | | | + + + + + | Statin Therapy | | | | | (optimal intensity) | 9 | | | + + + + + | Vaccine: Influenza | | | | | (#1) | 0 | | | + + + + + Results Not on filefrom Last 3 Months Insurance + +--------+ +--------+ +---------+--------+ | Payer | Benefi | Subscriber | Effect | Phone | Address | Type | | | t Plan | ID | howard | | | | | | / | | Dates | | | | | | Group | | | | | | + +--------+ +--------+ +---------+--------+ | MEDICARE | MEDICA | [id number] | 09/27/19 | [phone] | | Medica | | | RE | | 01-Pre | 5 | | re | | | PART A | | sent | | | | | | AND B | | | | | | + +--------+ +--------+ +---------+--------+ + +--------+ +--------+ + + | Guarantor Name | Accoun | Relation to | Date | Phone | Billing Address | | | t Type | Patient | of | | | | | | | | | | + +--------+ +--------+ + + | Shereen Klein | Person | Self | [birth year] [address] | | al/Fam | | 1935 | [phone] | [place] | | | mell | | | [address] (Home) | [address] | + +--------+ +--------+ + + | Shereen Klein | Person | Self | [birth year] | [address] | | | al/Fam | | 1935 | [phone] | [place] | | | [place] | | | [address] (Home) | [address] | + +--------+ +--------+ + +
--- OUTSIDE RECORDS SUMMARY | ~2020-03-13 | XMS | Encounter Summary ---
Demographics + + + | Address | [address] | | | [place] [address] | + + + | Home Phone | | + + + | Preferred Language | Unknown | + + + | Marital Status | | + + + | Jain Affiliation | Unknown | + + + | Race | White | + + + | Ethnic Group | Not or | + + + Author + + + | Author | [facility] | + + + | Organization | [facility] | + + + | Address | Unknown | + + + | Phone | Unavailable | + + + Support + + + + + | Name | Relationship | Address | Phone | + + + + + | Papa Klein | ECON | [address] | | | | | [place] | | | | | [address] | | + + + + + Care Team Providers + +------+ + | Care Supervisor Kennel Name | Role | Phone | + +------+ + PCP | Unavailable | + +------+ + Encounter Details +--------+ + + + + | Date | Type | Department | Care Team | Description | +--------+ + + + + | 08/13/ | [facility]ati [facility] Jas Fa[facility]ner | | | 2006 | on | [facility] Gy[facility] | | | | | | [facility] [address] | | | | | | [address] | | | | | | Outpatient Clinic | | | | | | Building | | | | | | Mailcode: [id number] | | | | | | [place], [place] | | | | | | [address] | | | | | | [phone] | | | +--------+ + + + [...] + + documented as of this encounter Miscellaneous Notes Telephone Encounter - Jas Faulkner Md - 09/06/2006 9:31 AM PDTTumor Board 08/23/2006 Ms. Klein is a 71 year old woman with history of a pelvic mass discovered on pelvic exam. Pelvic ultrasound demonstrated a 6x8x10 cm solid mass adjacent to the fundus of the uterus . No ascites was found. On 08/05/2006, she underwent a PRINCESS/BSO and omentectomy. The tumor w as 14 cm in diameter. 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 All pelvic and periaortic lymph nodes were negative, as wer e the pelvic washings. Based on these findings she has a Stage I tumor. There are limited studies available on the use of chemotherapy in these patients, but it is the recommendation of the Tumor Board that she undergo 6 cycles of Carbo/Taxol. documented in this encou nter Plan of Treatment Not on filedocumented as of this encounter Visit Diagnoses Not on filedocumented in this encounter"
--- OUTSIDE RECORDS SUMMARY | ~2020-03-13 | XMS | Encounter Summary ---
Demographics + + + | Address | [address] | | | [place] [address] | + + + | Home Phone | | + + + | Preferred Language | Unknown | + + + | Marital Status | | + + + | Amish Affiliation | Unknown | + + + | Race | White | + + + | Ethnic Group | Not or | + + + Author + + + | Author | [facility] | + + + | Organization | [facility] | + + + | Address | Unknown | + + + | Phone | Unavailable | + + + Support + + + + + | Name | Relationship | Address | Phone | + + + + + | Papa Klein | ECON | [address] | | | | | [place] | | | | | [address] | | + + + + + Care Team Providers + +------+ + | Care Production Designer Name | Role | Phone | + +------+ + PCP | Unavailable | + +------+ + Encounter Details +--------+ + + + + | Date | Type | Department | Care Team | Description | +--------+ + + + + | 08/04/ | Ancillary | Registration [id number] | Giovany Suarez, | | | 2006 | Registratio | [address] | Obstetrics and | | | | n | Rafael Mailcode: [id number] | Gynecology [address] | | | | | [place], [place] | [address] | | | | | [address] | [place], [place] | | | | | [phone] | [address] | | | | | | [phone] | | +--------+ + + + + [...] + | COMPLETE METABOLIC | Routin | 08/04/2006 | | Results for this | | SET | e | 2:45 PM | | procedure are in the | | (NA,K,CL,CO2,BUN,CRE | | PST | | results section. | | AT,GLUC,CA,AST,ALT,B | | | | | | RODRIGUE TOTAL,ALK | | | | | | PHOS,ALB,PROT TOTAL) | | | | | + +--------+ + + + | CBC ONLY | Routin | 08/04/2006 | | Results for this | | | e | 2:45 PM | | procedure are in the | | | | PST | | results section. | + +--------+ + + + | 12 LEAD ECG | Routin | 08/04/2006 | | Results for this | | | e | 2:05 PM | | procedure are in the | | | | PST | | results section. | + +--------+ + + + documented in this encounter Results COMP METABOLIC SET (08/04/2006 2:45 PM PST) + +--------+ + + + | Component | Value | Ref Range | Performed | Pathologist | | | | | At | Signature | + +--------+ + + + | GLUCOSE, | 97 | 65 - 110 mg/dL | [facility] | | | PLASMA | | | DEPARTMENT | | | (LAB) | | | OF | | | | | | PATHOLOGY | | + +--------+ + + + | BUN, PLASMA | 14 | 6 - 20 mg/dL | [facility] | | | (LAB) | | | DEPARTMENT | | | | | | OF | | | | | | PATHOLOGY | | + +--------+ + + + | CREATININE | 1.1 | 0.6 - 1.1 mg/dL | [facility] | | | PLASMA | | | DEPARTMENT | | | (LAB) | | | OF | | | | | | PATHOLOGY | | + +--------+ + + + | TOTAL | 7.1 | 6.1 - 7.9 g/dL | [facility] | | | PROTEIN, | | | DEPARTMENT | | | PLASMA | | | OF | | | (LAB) | | | PATHOLOGY | | + +--------+ + + + | ALBUMIN, | 3.8 | 3.5 - 4.7 g/dL | [facility] | | | PLASMA | | | DEPARTMENT | | | (LAB) | | | OF | | | | | | PATHOLOGY | | + +--------+ + + + | CALCIUM, | 9.8 | 8.5 - 10.5 | [facility] | | | PLASMA | | mg/dL | DEPARTMENT | | | (LAB) | | | OF | | | | | | PATHOLOGY | | + +--------+ + + + | BILIRUBIN | 0.8 | 0.3 - 1.2 mg/dL | [facility] | | | TOTAL | | | DEPARTMENT | | | | | | OF | | | | | | PATHOLOGY | | + +--------+ + + + | ALK PHOS | 91 | 53 - 141 U/L | [facility] | | | | | | DEPARTMENT | | | | | | OF | | | | | | PATHOLOGY | | + +--------+ + + + | AST(SGOT) | 21 | 15 - 41 U/L | [facility] | | | | | | DEPARTMENT | | | | | | OF | | | | | | PATHOLOGY | | + +--------+ + + + | SODIUM, | 138 | 136 - 145 | [facility] | | | PLASMA | | mmol/L | DEPARTMENT | | | (LAB) | | | OF | | | | | | PATHOLOGY | | + +--------+ + + + | POTASSIUM, | 4.0 | 3.5 - 5.1 | [facility] | | | PLASMA | | mmol/L | DEPARTMENT | | | (LAB) | | | OF | | | | | | PATHOLOGY | | + +--------+ + + + | CHLORIDE, | 107 | 98 - 107 mmol/L | [facility] | | | PLASMA | | | DEPARTMENT | | | (LAB) | | | OF | | | | | | PATHOLOGY | | + +--------+ + + + | TOTAL CO2, | 22 (L) | 23 - 29 mmol/L | [facility] | | | PLASMA | | | DEPARTMENT | | | (LAB) | | | OF | | | | | | PATHOLOGY | | + +--------+ + + + | ALT (SGPT) | 16 | 13 - 48 U/L | [facility] | | | | | | DEPARTMENT | | | | | | OF | | | | | | PATHOLOGY | | + +--------+ + + + + + | Specimen | + + | | + + + + + | Narrative | Performed At | + + + | [id number] Estimated GFR = 52 mL/min/1.73 sq m if non- | [facility] | | [id number] Estimated GFR > 60 mL/min/1.73 sq m if GFR | DEPARTMENT OF | | is estimated using the MDRD equation recommended by the National | PATHOLOGY | | Kidney Disease Education Program. Estimated GFR Interpretive | | | Information: <60 mL/min/1.73 sq m Chronic Kidney Disease <15 | | | mL/mon/1.73 sq m Kidney Failure Estimated GFR greater than | | | 60mL/min/1.73 is of limited clinical Value. The MDRD equation is | | | not valid in the following situations: - Patients under 18 years of | | | age - Severe malnutrition or obesity - Vegetarian diet - Rapidly | | | changing kidney function | | + + + + + + + + | Performing | Address | City/State/Zipcode | Phone Number | | Organization | | | | + + + + + | [facility] DEPARTMENT [facility] | [address] | [place] [address] | | | PATHOLOGY | [address] | | | + + + + + | [facility] | [address] [place] [address] [address] | [place] [address] | | | PATHOLOGY | [address] | | | + + + + + CBC ONLY WITH PLATELET (08/04/2006 2:45 PM PST) + + + + + + | Component | Value | Ref Range | Performed | Pathologist | | | | | At | Signature | + + + + + + | WHITE CELL | 6.9 | 4.4 - 11.0 K/cu | [facility] | | | COUNT | | mm | DEPARTMENT | | | | | | OF | | | | | | PATHOLOGY | | + + + + + + | RED CELL | 4.56 | 4.00 - 5.20 | [facility] | | | COUNT | | M/cu mm | DEPARTMENT | | | | | | OF | | | | | | PATHOLOGY | | + + + + + + | HEMOGLOBIN | 13.3 | 12.0 - 16.0 | [facility] | | | | | g/dL | DEPARTMENT | | | | | | OF | | | | | | PATHOLOGY | | + + + + + + | HEMATOCRIT | 39.0 | 36.0 - 46.0 % | [facility] | | | | | | DEPARTMENT | | | | | | OF | | | | | | PATHOLOGY | | + + + + + + | MCV | 85.5 | 80.0 - 96.0 fL | [facility] | | | | | | DEPARTMENT | | | | | | OF | | | | | | PATHOLOGY | | + + + + + + | MCHC | 34.0 | 33.4 - 35.5 | [facility] | | | | | g/dL | DEPARTMENT | | | | | | OF | | | | | | PATHOLOGY | | + + + + + + | RDW | 15.3 (H) | 11.5 - 15.0 % | [facility] | | | | | | DEPARTMENT | | | | | | OF | | | | | | PATHOLOGY | | + + + + + + | PLATELET | 303 | 150 - 400 K/cu | [facility] [...] | + + + + + | [facility] | [address] [facility] | [place] [address] | | | PATHOLOGY | [address] | | | + + + + + | [facility] DEPARTMENT OF | [facility] | [place] [address] | | | PATHOLOGY | [address] | | | + + + + + 12 LEAD ECG (08/04/2006 2:05 PM PST) + + + + + + | Component | Value | Ref Range | Performed | Pathologist | | | | | At | Signature | + + + + + + | VENTRICULAR | 73 | BPM | [facility] | | | RATE | | | OF | | | | | | CARDIOLOGY | | + + + + + + | ATRIAL RATE | 73 | BPM | [facility] | | | | | | OF | | | | | | CARDIOLOGY | | + + + + + + | P-R | 164 | ms | [facility] | | | INTERVAL | | | OF | | | | | | CARDIOLOGY | | + + + + + + | QRS | 108 | ms | [facility] | | | DURATION | | | OF | | | | | | CARDIOLOGY | | + + + + + + | QT | 438 | ms | [facility] | | | | | | OF | | | | | | CARDIOLOGY | | + + + + + + | QTC | 483 | ms | [facility] | | | | | | OF | | | | | | CARDIOLOGY | | + + + + + + | P AXIS | 47 | degrees | [facility] | | | | | | OF | | | | | | CARDIOLOGY | | + + + + + + | R AXIS | -14 | degrees | [facility] | | | | | | OF | | | | | | CARDIOLOGY | | + + + + + + | T AXIS | 66 | degrees | [facility] | | | | | | OF | | | | | | CARDIOLOGY | | + + + + + + | EKG | Normal sinus | | [facility] | | | DIAGNOSIS | rhythmNormal ECG"I have | | OF | | | | personally interpreted | | CARDIOLOGY | | | | this report, either | | | | | | alone or with a | | | | | | trainee."Confirmed by | | | | | | GEE TEJEDA ([id number]) | | | | | | on 05-Aug-2006 13:43:41 | | | | + + + + + + | LINK TO | | | [facility] | | | [facility] | | | OF | | | (ECG | | | CARDIOLOGY | | | VIEWER) | | | | | + + + + + + + + | Specimen | + + | | + + + + + | Narrative | Performed At | + + + | | | + + + + + + + + | Performing | Address | City/State/Zipcode | Phone Number | | Organization | | | | + + + + + | [facility] | [address] [facility] | [place], [place] | | | CARDIOLOGY | [address] | [address] | | + + + + + | [facility] | [address] | [place], [place] | | | CARDIOLOGY | [address] [facility] | [address] | | + + + + + documented in this encounter Visit Diagnoses Not on filedocumented in this encounter
--- OUTSIDE RECORDS SUMMARY | ~2020-03-13 | XMS | Encounter Summary ---
Demographics + + + | Address | [address] | | | [place] [address] | + + + | Home Phone | | + + + | Preferred Language | Unknown | + + + | Marital Status | | + + + | Church Affiliation | Unknown | + + + [...] Team Providers + +------+ + | Care Regrinder Operator Name | Role | Phone | + +------+ + | Nicola Gates | PCP | | | MD | | | + +------+ + Encounter Details +--------+ + + + + | Date | Type | Department | Care Team | Description | +--------+ + + + + | 02/24/ | Orders Only | [facility] | Vijaya Stack | | | 2018 | | CARDIOLOGY [place] | [address] | | | | | [address] | [address] | | | | | [address] | [place] [address] | | | | | [place] | [phone] | | | | | [address] | | | | | | [phone] | | | +--------+ + + + [...]
--- OUTSIDE RECORDS SUMMARY | ~2020-03-13 | XMS | Encounter Summary ---
Demographics + + + | Address | [address] | | | [place] [address] | + + + | Home Phone | | + + + | Preferred Language | Unknown | + + + | Marital Status | | + + + | Judaism Affiliation | Unknown | + + + | Race | White | + + + | Ethnic Group | Not or | + + + Author + + + | Author | [facility] | | | and [place] | + + + | Organization | [facility] | | | [...] Team Providers + +------+ + | Care Clinical Documentation Improvement Specialist Name | Role | Phone | + +------+ + PCP | Unavailable | + +------+ + Encounter Details +--------+ + + + + | Date | Type | Department | Care Team | Description | +--------+ + + + + | 11/11/ | Hospital | [facility] | Ge[place], | | | 2007 - | Encounter | [facility] | Anton Barba MD [address] | | | | | [address] | [address] [facility] [facility] | | | 11/25/ | | [place] | [address] [place] | | | 2007 | | [address] | [address] | | | | | [phone] | | | +--------+ + + + [...]
--- OUTSIDE RECORDS SUMMARY | ~2020-03-13 | XMS | Encounter Summary ---
Demographics + + + | Address | [address] | | | [place] [address] | + + + | Home Phone | | + + + | Preferred Language | Unknown | + + + | Marital Status | | + + + | Latter Day Affiliation | Unknown | + + + | Race | White | + + + | Ethnic Group | Not or | + + + Author + + + | Author | [facility] | | | and [place] | + + + | Organization | [facility] | | | [...] Team Providers + +------+ + | Care Layup Worker Name | Role | Phone | + +------+ + PCP | Unavailable | + +------+ + Encounter Details +--------+ + + + + | Date | Type | Department | Care Team | Description | +--------+ + + + + | 09/15/ | Hospital | [facility] | Ge[place], | | | 2006 - | Encounter | MED CTR CANCER | Anton Barba MD [address] | | | | | [address] | [address] [facility] | | | 09/25/ | | [place] | [address] [place], [place] | | | 2006 | | [address] | [address] | | | | | [phone] | | | +--------+ + + + [...]
--- OUTSIDE RECORDS SUMMARY | ~2020-03-13 | XMS | Encounter Summary ---
Demographics + + + | Address | [address] | | | [place] [address] | + + + | Home Phone | | + + + | Preferred Language | Unknown | + + + | Marital Status | | + + + | Rastafari Affiliation | Unknown | + + + | Race | White | + + + | Ethnic Group | Not or | + + + Author + + + | Author | [facility] | + + + | Organization | [facility] | + + + | Address | Unknown | + + + | Phone | Unavailable | + + + Support + + + + + | Name | Relationship | Address | Phone | + + + + + | Papa Klein | ECON | [address] | | | | | [place] | | | | | [address] | | + + + + + Care Team Providers + +------+ + | Care Executive Account Manager Name | Role | Phone | + +------+ + PCP | Unavailable | + +------+ + Encounter Details +--------+ + + + + | Date | Type | Department | Care Team | Description | +--------+ + + + + | 07/19/ | Results | [facility] | Giovany Suarez, | | | 2006 | Only | [facility] | Obstetrics and | | | | | [address] | Gynecology [address] | | | | | [address] | [address] | | | | | [address], 7th floor | [place], [place] | | | | | [place] | [address] | | | | | [address] | [phone] | | | | | [phone] | | | +--------+ + + + [...] of this encounter Plan of Treatment + +---------+--------+ + + | Name | Type | Priori | Associated Diagnoses | Date/Time | | | | ty | | | + +---------+--------+ + + | CT OUTSIDE FILMS | Imaging | Routin | | 07/19/2006 12:00 AM | | | | e | | PST | + +---------+--------+ + + | GENERAL OUTSIDE | Imaging | Routin | | 07/19/2006 12:00 AM | | FILMS | | e | | PST | + +---------+--------+ + + documented as of this encounter Visit Diagnoses Not on filedocumented in this encounter"
--- OUTSIDE RECORDS SUMMARY | ~2020-03-13 | XMS | Encounter Summary ---
Demographics + + + | Address | [address] | | | [place] [address] | + + + | Home Phone | | + + + | Preferred Language | Unknown | + + + | Marital Status | | + + + | Mormonism Affiliation | Unknown | + + + | Race | White | + + + | Ethnic Group | Not or | + + + Author + + + | Author | [facility] | + + + | Organization | [facility] | + + + | Address | Unknown | + + + | Phone | Unavailable | + + + Support + + + + + | Name | Relationship | Address | Phone | + + + + + | Papa Klein | ECON | [address] | | | | | [place] | | | | | [phone] | | + + + + + Care Team Providers + +------+ + | Care Radio Artist Name | Role | Phone | + +------+ + PCP | Unavailable | + +------+ + Encounter Details +--------+ + + + + | Date | Type | Department | Care Team | Description | +--------+ + + + + | 07/20/ | Orders Only | [facility] | Kaylene Bautista MD | | | 2013 | | [facility] | [address] | | | | | [address] | | | | | [address] | [place], [place] | | | | | [address], [address] floor | [address] | | | | | [place], [place] | [phone] | | | | | [address] | | | | | | [phone] | | | +--------+ + + + [...]
--- OUTSIDE RECORDS SUMMARY | ~2020-03-13 | XMS | Encounter Summary ---
Demographics + + + | Address | [address] | | | [place] [address] | + + + | Home Phone | | + + + | Preferred Language | Unknown | + + + | Marital Status | | + + + | Restorationist Affiliation | Unknown | + + + | Race | White | + + + | Ethnic Group | Not or | + + + Author + + + | Author | [facility] | | | and [place] | + + + | Organization | [facility] | | | [...] Team Providers + +------+ + | Care Car Inspector Name | Role | Phone | + +------+ + PCP | Unavailable | + +------+ + Encounter Details +--------+ + + + + | Date | Type | Department | Care Team | Description | +--------+ + + + + | 04/15/ | Hospital | [facility] | [place], | | | 2007 - | Encounter | [facility] | Anton Barba MD [address] | | | | | [address] | [facility] | | | 04/27/ | | [place] | [address] [place] | | | 2007 | | [address] | [address] | | | | | [phone] | | | +--------+ + + + [...]
--- OUTSIDE RECORDS SUMMARY | ~2020-03-13 | XMS | Encounter Summary ---
Demographics + + + | Address | [address] | | | [place] [address] | + + + | Home Phone | | + + + | Preferred Language | Unknown | + + + | Marital Status | | + + + | Uatsdin Affiliation | Unknown | + + + | Race | White | + + + | Ethnic Group | Not or | + + + Author + + + | Author | [facility] | | | and [place] | + + + | Organization | [facility] | | | and [...] Team Providers + +------+ + | Care Compress Machine Operator Name | Role | Phone | + +------+ + | Nicola Gates | PCP | | | MD | | | + +------+ + Encounter Details +--------+ + + + + | Date | Type | Department | Care Team | Description | +--------+ + + + + | 06/18/ | Orders Only | [facility] | Jim Ball | | | 2015 | | CARDIOLOG[place] | MD [address] | | | | | [address] | [address] | | | | | [place], [place] | [place] [address] | | | | | [address] | [phone] | | | | | [phone] | | | +--------+ + + + [...] | + +--------+ + + + | EXTERNAL LAB: CBC | Routin | 06/18/2015 | | Results for this | | | e | 8:07 AM | | procedure are in the | | | | PST | | results section. | + +--------+ + + + | LIPID PANEL | Routin | 06/18/2015 | | Results for this | | | e | 8:07 AM | | procedure are in the | | | | PST | | results section. | + +--------+ + + + | CK TOTAL | Routin | 06/18/2015 | | Results for this | | | e | 8:07 AM | | procedure are in the | | | | PST | | results section. | + +--------+ + + + | COMPREHENSIVE | Routin | 06/18/2015 | | Results for this | | METABOLIC PANEL | e | 8:07 AM | | procedure are in the | | | | PST | | results section. | + +--------+ + + + documented in this encounter Results External Lab: CBC (06/18/2015 8:07 AM PST) + + + + + + | Component | Value | Ref Range | Performed | Pathologist | | | | | At | Signature | + + + + + + | WBC | 6.2 | 4.5 - 11.0 10 | EXTERNAL | | | | | | LAB | | + + + + + + | Non- | 4.75 | 3.8 - 5.1 10 | EXTERNAL | | | Red Blood | | | LAB | | | Cells | | | | | | Counted | | | | | + + + + + + | Hemoglobin | 13.8 | 12.0 - 16.0 | EXTERNAL | | | | | g/dL | LAB | | + + + + + + | Hematocrit, | 43.1 | 35 - 45 % | EXTERNAL | | | POC | | | LAB | | + + + + + + | MCV | 90.7 | 81 - 99 fL | EXTERNAL | | | | | | LAB | | + + + + + + | MCH | 29 | 27 - 33 pg | EXTERNAL | | | | | | LAB | | + + + + + + | MCHC | 32 | 30 - 36 g/dL | EXTERNAL | | | | | | LAB | | + + + + + + | Platelet | 278 | 140 - 440 K/ L | EXTERNAL | | | Count | | | LAB | | | Plasma | | | | | + + + + + + | RDW-CV | 14.4 | 10.5 - 15.0 % | EXTERNAL | | | | | | LAB | | + + + + + + | MPV | | fL | EXTERNAL | | | | | | LAB | | + + + + + + | Differentia | | | EXTERNAL | | | l Type | | | LAB | | + + + + + + | % Segmented | 53.5 | 39 - 80 % | EXTERNAL | | | | | | LAB | | | Neutrophils | | | | | + + + + + + | % | 26.4 | 24 - 44 % | EXTERNAL | | | Lymphocytes | | | LAB | | + + + + + + | % Monocytes | 12.2 (A) | 0 - 12 % | EXTERNAL | | | | | | LAB | | + + + + + + | % | 6.5 (A) | 0 - 6 % | EXTERNAL | | | Eosinophils | | | LAB | | + + + + + + | % Basophils | 1.4 | 0 - 2 % | EXTERNAL | | | | | | LAB | | + + + + + + | Absolute | | / L | EXTERNAL | | | Segmented | | | LAB | | | Neutrophils | | | | | + + + + + + | Absolute | | / L | EXTERNAL | | | Lymphocytes | | | LAB | | + + + + + + | Absolute | | / L | EXTERNAL | | | Monocytes | | | LAB | | + + + + + + | Absolute | | / L | EXTERNAL | | | Eosinophils | | | LAB | | + + + + + + | Absolute | | / L | EXTERNAL | | | Basophils | | | LAB | | + + + + + + + + | Specimen | + + | Blood specimen | | (specimen) | + + + +---------+ + + | Performing | Address | City/State/Zipcode | Phone Number | | Organization | | | | + +---------+ + + | EXTERNAL LAB | | | | + +---------+ + + CK Total (06/18/2015 8:07 AM PST) + +-------+ + + + | Component | Value | Ref Range | Performed | Pathologist | | | | | At | Signature | + +-------+ + + + | CK, Total | 91 | 24 - 170 U/L | EXTERNAL | | | | | | LAB | | + +-------+ + + + + + | Specimen | + + | Blood specimen | | (specimen) | + + + +---------+ + + | Performing | Address | City/State/Zipcode | Phone Number | | Organization | | | | + +---------+ + + | EXTERNAL LAB | | | | + +---------+ + + Lipid Panel (06/18/2015 8:07 AM PST) + +-------+ + + + | Component | Value | Ref Range | Performed | Pathologist | | | | | At | Signature | + +-------+ + + + | Cholesterol | 152 | 200 mg/dL | EXTERNAL | | | | | | LAB | | + +-------+ + + + | Triglycerid | 126 | 30 - 150 mg/dL | EXTERNAL | | | es | | | LAB | | + +-------+ + + + | HDL | 50.9 | 40 mg/dl | EXTERNAL | | | | | | LAB | | + +-------+ + + + | LDL, | 76 | 100 mg/dL | EXTERNAL | | | Calculated | | | LAB | | + +-------+ + + + | LDl/HDL | | | EXTERNAL | | | Ratio | | | LAB | | + +-------+ + + + | Chol/HDL | 3.0 | 4.44 | EXTERNAL | | | Ratio | | | LAB | | + +-------+ + + + | VLDL | 25 | 4 - 40 mg/dL | EXTERNAL | | | | | | LAB | | + +-------+ + + + | Non HDL | 101 | 130 | EXTERNAL | | | Chol. | | | LAB | | | (LDL+VLDL) | | | | | + +-------+ + + + + + | Specimen | + + | Blood specimen | | (specimen) | + + + +---------+ + + | Performing | Address | City/State/Zipcode | Phone Number | | Organization | | | | + +---------+ + + | EXTERNAL LAB | | | | + +---------+ + + Comprehensive Metabolic Panel (06/18/2015 8:07 AM PST) + +--------+ + + + | Component | Value | Ref Range | Performed | Pathologist | | | | | At | Signature | + +--------+ + + + | Glucose, | 84 | 70 - 100 mg/dL | EXTERNAL | | | Fasting | | | LAB | | + +--------+ + + + | BUN | 18 | 6 - 23 mg/dL | EXTERNAL | | | | | | LAB | | + +--------+ + + + | Creatinine | 1.10 | 0.70 - 1.11 | EXTERNAL | | | | | mg/dL | LAB | | + +--------+ + + + | BUN/Creatin | 16.4 | 6.0 - 28.6 | EXTERNAL | | | ine Ratio | | | LAB | | + +--------+ + + + | Calcium | 10.1 | 8.4 - 10.2 | EXTERNAL | | | | | mg/dL | LAB | | + +--------+ + + + | Protein, | 6.4 | 6.0 - 8.0 g/dL | EXTERNAL | | | Total | | | LAB | | + +--------+ + + + | Albumin | 4.1 | 3.5 - 5.0 | EXTERNAL | | | | | | LAB | | + +--------+ + + + | Globulin | 2.3 | 1.8 - 3.5 | EXTERNAL | | | | | | LAB | | + +--------+ + + + | A/G Ratio | 1.8 | 1.1 - 2.4 | EXTERNAL | | | | | | LAB | | + +--------+ + + + | Bilirubin | 0.7 | 0.0 - 1.2 mg/dL | EXTERNAL | | | Total | | | LAB | | + +--------+ + + + | ALP, | 107 | 30 - 128 | EXTERNAL | | | External | | | LAB | | + +--------+ + + + | ALT | 25 | 7 - 52 U/L | EXTERNAL | | | | | | LAB | | + +--------+ + + + | AST | 23 | 13 - 39 U/L | EXTERNAL | | | | | | LAB | | + +--------+ + + + | Na | 140 | 132 - 143 | EXTERNAL | | | | | mmol/L | LAB | | + +--------+ + + + | K | 4.5 | 3.6 - 5.1 | EXTERNAL | | | | | mmol/L | LAB | | + +--------+ + + + | Cl | 107 | 95 - 112 mmol/L | EXTERNAL | | | | | | LAB | | + +--------+ + + + | CO2 | 22 | 19 - 31 mmol/L | EXTERNAL | | | | | | LAB | | + +--------+ + + + | Anion Gap | 15.5 | 7 - 21 mmol/L | EXTERNAL | | | | | | LAB | | + +--------+ + + + | Estimated | 48 (A) | 60 mg/dL | EXTERNAL | | | GFR | | | LAB | | + +--------+ + + + + + | Specimen | + + | Blood specimen | | (specimen) | + + + +---------+ + + | Performing | Address | City/State/Zipcode | Phone Number | | Organization | | | | + +---------+ + + | EXTERNAL LAB | | | | + +---------+ + + documented in this encounter Visit Diagnoses Not on filedocumented in this encounter"
--- OUTSIDE RECORDS SUMMARY | ~2020-03-13 | XMS | Encounter Summary ---
Demographics + + + | Address | [address] | | | [place] [address] | + + + | Home Phone [...] [place] | | | | | [address] | | + + + + + Care Team Providers + +------+ + | Care Supervisor Pigment Making Name | Role | Phone | + +------+ + PCP | Unavailable | + +------+ + Reason for Visit + + + | Reason | Comments | + + + | Fracture of femur | periprosthetic | + + + Encounter Details +--------+ + + + + | Date | Type | Department | Care Team | Description | +--------+ + + + + | 08/13/ | Emergency | [facility] | | | | 2018 | | Department [address] | | | | | | [address] | | | | | | [facility] | | | | | | [place], [place] | | | | | | [address] | | | | | | [phone] | | | +--------+ + + + [...] + + documented as of this encounter Medications at Time of Discharge + + + +---------+--------+ + | Medication | Sig | Dispensed | Refills | Start | End Date | | | | | | Date | | + + + +---------+--------+ + | ATENOLOL 25 MG TAB | 1 tab po daily | | 0 | | | + + + +---------+--------+ + | LEVOTHYROXINE 50 | 1 tab po daily | | 0 | | | | MCG TAB | | | | | | + + + +---------+--------+ + | PRAVASTATIN 40 MG | 1 tab po bid | | 0 | | | | TAB | | | | | | + + + +---------+--------+ + documented as of this encounter Miscellaneous Notes Comm Frank Camacho - 08/13/2017 3:17 PM Letitia Holloway connected with Dr Vaca, 82yof fall 2 weeks ago, displaced fragment, periprosthetic femur fracture, pt able to bare weight with discomfort, hx hip replacement Consult only, no indication for inter hospital transfer at this time. omm [facility] Frank Juarez - 08/13/2017 2:58 P M Letitia Holloway (ortho) paged documented in this encounter Plan of Treatment Not on filedocumented as of this encounter Visit Diagnoses Not on filedocumented in this encounter"
--- OUTSIDE RECORDS SUMMARY | ~2020-03-13 | XMS | Encounter Summary ---
Demographics + + + | Address | [address] | | | [place] [address] | + + + | Home Phone | | + + + | Preferred Language | Unknown | + + + | Marital Status | | + + + | Hindu Affiliation | Unknown | + + + | Race | White | + + + | Ethnic Group | Not or | + + + Author + + + | Author | [facility] | | | and [place] | + + + | Organization | [facility] | | [...] Team Providers + +------+ + | Care Process Maintenance Technician Name | Role | Phone | + +------+ + | Nicola Gates | PCP | | | MD | | | + +------+ + Encounter Details +--------+ + + + + | Date | Type | Department | Care Team | Description | +--------+ + + + + | 12/10/ | Orders Only | [facility] | Vijaya Stack | | | 2017 | | [address] | [place], [employer] [address] | | | | | [address] | [place] | | | | | [place], [place] | [place] [address] | | | | | [address] | [phone] | | | | | [phone] | | | +--------+ + + + [...] + | ECHO INTERPRETATION | Routin | 12/10/2016 | | Results for this | | OF OUTSIDE FILMS | e | 12:27 PM | | procedure are in the | | | | PDT | | results section. | + +--------+ + + + documented in this encounter Results ECHO Interpretation of Outside Films (12/10/2016 12:27 PM PDT) + + | Specimen | + + | | + + + + + | Impressions | Performed At | + + + | 1. The left ventricle is normal in size, wall thickness and mildly | | | impaired systolic function EF 40-45%. Abnromal wall motion abnormality | | | suggestive of coronary artery disease. 2. The diastolic filling | | | pattern indicates impaired relaxation consistent with mild dysfunction | | | (Grade I). 3. The right ventricle is normal in size and function. | | | 4. Mild degenerative changes in the aortic and mitral valve. 5. There | | | is no pericardial effusion. | | + + + + + + | Narrative | Performed At | + + + | Patient Name: Shereen Klein Date of : 1935 | | | Performing Physician: Rosa Maldonado | | | MD | | | ------REPORT ADDENDED------ INDICATIONS CAD, Murmur, | | | edema CONCLUSIONS 1. The left ventricle is normal in | | | size, wall thickness and mildly impaired systolic function EF 40-45%. | | | Abnromal wall motion abnormality suggestive of coronary artery | | | disease. 2. The diastolic filling pattern indicates impaired | | | relaxation consistent with mild dysfunction (Grade I). 3. The right | | | ventricle is normal in size and function. 4. Mild degenerative | | | changes in the aortic and mitral valve. 5. There is no pericardial | | | effusion. FINDINGS -------- ECG rhythm: Sinus rhythm. Study: A | | | 2-dimensional transthoracic echocardiogram with m-mode, spectral and | | | color flow Doppler was perfomed. Study: This was a technically | | | adequate study. Left Ventricle: Overall left ventricular systolic | | | function is mild impaired with, an EF between 40 - 45 %. | | | Inferolateral, inferior and inferoseptal hypokinesis. Left | | | Ventricle: The left ventricle cavity size is normal. Left Ventricle: | | | Left ventricular wall thickness is normal. Left Ventricle: The | | | diastolic filling pattern indicates impaired relaxation consistent | | | with mild dysfunction (Grade I). Right Ventricle: The right ventricle | | | is normal in size and function. Left Atrium: The left atrium is | | | mildly enlarged. Right Atrium: The right atrium is normal in size. | | | Aortic Valve: The aortic valve is trileaflet. Aortic Valve: There is | | | mild aortic valve sclerosis without stenosis. Aortic Valve: There is | | | no evidence of aortic regurgitation. Mitral Valve: There is trace | | | mitral regurgitation. Mitral Valve: Mild mitral annular calcification | | | present. Tricuspid Valve: The tricuspid valve appears structurally | | | normal. Tricuspid Valve: Trace tricuspid regurgitation present. | | | Tricuspid Valve: There is no evidence of pulmonary hypertension. | | | Tricuspid Valve: The right ventricular systolic pressure (pulmonary | | | artery systolic pressure), as measured by Doppler, is 26.54mmHg. | | | Pulmonic Valve: The pulmonic valve is normal. Pulmonic Valve: Mild | | | degenerative changes in the aortic and mitral valve. Pericardium: | | | There is no pericardial effusion. Pericardium: No pleural effusion | | | seen. IVC/Hepatic Veins: The IVC is normal size (1.5-2.5cm) and | | | collapses >50% with sniff, consistent with central venous pressures of | | | 5-10mmHg. Aorta: The aortic root, ascending aorta are within normal | | | dimensions. Septum: Interatrial septal aneurysm. MEASUREMENTS | | | Ao asc: 2.96 cm Ao Diam: 3.28 cm Ao sinus: | | | 3.01 cm IVC: 1.61 cm EDV(Teich): 115.11 ml IVSd: 1.17 cm | | | LVIDd: 4.94 cm LVPWd: 0.99 cm LVOT Area: 3.55 cm2 LVOT | | | Diam: 2.12 cm %FS: 13.62 % EF(Teich): 29.05 % ESV(Teich): | | | 81.66 ml LVIDs: 4.26 cm SV(Teich): 33.45 ml RVIDd: 3.10 | | | cm LVEF MOD A2C: 40.55 % SV MOD A2C: 39.12 ml LVEF MOD A4C: | | | 42.09 % SV MOD A4C: 44.24 ml EF Biplane: 43.01 % LVEDV MOD | | | BP: 106.64 ml LVESV MOD BP: 60.76 ml LVEDV MOD A2C: 96.47 | | | ml LVLd A2C: 6.53 cm LVEDV MOD A4C: 105.10 ml LVLd A4C: | | | 7.36 cm LVESV MOD A2C: 57.35 ml LVLs A2C: 5.86 cm LVESV MOD | | | A4C: 60.86 ml LVLs A4C: 6.23 cm LAESV(A-L): 65.25 ml LAESV | | | Index (A-L): 34.52 ml/m2 LAAs A2C: 17.87 cm2 LAESV A-L A2C: | | | 57.39 ml LALs A2C: 4.72 cm LAAs A4C: 20.32 cm2 LAESV A-L | | | A4C: 66.25 ml LALs A4C: 5.39 cm RAAs: 12.45 cm2 RAESV A-L: | | | 30.13 ml RAESV MOD: 28.59 ml RALs: 4.37 cm TAPSE: 0.49 | | | cm AV maxP.13 mmHg AV meanP.74 mmHg AV Vmax: 1.13 | | | m/s AV Vmean: 0.95 m/s AV VTI: 25.78 cm JUANI Vmax: 2.49 | | | cm2 JUANI (VTI): 2.23 cm2 AVAI Vmax: 0.00 cm2/m2 AVAI (VTI): | | | 0.00 cm2/m2 LVOT maxP.52 mmHg LVOT meanP.50 mmHg | | | LVSI Dopp: 30.49 ml/m2 LVSV Dopp: 57.62 ml LVOT Vmax: 0.79 | | | m/s LVOT Vmean: 0.58 m/s LVOT VTI: 16.21 cm MV A Jimmie: 0.90 | | | m/s MV DecT: 433.05 ms MV E Jimmie: 0.44 m/s MV E/A Ratio: | | | 0.49 MV PHT: 125.58 ms MVA By PHT: 1.75 cm2 Septal e': | | | 0.04 m/s Septal E/e': 8.99 Lateral e': 0.07 m/s Lateral E/e': | | | 6.30 PV maxP.79 mmHg PV Vmax: 0.83 m/s RAP: 5 mmHg | | | RVSP: 26.54 mmHg TR maxP.54 mmHg TR Vmax: 2.32 m/s | | | Laser Print Operator: BEAU Authenticated by: Rosa Maldonado MD Report | | | Date/Time: 12-16-2016 18:45:20 | | + + + + + | Procedure Note | + + | Yovanny Carrion - 02/16/2019 6:54 PM PDT Patient Name: ErnieErasmo lu | | of : 1935 Performing Physician: Rosa Maldonado | | ------REPORT | | ADDENDED------INDICATIONS CAD, Murmur, edema CONCLUSIONS 1. The left | | ventricle is normal in size, wall thickness and mildly impaired systolic function EF | | 40-45%. Abnromal wall motion abnormality suggestive of coronary artery disease.2. The | | diastolic filling pattern indicates impaired relaxation consistent with mild dysfunction | | (Grade I).3. The right ventricle is normal in size and function.4. Mild degenerative | | changes in the aortic and mitral valve.5. There is no pericardial effusion. | | FINDINGS--------ECG rhythm: Sinus rhythm.Study: A 2-dimensional transthoracic | | echocardiogram with m-mode, spectral and color flow Doppler was perfomed.Study: This was | | a technically adequate study.Left Ventricle: Overall left ventricular systolic function | | is mild impaired with, an EF between 40 - 45 %. Inferolateral, inferior and | | inferoseptal hypokinesis.Left Ventricle: The left ventricle cavity size is normal.Left | | Ventricle: Left ventricular wall thickness is normal.Left Ventricle: The diastolic | | filling pattern indicates impaired relaxation consistent with mild dysfunction (Grade | | I).Right Ventricle: The right ventricle is normal in size and function.Left Atrium: The | | left atrium is mildly enlarged.Right Atrium: The right atrium is normal in size.Aortic | | Valve: The aortic valve is trileaflet.Aortic Valve: There is mild aortic valve sclerosis | | without stenosis.Aortic Valve: There is no evidence of aortic regurgitation.Mitral | | Valve: There is trace mitral regurgitation.Mitral Valve: Mild mitral annular | | calcification present.Tricuspid Valve: The tricuspid valve appears structurally | | normal.Tricuspid Valve: Trace tricuspid regurgitation present.Tricuspid Valve: There is | | no evidence of pulmonary hypertension.Tricuspid Valve: The right ventricular systolic | | pressure (pulmonary artery systolic pressure), as measured by Doppler, is | | 26.54mmHg.Pulmonic Valve: The pulmonic valve is normal.Pulmonic Valve: Mild degenerative | | changes in the aortic and mitral valve.Pericardium: There is no pericardial | | effusion.Pericardium: No pleural effusion seen.IVC/Hepatic Veins: The IVC is normal size | | (1.5-2.5cm) and collapses >50% with sniff, consistent with central venous pressures of | | 5-10mmHg.Aorta: The aortic root, ascending aorta are within normal dimensions.Septum: | | Interatrial septal aneurysm. MEASUREMENTS Ao asc: 2.96 cmAo Diam: 3.28 | | cmAo sinus: 3.01 cmIVC: 1.61 cmEDV(Teich): 115.11 mlIVSd: 1.17 cmLVIDd: 4.94 | | cmLVPWd: 0.99 cmLVOT Area: 3.55 [id number] Diam: 2.12 cm%FS: 13.62 %EF(Teich): | | 29.05 %ESV(Teich): 81.66 mlLVIDs: 4.26 cmSV(Teich): 33.45 mlRVIDd: 3.10 cmLVEF | | MOD A2C: 40.55 %SV MOD A2C: 39.12 mlLVEF MOD A4C: 42.09 %SV MOD A4C: 44.24 mlEF | | Biplane: 43.01 %LVEDV MOD BP: 106.64 mlLVESV MOD BP: 60.76 mlLVEDV MOD A2C: | | 96.47 mlLVLd A2C: 6.53 cmLVEDV MOD A4C: 105.10 mlLVLd A4C: 7.36 cmLVESV MOD A2C: | | 57.35 mlLVLs A2C: 5.86 cmLVESV MOD A4C: 60.86 mlLVLs A4C: 6.23 cmLAESV(A-L): | | 65.25 mlLAESV Index (A-L): 34.52 ml/m2LAAs A2C: 17.87 [id number] A-L A2C: 57.39 | | mlLALs A2C: 4.72 cmLAAs A4C: 20.32 [id number] A-L A4C: 66.25 mlLALs A4C: 5.39 | | cmRAAs: 12.45 [id number] A-L: 30.13 mlRAESV MOD: 28.59 mlRALs: 4.37 cmTAPSE: | | 0.49 cmAV maxP.13 mmHgAV meanP.74 mmHgAV Vmax: 1.13 m/Joseph Vmean: 0.95 | | m/Joseph VTI: 25.78 cmAVA Vmax: 2.49 cm2AVA (VTI): 2.23 [id number] Vmax: 0.00 | | cm2/m2AVAI (VTI): 0.00 cm2/m2LVOT maxP.52 mmHgLVOT meanP.50 mmHgLVSI Dopp: | | 30.49 ml/m2LVSV Dopp: 57.62 mlLVOT Vmax: 0.79 m/sLVOT Vmean: 0.58 m/sLVOT VTI: | | 16.21 cmMV A Jimmie: 0.90 m/sMV DecT: 433.05 msMV E Jimmie: 0.44 m/sMV E/A Ratio: | | 0.49MV PHT: 125.58 msMVA By PHT: 1.75 [id number] e': 0.04 m/sSeptal E/e': | | 8.99Lateral e': 0.07 m/sLateral E/e': 6.30PV maxP.79 mmHgPV Vmax: 0.83 | | m/sRAP: 5 mmHgRVSP: 26.54 mmHgTR maxP.54 mmHgTR Vmax: 2.32 m/s Laser Print Operator: | | RKAuthenticated by: Rosa Maldonado [facility] Date/Time: 12-16-2016 18:45:20 | | IMPRESSION: 1. The left ventricle is normal in size, wall thickness and mildly impaired | | systolic function EF 40-45%. Abnromal wall motion abnormality suggestive of coronary | | artery disease.2. The diastolic filling pattern indicates impaired relaxation consistent | | with mild dysfunction (Grade I).3. The right ventricle is normal in size and | | function.4. Mild degenerative changes in the aortic and mitral valve.5. There is no | | pericardial effusion. | |IVC: 1.61 cm | |EDV(Teich): 115.11 ml | |IVSd: 1.17 cm | |LVIDd: 4.94 cm | |LVPWd: 0.99 cm | |LVOT Area: 3.55 cm2 | |LVOT Diam: 2.12 cm | |%FS: 13.62 % | |EF(Teich): 29.05 % | |ESV(Teich): 81.66 ml | |LVIDs: 4.26 cm | |SV(Teich): 33.45 ml | |RVIDd: 3.10 cm | |LVEF MOD A2C: 40.55 % | |SV MOD A2C: 39.12 ml | |LVEF MOD A4C: 42.09 % | |SV MOD A4C: 44.24 ml | |EF Biplane: 43.01 % | |LVEDV MOD BP: 106.64 ml | |LVESV MOD BP: 60.76 ml | |LVEDV MOD A2C: 96.47 ml | |LVLd A2C: 6.53 cm | |LVEDV MOD A4C: 105.10 ml | |LVLd A4C: 7.36 cm | |LVESV MOD A2C: 57.35 ml | |LVLs A2C: 5.86 cm | |LVESV MOD A4C: 60.86 ml | |LVLs A4C: 6.23 cm | |LAESV(A-L): 65.25 ml | |LAESV Index (A-L): 34.52 ml/m2 | |LAAs A2C: 17.87 cm2 | |LAESV A-L A2C: 57.39 ml | |LALs A2C: 4.72 cm | |LAAs A4C: 20.32 cm2 | |LAESV A-L A4C: 66.25 ml | |LALs A4C: 5.39 cm | |RAAs: 12.45 cm2 | |RAESV A-L: 30.13 ml | |RAESV MOD: 28.59 ml | |RALs: 4.37 cm | |TAPSE: 0.49 cm | |AV maxP.13 mmHg | |AV meanP.74 mmHg | |AV Vmax: 1.13 m/s | |AV Vmean: 0.95 m/s | |AV VTI: 25.78 cm | |JUANI Vmax: 2.49 cm2 | |JUANI (VTI): 2.23 cm2 | |AVAI Vmax: 0.00 cm2/m2 | |AVAI (VTI): 0.00 cm2/m2 | |LVOT maxP.52 mmHg | |LVOT meanP.50 mmHg | |LVSI Dopp: 30.49 ml/m2 | |LVSV Dopp: 57.62 ml | |LVOT Vmax: 0.79 m/s | |LVOT Vmean: 0.58 m/s | |LVOT VTI: 16.21 cm | |MV A Jimmie: 0.90 m/s | |MV DecT: 433.05 ms | |MV E Jimmie: 0.44 m/s | |MV E/A Ratio: 0.49 | |MV PHT: 125.58 ms | |MVA By PHT: 1.75 cm2 | |Septal e': 0.04 m/s | |Septal E/e': 8.99 | |Lateral e': 0.07 m/s | |Lateral E/e': 6.30 | |PV maxP.79 mmHg | |PV Vmax: 0.83 m/s | |RAP: 5 mmHg | |RVSP: 26.54 mmHg | |TR maxP.54 mmHg | |TR Vmax: 2.32 m/s | | | |Laser Print Operator: RK | |Authenticated by: Rosa Maldonado MD | |Report Date/Time: 12-16-2016 18:45:20 | | | |IMPRESSION: | |1. The left ventricle is normal in size, wall thickness and mildly impaired systolic functi on EF 40-45%. Abnromal wall motion abnormality suggestive of coronary artery disease. | |2. The diastolic filling pattern indicates impaired relaxation consistent with mild dysfunc tion (Grade I). | |3. The right ventricle is normal in size and function. | |4. Mild degenerative changes in the aortic and mitral valve. | |5. There is no pericardial effusion. | + + documented in this encounter Visit Diagnoses Not on filedocumented in this encounter"
[~2020-03-13 13:07] MED LIST changes: +NORCO 5-325 TA1 EACH PO
--- OUTSIDE RECORDS SUMMARY | 2020-03-13 13:26 | XMS ---
PreManage Notification: ROYA LIRA Security Bottle Labeler Events No recent Security Events currently on file CRITERIA MET - PDMP CARE PROVIDERS Name Unknown Jail Facility Current PHONE: [phone] [facility] SL[facility] 08/04/2019-Current PHONE: [phone] Estefania has no Care Guidelines for this patient. Ivette VISIT COUNT (12 MO.) 2 [facility] TOTAL 2 NOTE: Visits indicate total known visits. ED/UCC VISIT TRACKING (12 MO.) 03/13/2020 13:07 [facility] [place] TYPE: Emergency COMPLAINT: - FALL, HIP PAIN 08/03/2019 11:08 [facility] [place] TYPE: Emergency COMPLAINT: - BACK PAIN DIAGNOSES: - Unspecified fracture of fourth lumbar vertebra, initial encou - Hypothyroidism, unspecified - Anxiety disorder, unspecified - Personal history of nicotine dependence - Gastro-esophageal reflux disease without esophagitis - Nausea - Other custodial (current) drug therapy - nursing home (current) use of aspirin - Hyperlipidemia, unspecified - Exposure to other specified factors, initial encounter - Unspecified fracture of third lumbar vertebra, initial encoun - Low back pain - Unspecified fracture of second lumbar vertebra, initial encou INPATIENT VISIT TRACKING (12 MO.) No inpatient visits to display in this time frame [email or web address]
== END 2020-03-13 15:05 | disposition home or self-care (01) ==
LOC: ED 13:07
DX: S70.01XA Contusion of right hip, initial encounter (principal); W18.30XA Fall on same level, unspecified, initial encounter; F41.9 Anxiety disorder, unspecified; E78.5 Hyperlipidemia, unspecified; E03.9 Hypothyroidism, unspecified; K21.9 Gastro-esophageal reflux disease without esophagitis; Z87.891 Personal history of nicotine dependence; Z79.899 Other long term (current) drug therapy; Z79.82 Long term (current) use of aspirin
CPT/HCPCS: 73502; 99283-25

== ENCOUNTER 2020-06-24 09:04 | Inpatient (IN) | payer MEDICARE, OTHER ==
[~2020-06-24] VITALS: Ht 167.6 cm; Wt 83.0 kg
--- NOTE | 2020-06-24 13:00 | NUR ---
PT ARRIVED TO ROOM AT 1230. PT VERY DROWSY, UNABLE TO KEEP EYES OPEN, BUT IS AROUSABLE TO VOICE AND GENTLY SHAKE. PT ON 2L NC, LUNG SOUNDS CLEAR. BOWEL TONES ACTIVE, DENIES NAUSEA. PT WEAK, DENIES NUMBNESS AND TINGLING, UPPER EXTREMITIES PALE AND COOL. PT WITH SCAB TO LEFT BUTTOCK, CONSENTED TO PICTURE, PICTURE PLACED IN CHART, WOUND COVERED WITH ALLEVYN DRESSING. PT INCONTINENT OF URINE UPON ARRIVAL, PERICARE PERFORMED. IV VANCO INFUSING PER ORDER. ADMISSION INTAKE COMPLETED VIA RECORDS PT IS TOO DROWSY.
--- NOTE | 2020-06-24 13:45 | NUR ---
PATIENT RESTING IN BED, EYES CLOSED. VITAL SIGNS AND I&O DONE. CALL LIGHT WITHIN REACH. NO OTHER NEEDS AT THIS TIME
[2020-06-24] MEDS ORDERED: NEURONTIN300 MG PO (14:18)
[2020-06-24] MEDS ORDERED: KLONOPIN0.5 MG PO (14:19)
[2020-06-24] MEDS ORDERED: FUROSEMIDE40 MG PO (14:22)
--- NOTE | 2020-06-24 17:06 | NUR ---
PATIENT RESTING IN BED. VITAL SIGNS AND I&O DONE. PATIENT'S DINNER ORDERED. CALL LIGHT WITHIN REACH. NO OTHER NEEDS AT THIS TIME
--- NOTE | 2020-06-24 17:20 | NUR ---
Jett FINISHED SESSION WITH PT, DISCUSSED WITH THIS RN THAT PT STATED SHE LIVES HOME ALONE, DOES NOT WALK, IS INCONTINENT IN HER BED AND HER DAUGHTER CHECKS ON HER ONCE A DAY TO ASSIST WITH GETTING DRESSED, UNSURE OF HOW FREQUENTLY SHE IS ASSISTED WITH BATHING. PT CONTINUES TO HAVE ALTERED MENTATION. DISCUSSED WITH CASE MANAGEMENT FOR CONCERNS WITH DISCHARGE PLANNING.
--- NOTE | 2020-06-24 17:24 | NUR ---
PATIENT RESTING IN BED. PHYSICAL THERAPIST IN ROOM. ASSISTED PHYSICAL THERAPIST TO SIT THE PATIENT UP ON THE EDGE OF THE BED. TWO PERSON ASSISTING. PATIENT BACKS TO BED. PATIENT INCONTINENT OF URINE. PERICARE PERFORMED. PATIENT HAS EXCORIATIONS BETWEEN HER BUTTOCKS, SHE SAID TO PHYSICAL THERAPIST " I AM ALWAYS IN BED, MY DAUGHTER HELPS MY ONCE A DAY". RN NOTIFIED. CALL LIGHT WITHIN REACH. NO OTHER NEEDS AT THIS TIME.
--- NOTE | 2020-06-24 18:00 | NUR ---
Notified by Kathe BENJAMIN, pt will need CM consult. "Pt unkept and foul smelling". Per Kathe, pt's daughter visits 1 x per day, pt is incontinent and remains soiled until daughter can visit. Notified Kathe I will have to see this pt tomorrow as I am working with a pt in ER now.
--- NOTE | 2020-06-24 18:20 | NUR ---
PATIENT SITTING UP IN BED. PATIENT ASSISTED TO EAT HER DINNER. ORAL CARE DONE. CALL LIGHT WITHIN REACH. NO OTHER NEEDS AT THIS TIME
--- NOTE | 2020-06-24 18:44 | NUR ---
DAUGHTER ARRIVED TO ROOM. DISCUSSED PT STATUS. CLARIFIED WITH DAUGHTER ABOUT PT MOBILITY, DAUGHTER STATES PT WALKS WITH A WALKER, DAUGHTER DOES CHECK ON PT TWICE DAILY. PT REPOSITIONED IN BED.
--- NOTE | 2020-06-24 19:10 | NUR ---
REPORT RECEIVED FROM DAY SHIFT RN. PT LYING IN BED ALERT AND RESPONDING APPROPRIATELY. IVF INFUSING. PT DENIES NEEDS AT THIS TIME. WHITE BOARD UPDATED. FAMILY IN ROOM. CALL LIGHT IN REACH.
--- NOTE | 2020-06-24 21:06 | NUR ---
pt CALLING OUT, STATES INCONTINENT OF URINE. ATTENDS CHANGED WITH GREG SINTA ASSIST. REPOSITIONED IN BED. MIXER OPERATOR TABLETS REMAINS IN ROOM.
--- NOTE | 2020-06-24 21:20 | NUR ---
PATIENT'S INCONTINENT ATTENDS CHANGED BY THIS MOBILE PRODUCT MANAGER AND PEEL OVEN TENDER JENNI. V/S AND I&O TAKEND AND CHARTED. PRIMARY RN MARBELLA WAS WITH PATIENT.
--- NOTE | 2020-06-24 21:30 | NUR ---
EVENING ASSESSMENT COMPLETE. SCHEDULED MEDS ADMINISTERED PER EMAR. PT ORIENTED TO SELF AND PLACE. IVF INFUSING PER ORDER. PT REQUESTING MED TO HELP HER HAVE BM, DOES NOT REMEBER WHEN LAST BM WAS. BOWEL TONES ACTIVE. NIO ORDERED. PT ON RA, SpO2 91%. RESPIRATIONS EVEN AND UNLABORED. ABRASIONS X 2 NOTED ON LEFT KNEE IN VARIOUS STAGES OF HEALING. ALLEVYN TO LEFT BUTTOCK INTACT. BLANCHABLE RED SPOT NOTED ON RIGHT HEEL. HEEL PROTECTORS APPLIED. PT REPOSITIONED IN BED WITH PILLOWS. DENIES PAIN OR NAUSEA. CALL LIGHT IN REACH.
--- NOTE | 2020-06-24 22:45 | NUR ---
CHANGED INCONTINENT ATTENDS BY THIS TARE MAN AND CONSTRUCTION TRADES CONTRACTORTORREY ARTEAGA.
--- NOTE | 2020-06-24 22:54 | NUR ---
CALL LIGHT ANSWERED. pt INCONTINENT, ATTENDS CHANGED. NO ADDITONAL NEEDS. CALL LIGHT IN REACH.
--- NOTE | 2020-06-24 23:15 | NUR ---
SCHEDULED STOOL SOFTENED ADMINISTERED. NO SWALLOWING ISSUES NOTED. ASSISTED PT TO REPOSITION FOR COMFORT. LIGHTS OUT. CALL LIGHT IN REACH.
--- NOTE | 2020-06-25 01:07 | NUR ---
CALL LIGHT ANSWERED. pt REQUESTING ADDITIONAL BOWEL MEDICATIONS. EDUCATION PROVIDED ON ONSET OF ACTION OF MEDICATIONS ADMINISTERED BY RN. ATTENDS WET, CHANGED. SMALL OPEN CUT NOTED IN FOLD ON LEFT BUTTOCKS. PRIMARY RN NOTIFIED, PICTURE IN CHART. pt PLACED ON BED [place] AT THIS TIME WITH CALL LIGHT IN REACH.
--- NOTE | 2020-06-25 01:41 | NUR ---
IN WITH ASTRONOMY DEPARTMENT CHAIR AND FLOOR SCRAPER TO ASSIST PT OFF BED [place]. PT UNABLE TO HAVE BM. STAFF ASSIST WITH AJAY CARE. REDDENED SORE AREAS NOTED IN BILATERAL GROIN AREAS. SKIN CLEANED AND DRIED. BARRIER CREAM APPLIED AND ATTENDS LOOSELY PLACED. SMALL OPEN AREA NOTED ON RIGHT BUTTOCK (PIC IN CHART). SKIN CLEANED AND DRIED. MEDIHONEY AND ALLEVYN APPLIED. PT REPOSITIONED WITH PILLOWS. HEEL PROTECTORS IN PLACE. CLEAR LIQUIDS PROVIDED.
--- NOTE | 2020-06-25 02:42 | NUR ---
CALL LIGHT ANSWERED. PT REPORTS FEELING CONSTIPATED AND IS REQUESTING "MORE LAXATIVE". REPORTS PAIN AND DISCOMFORT. ABD FIRM AND DISTENDED. NIO SUPPOSITORY ORDERED.
--- NOTE | 2020-06-25 04:13 | NUR ---
PT HAD SMALL AMOUNT OF HARD STOOL AFTER SUPPOSITORY. AJAY CARE DONE BY STAFF. ALLEVYN TO BUTTOCKS INTACT. REPOSITIONED WITH PILLOWS. PT NOTED TO HAVE INCREASED TREMORS AND IRRITABILITY. PRN ADMINISTERED FOR ANXIETY. PT IN VIEW OF NURSES STATION.
--- NOTE | 2020-06-25 05:16 | NUR ---
CALL LIGHT ANSWERED. PT REPORTS BLE PAIN. PRN ADMINISTERED PER EMAR. PT REPOSTIONED IN BED FOR COMFORT. CALL LIGHT IN HAND.
--- NOTE | 2020-06-25 06:10 | NUR ---
CALL LIGHT ANSWERED. PT REPORTS THAT SHE FEELS HOT. ROOM TEMP LOWERED TO 71 DEGREES, SOME BLANKETS REMOVED FROM PT. TEMP TAKEN; 98.0f. PT STATES THAT SHE FEELS ANXIOUS AND "HURTS ALL OVER"; REQUESTS "PAIN PILL". PRIMARY NURSE NOTIFIED.
--- NOTE | 2020-06-25 07:00 | NUR ---
bedside report from Carolina rn, pt eyes closed, call light in reach in view of rn station. iv fusing lr at 75 wnl.
--- NOTE | 2020-06-25 07:30 | NUR ---
PATIENT RESTING IN BED. PATIENT INCONTINENT OF URINE. PERICARE PERFORMED. TWO PERSON ASSISTING. WHITE BOARD UPDATED. CALL LIGHT WITHIN REACH. NO OTHER NEEDS AT THIS TIME
--- NOTE | 2020-06-25 08:45 | NUR ---
PATIENT RESTING IN BED. PATIENT'S BREAKFAST ORDERED.CALL LIGHT WITHIN REACH. NO OTHER NEEDS AT THIS TIME
--- NOTE | 2020-06-25 09:00 | NUR ---
PATIENT RESTING IN BED. PATIENT INCONTINENT OF URINE AND STOOL. PERICARE PERFORMED. PATIENT REPOSITIONED ON HER LEFT SIDE. TWO PERSON ASSISTING. CALL LIGHT WITHIN REACH. NO OTHER NEEDS AT THIS TIME
--- NOTE | 2020-06-25 09:23 | NUR ---
rn in rm with ot - plan for shower today in chair. yeast noted under breast and during ade care - open small stage 1 at the tailbone noted, covered with alyvn ore charger notified. pt now eating meal and has ensure juice with miralax in it. abx fusing.
--- NOTE | 2020-06-25 09:54 | NUR ---
PATIENT RESTING IN BED. VITAL SIGNS AND I&O DONE. CALL LIGHT WITHIN REACH. NO OTHER NEEDS AT THIS TIME
--- NOTE | 2020-06-25 10:50 | NUR ---
this rn assisted pt/ot max assist to pivot transfer pt to shower chair then to shower in seat. pt had extremly large diameter bm once in shower- pt was unaware of bm but alert. pt skin in folds extremly excoriated, appears yeast - coxyx area open stage 1 in 2 small areas cleaned and patted dry. notified of all above findings as well as broker in charge Jodi Marcano. pt dryed with warm blaket and back to bed max assist with clean linen. pt call light in reach. slight wheezing with exertion.
--- NOTE | 2020-06-25 11:42 | NUR ---
THE SOURAV Briscoe AND GREG PINEDA DID THE SHOWER TO THE PATIENT
--- NOTE | 2020-06-25 12:32 | NUR ---
MED REC COMPLETE
--- NOTE | 2020-06-25 12:56 | NUR ---
saline lock iv - pt eyes closed resp rate reg. repositiond
--- NOTE | 2020-06-25 13:43 | NUR ---
PATIENT RESTING IN BED. PATIENT INCONTINENT OF URINE. PERICARE PERFORMED. PATIENT REPOSITIONED ON HER LEFT SIDE. GOWN CHANGED. TWO PERSON ASSISTING. VITAL SIGNS AND I&O DONE. CALL LIGHT WITHIN REACH. NO OTHER NEEDS AT THIS TIME
--- NOTE | 2020-06-25 14:10 | NUR ---
ASSISTED GREG PINEDA TO MOVE PT TO CHAIR. PT ABLE TO PIVOT TO CHAIR WITH FWW AND 2 PERSON LIFT.
--- NOTE | 2020-06-25 16:00 | NUR ---
Pt lives alone. Has been living on her on and has not required much assistance. She began to decline over the last few days and daughter was staying the night. Pt is having difficulty answering questions, called her daughter Rubia. She states pt has been declining, she has been visiting and staying with pt. Pt normally walks to the bathroom, but has been incontinent. When I spoke with the pt, she feels she will need placement on discharge. I spoke with Luis from PT and he attempted to work with pt today and she was unable to stand and required a 2 person assist. I discussed this with the daughter and she feels this would be best until pt regains her strength. She also states decline has been going on for a while mentally and physically, she just didn't think it would happen so fast. I will discuss with pt placement to a SNF on dc.
--- NOTE | 2020-06-25 16:43 | NUR ---
PT UP IN CH, SLEEPING, RRR, CALL LIGHT IN REACH
--- NOTE | 2020-06-25 17:48 | NUR ---
pt trnsf max assist from ch to bed, bottom coxyx area open to air/ area looks like a skin crack open. nystatin to folds, grandaughter in rm - educated about our shower today and skin treatment. pt turned to left side. not oriented to room or place, placement issue.
--- NOTE | 2020-06-25 17:51 | NUR ---
PATIENT SITTING UP IN CHAIR. GRANDDAUGHTER IN ROOM. RN IN ROOM. PATIENT ASSISTED TO TRANSFER BACK TO BED. PATIENT INCONTINENT OF URINE AND STOOL. PERICARE PERFORMED. PATIENT REPOSITIONED ON HER LEFT SIDE. THREE PERSON ASSISTING. CALL LIGHT WITHIN REACH. NO OTHER NEEDS AT THIS TIME
--- NOTE | 2020-06-25 18:05 | NUR ---
pt max assist, busy day with shower and pt/ot. nystatin to folds, skin crack on coxyx open to air. pt confused, placement issue
--- NOTE | 2020-06-25 18:33 | EKG ---
[facility] [address] [facility] [place] [address] Signed Sinus rhythm with 1st degree AV block with premature atrial complexes Incomplete right bundle branch block Nonspecific ST and T wave abnormality Abnormal ECG When compared with ECG of 12-FEB-2019 16:41, premature atrial complexes are now present Confirmed by MIAN SEN DO ([id number]) on 06/25/2020 6:32:58 PM Electronically Signed By: MIAN SEN DO 06/25/20 1833 PATIENT NAME: ROYA LIRA ISELA Electrocardiogram DATE OF : 35 PHYSICIAN: MIAN SEN DO REPORT #: [id number] REPORT IS CONFIDENTIAL AND NOT TO BE RELEASED WITHOUT AUTHORIZATION
--- NOTE | 2020-06-25 19:31 | NUR ---
REPORT RECEIVED FROM DAY SHIFT RN. PT LYING IN BED WITH EYES CLOSED. NO APPARENT DISTRESS. WHITE BOARD UPDATED. CALL LIGHT IN REACH. PT IN VIEW OR NURSES STATION.
--- NOTE | 2020-06-25 20:35 | NUR ---
pts VS and I&Os complete. pt repositioned, and did not have any further requests.
--- NOTE | 2020-06-25 20:38 | NUR ---
V/S AND I&O DONE. CHANGED INCONTINENT ATTENDS. PATIENT REPOSITIONED LYING ON HER RIGHT SIDE. CALL LIGHT IN REACH.
--- NOTE | 2020-06-25 21:00 | NUR ---
EVENING ASSESSMENT COMPLETE. SCHEDULED MEDS ADMINISTERED PER EMAR. PT DENIES PAIN OR NAUSEA. PT INCONTINENT OF URINE. 2PA TO CHANGE BRIEF. AJAY CARE DONE BY STAFF. PT REPOSITIONED IN BED WITH PILLOWS. HP IN PLACE. PT DENIES FURTHER NEEDS. CALL LIGHT IN REACH.
--- NOTE | 2020-06-25 23:30 | NUR ---
PT INCONTINENT OF URINE AND SMALL AMOUNT OF STOOL. AJAY CARE DONE BY STAFF. CLEAN BRIEF PLACED. PT REPOSITIONED IN BED. CALL LIGHT IN REACH.
--- NOTE | 2020-06-26 00:49 | NUR ---
PT RESTING IN BED WITH EYES CLOSED, NAD.
--- NOTE | 2020-06-26 04:11 | NUR ---
PT CALLING OUT "HELLO". REPORTS SHE NEEDS CHANGED. INCONTINENT OF URINE. 2PA TO CHANGE BRIEF. AJAY CARE DONE BY STAFF. WOUND ON LEFT BUTTOCK WITH SCAB OPEN TO AIR. ABRASION ON RIGHT BUTTOCK OPEN TO AIR. BOTH AREAS BLANCHABLE. PT REPOSITIONED WITH PILLOWS. FRESH WATER PROVIDED.
--- NOTE | 2020-06-26 06:50 | NUR ---
PT INCONTINENT OF URINE. 2PA TO CHANGE BRIEF. STAFF ASSIST WITH AJAY CARE. REPOSITIONED WITH PILLOWS. DENIES PAIN OR NAUSEA. FRESH WATER PROVIDED. NO FURTHER NEEDS. CALL LIGHT IN REACH.
--- NOTE | 2020-06-26 07:08 | NUR ---
REPORT RECEIVED FROM SOURAV TYSON. PT RESTING ON BACK IN BED, WATCHING TV. RESPIRATIONS EVEN AND UNLABORED. PT DENIES PAIN AND NAUSEA. BED RAILS UP. CALL LIGHT WITHIN REACH. PT DENIES REQUESTS OR COMPLAINTS AT THIS TIME.
--- NOTE | 2020-06-26 08:54 | NUR ---
3PA USING FWW AND GAIT BELT TO CHAIR. LINENS CHANGED, VITALS AND I&OS CHARTED. CALL LIGHT AND PERSONAL ITEM WITHIN EASY REACH.
--- NOTE | 2020-06-26 09:09 | NUR ---
MORNING ASSESSMENT AND MEDICATION DUE. NOTED THAT PT DID NOT RECEIVE LEVOTHYROXINE THIS MORNING WITH LINING CLOSER. CONFIRMED WITH CHARGE NURSE THAT PT WAS INDEED MEANT TO RECEIVE MEDICATION. MEDICATION GIVEN (SEE EMAR). PT UP TO CHAIR. PT DENIES PAIN AND NAUSEA. ASSESSMENT DONE. +1 PITTING EDEMA NOTED TO BILATERAL LOWER EXTREMITIES. WHEEZES NOTED IN RIGHT UPPER LOBE. AUDIBLE WHEEZES WITH EXERTION. PT UP TO STAND WITH 2 PERSON ASSIST AND FRONT WHEEL WALK. DEPENDS SOILED. BLANCHABLE REDNESS NOTED TO COCCYX. SKIN INTACT, BARRIER CREAM APPLIED. SMALL BOWEL MOVMENT NOTED. AJAY CARE DONE. FRESH DEPENDS IN PLACE. PT OREINTED TO PLACE AND STATES SHE IS AT THE HOSPITAL "BECAUSE I FELL." BRUSES NOTED TO LEFT KNEE. OCCUAPTIONAL THERAPY TO BEDSIDE TO WORK WITH PT. MEDICATIONS GIVEN. NO ADDITIONAL REQUESTS OR COMPLAINTS. CALL LIGHT WITHIN REACH.
--- NOTE | 2020-06-26 10:28 | NUR ---
THIS RN TO ROOM TO CHECK ON PT. PT RESTING IN CHAIR WITH EYES CLOSED. PT TALKING IN HER SLEEP, UNINTEAGABLE. RESPIRATIONS EVEN AND UNLABORED. IV ABX COMPLETE. IV SALINE LOCKED. ALCOHOL CAPS APPLIED. PT DENIES PAIN AND NAUSEA. NO ADDITIONAL REQUESTS OR COMPLAINTS. CALL LIGHT WITHIN REACH. CUTAIN OPEN, PT EASILY VEIWED FROM NURSES STATION.
--- NOTE | 2020-06-26 11:43 | NUR ---
MEDICAITON DUE. THIS RN TO ROOM. PT WORKING WITH PHYSICAL THERAPY. PT STATES "I'M NOT SITTING COMFORTABLY." PT READJUSTED WITH 2 PERSON ASSIST, FWW AND GAIT BELT. PT UP TO STAND WITH FWW AND 2 PERSON ASSIST. DEPENDS SOILED, AJAY CARE DONE. REDNESS NOTED TO GLUTEAL AREA. BARRIER CREAM APPLIED. FRESH DEPENDS IN PLACE. PT BACK TO CHAIR, WORKING WITH PHYSICAL THERAPY. LUNCH ARRIVED. PT POSITIONED FOR LUNCH. MEDICATION GIVEN. NO ADDITIONAL REQUESTS OR COMPLAINTS AT THIS TIME. CALL LIGHT WITHIN REACH.
--- NOTE | 2020-06-26 13:30 | NUR ---
Spoke with pt and and daughter. Pt agrees of need to go to a SNF. Informed I will send her chart to [facility] as daughter and pt request she remain in town. H&P, progress notes, covid test, medication list, PT eval and notes faxed to [facility].
--- NOTE | 2020-06-26 13:53 | NUR ---
500mg PO TYLENOL GIVEN FOR BILATERAL LOWER LEG PAIN. PATIENT IS RESTING IN CHAIR, DAUGHTER IN ROOM, D/C REHABILITATION ASSISTANT IN TO TALK TO DAUGHTER AND PATIENT.
--- NOTE | 2020-06-26 14:20 | NUR ---
AFTERNOON ASSESMENT DUE. PT UP TO CHAIR. DAUGHTER AT BEDSIDE VISITING WITH PT. PT REPORTS PAIN IS IMPROVING WITH TYLENOL ADMINISTRATION, NOW 4/10 ACHING PAIN IN KNEES AND BILATERAL LEGS. PT REQUESTS TO GET BACK TO BED TO REST. 2 PERSON ASSIST, FWW BACK TO BED. PT ABLE TO ASSIST SOME WITH MOVEMENT. LARGE SOFT BROWN BOWEL MOVEMENT NOTED. AJAY CARE DONE, BLANCHABEL REDNESS TO AJAY AREA AND 2CM SKIN BREAK NOTED, BARRIER CREAM APPLIED. DEPENDS CHANGED. AUDIBLE WHEEZES NOTED WITH ACTIVITY AND IN RIGHT UPPER LOBE. CRACKELS NOTED IN BASES OF LUNGS. +1 PITTING EDEMA TO LOWER EXTREMITIES UNCHANGED. PT RESTING IN BED. NO ADDITIONAL REQUESTS OR COMPLAINTS AT THIS TIME. CALL LIGHT WITHIN REACH.
--- NOTE | 2020-06-26 16:19 | NUR ---
assisted SOURAV Dominguez getting pt. up from chair and back to bed. Once in bed Pt. had bowel movement, we cleaned pt. up and put a new brief on. no other needs at that time.
--- NOTE | 2020-06-26 16:41 | NUR ---
2PA TO CHANGE PATIENTS BRIEF. INCONTINENT OF URINE, SNACK PROVIDED. PILLOW UNDER RIGHT HIP. CALL LIGHT ON PATIENT'S LAP, NO OTHER NEEDS
--- NOTE | 2020-06-26 16:45 | NUR ---
THIS RN TO ROOM TO CHECK ON PT. PT RESTING IN BED ON LEFT SIDE. PT STATES "I CAN'T STAY ON MY SIDE LIKE THIS! TAKE THE PILLOW OUT." PILLOW REMOVED. PILLOW PLACED TO ROTATE PT TO RIGHT SIDE. PT STATES AGAIN "I CAN'T HAVE THAT PILLOW THERE! TAKE IT OUT." RISK FOR SKIN WOUND TO BACK AND GLUTEAL AREA REVIEWED WITH PT IF SHE DECLINES TURNING OR LYING IN OTHER POSITIONS. PT DECLINES TIME UP TO CHAIR. PT STATES "I DONT' CARE BUT I WON'T HAVE PILLOWS UNDER MY SIDE." PT ALLOWED TO LY ON BACK WITH HEAD OF BED ELEVATED TO 30 DEGREES. PT COMPLAINS OF BURNING PAIN IN EPIGASTRIC AREA AT 8/10. PT CRYING OUT "OH GOD" WITH PAIN. PT REPORTS "I'M SWEATING ALL OVER MY NECK." MILD DIAPHROESIS NOTED. VITALS MD CONSULTED. MD TO BEDSIDE. EKG PERFORMED, SINGLE VIEW CHEST X-RAY PERFORMED. ORDERS FOR CHEWABLE ASPRIN, 1 LITER LR ORDERED AND STARTED. TROPONIN ORDERED. CHARGE NURSE AND SOURAV HARRIS TO BEDSIDE TO ASSIT WITH CARES. ASPIRIN GIVEN. LR BOLUS HUNG ON STRIGHT TUBING, WIDE OPEN. GI COCTAIL ORDRED. VERBAL ORDERS TO DC LR BOLUS AT 500ML INFUSED. NOTED BY THIS RN. GI COCTAIL GIVEN (SEE MAR). VITAL SIGNS REASSESSED. NO ADDITINAL NEW ORDERS AT THIS TIME. CONTINUING TO MONITOR. BED RAILS UP. PT EASILY VEIWED FROM NURSES SATATION.
--- NOTE | 2020-06-26 17:15 | NUR ---
COMPLETE ASSESSMENT DONE. PT CONTINUES TO REPORTS PAIN IN EPIGSTRIC AREA AND ABDOMEN AT 8/10 PT STATES "IT SEEMS LIKE ITS MOVING." PT POINTS TO UPPER ABDOMEN. LR BOLUS STOPPED AT 500ML INFUSED PER MD INSTRUCTIONS. IV SALINE LOCKED AT THIS TIME. PT PALE AND STATES "I DON'T FEEL RIGHT." VITALS SIGNS CONTINUE TO SHOW LOW BLOOD PRESSURE. MD AWARE. ABDOMEN SHOW SIGNIFICANT DISTENTION AND FLUID MOVMENT WHEN PALPATED. LUNG SOUNDS SHOW CRACKELS IN LOWER LOBES. LARGE LOOSE BROWN BOWLE MOVEMENT NOTED. 3 PERSON ASSIST FOR AJAY CARE AND LINEN CHANGE. MD UPDATED ON PT ASSESSMENT. MD TO ROOM TO INSPECT ABDOMEN. ORDER FOR ABDOMINAL AND PELVIC CT PLACED. THIS RN TWITH PT TO CT AT 1735. THIS RN RETURNED FROM CT WITH PT AT 1850. VITALS SIGNS CONTINUE TO SHOW DECRESED BLOOD PRESSURE. PT CONTINUES TO REPORT 8/10 CHEST/EPIGASTRIC/ABDOMINAL PAIN. PT RESTING INB ED. B ED RAILSUP. THIS RN REMAINS AT BEDSIDE.
--- NOTE | 2020-06-26 18:32 | NUR ---
VITALS AND I&OS CHARTED. MD AND RN AWARE OF VITALS. PATIENT AWAKE AND TALKING. PATIENT BEING MOVED TO CCU PER MD ORDERS.
--- NOTE | 2020-06-26 18:35 | NUR ---
THIS RN TO ROOM TO CHECK ON PT. CT SCAN RESULTS IN. MD TO BEDSIDE. VITALS TAKEN. PT CONTINUES TO BE SLIGHTLY TACHYCARDIC AND BLOOD PRESSURE LOW AT TIMES. ORDERS GIVEN FOR TYPE AND CROSS, LAB TO BEDSIDE FOR LAB DRAW. BLOOD BAND PLACED. ORDERS GIVEN FOR 1000ML LR BOLUS. LR BOLUS STARTED ON STRAIGHT TUBING WIDE OPEN. ORDERS GIVEN FOR PT TRANSFER TO CCU. PT TRANSFERED TO CCU. REPORT GIVEN TO SOURAV RAMACHANDRAN WHO WILL BE ASSUMING CARE OF PT. ALL BELONGINGS TRANSFERED WITH PT. PT VERBALIZES UNDERSTANDING OF PLAN OF CARE AND TRANSFER. PT REMAINS NPO AT THIS TIME. DINNER HELD PER MD ORDER. JANET, PASSENGER SCREENER AT BEDSIDE WITH SOURAV RAMACHANDRAN. NO ADDITIONAL QUESTSIONS AT THIS TIME.
--- NOTE | 2020-06-26 18:40 | NUR ---
ARRIVED TO ROOM 126 VIA BED WITH DX OF SEPESIS, UTI, HYPOTENSION. REPORT RECIEVED FROM Alex GONZALEZ RN. PT IS ALERT, ANSWERING QUESTIONS. ABD IS DISTENTED. PATIENT C/O RIGHT SIDE UPPER ABD PAIN. IV STARTED TO RFA. BLOOD SENT TO LAB. RECIEVING ONE LITER OF LR BOLUS NOW.
--- NOTE | 2020-06-26 19:05 | NUR ---
PTS DAUGHTER DAREN, ARRIVED TO MED/SURG. DAREN UPDATED ON PT STATUS AND PLAN OF CARE. DAREN WALKED TO CCU TO MEET WITH PT AND PTS RN. DAREN STATES HER QUESTIONS HAVE BEEN ANSWERED.
--- NOTE | 2020-06-26 19:15 | NUR ---
DAUGHTER IN ROOM. LR BOLUS COMPLETE. REPORT TO NEXT SHIFT.
--- NOTE | 2020-06-26 19:29 | NUR ---
PT HERE FOR UTI AND METABOLIC ENCEPLOPATHY. 2-3 PERSON ASSIT UP TO CHAIR AND WITH PHYSICAL THERAPY THIS SHIFT. PT TOERLATING 2 GRAM SODIUM DIET BUT MADE NPO BY END OF SHIFT. CHEST PAIN WORK UP THIS SHIFT WITH EKG, CHEST X-RAY, AND TROPONINI. ABODOMINAL CT PEROFRMED FOR NOTABLE INCREASE IN ABDOMINAL DISTENTION. MULTIPLE SOFT TO LIQUID BOWEL MOVMENTS NOTED THIS SHIFT. PT TRANSFERED TO CCU FOR CLOSER MONITORING. REPORT GIVEN TO CCU RN.
--- NOTE | 2020-06-26 19:30 | NUR ---
REPORT RECEIVED FROM DUARTE BENJAMIN. DR MURCIA AND DR SEN IN UNIT, DISCUSSING PLAN FOR SURGERY WITH PT AND HER DAUGHTER NIYAH. CONSENT FORM SIGNED, PT AND DAUGHTER VERBALIZE UNDERSTANDING OF PLANNED SURGERY, QUESTIONS ANSWERED, ALSO CONSENT TO WAIVING DNR STATUS FOR SURGERY.
--- NOTE | 2020-06-26 19:50 | NUR ---
PT TO SURGERY WITH RN AND ANESTHESIA PROVIDER.
--- NOTE | 2020-06-26 20:00 | NUR ---
THIS RN IN TO TO ASSESS PT. PT ALERT AND ORIENTED LAYING IN BED. PT STATED SHE HAD A 7/10 ABDOMINAL PAIN. WHEN ASKED IF SHE WANTED ADDITONAL PAIN MEDICATION PT STATED YES. PRN IV TYLENOL ADMINISTERED. WHILE ASSESSING CENTRAL LINE FOR PT BLUE PORT FLUSHED WELL BUT DID NOT RETURN BLOOD . CENTRAL LINE INTACT, DRESSING INTACT. ARM REPOSITIONED AND LINE STILL DID NOT PULL BLOOD BUT CONTINUED TO FLUSH WELL WITH NS. ALL OTHER MEDICATIONS ADMINISTERED ORDERED.
--- NOTE | 2020-06-26 21:17 | EKG ---
[facility] [address] [facility] [place] [address] Signed Atrial fibrillation Nonspecific ST abnormality Prolonged QT Abnormal ECG When compared with ECG of 24-JUN-2020 09:30, Atrial fibrillation has replaced Sinus rhythm Confirmed by MIAN SEN DO ([id number]) on 06/26/2020 9:17:08 PM Electronically Signed By: MIAN SEN DO 06/26/20 2117 PATIENT NAME: ROYA LIRA ISELA Electrocardiogram DATE OF : 35 PHYSICIAN: MIAN SEN DO REPORT #: [id number] REPORT IS CONFIDENTIAL AND NOT TO BE RELEASED WITHOUT AUTHORIZATION
--- NOTE | 2020-06-26 22:40 | NUR ---
06/26/202239 Kalia Song ATTEMPTING TO REORIENT PT TO NG TUBE, IVS, CATHETER. PT PROTECTED FROM PULLING NG TUBE WHICH SHE ACTIVLY ATTEMPTS TO DO ONCE A MINUTE. WHEN ASKED IF SHE IS HAVING PAIN, SHE SAYS, "YEAH". MEDICATED FOR PAIN PER EMAR.
--- NOTE | 2020-06-26 23:27 | NUR ---
PT BACK TO CCU ROOM 130 TO RECOVER WITH PACU NURSE EDDIE, REPORT RECEIVED. PT IS ON OXYMASK AT 5L WITH NGT IN PLACE TO LIS. DRESSING IN PLACE MIDLINE IS INTACT, FRESH SCANT RED DRAINAGE NOTED ON DRESSING, DR MURCIA IN ROOM AND AWARE. CELSA DRAINING SANGUINOUS FLUID, EMPTIED OF 50ML DARK RED FLUID BY RECOVERY. TILLEY PATENT DRAINING CLEAR YELLOW URINE. P[T IS SLEEPY BUT AROUSABLE, STARTING TO NOD AND MUMBLE SOME ANSWERS TO QUESTIONS. HR ON ARRIVAL 120'S, NOW DOWN TO 90'S. RR 22 AND SPO2 90% ON 5L/OM.
--- NOTE | 2020-06-27 00:06 | NUR ---
PT MORE AWAKE, OPENING EYES, LOOKING AROUND. STATES YES SHE IS IN PAIN, IV TYLENOL GIVEN. SPO2 91% ON 5L OXYMASK. PT SOMEWHAT RESTLESS, CONTINUALLY TRYING TO REACH UP TO PULL AT NGT AND OXYGEN MASK, PULLING BLANKETS OFF ALTHOUGH SHE SAYS SHE IS NOT TOO WARM.
--- NOTE | 2020-06-27 02:00 | NUR ---
PT AWAKE AT TIMES, ORIENTED TO SELF ONLY. CONTINUES TO TRY TO PULL AT DRAIN, NGT AND DRESSINGS, WRIST RESTRAINTS IN PLACE AND RN ONE ON ONE WITH PT. PT RATES PAIN 6/10, ASKED IF SHE IS COMFORTABLE SHE STATES YES "EXCEPT FOR THIS THING IN MY NOSE". WILL TURN O2 DOWN TO 3L/OXYMASK.
--- NOTE | 2020-06-27 05:20 | NUR ---
LAB IN TO DRAW
--- NOTE | 2020-06-27 06:31 | NUR ---
PT USED CALL LIGHT TO ASK FOR ASSISTANCE WITH A MOUTH SWAB, SHE THEN ASKED FOR ORAL SUCTION, AND RATED HER PAIN AT A 6 OR 7. SOURAV GRADY NOTIFIED, PRIMARY RN RUTH HELPING WITH DIFFERENT PT. SOURAV GRADY IN PT ROOM AT THIS TIME.
--- NOTE | 2020-06-27 06:39 | NUR ---
PT CALLED USING CALL LIGHT TO REPORT 7/10 ABDOMINAL PAIN. PRN OFIRMEV ADMINSITERED. PT REPORTS FEELING HOT, DECREASED ROOM TEMPERATURE AND PROVIDED COOL CLOTHS FOR FOREHEAD AND POSTERIOR NECK. NO FURTHER REQUESTS AT THIS TIME.
--- NOTE | 2020-06-27 07:05 | NUR ---
PT AWAKE AND ALERT THIS MORNING, UP IN BED WATCHING TV, FOLLOWING COMMANDS. ASKED HOW HER PAIN IS SHE STATES "OH ITS NOT BAD". VSS, ON 3L/OXYMASK WITH SPO2 LOWER 90'S AND RR 22. CELSA CONT TO PUT OUT DARK RED DRAINAGE APPROX 50ML/HR. URINE OUTPUT QS. USING CALL LIGHT APPROPRIATELY. NGT IN PLACE PUTTING OUT YELLOWISH FLUID ON LIS.
--- NOTE | 2020-06-27 10:15 | NUR ---
Pt sitting in chair, states, "don't ask" when I inquired how she is feeling. She then states, "I'm sore, but ok". Pt cont. to plan to dc to a SNF on discharge for deconditioning.
--- NOTE | 2020-06-27 10:25 | NUR ---
PT LAYING IN BED WATCHING TV, CALL LIGHT IS WITHIN PT REACH, PT ABLE TO USE IT APPROPRIATLY. PT ORIENTED TO PLACE, PERSON, DATE, AND SELF, ANSWERS QUESTIONS APPROPRIATLY. PT MIDLINE INCISION REMAINS COVERED, SMALL AMOUT OF DRAINAGE NOTED ON DRESSING. CELSA DRAIN INTACT, 50 ML SEROSANGUNIOUS DRAINAGED EMPTIED OUT. PT ABLE TO EXPECTORATE PHLEM, THEN USES SUCCTION HERSELF.
--- NOTE | 2020-06-27 11:15 | NUR ---
pt is a heavy 2 person assist with walker. pt sits at the bedside for approximatly 5-10 minutes, clean gown placed and partial bath done. pt then stand and pivot to the chair. pt reports abd pain is 7/10 2mg iv morphine given. pt vitals are wnl, 3L O2 in place via oxymask. pt has call light within reach, and is able to use it.
--- NOTE | 2020-06-27 11:35 | CONS ---
[facility] [address], [place] [address] Signed DATE OF CONSULTATION: 06/26/2020 CONSULTING PHYSICIAN: Rustam Murcia M.D. REQUESTING PHYSICIAN: Barron Dotson M.D. PROBLEM: Abdominal distention, newly discovered large amorphous liquid mass right abdomen (possible hematoma). HISTORY OF PRESENT ILLNESS: This 85-year-old white woman is a mother of a high school classmate of mine (Irwin Klein) and accompanied by her daughter, Rubia randle. She was seen in the emergency room on June 24, 2 days ago, presented with increasing confusion over the preceding 3 to 4 days. The patient was alert and oriented, though required tactile stimulation to communicate well at that time. The patient is noted to have urinary tract infections in the past and was found to have a soft nontender abdomen and evaluation included a hematocrit, which was 38.1 with white count of 10.2 and platelets of 176,000, but urinalysis performed showed turbid urine, nitrite positive, moderate blood and greater than 50 white cells and red cells per high-power field. On that basis she was admitted for urinary tract infection. Her dominant admitting diagnosis was confusion cauased by UTI. Her lab study at admission showed normal liver enzymes and phosphorus which was low at 2.1. Normal electrolytes and creatinine of 1.00. Hct was 38 Today two days after admission, she was noted to have increasing abdominal distention. She did not particularly have tenderness, but did complain of generalized abdominal pain. A CT scan of the abdomen and pelvis was performed at approximately 5:30 p.m. today which shows normal appearing liver but in the region of the ascending colon a fluid collection measuring at least 24 cm in superior to inferior direction, 13 cm transversely. It was considered likely hematoma. The right colon and the duodenum were within the fluid collection but there was no free air. There is no evidence of ade renal fluid collection. The gallbladder was identified and superior to the problem. The aorta was heavily calcified and normally enhancing. IVC was narrowed due to decreased intravascular volume without apparent extravasation of contrast into the hematoma. My own review did not show this unlikely to be an adrenal mass. I reviewed a previous CT scan again showing no sign of abnormality. No adrenal neoplasm. Electronically Signed By: RUSTAM MURCIA MD 06/27/20 1135 PATIENT NAME: ROYA KLEIN CONSULTATION DATE OF : 35 REPORT #: [id number] PHYSICIAN: RUSTAM MURCIA MD PCP: ALBERT SLATER MD REPORT IS CONFIDENTIAL AND NOT TO BE RELEASED WITHOUT AUTHORIZATION [facility] [address], [place] [address] Signed Incidentally noted was platelike atelectasis in the lung bases, bilateral tiny pleural effusions and an ovoid soft tissue mass at the posterior right lung base 8 cm in size. PAST MEDICAL HISTORY: Does include abdominal surgery for ovarian cancer a number of years ago at [facility]. MEDICATIONS: At admission included clonazepam, gabapentin, atenolol, Synthroid, Lasix, and recent antibiotic therapy including ceftriaxone. SOCIAL HISTORY: She is accompanied by her daughter at this time. The patient lives independently and is visited at least twice a day by family members. She has been living reasonably independently over time. The patient has been recently on enoxaparin. Her admission hematocrit was 38.1, following day 38.1 and today 29.2 at approximately 5:30 p.m., platelet count is 200,000. PHYSICAL EXAMINATION: GENERAL: This is a white haired woman who has rather flat affect, accompanied by her daughter. She is alert and oriented and reasonably conversant and apparently comfortable. HEENT: Mucous membranes are slightly dry. Trachea is midline. CHEST: Shows no evidence of tachypnea. ABDOMEN: Obese and soft with mild tenderness in the right side of the abdomen. There is no sign of ecchymosis on the flank or elsewhere. EXTREMITIES: Show no clubbing, cyanosis, or edema. LAB STUDIES: Currently shows hematocrit of 29.1 as previously described and platelets of 200,000. Coag studies have not been obtained during this hospitalization. Notably, the patient is not on any anticoagulants. CT scan was reviewed in detail showing an amorphous mass like finding probably fluid and most likely hematoma. Her plain chest x-ray shows no acute pathology. ASSESSMENT: Finding is rather mysterious and somewhat worrisome for bleeding. Etiologies of bleeding in this setting might include visceral artery aneurysm with rupture, neoplasm with rupture or other similar entity. The fluid is dense enough it is more consistent with blood than with purulent collection and clinically is likely new today. Her hematocrit is down nearly 10 points from yesterday. She has no known coagulopathy. Platelet count is reasonable at 200. Electronically Signed By: RUSTAM MURCIA MD 06/27/20 6255 PATIENT NAME: ROYA KLEIN ISELA CONSULTATION DATE OF : 35 REPORT #: [id number] PHYSICIAN: RUSTAM MURCIA MD PCP: ALBERT SLATER MD REPORT IS CONFIDENTIAL AND NOT TO BE RELEASED WITHOUT AUTHORIZATION [address] [address] Signed I think the safest approach in her situation would be emergency laparotomy. Assessment of this problem and management to include control of bleeding if present, evacuation of fluid and remedy of the problem definitively. The lesion does not appear to be emanating from the right kidney. I see no sign of extravasation of intravenous contrast into it proper. This would imply no active bleeding. The risks of bleeding, infection, need for ostomy of some sort, enteric resection, and other unforeseen complications were reviewed with the patient and her daughter. Special note, she is of an advanced age and has had coronary artery bypass grafting x4, but does have calcified coronary arteries. She is definitely at increased risk of demise related to her advanced age and underlying cardiovascular problems, but this may be an increased risk with delay of operation if necessary for bleeding. They understand all this. Blood has been typed and cross matched. Will proceed with expedient laparotomy. MD ROCHELLE Watters/REGANL /[id number] cc: Barron Dotson MD Copies: BARRON DOTSON DO ~ Electronically Signed By: RUSTAM MURCIA MD 06/27/20 1135 PATIENT NAME: ROYA KLEIN [facility] CONSULTATION DATE OF : 35 REPORT #: [id number] PHYSICIAN: RUSTAM MURCIA MD PCP: ALBERT SLATER MD REPORT IS CONFIDENTIAL AND NOT TO BE RELEASED WITHOUT AUTHORIZATION
--- NOTE | 2020-06-27 11:35 | OR ---
[facility] [address] [place], [place] [address] Signed DATE OF OPERATION: 06/26/2020 SURGEON: Rustam Murcia MD PREOPERATIVE DIAGNOSES: Hypotension, acute blood-loss (hematocrit 29) and large complex right abdominal fluid collection, worrisome for bleeding. 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 PROCEDURES: 1. Exploration of the abdomen, mobilization of right colon and duodenum with evacuation of large retroperitoneal hematoma. 2. 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 ANESTHESIA: Rustam Brooks CRNA. JUICE SCALEMAN: Ema Marie RN, Chu Brian RN, circulating nurse Tu Quintanilla RN Additional circulating nurse, Kalia Song, SOURAV. INDICATION: This 85-year-old white woman was admitted on 06/24/2020, with mental status changes and abnormal urinalysis including 50 white cells and 50 red cells per high-power field, considered to be urinary tract infection. She has been treated with ceftriaxone antibiotic and today was noted by Dr. Dotson, the hospitalist to have abdominal distention, onset of abdominal pain mostly on the right side and low-grade hypotension with systolic pressure between 80 and 95. Her pulse rate is variable between 70 and 90. Given her abdominal distention and complete lack of findings of the similar-type at admission, a CT scan was performed at approximately 5:30 p.m. today. Interpretation by Dr. Tineo showed a large complex fluid collection in the region of the right colon and with fluid also near the duodenal C-loop. There is no sign of free fluid or free air. Emergent consultation was undertaken and given the clinical findings, concern is maintained for possible spontaneous bleeding. The CBC was performed, which showed a 10 point hematocrit drop from the time of admission (38 now to 29). Platelets normal at Electronically Signed By: RUSTAM MURCIA MD 06/27/20 1135 PATIENT NAME: ROYA LIRA OPERATIVE REPORT DATE OF : 35 REPORT #: [id number] PHYSICIAN: RUSTAM MURCIA MD PCP: ALBERT SLATER MD REPORT IS CONFIDENTIAL AND NOT TO BE RELEASED WITHOUT AUTHORIZATION [facility] [address] [place], [place] [address] Signed 200,000. Under the circumstances of her clinical appearance of spontaneous intraabdominal bleeding, I recommended emergency operation to include laparotomy and remedy of the problem and identification of the problem. Given her advanced age, additional risks acknowledged by all parties including the patient and her daughter. The risks of bleeding, infection, need for ostomy, need for other indicated procedures pending definitive diagnosis were all reviewed and agreed. FINDINGS: Indeed there was retroperitoneal bleeding. Significant hematoma was noted behind the right colon and densely adherent to the right mesocolon but extending cephalad to the retroduodenal area and peripancreatic area and ultimately found to have active arterial bleeding in the gastroduodenal artery. It was uncertain if there is true aneurysm, though that has most likely caused this spontaneous bleeding in this area. Considerable dense hematoma and so forth was evacuated and the bleeding site controlled with over-sewing as well as identification of the area and security of the artery with clips. There appeared to be no sign of active bleeding elsewhere. The Gerota's fascia was blood-stained, but there was no dense hematoma beneath the Gerota's fascia proper. There is no evidence of blood within the javier hepatis to suggest hepatic arterial bleeding or anything of that sort. There was no hematoma within the mesentery to the left of the midline (small bowel without hematoma). 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 DESCRIPTION OF PROCEDURE: The patient was urgently brought to the operating room and given a general endotracheal anesthetic. Blood had been typed and crossed already. A Perez catheter was placed. The patient did have spontaneous evacuation of bowels prior to presentation to the operating room. Sequential compression device stockings were on the lower extremities. The abdomen was prepped from nipples to knee on the right side. There was a scar on the left medial thigh suggestive of femoral-popliteal bypass or vein harvest for CABG and therefore this area was not prepared in the event that a graft would be needed; it would be obtained from the right side if necessary. After sterile preparation and draping, the previously noted long midline incision was incised. Dissection carried through the subcutaneous tissue expediently with electrocautery. The fascia was incised. The abdomen entered. There was minimal amount of fluid, which was not blood-stained at this point. The incision was extended superiorly and inferiorly as needed throughout the course of operation. Examination on Electronically Signed By: RUSTAM MURCIA MD 06/27/20 1135 PATIENT NAME: ROYA LIRA [facility] OPERATIVE REPORT DATE OF : 35 REPORT #: [id number] PHYSICIAN: RUSTAM MURCIA MD PCP: ALBERT SLATER MD REPORT IS CONFIDENTIAL AND NOT TO BE RELEASED WITHOUT AUTHORIZATION [address] [address] Signed the right side of the abdomen showed clear evidence of recent retroperitoneal hematoma. Bulging of the retroperitoneum in the region of the right colon was quite easily identified. The small bowel itself was normal. The hematoma extended into the mesentery of the right colon and extended cephalad as well. A Bookwalter retractor was affixed to the table. The small bowel packed to the left side of the abdomen. Photographs were taken. The patient had been stabilized and transfusion therapy initiated by the senior climate advisor mindful of the probability of bleeding upon exploration of the retroperitoneum. Once the patient was reasonably stable, the white line of Toldt along the right colon was incised with electrocautery rotating the right colon to the midline in a Cattell-Braasch type maneuver. Considerable amount of clot was noted in the retroperitoneum. Most of it was jelly-like in consistency, but there was some active more bright red blood in the superior aspect. Full mobilization of the right colon to the midline was undertaken and clot evacuated by the handful. The retroperitoneum was then packed with laparotomy pads. This appeared to staunch any active bleeding. More full mobilization of the hepatic flexure was undertaken towards the midline, identifying well the anterior aspect of the duodenum and the pancreas. There appeared to be no sign of problem there. In the region of the mid duodenum, there was no sign of hematoma to the left of the superior mesenteric artery and vein. With all due care showing no sign of active bleeding of the right colonic mesentery, further evaluation of the retroperitoneum was undertaken. A Ada maneuver was performed, which showed active arterial bleeding in the area concordant to the gastroduodenal artery. This area was controlled with finger pressure and close examination undertaken. The pancreas itself appeared to be normal without sign of neoplastic change. Careful inspection with the assistance of suction and so forth showed spurting arterial blood in the what would be gastroduodenal artery. A few small clips were applied to assist with the initial control, but these were rather ineffective. Ultimately control of the bleeding gastroduodenal arterial branch was secured with interrupted 3-0 silk sutures. Complete hemostasis was then assured. The area was suctioned free and gentle irrigation undertaken showing good security to be area controlled. Further dissection superiorly and so forth allowed for removal of some clot, but there was no active bleeding elsewhere. The caudate lobe of the liver was identified and normal. Further dissection of the duodenal sweep showed the javier hepatis to have no evidence of hematoma, no sign of hepatic artery or periportal of bleeding. The retroperitoneum was packed once again with gauze, having secured control of bleeding. The patient became more hemodynamically stable. Clot was adherent to the right colon mesentery was gently removed. A few clips were applied to the small venous Electronically Signed By: RUSTAM MURCIA MD 06/27/20 1135 PATIENT NAME: ROYA LIRA [facility] OPERATIVE REPORT DATE OF : 35 REPORT #: [id number] PHYSICIAN: RUSTAM MURCIA MD PCP: ALBERT SLATER MD REPORT IS CONFIDENTIAL AND NOT TO BE RELEASED WITHOUT AUTHORIZATION [address] [address] Signed bleeders as necessary. Re-evaluation of the retroperitoneum was undertaken confirming the site of bleeding was the almost certainly the gastroduodenal artery. I could not discern specifically gastroduodenal aneurysm, but I suspect that was the underlying cause of the problem. Some Jannet and Gelfoam were applied to the retroduodenal peripancreatic area and through a right lower quadrant stab incision a 7 mm flat Luis drain was placed into the retroperitoneum anterior to the Gerota's fascia. Of note, Gerota's fascia was blood-stained but it was soft and there was no sign of hematoma beneath it. Mindful of the images on CT scan previously Gerota's fascia was not opened nor fully examined. The area of the right adrenal gland did not appear enlarged in any way and therefore unlikely to be a bleeding myelolipoma or other similar adrenal abnormality. Reinspection and photographs were undertaken and plans were made for closure. The duodenal C-loop and right colon were allowed to return to a natural anatomic position. Closure was undertaken with reapproximation of the midline fascia with running bidirectional #1 PDS suture. Subcutaneous tissue was irrigated and clips were applied to the skin. Preoperative antibiotic Ancef 2 g had been given. The patient was allowed to remain with the Perez catheter in place as well as nasogastric tube. She was transported directly to the intensive care unit for further management. Clot evacuated was approximately 500 mL, active bleeding probably 100 mL or so. She recieved 2 u PRBC intraoperatively. MD ROCHELLE Watters/MODL /[id number] cc: MD Mian Almanzar MD Copies: ERIC TINEO MD Electronically Signed By: RUSTAM MURCIA MD 06/27/20 1135 PATIENT NAME: SORAYA,ROYA ISELA OPERATIVE REPORT DATE OF : 35 REPORT #: [id number] PHYSICIAN: RUSTAM MURCIA MD PCP: ALBERT SLATER MD REPORT IS CONFIDENTIAL AND NOT TO BE RELEASED WITHOUT AUTHORIZATION [address] [place], [place] [address] Signed MIAN DOTSON DO ~ Electronically Signed By: RUSTAM MURCIA MD 06/27/20 1135 PATIENT NAME: ROYA LIRA ISELA OPERATIVE REPORT DATE OF : 35 REPORT #: [id number] PHYSICIAN: RUSTAM MURCIA MD PCP: ALBERT SLATER MD REPORT IS CONFIDENTIAL AND NOT TO BE RELEASED WITHOUT AUTHORIZATION
--- NOTE | 2020-06-27 15:05 | NUR ---
PT 2 PERSON ASSIST WITH WALKER BACK TO BED FROM CHAIR. PT THEN ABLE TO SIT UP ON THE SIDE OF THE BED FOR A WHILE ON HER OWN. ASSISTED PT BACK INTO BED, SCD'D IN PLACE. TILLEY CATH CARES DONE, AJAY CARES DONE, RED AREAS UNDER BREASTS WASHED WITH SOAPY WATER, THEN NYSTOP APPLIED. PT APPEARS COMFORTABLE AT THIS TIME. HAS CALL LIGHT IN HER LAP.
--- NOTE | 2020-06-27 16:05 | NUR ---
PT'S DAUGHTER IS AT THE BEDSIDE.
--- NOTE | 2020-06-27 17:23 | NUR ---
CALLED FOR AN UPDATE ON PT. ALL QUESTIONS ANSWERED. ORDER GIVEN TO REMOVE NG TUBE FROM PT, AND TO ADVANCE HER DIET TO CLEAR LIQUID FOR BREAKFAST TOMORROW.
--- NOTE | 2020-06-27 17:40 | NUR ---
NG TUBE REMOVED EASILY FROM PT RT NARE, PT BELLA WELL, TUBE IS INTACT, NO DRAINAGE NOTED FROM SITE.
--- NOTE | 2020-06-27 18:28 | NUR ---
PT CHANGED FROM OXYMASK TO 2L O2 VIA NC. PT BELLA WELL.
--- NOTE | 2020-06-27 19:30 | NUR ---
SHIFT CHANGE RECEIVED. PATIENT RESTING IN BED WATCHING TV. DENIES ANY NEEDS OR CONCERNS. CALL LIGHT IN REACH.
--- NOTE | 2020-06-27 20:00 | NUR ---
EVENING MEDS GIVEN. PATIENT REPOSITIONED IN BED. REPORTS 7/10 PAIN IN ABD. IV TYLENOL AND 4 MG PRN MORPHINE PROVIDED. PATIENT APPEARS VERY UNCOMFORTABLE. OFFERED ICE PACKS TO AREA, PATIENT DECLINED DUE TO FEELING CHILLED. ROOM TEMP ADJUSTED. WARM BLANKET PROVIDED. ORAL TEMP WNL. VS STABLE. DRESSING ON MIDLINE HAD MODERATE AMOUNT OF DRAINAGE. CELSA SITE SMALL AMOUNT AT DRESSING SITE. CELSA EMPTIED FOR 25 MLS THICK SANGUINEOUS DRAINAGE. TILLEY EMPTIED AT THIS TIME, CLEAR YELLOW URINE. SCDS IN PLACE. IV FLUIDS PER ORDER, SITE WNL. PATIENT TOLERATING 2L NC. PROVIDED PATIENT WITH SIPS OF WATER FOR MEDS WHICH SHE TOLERATED WELL. NO NAUSEA. BOWEL SOUNDS HYPOACTIVE. MILD DISTENSION.
--- NOTE | 2020-06-27 21:30 | NUR ---
PATIENT APPEARS TO BE SLEEPING SOUNDLY. NC DISLODGED FROM NOSE, PATIENT DESAT TO 86% ON RA WHILE SLEEPING. TITRATED TO 3L NC WITH CANUAL IN PLACE. PATIENT RECOVERED TO GREATER THAN 90% AFTER A FEW MINS. ALLOWED PATIENT TO REST.
--- NOTE | 2020-06-27 22:00 | NUR ---
SCHEUDLED MEDS PROVIDED PER ORDER. PATIENT IS ALERT AND TALKATIVE. REPORTS IMPROVED PAIN CONTROL. 07/07 AT THIS TIME. NO NAUSEA. VS STABLE.
--- NOTE | 2020-06-28 00:45 | NUR ---
PATIENT REPOSITIONED FOR COMFORT. REPORTS PAIN 2/10. NO NAUSEA. DRESSING ON MIDLINE HAS BECOME DISLODGED ON THE UPPER 1/3 OF THE DRESSING POSSIBLY DUE TO DRAINAGE. DRESSING REMOVED. AREA CLEANED AND DRY. SKIN PROTECTANT APPLIED AROUND THE OUTSIDE OF THE WOUND AREA ON INTACT SKIN ONLY. NEW MEDIPORE DRESSING APPLIED. CELSA EMPTIED FOR 20 MLS DARK RED DRAINAGE. TILLEY EMPTIED. PATIENT DENIED FURTHER NEEDS. IVF PER ORDER, SITE WNL.
--- NOTE | 2020-06-28 03:40 | NUR ---
PATIENT REQUESTED SOME ROOM TEMP WATER WHICH WAS PROVIDED. REPORTS GOOD PAIN CONTROL AT THIS TIME. IV FLUIDS PER ORDER, SITE WNL. VS STABLE. NO NAUSEA.
--- NOTE | 2020-06-28 06:15 | NUR ---
MORNING LABS DRAWN AND SCHEDULED MEDS PROVIDED. SECOND IV SITE ESTABLISHED. PATIENT DENIED PAIN. NO NAUSEA. VS STABLE. ABD MILDLY DISTENDED. DRESSING CDI.
--- NOTE | 2020-06-28 06:54 | NUR ---
PT CELSA VILLALBA EMPTIED. NO OTHER NEEDS AT THIS TIME. CALL LIGHT IN REACH.
--- NOTE | 2020-06-28 08:00 | NUR ---
SLEEPING, WOKE FOR ASSESSMENT. C/O MILD ABD PAIN, INCREASE WITH MOVEMENT. ABD DRESSING INTACT. CELSA INTACT. TILLEY CATH PATENT. IVF INFUSING TO LFA AT 85 ML/HR. FACE FLUSHED. NO FEVER. ENC DEEP BREATHING.
--- NOTE | 2020-06-28 08:15 | NUR ---
DR. SEN HERE TO SEE PATIENT, ORDERS RECIEVED.
--- NOTE | 2020-06-28 09:04 | NUR ---
SITTING UP IN BED TO TAKE CLEAR LIQUID DIET.
--- NOTE | 2020-06-28 09:12 | NUR ---
ROUTINE MEDICATIONS GIVEN.
--- NOTE | 2020-06-28 09:30 | NUR ---
TO W/C FOR PA/LAT CHEST XRAY. TRANSFERS WITH ASSIST OF TWO STAFF, IS VERY STIFF. DIFFICULT TO MOVE.
--- NOTE | 2020-06-28 09:35 | NUR ---
TO XRAY VIA W/C ACCOMP BY SOURAV AND Talyst.
--- NOTE | 2020-06-28 09:55 | NUR ---
RETURNED TO CCU, TRANSFERRED TO CHAIR. BLOOD DRAWN.
--- NOTE | 2020-06-28 10:55 | NUR ---
DR. SEN UPDATED ON PATIENT LABS AND CHEST XRAY. PT WILL BE TRANSFERRED TO MED-SURG. PATIENT IS W/O C/O. SON HERE TO VISIT.
--- NOTE | 2020-06-28 11:40 | NUR ---
TO MED-SURG VIA CHAIR. REPORT GIVEN.
--- NOTE | 2020-06-28 11:50 | NUR ---
PATIENT ARRIVED TO MED SURG ROOM 110 AT 1130. NURSE SOURAV RAMACHANDRAN, FROM CCU GAVE BEDSIDE REPORT. PATIENT IS COMFORTABLE IN CHAIR WITH WARM BLANKET AND IS WATCHING TV. VITALS ARE WITHIN NORMAL LIMITS, PATIENT DENIES ANY OTHER NEEDS AT THIS TIME. IV LASIX GIVEN IN CCU AND TILLEY CATHETER IS VISABLY PRODUCING MORE URINE AT THIS TIME.
--- NOTE | 2020-06-28 12:37 | NUR ---
PATIENT SALINE LOCKED, UP IN CHAIR AND WASHING FACE, DOING ORAL CARE.
--- NOTE | 2020-06-28 13:20 | NUR ---
PT SITTING IN CHAIR. PT ON ROOM AIR, LUNG SOUNS CLEAR WITH EXPIRATORY WHEEZE TO LEFT UPPER LOBE. PT DENIES NAUSEA, BOWEL TONES HYPOACTIVE. PT WITH MIDLINE INCISION, SHADOWING PRESENT. CELSA DRAIN TO RLQ, SEROSANGUINOUS DRAINAGE. PT WITH 1+ EDEMA TO BLE, DENIES NUMBNESS AND TINGLING. IV ANCEF GIVEN. PT WITH TILLEY CATH, DRAINING CLEAR YELLOW URINE QS. PT REQUESTED HOT TEA, PROVIDED. PT DENIES OTHER NEEDS AT THIS TIME.
--- NOTE | 2020-06-28 14:15 | NUR ---
PT TRANSFERED FROM CHAIR TO BED, 2PA MAX STAND PIVOT. TILLEY CATH EMPTIED, QS URINE OUTPUT. PT DENIES OTHER NEEDS AT THIS TIME.
--- NOTE | 2020-06-28 15:42 | NUR ---
Pt repositioned at this time.
--- NOTE | 2020-06-28 18:08 | NUR ---
PATIENT IS SOMEWHAT AGITATED, REQUESTING EVENING MEDICATIONS EARLY. PATIENT REPORTS SHE TAKES HER EVENING MEDCATIONS AT DINNER TIME, NOT BEFORE BED. VITALS ARE STABLE.
--- NOTE | 2020-06-28 19:50 | NUR ---
IN RM WITH RN, PT CALLING TO GET IN BED, VITALS DONE, TILLEY EMPIED AT THIS TIME
--- NOTE | 2020-06-28 19:53 | NUR ---
Awake, slow response, on 3LNC, clear lungs, abd distended, HEA, midline incision w opticoat dressin in place w old drainage, CELSA with sanguineous drainage. f/c [id number] with low UO, scds in place, 2+ edema LE. R arm and leg weakness and contractures. redness between folds noted, nyastatin powder applied. call light and fluids at bedside. Klonopin given as ordered. 2 sl patent
--- NOTE | 2020-06-28 22:39 | NUR ---
IN TO EMPTY TILLEY, TOTAL OUT 200MLS, NO FURTHER NEEDS
--- NOTE | 2020-06-28 23:08 | NUR ---
confused, pleasant, "Why is the people outside going to have a meeting with me", reoriented, angry at begining, calmed down when explained that we care a C, incoming nursing staff and Doctors will come and see her. calmed down, in bed o2 in place, repositioned, cooperative, uses call lihgt
--- NOTE | 2020-06-28 23:23 | NUR ---
talked to pts daughter via phone, pt confused and upset over having a morning meeting with her and people trying to get her out of her home", reassured, pt uses call light and has used the phone to call her family. Repositioned
--- NOTE | 2020-06-29 03:56 | NUR ---
EYES CLOSED, CALM, NO DISTRESS, O2 TUBING BACK ON, TAKES OFF, NO DISTRESS NOTED. CALL LIGHT AT HANDS REACH, SCDS OFF AT HER REQUESTS. ABD DRESSING IN PLCAE
--- NOTE | 2020-06-29 05:11 | NUR ---
PT HAS SLEPT OFF AND ON, IRRITABLE MOOD, PLEASANTLY CONFUSED. EASILY REDIRECTED. ON 3LNC, TAKES TUBING OFF AND ON, EXPLAINED TO PT, COOPERATIVE. NO SOB OR DISTRESS. MIDLINE ABD INCISION WITH DRESSING IN PLACE, DISTENDED, HAS DENIED NEEDING PAIN MED, ASKED SEVERAL TIMES. SCDS IN PLACE. SL PATENT. R SIDED ARM AND LEG WEAKNESS. HELPS WITH TURNING. TOLERATING FLUIDS WELL, CALL LIGHT AT BEDSIDE, F/C TO BE DC'D THIS AM PER ORDERS
--- NOTE | 2020-06-29 06:47 | NUR ---
f/c dc'd at 0645, tip intact, 9cc water returned. procedure explained, cooperative, declines our attends as "No, thats not what I wear" stated, will notifgy family to bring her brand.
--- NOTE | 2020-06-29 08:41 | NUR ---
PT IS ALERT, IN GOOD SPIRITS, TWO PERSON ASSIST TO SIT UP ON EDGE OF BED, THAN STAND AND PIVOT TO CHAIR, PT ABLE TO BEAR WT BUT UNABLE TO TAKE A STEP. FOLLOWS INSTRUCTION TO RAISE ARM AND LEGS, KNEES ARE STIFF, SET UP AND BRUSHING TEETH AT THIS TIME.
--- NOTE | 2020-06-29 09:17 | NUR ---
PATIENT UP TO CHAIR EARLIER, 2PA PIVOT. LINENS CHANGED. AM CARE AND ORAL CARE DONE. CALL LIGHT IN REACH. NO FURTHER NEEDS AT THIS TIME.
--- NOTE | 2020-06-29 11:57 | NUR ---
2 PERSON ASSIST TO BSC, INCONT. OF STOOL AND URINE, GOOD SKIN CARE GIVEN, NOTED 4CM X2CM OPEN AREA ON R UPPER BUTTOCK NEAT OCCYX. CLEANED WELL AND BARRIER CREAM APPLIED TO PROTECT FROM INCONT. REPORTED TO CHARGE NURSE AND WILL CONT. TO MONITOR CLOSELY. PT REQUESTED TO GET BACK INTO BED.
--- NOTE | 2020-06-29 12:24 | NUR ---
DAUGHTER HERE TO VISIT, PT ATE 50% OF LUNCH, DR MURCIA IN TO SEE PT, CELSA ISLAS DC'D AT THIS TIME. PT STATES SHE IS COMFORTABLE, SCD'S ON , POSITIONED TO R SIDE TO PROTECT SKIN. CALL LIGHT IN EASY REACH.
--- NOTE | 2020-06-29 13:00 | NUR ---
PT CALLED FOR NURSE TO COME TO ROOM, STATES "I PEED", INCONTINENT OF LARGE AMOUNT OF URINE, SKIN CLEANED AND BARRIER CREAM APPLIED. REPOSITIONED TO L SIDE USING PILLOWS TO PROTECT AREA. PT STATES SHE IS COMFORTABLE.
--- NOTE | 2020-06-29 13:28 | NUR ---
PATIENT IN BED WATCHING TV. DEPENDS CHECKED AND CLEAN. CALL LIGHT IN REACH. NO FURTHER NEEDS AT THIS TIME.
--- NOTE | 2020-06-29 15:30 | NUR ---
TURNED AND REPOSITIONED, ATTENDS IS DRY, IN GOOD SPIRITS. CALL LIGHT IN EASY REACH.
--- NOTE | 2020-06-29 17:28 | NUR ---
SAT UP FOR DINNER, STATES SHE IS HUNGRY TONIGHT. FLUIDS ENCOURGED.
--- NOTE | 2020-06-29 18:15 | NUR ---
PATIENT INCONT OF URINE AND STOOL. AJAY CARE DONE, NEW ATTENDS IN PLACE. ORAL CARE DONE. FRESH WATER GIVEN. CALL LIGHT IN REACH. NO FURTHER NEEDS AT THIS TIME.
--- NOTE | 2020-06-29 21:37 | NUR ---
O2 weaned down to 1L NC, sats 95%, denies sob. lungs dim at bases, midline abd dressing with old drainage ionplace. red area between fold and ade area, nystatin powder to areas. edema le, scds in place, elevated. 2 sl patent. tolerating liquids well. call light and fluids at bedside. no further c/o
--- NOTE | 2020-06-29 21:43 | NUR ---
IN RM WITH RN TO BOOST PT UP IN BED, NO FURTHER NEEDS AT THIS TIME
--- NOTE | 2020-06-29 23:54 | NUR ---
O2 2L NC, RESTING, EYES CLOSED, NO DISTRESS. CALL LIGHT AT BEDSIDE
--- NOTE | 2020-06-30 02:56 | NUR ---
RESTING, EYES CLOSED, O2 2L NC IN PLACE, SCDS ON. CALL LIGHT AT BEDSIDE
--- NOTE | 2020-06-30 05:43 | NUR ---
pt has slept this shift, O2 weaned off to 2L NC, takes it off and on and placed back on. pleasantly confused, uses call light, tolerating fluids and regular diet. was incontinent of bowel and urine, barrier cream applie, open area buttocks, open to air. midline abd incision with opticoat dressing w old drainage, HEA. 2 sl patent. R arms and leg weakness/deficit and slight R hand contracture present. edema LE w scds in place. elevated. No c/o pain or n/v. helpful with turning
--- NOTE | 2020-06-30 09:00 | NUR ---
PT IS ALERT THIS MORNING, STATES SHE SLEPT BETTER, SCHEDULED MEDS TAKEN, STATES SHE IS HUNGRY THIS AM. CONT. TO FOLLOW TURN SCHEDULE AND CHECK FOR INC. EVERY 2 HOURS, BARRIER CREAM USED TO PROTECT SKIN.
--- NOTE | 2020-06-30 09:15 | NUR ---
PATIENT IN CHAIR FOR BREAKFAST AND NOW WATCHING TV. PATIENT INCONT. OF URINE AND STOOL, AJAY CARE DONE. NEW ATTENDS IN PLACE. LINENS CHANGED. CALL LIGHT IN REACH. NO FURTHER NEEDS AT THIS TIME. WARM WASHCLOTH GIVEN.
--- NOTE | 2020-06-30 12:44 | NUR ---
ORDER FOR ULTASOUND OF L ARM PT HAS SWELLING IN L FOREARM UP JUST ABOVE ELBOW, DENIES PAIN, NO REDNESS. IV SITE DC'D INTACT FROM L FA.
--- NOTE | 2020-06-30 13:25 | NUR ---
ULTRASOUND COMPLETED, KEEPING RIGHT ARM ELEVATED. CONT. TO DENY ANY PAIN. PALPABLE PULSES. NO REDNESS.
--- NOTE | 2020-06-30 14:00 | NUR ---
ULTRASOUND IS NEGATIVE, DR MURCIA NOTIFIED. NO INCREASE IN EDEMA.
--- NOTE | 2020-06-30 15:05 | NUR ---
PATIENT HAD INCONT. VOID, AJAY CARE DONE. NEW ATTENDS IN PLACE. PATIENT REPOSITIONED ONTO LEFT SIDE. RIGHT ARM ELEVATED ON 3 PILLOWS AND WARM PACK WRAPPED IN A TOWEL PLACED ON TOP OF ARM UPON DR REQUEST. FRESH WATER GIVEN. CALL LIGHT IN REACH. NO FURTHER NEEDS AT THIS TIME.
--- NOTE | 2020-06-30 17:38 | NUR ---
PT HAS BEEN ALERT AND ORIENTED TODAY BUT IS FORGETFUL, FOLLOWING TURN SCHEDULE EVERY 2 HOURS WITH INC. CARE TO PROTECT SKIN, ABRASION MONITORED CLOSELY, LESS RED, ULTASOUND DONE DUE TO SWELLING IN R ARM- NEGATIVE. UP TO RECLINER FOR MEALS, TWO PERSON ASSIT TO STAND AND PIVOT. NOT MUCH MOTIVATION TO MOVE ON HER OWN. IN GOOD SPIRITS TODAY.
--- NOTE | 2020-06-30 18:42 | NUR ---
PATIENT SITTING UP IN BED WATCHING TV. INCONT. OF URINE, AJAY CARE DONE, NEW ATTENDS IN PLACE. CALL LIGHT IN REACH. NO FURTHER NEEDS AT THIS TIME.
--- NOTE | 2020-06-30 19:50 | NUR ---
ON ROOM AIR, WATCHING TV, C/O R ARM AND ABD PAIN. MEDICATED WITH tYLENOL 500MG PO. l ARM HAND CONTRACTURS, EDEMATOUS, ELEVATED W PILLOWS, MIDLINE ABD, OPTICOAT DRESSING IN PLACE W OLD DRAINGA, LEGS ELEVATED, SCDS IN PLACE. TOLERATING FLUIDS WELL, REPOSIONED AND WAS INCONTINENT OF URINE. BARRIER CREAM TO AJAY AREA. L BUTTOCKS OPEN AREA W/O CHANGES. CALL LIGHT AT HANDS REACH
--- NOTE | 2020-06-30 22:20 | NUR ---
RESTING, EYES CLOSED, ON ROOM AIR. COMFORTABLE, SCDS IN PLACE, CALL LIHT AT HANDS REACH. R ARM ELEVATED, SCDS IN PLACE
--- NOTE | 2020-06-30 23:41 | NUR ---
rEPOSITIONED IN BED, HOB ELEVATED TO HER COMFORT, INCONTINENT OF URINE, SKIN CARE AND BARRIER CREAM. FIDGETTING W TOOTHBRUSH AND DENTAL TOOTHPICKS. TOLERATING FLUIDS. R ARM AND LEGS ELEVATED, SCDS OFF MOMENTARILY AT HER REQUESTS. MIDLINE ABD DRESSING WITH OLD DRAINAGE IN PLACE
--- NOTE | 2020-06-30 23:45 | NUR ---
2 pa CHANGED INCONTINENT ATTENDS OF VOIDINGS. PATIENT REPOSITIONED. CALL LIGHT ON PATIENT'S HAND. NO OTHER NEEDS AT THIS TIME.
--- NOTE | 2020-07-01 00:25 | NUR ---
medicated with tylenol per c/o knees pain.
--- NOTE | 2020-07-01 00:52 | NUR ---
RESTING, EYS CLOSED, NO DITRESS, ON ROOM AIR
--- NOTE | 2020-07-01 03:33 | NUR ---
has had multiple little requests, warm blanket given on requests, repositioned, attend dry,
--- NOTE | 2020-07-01 04:09 | NUR ---
On room air, was medicated with Tylenol X2 per c/o abd pain, R arm, knees and toes pain. effective. Midline abd dressing with old drainage inplace, abd distended, soft, having bm's, incontinent of urine, skin care and barrier cream applied, open area between buttocks no change. R arm edema, and R hand contracture, elevated inpillow, LE elevated generalized edema, SCDS in place, elevated. Has been pleasantly confused, cooperative, hob elevated to her comofrt. tolerating fluids well, pt fidgets with oral toobrush/picks,
--- NOTE | 2020-07-01 05:18 | NUR ---
Turned, incontinent of urine, skin care and barrier cream, clean attends. HOB elevated to her comfort. tolerating fluids well. scds off at her request at this time. R arm edema improving, elevated in pillow. Cooperative
--- NOTE | 2020-07-01 08:24 | NUR ---
AM CARES GIVEN, ATTENDS IS DRY, TWO PERSON MAX ASSIST UP TO RECLINER FOR BREAKFAST, IN GOOD SPIRITS, WILL CONT. TURN SCHEDULE AND INC CARE EVERY 2 HRS. PT STATES SHE IS HUNGRY THIS AM, GOOD BOWEL SOUNDS, DRSG INTACT TO MID LINE WITH OLD SHADOWING. CALL LIGHT IN EASY REACH.
--- NOTE | 2020-07-01 09:30 | NUR ---
CALLED BHUMIKA AT [facility] AND TEXTED HER AND LEFT MESSAGES BOTH PLACES FOR CALLBACK FOR HOPEFUL DISCHARGE TODAY.
--- NOTE | 2020-07-01 10:30 | NUR ---
UPDATED CLINICALS FAXED TO [facility] PER THEIR REQUEST.
--- NOTE | 2020-07-01 11:27 | NUR ---
SPOKE WITH PATIENTS ERNIE MIRAMONTES BY PHONE. UPDATED HER THAT WE ARE WAITING ON [place]. DISCUSSED THAT I SENT THEM UPDATED CLINICALS PER THEIR REQUEST. SHE HAD QUESTION REGARDING IF WE CAN DO HOME HEALTH CARE. DISCUSSED IF SHE MEANT HIRING IN-HOME CARE OF HOME HEALTH. SHE SAID SHE KNOWS SOMEONE WHO SAID PHYSICAL THERAPY CAN COME IN WITH HOME HEALTH. AGREED THIS WOULD BE POSSIBLE BUT THAT PATIENT WOULD ONLY HAVE A SESSION FOR ABOUT AN HOUR A COUPLE TIMES A WEEK AND SHE WOULD BE ALONE OTHERWISE IF SHE IS LIVING ALONE. DAUGHTER THOUGHT HOME HEALTH PROVIDED IN-HOME CARE. DISCUSSED THAT IS NOT THE CASE. DISCUSSED THAT THEY CAN HIRE IN-HOME CARE OR HAVE FAMILY STAY. SHE STATES THAT ISN'T POSSIBLE. SHE STATES PATIENT IS SLIGHTLY CONFUSED STILL, ALSO. SHE AGREES SNF WOULD BE BETTER IDEA AT THIS TIME. SHE IS CONCERNED ABOUT NO VISITORS. DISCUSSED THAT THEY CAN TRY CHATTING BY INTERNET, OR PHONE AND THAT SNF IS USING WINDOWS FOR FAMILY TO SEE ON OCCASION. SHE STATES UNDERSTANDING. SHE INTENDS TO GO AHEAD WITH SNF STAY AT THIS POINT.
--- NOTE | 2020-07-01 12:38 | NUR ---
REPOSITIONED IN RECLINER FOR COMFORT AND TO PROTECT FROM PRESSURE AREA, WATCHING TV AND BRUSHING HER TEETH. CALL LIGHT IN EASY REACH.
--- NOTE | 2020-07-01 14:00 | NUR ---
TWO PERSON MAX ASSIST TO STAND AND PIVOT TRANSFER FROM CHAIR TO BED, GOOD SKIN CARE, POSITIONED FOR COMFORT, STATES SHE WANTS TO TAKE A NAP. ABD TENDER, BOWEL SOUNDS X4. NO NAUSEA. CALL LIGHT IN EASY REACH.
--- NOTE | 2020-07-01 14:39 | NUR ---
pt reports leg pain 9/10 requests pain medications, pt resting in bed body position relaxed facial express relaxed, flat affect, voice calm. pt administered 500mg po tylenol prn at this time.
--- NOTE | 2020-07-01 14:45 | NUR ---
REQUESTED PAIN MEDICATION FOR BACK AND JOINTS ACHING, TYLENOL GIVEN AND REPOSITIONED WITH WARM BLANKET.
--- NOTE | 2020-07-01 14:46 | NUR ---
TEXTED WITH BHUMIKA AT [facility]. THEY CANNOT TAKE PATIENT TODAY THEY HAVE ADMITS SCHEDULED ALREADY AND HAVE TO LOOK AT BED SPACE FOR TOMORROW. UPDATED STAFF.
--- NOTE | 2020-07-01 15:43 | NUR ---
RECEIVED TEXT AGAIN FROM BHUMIKA AT [facility] WHO STATES THEY HAVE NOW DECIDED THEY CANNOT TAKE PATIENTS FOR A COUPLE MORE DAYS OUT DUE TO STAFFING/ADMITS. UPDATED DR ORO WHO STATES PATIENT IS READY FOR DISCHARGE. SPOKE WITH PATIENT IN ROOM AND EXPLAINED THE SITUATION. SHE STATES SHE WOULD LIKE TO STAY CLOSE TO [place] POSSIBLE AND WOULD THINK [facility] WOULD BE BEST IF SHE CANT GO TO [place]. SHE REQUESTS I CALL HER DAUGHTER KULWINDER. CALLED KULWINDER [phone] AND DISCUSSED WITH HER. SHE IS HESITANT TO CHOSE AN OUT OF TOWN PLACE. WANTS TO DISCUSS WITH FAMILY. ALSO GAVE HER THE [employer] SITE TO LOOK AT RATINGS THIS MIGHT BE HELPFUL WITH SECOND CHOICE. SHE STATES THEY WILL CALL BACK LATER OR IN MORNING. ENCOURAGED A DECISION TODAY IF POSSIBLE SO CHART PACK CAN BE SENT.
--- NOTE | 2020-07-01 16:01 | NUR ---
RECEIVED CALL BACK FROM KULWINDER KLEIN. SHE STATES AFTER DISCUSSING WITH FAMILY, IF [facility] CANNOT TAKE TOMORROW, THEY WOULD WANT TO START WITH REFERRAL TO [facility], THEN [facility] THEN [facility]. THANKED HER FOR WORKING WITH US AND WE WILL WORK WITH THEM TOMORROW ON DISCHARGE AGAIN.
--- NOTE | 2020-07-01 16:30 | NUR ---
PHYSICAL THERAPY IN TO WORK WITH PATIENT.
--- NOTE | 2020-07-01 17:02 | NUR ---
FAXED REFERRAL TO - [facility] [phone] WITH FAX CONFIRMATION RECEIVED.
--- NOTE | 2020-07-01 18:27 | NUR ---
BEDDING ALL CHANGE, PT INCONT. OF LARGE AMOUNT OF URINE SINCE RECIEVING LASIX. POSITIONED FOR COMFORT, GOOD SKIN CARE. RESTING COMFORTABLY.
--- NOTE | 2020-07-01 19:57 | NUR ---
REPORT RECEIVED FROM DAY SHIFT RN. PT LYING IN BED ALERT WATCHING TV. PRN ADMINISTERED FOR C/O HEADACHE. ASSISTED PT TO REPOSITION IN BED. FAMILY IN ROOM. WHITE BOARD UPDATED. CALL LIGHT IN REACH.
--- NOTE | 2020-07-01 20:27 | NUR ---
IN ROOM FOR VS. VSS. INCONTINENT OF URINE. ATTENDS CHANGED W GREG HURLEY. pt REPOSITIONED TO RIGHT SIDE WITH PILLOW UNDER LEFT HIP. CALL LIGHT IN REACH.
--- NOTE | 2020-07-01 20:38 | NUR ---
THIS CAN AND RH CHARGE JENNI CHANGED PATIENT'S INCONTINENT ATTENDS. PUT POWDER ON ADELAIDE FOLDS AND REPOSITIONED. V/S AND I&O DONE AND CHARTED. CALL LIGHT WITHIN REACH.
--- NOTE | 2020-07-01 21:30 | NUR ---
EVENING ASSESSMENT COMPLETE. SCHEDULED MEDS ADMINISTERED PER EMAR. PT REPORTS IYER IMPROVED. PT DENIES NAUSEA. BOWEL TONES ACTIVE. MIDLINE INCISION INTACT WITH ERIK. OPEN TO AIR. NO REDNESS OR DRAINAGE NOTED. BUE AND BLE EDEMA NOTED. LEGS AND ARMS ELEVATED. ASSISTED PT TO REPOSITION IN BED. PT DENIES FURTHER NEEDS. CALL LIGHT IN REACH.
--- NOTE | 2020-07-01 23:24 | NUR ---
pt YELLING "HELP". C/O FEET BEING COLD. WARM BLANKET PROVIDED. NO ADDITIONAL REQUESTS.
--- NOTE | 2020-07-01 23:47 | NUR ---
PT CALLING OUT "HELP". PT REPORTS SHE IS UNABLE TO GET COMFORTABLE TO SLEEP. 2PA TO REPOSITION IN BED.
--- NOTE | 2020-07-02 00:04 | NUR ---
DR. ORO NOTIFIED OF PT C/O NOT BEING ABLE TO "SLEEP OR GET COMFORTABLE". NEW ORDERS RECEIVED. PRN ADMINISTERED. PT REPOSITIONED. TV TURNED DOWN.
--- NOTE | 2020-07-02 00:25 | NUR ---
PT CALLING OUT. REPORTS SHE "NEEDS HER PANTS CHANGED". ATTENDS CHANGED. AJAY CARE DONE BY STAFF. NO FURTHER NEEDS.
--- NOTE | 2020-07-02 02:19 | NUR ---
THIS RN IN ROOM, pt YELLING OUT "HELP, HELP". pt ASSISTED WITH RAISING HER FEET IN BED AND FLUFFING HER PILLOWS BEHIND HER HEAD. NO FURTHER NEEDS, CALL LIGHT IN REACH.
--- NOTE | 2020-07-02 04:29 | NUR ---
PRN ADMINISTERED FOR GENERALIZED PAIN. ASSESSMENT COMPLETE. PT DENIES NAUSEA. BOWEL TONES ACTIVE. MIDLINE INCISION UNCHANGED. RIGHT ARM ELEVATED ON PILLOW. ASSISTED PT TO REPOSITION IN BED.
--- NOTE | 2020-07-02 05:28 | NUR ---
PT RESTING IN BED WITH EYES CLOSED, NAD.
--- NOTE | 2020-07-02 06:45 | NUR ---
SCHEDULED MEDS ADMINISTERED. PT INCONTINENT OF URINE. ATTENDS CHANGED. AJAY CARE DONE BY STAFF. BARRIER CREAM APPLIED. ASSISTED PT TO REPOSITION IN BED. VS AND I&O COMPLETE. PT DENIES FURTHER NEEDS. CALL LIGHT IN REACH.
--- NOTE | 2020-07-02 07:25 | NUR ---
BEDSIDE HANDOFF REPORT RECEIVED FROM DIVISION SUPERVISOR RN. PT SLEEPING, LEFT UNDISTURBED.
--- NOTE | 2020-07-02 09:03 | NUR ---
[id number] pt. assisted up to chair. face hands washed teeth brused. bed changed. no other needs at this time. call light with in reach .
--- NOTE | 2020-07-02 09:50 | NUR ---
PT RESTING IN THE CHAIR, JUST RETURNED FROM BEDSIDE COMMODE WITH FINISHED CARPET INSPECTOR, HAD LARGE BM. PT ON ROOM AIR, LUNG SOUNDS CLEAR, ENCOURAGED USE OF I/S. BOWEL TONES ACTIVE, DENIES NAUSEA. PT WITH RIGHT ARM EDEMA, LLE EDEMA 2+, RLE EDEMA 1+, CMS INTACT. PT ALERT AND ORIENTED. VSS. IV SALINE LOCKED. PT WITH MIDLINE INCISION, OPEN TO AIR, EDGES WELL APPROXIMATED. PT DENIES OTHER NEEDS AT THIS TIME.
--- NOTE | 2020-07-02 10:00 | NUR ---
Spoke with Shereen, she states she is feeling better. Aware CM is attempting to find placement for her. [facility] does not have staff available for a "few days". Chart was sent to [facility] last night. Called Ana Maria at [facility], she states the chart is being reviewed and will call when she has an answer.
--- NOTE | 2020-07-02 12:30 | NUR ---
Call from Ana Maria at [facility]. They are accepting pt for admission tomorrow. Would prefer am admit. Orders printed and given to Dr. Randall. Pt. updated.
--- NOTE | 2020-07-02 14:00 | NUR ---
Spoke with Daughter Adele, updated [facility] would like to have pt in the AM. She states she cannot get mom in her car for transport and agrees to [facility] transport per van. I called and scheduled for 10:30 tomorrow. CAlled Adele and left a message they accept lubin or credit card. Cost for transport will be $70.00. Adele plans on arriving at 10:00 tomorrow per our previous conversation. Will fax paperwork when completed.
--- NOTE | 2020-07-02 14:37 | NUR ---
V/S and I&Os done and recorded. pt. sitting up in bed. no other needs at this time. call light with in reach
--- NOTE | 2020-07-02 14:40 | NUR ---
PT RESTING IN BED. AFTERNOON ASSESSMENT COMPLETED, NO ACUTE CHANGES. PT DENIES OTHER NEEDS AT THIS TIME.
--- NOTE | 2020-07-02 18:00 | NUR ---
PER ORDER, ABD ERIK REMOVED, 1/2 IN STERISTRIPS APPLIED. PT RESTING IN BED AND DENIES OTHER NEEDS AT THIS TIME.
--- NOTE | 2020-07-02 18:07 | NUR ---
PT HAD UNEVENTFUL DAY, SAT IN CHAIR, AWAITING DISCHARGE. PT ON ROOM AIR, LUNG SOUNDS CLEAR, ENCOURAGE I/S. PT RECEIVED TYLENOL X1 FOR ABD PAIN. ERIK REMOVED AND REPLACED WITH STERISTRIPS. TOLERATING DIET. PT WITH EDEMA TO RIGHT ARM AND BLE, CMS INTACT.
[2020-07-02] MEDS ORDERED: GABAPENTIN100 MG PO (18:19)
[2020-07-02] MEDS ORDERED: KLONOPIN0.5 MG PO (18:20)
[2020-07-02] MEDS ORDERED: FUROSEMIDE20 MG PO (18:20)
--- NOTE | 2020-07-02 18:33 | NUR ---
Pt. had bowel movement, RN and I cleaned up pt. and changed brief. no other needs at this time.
--- NOTE | 2020-07-02 18:55 | NUR ---
v/s and I&Os done and recorded no other needs at time. call light with in reach
--- NOTE | 2020-07-02 20:03 | NUR ---
PT LYING IN BED. FAMILY MEMBER IN ROOM. SHIFT REPORT RECIEVED BY RN. CALL LIGHT IN REACH.
--- NOTE | 2020-07-02 20:08 | NUR ---
ANSWERED CALL LIGHT. MOUTH SWABS GIVEN DUE TO DRY MOUTH. PT STATES FEELING BETTER. DAUGHTER IN ROOM. CALL LIGHT IN REACH.
--- NOTE | 2020-07-02 21:15 | NUR ---
ROUNDED CHARGE. WOUND ASSESSED ON BUTTOCKS, STAGE TWO SORE ON RIGHT INTERNAL GLUTEAL CLEFT. PINK IN COLOR, GRANULATION TISSUE NOTED. APPEARS IMPROVED FROM THIS RNS PREVIOUS ASSESSMENT. MEDI HONEY APPLIED, NEW ALLEVYN PLACED BY PRIMARY RN ERIC.
--- NOTE | 2020-07-02 21:15 | NUR ---
ASSISTED PRIMARY RN ERIC CLEANED PATIENT'S INCONTINENT URINE AND BOWEL MOVEMENT. PATIENT REPOSITIONED. SCD'S ARE ON. CALL LIGHT AND SIDE TABLE WITHIN REACH.
--- NOTE | 2020-07-02 21:35 | NUR ---
PT LYING IN BED. USED A BEDPAN, L BM NOTED. REPOSITIONED PT IN BED. HONEY CREAM ADMINISTERED BY CHARGE NURSE ON COCCYX AREA DUE TO SMALL SORE. ALEVYN INTACT. DISCOLORATION NOTED ON BUTTOCKS. PT DENIES PAIN. ELEVATED R ARM DUE TO SOME SWELLING. EDUCATION GIVEN ON SCD'S, PT VERBALIZED UNDERSTANDING. RR WNL WITH UNLABORED BREATHING. VS STABLE. ASSESSMENT COMPLETE. I AND O'S DONE. CALL LIGHT IN REACH. SCHEDULED MEDS GIVEN. NO FURTHER NEEDS.
--- NOTE | 2020-07-02 22:57 | NUR ---
PT LYING IN BED. EYES CLOSED. RR WNL WITH UNLABORED BREATHING. CALL LIGHT IN REACH.
--- NOTE | 2020-07-03 02:30 | NUR ---
PT LYING IN BED. EYES CLOSED. RR WNL WITH UNLABORED BREATHING. CALL LIGHT IN REACH.
--- NOTE | 2020-07-03 04:22 | NUR ---
PT LYING IN BED. INCONTINENT OF BM AND URINE NOTED. ALLEYVN INTACT ON COCCYX. REPOSITIONED PT IN BED. ASSESSMENT COMPLETE. +1 EDEMA NOTED ON BLE NOTED. ELEVATED LEGS. +1 PITTING EDEMA NOTED ON RIGHT ARM. PT DENIES PAIN. CALL LIGHT IN REACH. NO FURTHER NEEDS.
--- NOTE | 2020-07-03 06:04 | NUR ---
CALL LIGHT ANSWERED. HOB RAISED FOR pt. TISSUES PROVIDED. CALL LIGHT IN REACH.
--- NOTE | 2020-07-03 06:36 | NUR ---
PT LYING IN BED. REPLACED BRIEFS. INCONT X1. REPOSITIONED IN BED. SCHEDULED MEDS GIVEN. PT DENIES PAIN. CALL LIGHT IN REACH. NO FURTHER NEEDS.
--- NOTE | 2020-07-03 06:47 | NUR ---
AWAITING DISCHARGE. Q2 TURN,BEDREST. INCONT X2. BLE EDEMA X1. ELEVATED LEGS. IV SALINE LOCKED. REGULAR DIET.
--- NOTE | 2020-07-03 07:05 | NUR ---
BEDSIDE HANDOFF REPORT RECEIVED FROM PROJECT CONTROL MANAGER RN. PT SLEEPING, LFT UNDISTURBED.
--- NOTE | 2020-07-03 09:28 | NUR ---
FAXED SNF ORDERS/RX/PASSR TO [facility] [phone]. [facility] SPOKE WITH THEM BY PHONE TO UPDATE THAT PATIENT TRANSFER RIDE WILL BE HERE AROUND 1030. FAX CONFIRMATION RECEIVED 07/03/20 922AM.
--- NOTE | 2020-07-03 09:33 | NUR ---
CHART PACK WITH CLINICALS, ORDERS, RX AND APPT CARD. LEFT AT NURSES STATION FOR TRANSFER.
--- NOTE | 2020-07-03 10:00 | NUR ---
Spoke with pt and daughter, she is ready for dc. Confirmed covid swab has been completed. Pt is awaiting [facility] van. Both deny further needs.
--- NOTE | 2020-07-03 10:20 | NUR ---
MORNING ASSESSMENT COMPLETED AT 0940. PT ON ROOM AIR, LUNG SOUNDS CLEAR. 2PA WITH FWW, WORKED WITH P.T., NOW SITTING IN CHAIR. PT WITH MIDLINE INCISION, STERISTRIPS IN PLACE. PT WITH EDEMA TO RIGHT AND AND BLE, UNCHANGED FROM YESTERDAY. PT ASSISTED TO SHOWER CHAIR, ASSISTED WITH SHOWER. 2PA TO GET DRESSED. NEW DRESSING APPLIED TO BUTTOCK WOUND WITH MEDIHONEY. IV REMOVED FOR DISCHARGE. DAUGHTER AT BEDSIDE.
--- NOTE | 2020-07-03 10:24 | NUR ---
RAPID SWAB COLLECTED
--- NOTE | 2020-07-03 10:44 | NUR ---
REPORT CALLED TO SOURAV DEE AT [facility].
--- NOTE | 2020-07-03 10:50 | NUR ---
pt. discharged at 9245
== END 2020-07-03 10:27 | DRG 356 ==
LOC: ED 09:04 → MS 09:06 → CCU 13:47 → MS 13:47 → CCU 06-26 18:36 → MS 06-28 11:36
PROVIDERS: Surgery; ADMIT Student in an Organized Health Care Education/Training Program; ATTEND Student in an Organized Health Care Education/Training Program
PROC: 0W3G0ZZ Control Bleeding in Peritoneal Cavity, Open Approach (ICD-10-PCS; 2020-06-26)
PROC: 30233N1 Transfusion of Nonautologous Red Blood Cells into Peripheral Vein, Percutaneous Approach (ICD-10-PCS; 2020-06-26)
PROC: 0WCH0ZZ Extirpation of Matter from Retroperitoneum, Open Approach (ICD-10-PCS; principal; 2020-06-26 20:19)
DX: K66.1 Hemoperitoneum (principal); J96.01 Acute respiratory failure with hypoxia; A41.51 Sepsis due to Escherichia coli [E. coli]; G93.41 Metabolic encephalopathy; E87.1 Hypo-osmolality and hyponatremia; N39.0 Urinary tract infection, site not specified; I13.0 Hypertensive heart and chronic kidney disease with heart failure and stage 1 through stage 4 chronic kidney disease, or unspecified chronic kidney disease; I50.22 Chronic systolic (congestive) heart failure; Z20.822 Contact with and (suspected) exposure to COVID-19; N18.30 Chronic kidney disease, stage 3 unspecified; E03.9 Hypothyroidism, unspecified; F41.9 Anxiety disorder, unspecified; I72.8 Aneurysm of other specified arteries; L89.151 Pressure ulcer of sacral region, stage 1; G62.9 Polyneuropathy, unspecified; F39 Unspecified mood [affective] disorder; I25.10 Atherosclerotic heart disease of native coronary artery without angina pectoris; Z66 Do not resuscitate; Z95.1 Presence of aortocoronary bypass graft; Z79.82 Long term (current) use of aspirin; Z79.899 Other long term (current) drug therapy
CPT/HCPCS: 00790; 36415; 71045; 71046; 74177; 80048; 80053; 81001; 82607; 82803; 83605; 83735; 84100; 84443; 84484; 85018; 85025; 85610; 86850; 86900; 86901; 86920; 87040; 87077; 87088; 87186; 93005; 93010; 93971; 96374; 97110; 97162; 97163; 97165; 97166; 97530; 99285-25; C9803; J0131; J0171; J0330; J0690; J0696; J1100; J1650; J1720; J1885; J1940; J2250; J2270; J2405; J3010; J3370; J7060; J7121; P9016; Q9967; U0003

== ENCOUNTER 2024-04-26 13:44 | Observation (INO) | payer MEDICARE ==
[~2024-04-26] VITALS: Ht 167.6 cm; Wt 71.2 kg
[~2024-04-26 13:44] MED LIST changes: +CEFDINIR300 MG PO; +FUROSEMIDE20 MG PO; +GABAPENTIN100 MG PO; +KLONOPIN0.5 MG PO; +LEVOFLOXACIN500 MG PO
[2024-04-26 14:16] LABS: HEMOGLOBIN 12.1 g/dL (12.0-18.0)
[2024-04-26 14:18] LABS: BASOPHILS 0.5 % (0-2); EOSINOPHILS 0.3 % (0-6); HEMATOCRIT 36.3 % (35.0-50.0); MCH 30.8 (27-36); MCHC 33.3 g/dl (30-36); MCV 92.5 fl (81-99); MONOCYTES 7.7 % (0-12); NEUTROPHILS 82.5 % (39-80); PLATELET COUNT 332 K/uL (140-440); RBC 3.92 M/ul (4.3-5.7)
[2024-04-26 14:37] LABS: ALBUMIN 2.8 g/dL (3.4-5.0); ALBUMIN/GLOBULIN RATIO 0.7 (1.1-2.4); ANION GAP 11.3 (7-21); BILIRUBIN, TOTAL 0.6 ng/dL (0.2-1.0); BUN/CREATININE RATIO 14.85 (6.0-28.6); CALCIUM 10.1 mg/dL (8.5-10.1); CREATININE, SERUM 1.01 mg/dL (0.55-1.02); POTASSIUM 4.3 mmol/L (3.5-5.1); PROTEIN, TOTAL 6.8 g/dL (6.4-8.2)
[2024-04-26 14:40] LABS: LACTIC ACID, BLOOD 1.8 mmol/L (0.4-2.0)
[2024-04-26 15:16] LABS: BILIRUBIN, URINE POSITIVE (negative); BLOOD/HGB, URINE SMALL (Negative); KETONE, URINE TRACE (Negative); LEUK ESTERASE, URINE MODERATE (negative); NITRITE, URINE POSITIVE (negative)
[2024-04-26 15:18] LABS: EPITHELIAL CELLS, URINE SQUAMOUS 3+ /lpf (0-1+); WHITE BLOOD CELLS, URINE >50 /HPF (0-5)
[2024-04-26 15:19] LABS: BACTERIA, URINE 4+ /hpf (negative); CASTS, URINE NONE SEEN \\lpf; COLLECTION TYPE, URINE CLEAN CATCH; CRYSTALS, URINE NONE SEEN (0-1+); REFLEX CULTURE, URINE No (No)
[2024-04-26] MEDS ORDERED: CEFTRIAXONE/SODIUM CHLORIDE 2 GM/100 ML PIGGYBACK IV ONE (15:45)
[2024-04-26] MEDS ORDERED: LACTATED RINGER'S 1,000 ML IV SCH (17:15)
[2024-04-26] MEDS ORDERED: ACETAMINOPHEN 325 MG TAB PO PRN (17:15)
[2024-04-26] MEDS ORDERED: ondansetron HCL 4 MG/2 ML VIAL IV PRN (17:15)
[2024-04-26 17:34] LABS: TSH, 3RD GENERATION 1.128 uIU/mL (0.358-3.740)
[2024-04-26 17:51] VITALS: BP 144/68
--- NOTE | 2024-04-26 18:16 | NUR ---
Patient arrived to medical floor; pleasant, alert to self. Patient is a poor historian. IV fluids started per order. Danna care and brief changed at this time, stool smear noted. Patient is on 2L oxygen per nc, respirations non labored, sp02 95%. Patient oriented to room and call light. Bed alarm intact, close to RN station.
[2024-04-26 18:41] VITALS: BP 144/67
--- NOTE | 2024-04-26 18:42 | NUR ---
PATIENT WITH PULSE OF 214 PER TELE. VSS, PULSE IS 110 VIA ROOM MONITOR.
--- NOTE | 2024-04-26 18:51 | NUR ---
Per report, patient's heart rate showing above 200bpm on tele monitor. Patient in bed asymptomatic, heart rate 88bpm per apical auscultation. Vital signs stable at this time. Patient denies chest pain and or shortness of breath. Patient has no distress.
--- NOTE | 2024-04-26 19:19 | NUR ---
REPORT RECIEVED FROM DAY SHIFT RN. PATIENT RESTING IN BED WITH EYES CLOSED. RESPIRATIONS EVEN AND UNLABORED. CALL LIGHT IN REACH.
[2024-04-26 21:05] VITALS: BP 141/66
--- NOTE | 2024-04-26 21:20 | NUR ---
PATIENT RESTING IN BED. ASSESSMENT COMPLETE. TELE MONITOR READ PATIENTs HR IN THE 200s. THIS RN AND NORA RN INTO ROOM TO LISTEN TO HEART TONES AND PALPATE PULSE. PULSE RATE WAS 80 UPON PALPATION. NEW TELE STICKERS PLACED ON PATIENT AND SHE IS NOW IN THE 70s. PATIENT HAS NOTED TREMORS THAT CAN BE SEEN AND FELT. AT THE TIME OF THE HIGH TELE READING PATIENT WAS SHIVERING AND STATED THAT SHE WAS VERY COLD. WARM BLANKETS PROVIDED. PATIENT IS EDUCATED TO CALL IF SHE NEEDS ANYTHING OR IS NOT FEELING WELL OR SOB. PATIENT VERBILIZES UNDERSTANDING. PATIENT EDUCATED TO ROOM AND CALL LIGHT. CALL LIGHT IN REACH. BED ALARM ON FOR SAFETY.
[2024-04-26 21:52] VITALS: BP 141/66
--- NOTE | 2024-04-26 23:19 | NUR ---
PATIENT RESTING IN BED WITH EYES CLOSED. RESPIRATIONS EVEN AND UNLABORED. CALL LIGHT IN REACH.
[2024-04-27] VITALS (10 sets, daily range): BP systolic 134–158; BP diastolic 68–81
--- NOTE | 2024-04-27 01:49 | NUR ---
BUILDING SERVICES TECHNICIAN OBTIANED VITALS AND OUTPUT. SCDS PLACED ON PT LEGS. PT STATES NO NEEDS AT THIS TIME. CALL LIGHT WITHIN REACH.
--- NOTE | 2024-04-27 04:14 | NUR ---
NEW BAG IV FLUID INFUSING PER ORDER. VS AND I&Os OBTAINED AND RECORDED. PATIENT REPOSITIONED IN BED WITH PILLOW UNDER RIGHT SIDE. NEW PUREWICK PLACED AFTER PERICARE PROVIDED. PATIENT ORIENTED TO SELF AND , BUT ONLY SOMETIMES ORIENTED TO PLACE. PATIENT HAS NO FURTHER NEEDS AT THIS TIME. BED ALARM ON FOR SAFETY. CALL LIGHT IN REACH.
[2024-04-27 04:50] LABS: AMPHETAMINES, URINE NEGATIVE (NEGATIVE); BARBITURATES, URINE NEGATIVE (NEGATIVE); BENZODIAZEPINE, URINE NEGATIVE (NEGATIVE); BUPRENORPHINE, URINE NEGATIVE (NEGATIVE); CANNABINOID, URINE NEGATIVE (NEGATIVE); COCAINE, URINE NEGATIVE (NEGATIVE); ECSTASY, URINE NEGATIVE (NEGATIVE); FENTANYL, URINE NEGATIVE (NEGATIVE); METHADONE, URINE NEGATIVE (NEGATIVE); OPIATES, URINE NEGATIVE (NEGATIVE); OXYCODONE, URINE NEGATIVE (NEGATIVE); PHENCYCLIDINE, URINE NEGATIVE (NEGATIVE)
[2024-04-27 05:57] LABS: ANION GAP 12.8 (7-21); BUN/CREATININE RATIO 22.72 (6.0-28.6); CALCIUM 9.1 mg/dL (8.5-10.1); CREATININE, SERUM 0.66 mg/dL (0.55-1.02); POTASSIUM 3.8 mmol/L (3.5-5.1)
[2024-04-27 06:08] LABS: BASOPHILS 0.2 % (0-2); HEMATOCRIT 32.8 % (35.0-50.0); HEMOGLOBIN 10.9 g/dL (12.0-18.0); LYMPHOCYTES 10.6 % (24-44); MCH 30.4 (27-36); MCHC 33.2 g/dl (30-36); MCV 91.4 fl (81-99); MONOCYTES 10.5 % (0-12); NEUTROPHILS 77.7 % (39-80); PLATELET COUNT 281 K/uL (140-440); RBC 3.58 M/ul (4.3-5.7); RDW 15.4 (10.5-15.0)
--- NOTE | 2024-04-27 06:42 | NUR ---
PATIENT RESTING IN BED WITH EYES CLOSED. RESPIRATIONS EVEN AND UNLABORED. CALL LIGHT IN REACH.
[2024-04-27] MEDS ORDERED: LEVOTHYROXINE SODIUM 75 MCG TAB PO SCH (07:00)
--- NOTE | 2024-04-27 07:05 | NUR ---
REPORT RECIEVED FROM SOURAV YAN. PT LAYING IN BED REQUESTING TO HAVE HOB SAT UP. SOURAV YAN SITS PT UP IN BED. PT DENIES ANY OTHER NEEDS AT THIS TIME. CALL LIGHT IN REACH. BED ALARM ON.
--- NOTE | 2024-04-27 07:13 | NUR ---
UR CLINICAL REVIEW: 2MN [facility]US[facility]ETS OBS MEDICARE 04/26/24 @ 1711 ORDER MATCHES REG NO AUTH REQUIRED PER MEDICARE RULES PLAN TO RETURN TO [facility]. 04/28/24
--- NOTE | 2024-04-27 07:36 | NUR ---
Spoke with [facility] staff to check if pt is on Hospice or comfort care. They deny. Per Andrew, pt is able to state her needs most of the time. Pt is essentially bedbound. He states at times they place pt in a recliner, but rarely. Pt has Parkinson's and spends the majority of her time in bed. She is out of bed for showers and uses a shower chair. Pt became confused, which is not her norm, they send her to the ER. I updated she has a UTI and I will fax the H&P to Roger for an update.
--- NOTE | 2024-04-27 07:51 | NUR ---
IN TO ADMINISTER MEDICAITON, SEE MAR. PT SAT UP IN BED AND GIVEN SMALL BITE OF APPLE SAUCE. PT TOLERATES WELL. MEDICAITON ADMINISTERED WITH APPLE SAUCE. PT NOTED TO HAVE A SMALL COUGH AFTER. PT STATES "THAT IS GOOD." PT STATES "WHERE AM I?" THIS RN INFORMS PT THAT PT IS IN THE HOSPITAL. PT STATES "WHY AM I IN THE HOSPITAL?" THIS RN INFORMS PT THAT PT IS HERE FOR A UTI. PT ASKS "WHEN WILL I GET TO GO HOME?" THIS RN INFORMS PT THAT IT WILL BE UP TO THE DOCTOR. PT STATES "OK." PT DENIES ANY OTHER NEEDS AT THIS TIME. CALL LIGHT IN REACH. BED ALARM ON.
--- NOTE | 2024-04-27 08:57 | NUR ---
Patient is awake but confused about being NPO. SOURAV More was informed.
[2024-04-27] MEDS ORDERED: HEParin SOD (PORCINE) 5,000 UNIT/ML SDV SUB-Q SCH (09:00)
[2024-04-27] MEDS ORDERED: CITALOPRAM HYDROBROMIDE 20 MG TAB PO SCH (09:00)
[2024-04-27] MEDS ORDERED: FAMOTIDINE 20 MG TAB PO SCH (09:00)
[2024-04-27] MEDS ORDERED: CEFTRIAXONE/SODIUM CHLORIDE 2 GM/100 ML PIGGYBACK IV SCH (09:00)
--- NOTE | 2024-04-27 09:30 | NUR ---
Spoke with Shereen. She is pleasant. She is not aware of where she lives. We discussed she now resides at [facility] to [facility]. Pt states, "If you say so." She is unable to answer most questions. She states she has family that live in town, she is unable to state family names. I was able to speak with staff at [facility] earlier and pt has all DME she needs and does not have financial issues. Plan for pt to return to [facility] when cleared medically.
--- NOTE | 2024-04-27 10:02 | NUR ---
Patient reported being cold. A warm blanket was asked for and given.
[2024-04-27] MEDS ORDERED: KETOCONAZOLE15 GM TOP (10:10)
[2024-04-27] MEDS ORDERED: ASPERCREME1 EACH TOP (10:11)
[2024-04-27] MEDS ORDERED: MELATONIN3 MG PO (10:12)
[2024-04-27] MEDS ORDERED: MIRALAX17 GM PO (10:13)
[2024-04-27] MEDS ORDERED: NYSTOP60 GM TOP (10:13)
[2024-04-27] MEDS ORDERED: REFRESH CLASSI1 EACH OU (10:14)
[2024-04-27] MEDS ORDERED: TYLENOL EXTRA500 MG PO (10:15)
[2024-04-27] MEDS ORDERED: KLONOPIN0.5 MG PO (10:16)
[2024-04-27] MEDS ORDERED: VOLTAREN ARTHRI20 GM TOP (10:17)
[2024-04-27] MEDS ORDERED: PEPCID20 MG PO (10:18)
[2024-04-27] MEDS ORDERED: NEURONTIN400 MG PO (10:21)
[2024-04-27] MEDS ORDERED: HYDROCODON-ACE1 EA10 PO (10:22)
--- NOTE | 2024-04-27 10:28 | NUR ---
PT NOT AVAILABLE FOR VISIT. PROVIDED PRAYER.
[2024-04-27] MEDS ORDERED: LOPERAMIDE2 M1 PO (10:29)
[2024-04-27] MEDS ORDERED: SENNA-S 8.6-501 EACH PO (10:30)
--- NOTE | 2024-04-27 10:30 | NUR ---
IN TO COMPLETE ASSESSMENT. PT SITTING UP IN BED AND RESPONDS WHEN ADDRESSED. WHEN THIS RN ASKS PT WHAT THE DATE IS TODAY THE PT IS NOTED TO LOOK AT THE WHITE BOARD AND READ "APRIL 27." WHEN ASKING PT FOR PTs PT STATES "35." THIS RN ASKS PT WHAT MONTH AND DAY FOR PTs BIRTHDAY AND PT STATES "I KNOW IT. UHH, 35." PT ASKES "WHERE AM I?" INFORMED PT THAT PT IS AT THIS HOSPITAL. PT STATES "WHY AM I HERE?" INFROMED PT THAT PT HAS A UTI AND IS RECIEVING ABX. LUNG SOUNDS CLEAR IN RUL AND SHANIQUE. BOWEL TONES ACTIVE. PT DENIES ANY ABD PAIN WITH PALPATION TO ABD. PEDAL PULSES PALPABLE. PT DENIES ANY PAIN AT THIS TIME. CALL LIGHT IN REACH. BED ALARM ON.
--- NOTE | 2024-04-27 10:31 | NUR ---
MED REC COMPLETE
--- NOTE | 2024-04-27 11:07 | NUR ---
Patient is no longer NPO. Coffee was asked for and given mildly thick with a straw. Patient was observed for choking hazards but was able to drink without coughing. No other cares were requested.
[2024-04-27] MEDS ORDERED: PHARMACY RENAL DOSE ADJUSTMENT 1 DOSE MISC PO SCH (12:00)
--- NOTE | 2024-04-27 12:54 | NUR ---
IN PT YELLING OUT "HELP." PT SITTING UP IN BED AND WHEN THIS RN ENTERS ROOM PT STATES "I DO NOT WANT THAT DINNER." THIS RN ASKS IF PT IS DONE WITH LUNCH TRAY AND PT STATES "YES." TRAY REMOVED. PT NOTED TO BE PULLING AT CPOX SITCKER ON FINGER AND STATES "CAN YOU TAKE THIS OFF." THIS RN INFORMED PT THAT IT NEEDS TO STAY ON IT IS MONITORING PTs O2 SATS AND PULSE. PT DENIES ANY OTHER NEEDS AT THIS TIME. CALL LIGHT IN REACH. BED ALARM ON. 1256 THIS RN CALLS PTs DAUGHTER AND GIVES UPDATE.
--- NOTE | 2024-04-27 14:33 | NUR ---
IN IV PUMP ALARMING. IV FLUIDS COMPLETE. PTs LEFT FOREARM NOTED TO HAVE EDEMA. IV REMOVED, COBAN AND GAUZE PLACED. ARM ELEVATED ON PILLOW. IV IN PTs LEFT AC FLUSHES WNL AND HAS BRISK BLOOD RETURN. FLUIDS RESUMED. PT STATES "WHERE ARE WE?" INFORMED PT THAT PT IS IN THE HOSPITAL. PT ASKS "WHY AM I HERE?" INFORMED PT THAT PT HAS A UTI AND IS RECIEVING ABX. THIS RN ASKS PT WHAT THE DATE IS AND PT LOOKS AT THE WHITE BOARD AND READS "APRIL 27." THIS RN ASKS PT WHAT PTs IS AND PT STATES "[birth year]. . . 1934" THIS RN ASKS PT WHAT MONTH AND DAY IS PTs BIRTHDAY AND PT STATES "35." THIS RN REPEATS THE QUESTION ASKING PT WHAT MONTH PT WAS BORN IN AND THE DAY. PT STATES "I DO NOT KNOW." THIS RN STARTS CALLING OFF MONTH "JUNE, JULY. . . " PT STATES "AUGUST, SEPTEMBER, OCTOBER." THIS RN AGAIN ASKS PT WHAT MONTH THE PT WAS BORN IN AND PT STATES "DECEMBER." PT DENIES ANY OTHER NEEDS AT THIS TIME. CALL LIGHT IN REACH. BED ALARM ON.
--- NOTE | 2024-04-27 15:10 | NUR ---
Patient continues to be confused and disoriented. Repeatedly asks the same questions. A warm blanket was asked for and given.
--- NOTE | 2024-04-27 16:12 | NUR ---
2PA for purewick change, diaper and ade care, and repositioning. Barrier cream was applied to the patient's bottom.
--- NOTE | 2024-04-27 16:17 | NUR ---
IN TO ROUND ON PT. PT LAYING IN BED SEMI-FOWLERS. PT REPSONDS WHEN ADDRESSED. PT STATES "MY LEGS ACHE." SCD's TURNED OFF AND REMOVED FOR PT TO HAVE A BREAK FROM THEM. PT STATES "OH THAT FEELS BETTER." INFORMED PT WE WILL PUT THEM BACK ON A LITTLE LATER. PT AGREEABLE. IV INFUSING WNL. PT DENIES ANY NEEDS AT THIS TIME. CALL LIGHT IN REACH. BED ALARM ON.
--- NOTE | 2024-04-27 19:10 | NUR ---
Patient continues to be confused but has begun to settle down. No cares were requested.
--- NOTE | 2024-04-27 19:27 | NUR ---
REPORT RECIEVED FROM DAY SHIFT RN. PATIENT RESTING IN BED WATCHING TV. NO NEEDS AT THIS TIME. CALL LIGHT IN REACH.
--- NOTE | 2024-04-27 20:49 | NUR ---
PATIENT HEARD HOLLERING OUT FROM ROOM. VS AND I&Os OBTAINED AND RECORDED. SCHEDULED AND PRN MEDICATION ADMINISTERED PER PATIENT REQUEST. PATIENT HAD A SMEAR BM IN BRIEF. NEW BREIF, BHAVANA, SLIDE SHEET, AND PUREWICK PLACED AFTER AJAY CARE PROVIDED. PATIENT REPOSITIONED IN BED WITH 2 [address] UNDER RIGHT SIDE. SCD[address] PLACE. BED ALARM ON FOR SAFETY. PATIENT HAS NO FURTHER NEEDS AT THIS TIME. CALL LIGHT IN REACH.
--- NOTE | 2024-04-27 23:10 | NUR ---
PATIENT RESTING IN BED WITH EYES CLOSED. RESPIRATIONS EVEN AND UNLABORED. CALL LIGHT IN REACH.
[2024-04-28] VITALS (7 sets, daily range): BP systolic 143–166; BP diastolic 75–95
--- NOTE | 2024-04-28 00:29 | NUR ---
NEW BAG IV FLUID INFUSING PER ORDER. WARM BLANKET PROVIDED BY PATIENT REQUEST. PATIENT HAS NO FURTHER NEEDS. CALL LIGHT IN REACH.
--- NOTE | 2024-04-28 02:48 | NUR ---
PATIENT HEARD HOLLERING OUT FROM ROOM. PATIENT REPOSITIONED IN BED WITH TWO PILLOWS UNDER LEFT SIDE AND PILLOW BETWEEN KNEES. PATIENT STATES SHE FEELS BETTER. PRN PAIN MEDICATION ADMINISTERED WITH PUDDING. PATIENT HAS NO FURTHER NEEDS AT THIS TIME. CALL LIGHT IN REACH.
--- NOTE | 2024-04-28 04:47 | NUR ---
PATIENT HEARD HOLLERING OUT AND SAYING SHE IS COLD. THIS RN BROUGHT PATIENT 2 WARM BLANKETS. VS AND I&Os OBTAINED AND RECORDED. PATIENT REPOSITIONED IN BED. PATIENT HAS NO FURTHER NEEDS AT THIS TIME. CALL LIGHT IN REACH. BED ALARM ON FOR SAFETY.
--- NOTE | 2024-04-28 06:53 | NUR ---
PATIENT REPOSITIONED IN BED WITH BILAT HIPS FLOATED ON PILLOWS. NO FURTHER NEEDS. CALL LIGHT IN REACH.
--- NOTE | 2024-04-28 07:13 | NUR ---
UR CONCURRENT CLINICAL REVIEW: 2MN HUSSAIN-MEETS OBS MEDICARE 04/26/24 @ 1711 ORDER MATCHES REG NO AUTH REQUIRED PER MEDICARE RULES PLAN TO RETURN TO [facility] TODAY. 04/29/24
--- NOTE | 2024-04-28 07:30 | NUR ---
RECEIVED REPORT FROM SOURAV YAN. PT AWAKE IN BED, STATES NO NEEDS AT THIS TIME, CALL LIGHT WITHIN REACH.
--- NOTE | 2024-04-28 09:45 | NUR ---
Spoke with Shereen. Updated she will be discharging today. Called and spoke abel at [facility]. Pt will dc today. We discussed if pt could ride in a WC and she states pt is never in a wc. Rarely, she is in a reclined, but feet are elevated. Will plan for this pt to go by EMS for safety as she has bedbound for 2 years per staff.
--- NOTE | 2024-04-28 10:00 | NUR ---
DID AJAY CARE ON PT. CHANGED RODGER @3795. PT WANTED COFFEE ADDED 2 CREAMERS. PT DIDNT NEED ANYTHING ELSE CLINT LIGHT IS WITHIN REACH.
[2024-04-28] MEDS ORDERED: CEFDINIR300 MG PO (14:43)
--- NOTE | 2024-04-28 15:56 | NUR ---
PT STATES BACK AND NECK ARE NOW 1/10 "DISCOMFORT, NOT SO MUCH PAIN". PT STATES SHE IS FEELING MORE COMFORTABLE SINCE REPOSITIONING AND TYLENOL. PT STATES NO FURTHER NEEDS AT THIS TIME, CALL LIGHT WITHIN REACH.
--- NOTE | 2024-04-28 16:07 | NUR ---
THIS RN CALLS [facility] AND GIVES REPORT FOR PT RETURNING.
[2024-04-28] MEDS ORDERED: CLONAZEPAM0.5 MG PO (21:51)
[2024-04-28] MEDS ORDERED: GABAPENTIN400 MG PO (21:51)
[2024-04-28] MEDS ORDERED: ONDANSETRON ODT4 MG PO (22:30)
== END 2024-04-28 16:10 | disposition home or self-care (01) ==
LOC: ED 13:44 → MS 13:45
PROVIDERS: Emergency Medicine; ADMIT Student in an Organized Health Care Education/Training Program; ATTEND Student in an Organized Health Care Education/Training Program
DX: N39.0 Urinary tract infection, site not specified (principal); K21.9 Gastro-esophageal reflux disease without esophagitis; E03.9 Hypothyroidism, unspecified; F32.9 Major depressive disorder, single episode, unspecified; F41.1 Generalized anxiety disorder; G62.9 Polyneuropathy, unspecified; G20.A1 Parkinson's disease without dyskinesia, without mention of fluctuations; I25.2 Old myocardial infarction; Z87.891 Personal history of nicotine dependence; Z79.890 Hormone replacement therapy; Z79.899 Other long term (current) drug therapy; Z66 Do not resuscitate
CPT/HCPCS: 36415; 51701; 70450; 71045; 80048; 80053; 80307; 81001; 82140; 83605; 84439; 84443; 85025; 87040; 87077; 87088; 87186; 92610; 94762; 96365; 96366; 96367; 96372; 97163; 99285-25; A9270; G0378; J0696; J1644; J7121

== ENCOUNTER 2024-04-28 21:08 | Emergency (ER) | payer MEDICARE ==
[~2024-04-28] VITALS: Ht 167.6 cm; Wt 76.7 kg
[~2024-04-28 21:08] MED LIST changes: +ASPERCREME1 EACH TOP; +HYDROCODON-ACE1 EA10 PO; +KETOCONAZOLE15 GM TOP; +LOPERAMIDE2 M1 PO; +MELATONIN3 MG PO; +MIRALAX17 GM PO; +NEURONTIN400 MG PO; +NYSTOP60 GM TOP; +PEPCID20 MG PO; +REFRESH CLASSI1 EACH OU; +SENNA-S 8.6-501 EACH PO; +TYLENOL EXTRA500 MG PO; +VOLTAREN ARTHRI20 GM TOP
--- OUTSIDE RECORDS SUMMARY | 2024-04-28 21:14 | XMS ---
PreManage Notification: ROYA LIRA Security Emg Technician Events No recent Security Events currently on file CRITERIA MET - [facility] - 2 Visits in 30 Days CARE PROVIDERS ALBERT SLATER Family Medicine 08/04/2019-Current PHONE: Unknown GEE AVINA Physical Medicine \T\ Rehabilitation Current PHONE: [phone] OLIVIA ALMAGUER Nurse Practitioner: Family David PRABHAKAR PHONE: [phone] STEPHON [facility] Current PHONE: Unknown Estefania has no Care Guidelines for this patient. Ivette VISIT COUNT (12 MO.) 4 JEAN CARLOS Sim TOTAL 4 NOTE: Visits indicate total known visits. ED/UCC VISIT TRACKING (12 MO.) 04/28/2024 21:08 JEAN CARLOS [facility] [place] TYPE: Emergency COMPLAINT: - WEAKNESS 04/26/2024 13:44 JEAN CARLOS [facility] [place] TYPE: Emergency COMPLAINT: - ALTERED LOC 12/15/2023 10:45 JEAN CARLOS [facility] [place] TYPE: Emergency COMPLAINT: - DIARRHEA DIAGNOSES: - Diarrhea, unspecified - Hormone replacement therapy - Hypothyroidism, unspecified - Old myocardial infarction - Other net trainer (current) drug therapy - Parkinson's disease without dyskinesia, without mention of fluctuations - Personal history of nicotine dependence - Urinary tract infection, site not specified 12/11/2023 11:12 JEAN CARLOS [facility] [place] TYPE: Emergency COMPLAINT: - AMS DIAGNOSES: - Encephalopathy, unspecified - Essential (primary) hypertension - Other net trainer (current) drug therapy - Personal history of nicotine dependence - Urinary tract infection, site not specified INPATIENT VISIT TRACKING (12 MO.) 04/26/2024 13:45 JEAN CARLOS [facility] TYPE: Observation COMPLAINT: - AMS [email or web address]
[2024-04-28] MEDS ORDERED: ondansetron HCL 4 MG/2 ML VIAL IV ONE (21:15)
[2024-04-28 21:29] LABS: BASOPHILS 0.3 % (0-2); EOSINOPHILS 0.2 % (0-6); HEMOGLOBIN 11.5 g/dL (12.0-18.0); LYMPHOCYTES 7.1 % (24-44); MCH 30.7 (27-36); MCHC 33.7 g/dl (30-36); MONOCYTES 5.7 % (0-12); NEUTROPHILS 86.7 % (39-80); PLATELET COUNT 411 K/uL (140-440); RBC 3.74 M/ul (4.3-5.7); RDW 15.2 (10.5-15.0)
[2024-04-28 21:49] LABS: ALBUMIN 2.8 g/dL (3.4-5.0); ALBUMIN/GLOBULIN RATIO 0.72 (1.1-2.4); ANION GAP 11.3 (7-21); BILIRUBIN, TOTAL 0.4 ng/dL (0.2-1.0); BUN/CREATININE RATIO 11.84 (6.0-28.6); CALCIUM 9.6 mg/dL (8.5-10.1); CREATININE, SERUM 0.76 mg/dL (0.55-1.02); MAGNESIUM 1.7 mg/dL (1.8-2.4); POTASSIUM 3.3 mmol/L (3.5-5.1); PROTEIN, TOTAL 6.7 g/dL (6.4-8.2)
[2024-04-28] MEDS ORDERED: GABAPENTIN400 MG PO (21:51)
[2024-04-28] MEDS ORDERED: CLONAZEPAM0.5 MG PO (21:51)
[2024-04-28] MEDS ORDERED: MAGNESIUM SULFATE 2 GM/50 ML BAG IV ONE (22:30)
[2024-04-28] MEDS ORDERED: POTASSIUM CHLORIDE 20 MEQ/15 ML CUP PO ONE (22:30)
[2024-04-28] MEDS ORDERED: ONDANSETRON ODT4 MG PO (22:30)
[2024-04-28] MEDS ORDERED: ONDANSETRON 4 MG HOME.PACK SL ONE (22:45)
[2024-04-29 00:30] VITALS: BP 148/79
== END 2024-04-29 00:30 | disposition home or self-care (01) ==
LOC: ED 21:08
PROVIDERS: Family Medicine
DX: N39.0 Urinary tract infection, site not specified (principal); I12.9 Hypertensive chronic kidney disease with stage 1 through stage 4 chronic kidney disease, or unspecified chronic kidney disease; N18.9 Chronic kidney disease, unspecified; I25.2 Old myocardial infarction; G20.A1 Parkinson's disease without dyskinesia, without mention of fluctuations; E78.5 Hyperlipidemia, unspecified; E03.9 Hypothyroidism, unspecified; K21.9 Gastro-esophageal reflux disease without esophagitis; M41.9 Scoliosis, unspecified; Z87.891 Personal history of nicotine dependence; Z95.1 Presence of aortocoronary bypass graft; Z79.890 Hormone replacement therapy; Z79.899 Other long term (current) drug therapy
CPT/HCPCS: 36415; 80053; 83735; 85025; 96374; 96375; 99283-25; A9270; J2405; J3475

== ENCOUNTER 2024-05-07 16:10 | Inpatient (IN) | payer MEDICARE ==
[~2024-05-07] VITALS: Ht 167.6 cm; Wt 70.2 kg
[~2024-05-07 16:10] MED LIST changes: +GABAPENTIN400 MG PO; +ONDANSETRON ODT4 MG PO
--- OUTSIDE RECORDS SUMMARY | 2024-05-07 16:14 | XMS ---
PreManage Notification: ROYA LIRA Security Apparel Embroidery Digitizer Events No recent Security Events currently on file CRITERIA MET - [facility] - 2 Visits in 30 Days CARE PROVIDERS ALBERT SLATER Family Medicine 08/04/2019-Current PHONE: Unknown GEE AVINA Physical Medicine \T\ Rehabilitation Current PHONE: [phone] OLIVIA ALMAGUER Nurse Practitioner: Family David PRABHAKAR PHONE: [phone] STEPHON [facility] Current PHONE: Unknown Estefania has no Care Guidelines for this patient. Ivette VISIT COUNT (12 MO.) 5 JEAN CARLOS Sim TOTAL 5 NOTE: Visits indicate total known visits. ED/UCC VISIT TRACKING (12 MO.) 05/07/2024 16:11 JEAN CARLOS [facility] TYPE: Emergency COMPLAINT: - UTI/WEAKNESS 04/28/2024 21:08 JEAN CARLOS [facility] TYPE: Emergency COMPLAINT: - WEAKNESS DIAGNOSES: - Chronic kidney disease, unspecified - Gastro-esophageal reflux disease without esophagitis - Hormone replacement therapy - Hyperlipidemia, unspecified - Hypertensive chronic kidney disease with stage 1 through stage 4 chronic kidney disease, or unspecified chronic kidney disease - Hypothyroidism, unspecified - Old myocardial infarction - Other [place] [facility] (current) drug therapy - Parkinson's disease without dyskinesia, without mention of fluctuations - Personal history of nicotine dependence - Presence of aortocoronary bypass graft - Scoliosis, unspecified - Urinary tract infection, site not specified 04/26/2024 13:44 JEAN CARLOS [facility] TYPE: Emergency COMPLAINT: - ALTERED LOC 12/15/2023 10:45 JEAN CARLOS [facility] TYPE: Emergency COMPLAINT: - DIARRHEA DIAGNOSES: - Diarrhea, unspecified - Hormone replacement therapy - Hypothyroidism, unspecified - Old myocardial infarction - Other intermediate frame tender (current) drug therapy - Parkinson's disease without dyskinesia, without mention of fluctuations - Personal history of nicotine dependence - Urinary tract infection, site not specified 12/11/2023 11:12 JEAN CARLOS [facility] TYPE: Emergency COMPLAINT: - AMS DIAGNOSES: - Encephalopathy, unspecified - Essential (primary) hypertension - Other [place] [facility] (current) drug therapy - Personal history of nicotine dependence - Urinary tract infection, site not specified INPATIENT VISIT TRACKING (12 MO.) 04/26/2024 13:45 JEAN CARLOS [facility] [place] TYPE: Observation COMPLAINT: - AMS DIAGNOSES: - Do not resuscitate - Gastro-esophageal reflux disease without esophagitis - Generalized anxiety disorder - Hormone replacement therapy - Hypothyroidism, unspecified - Major depressive disorder, single episode, unspecified - Old myocardial infarction - Other [place] [facility] (current) drug therapy - Parkinson's disease without dyskinesia, without mention of fluctuations - Personal history of nicotine dependence - Polyneuropathy, unspecified - Urinary tract infection, site not specified [email or web address]
[2024-05-07 16:28] LABS: BASOPHILS 0.4 % (0-2); EOSINOPHILS 0.5 % (0-6); HEMOGLOBIN 12.2 g/dL (12.0-18.0); LYMPHOCYTES 9.4 % (24-44); MCHC 33.9 g/dl (30-36); MCV 91.4 fl (81-99); MONOCYTES 7.1 % (0-12); NEUTROPHILS 82.6 % (39-80); PLATELET COUNT 443 K/uL (140-440); RBC 3.94 M/ul (4.3-5.7); RDW 16.2 (10.5-15.0)
[2024-05-07 16:39] LABS: ALBUMIN 3.3 g/dL (3.4-5.0); ALBUMIN/GLOBULIN RATIO 0.94 (1.1-2.4); ANION GAP 15.5 (7-21); BILIRUBIN, TOTAL 0.6 ng/dL (0.2-1.0); BUN/CREATININE RATIO 9.78 (6.0-28.6); CALCIUM 9.6 mg/dL (8.5-10.1); CREATININE, SERUM 0.92 mg/dL (0.55-1.02); POTASSIUM 3.5 mmol/L (3.5-5.1); PROTEIN, TOTAL 6.8 g/dL (6.4-8.2)
[2024-05-07 16:41] LABS: LACTIC ACID, BLOOD 1.2 mmol/L (0.4-2.0)
[2024-05-07] MEDS ORDERED: ondansetron HCL 4 MG/2 ML VIAL IV ONE (16:45)
[2024-05-07] MEDS ORDERED: CEFTRIAXONE/SODIUM CHLORIDE 1 GM/100 ML PIGGYBACK IV ONE ×2 (17:00→20:45)
[2024-05-07] MEDS ORDERED: AZITHROMYCIN/DEXTROSE 500 MG/250 ML PIGGYBACK IV ONE (17:00)
[2024-05-07 19:01] LABS: BILIRUBIN, URINE NEGATIVE (negative); BLOOD/HGB, URINE LARGE (Negative); KETONE, URINE SMALL (Negative); LEUK ESTERASE, URINE NEGATIVE (negative); NITRITE, URINE POSITIVE (negative)
[2024-05-07 19:08] LABS: COLLECTION TYPE, URINE VOID
[2024-05-07 19:10] LABS: BACTERIA, URINE 2+ /hpf (negative); CASTS, URINE NONE SEEN \\lpf; CRYSTALS, URINE NONE SEEN (0-1+); EPITHELIAL CELLS, URINE SQUAMOUS 1+ /lpf (0-1+); WHITE BLOOD CELLS, URINE 0-1 /HPF (0-5)
[2024-05-07 19:11] LABS: REFLEX CULTURE, URINE Yes (No)
[2024-05-07] MEDS ORDERED: ondansetron HCL 4 MG/2 ML VIAL IV PRN (19:30)
[2024-05-07] MEDS ORDERED: SODIUM CHLORIDE 0.9% 1,000 ML IV SCH (19:30)
[2024-05-07 20:28] VITALS: BP 140/78
--- NOTE | 2024-05-07 20:52 | NUR ---
PT ADMITTED TO ROOM 110 FROM ED AT 2023. REQUIRED SIDE SHEET TO MOVE FROM STRETCHER TO BED. SLOW TO RESPOND TO QUESTIONS, UNABLE TO TELL THIS RN HER . IV FLUSHED INITIALLY, BUT CURRENTLY IS NOT FLUSHING. NEW IV WILL NEED TO BE PLACED. PUREWICK IN PLACE. ON 2 LNC, WHICH IS NOT CHRONIC.
--- NOTE | 2024-05-07 21:00 | NUR ---
2019 - admitted to room 110 from ED via gourney. Pt on 2LNC, not chronic. alert to self. requires full assist to transfer. 2029 - arms with involuntary tremors present, contractures of R hand and R arm, edema noted under R elbow are to upper forearm. not open, soft. unknown reason minor more flexible contracture of L arm. present, very stiff bilat legs. mycotic nails present. scabbed areas forehead, red areas under axillary area and breast. bruised present righ lateral lower back and foam dressing lower back present, not removed at this time. pure wick in place, applied in ED. poor hygiene and strong unkept body odor present. pt confused, alert to self only. 2034- Dr Mendoza notified via phone to clarify abx given in ED as per Night Rx requests. new orders written by . 2099 - Wood Cabinet Finisher here to start a new IV site. pt tolerated fair. all procedures explained. wick in place, pt incontinent at baseline. NPO, no swallow test done, pt aspiration precautions in place.
[2024-05-07] MEDS ORDERED: MEPILEX1 EACH TOP (21:43)
[2024-05-07] MEDS ORDERED: metroNIDAZOLE/SODIUM CHLORIDE 500 MG/100 ML PIGGYBACK IV SCH (22:00)
[2024-05-07 22:09] VITALS: BP 140/78
--- NOTE | 2024-05-07 22:51 | NUR ---
MOANS 'HELP ME, HELPME" WHEN ASKED WHAT KIND OF HELP STATES 'I DONT KNOW', REASSURED, ALERT TO SELF. ON 2L NC, NO S/SX DISTRESS NOTED, INVOLUNTARY TREMORS PRESENT. CONTRACTURES OF HANDS, VERY STIFF LIMBS WHEN REPOSITIONING. PURE WICK IN PLACE, DRAINING SMALL AMOUNT OF LIGHT NISHA COLORED STRONG SMELLING URINE. IVF INFUSING LFA, NO C/O OR S/SX ADVERSE REACTION TO IV ABX. NPO, ORAL CARE DONE, ASPIRATION AND FALL PRECAUTIONS IN PLACE
[2024-05-08] VITALS (10 sets, daily range): BP systolic 111–149; BP diastolic 56–96
--- NOTE | 2024-05-08 00:12 | NUR ---
O2 2LNC, CPOX ON AT BEDSIDE, SATS 91%. TURNED AND REPOSITIONED TO LEFT SIDE, IVF INFUSING, PURE WICK IN PLACE, DRAINING SMALL AMOUNTS LIGHT NISHA COLORED URINE, PT CONTINUES TO MOAN HELP ME, HELP ME". ALL CARES EXPLAINED. ALERT TO SELF
--- NOTE | 2024-05-08 02:43 | NUR ---
AWAKENS EASILY, ON 2LNC, CPOX ON AT BEDSIDE, SATS 90%. LUNGS DIM T/O, EXP WHEEZING AT BASES. NO SOB OR DISTRESS NOTED. IVF INFUSING. R ELBOW ELEVATED W PILLOWS, REPOSITIONED TO HER BACK, PURE WICK IN PLACE.
--- NOTE | 2024-05-08 04:12 | NUR ---
AWAKE, ALERT TO SELF, ALL CARES EXPLAINED PRIOR TO. TOLERATED TURNING AND REPOSITIONING WELL. ON 2LNC, CPOX AT BEDSIDE. PURE WICK IN PLACE,IVF IINFUSING W/O PROBLEMS
--- NOTE | 2024-05-08 05:29 | NUR ---
TOLERATED LAB DRAWS, PROCEDURE EXPLAINED. CONTIUES ON 2LNC, CPOX ON AT BEDSIDE, SATS 93%, NO DISTRESS. R ARM ELEVATED IN PILLOWS, NO CHANGES IN EDEMA AT ELBOW. INVOLUNTARY TREMORS OF ARMS PRESENT. CONTRACTURES OF HANDS AND STIFFNESS OF LE NO CHANGES, TURNED AND REPOSITIONED EVERY 2 HOURS. IVF INFUSING W/O PROBLEMS
[2024-05-08 05:33] LABS: BASOPHILS 0.1 % (0-2); EOSINOPHILS 0.2 % (0-6); HEMATOCRIT 33.1 % (35.0-50.0); LYMPHOCYTES 4.3 % (24-44); MCH 30.9 (27-36); MCHC 33.2 g/dl (30-36); MCV 93.2 fl (81-99); MONOCYTES 5.4 % (0-12); PLATELET COUNT 340 K/uL (140-440); RBC 3.55 M/ul (4.3-5.7); RDW 16.2 (10.5-15.0)
[2024-05-08 06:05] LABS: ALBUMIN 2.7 g/dL (3.4-5.0); ALBUMIN/GLOBULIN RATIO 0.82 (1.1-2.4); ANION GAP 14.2 (7-21); BILIRUBIN, TOTAL 0.5 ng/dL (0.2-1.0); BUN/CREATININE RATIO 11.62 (6.0-28.6); CALCIUM 9.1 mg/dL (8.5-10.1); CREATININE, SERUM 0.86 mg/dL (0.55-1.02); MAGNESIUM 1.9 mg/dL (1.8-2.4); PHOSPHORUS, INORGANIC 2.5 mg/dL (2.5-4.9); POTASSIUM 3.2 mmol/L (3.5-5.1)
--- NOTE | 2024-05-08 07:15 | NUR ---
REPORT FROM SOURAV GARCIA.
[2024-05-08] MEDS ORDERED: POTASSIUM CHLORIDE 40 MEQ,LIDOCAINE HCL 1% 40 MG in DEXTROSE 5% 250 ML IV ONE (07:45)
--- NOTE | 2024-05-08 08:40 | NUR ---
MORNING ASSESSMENT IS COMPLETE. LUNGS ARE DIM IN BASES, CRACKLES NOTED THROUGHOUT. PATIENT SAYS "NO" WHEN ASKED IF SHE IS HAVING ANY PAIN, ALSO SAYS "HELP ME" REPEATEDLY. PATIENT TURNED SLIGHTLY TO CENTER. X-TRA PILLOW UNDER FEET. SQ LOVENOX GIVEN, SCHEDULED IV PEPCID, IV POTASSIUM INFUSION FOR KCL OF 3.2. PUREWICK IN PLACE AND PATIENT IS STARTING OT HAVE MORE FREQUENT VOIDS. O2 VIA NC IS AT 1L FOR 92% SATS. PATIENT TURNED TO RIGHT SIDE WITH HELP FROM GREG ENAMORADO. NO OTHER NEEDS AT THIS TIME.
[2024-05-08] MEDS ORDERED: PANTOPRAZOLE SODIUM 40 MG/10 ML VIAL IV SCH (09:00)
[2024-05-08] MEDS ORDERED: ENOXAPARIN SODIUM 40 MG/0.4 ML SYR SUB-Q SCH (09:00)
--- NOTE | 2024-05-08 09:56 | NUR ---
PATIENT IS SLEEPING WITH REGULAR RESPIRATIONS.
--- NOTE | 2024-05-08 10:18 | NUR ---
UR CLINICAL REVIEW: 2 MN FOR VERSALUS-MEETS INPT CRITERIA FOR SEPSIS/PNEUMONIA MEDICARE INPT 05/07/24 @ 1927 ORDER MATCHES REG NO AUTH REQUIRED PER MEDICARE GUIDELINES DISCHARGE TO [facility] WHEN STABLE
--- NOTE | 2024-05-08 10:18 | NUR ---
Spoke with Shereen's daughter Adele. Pt cont. to live at [facility]. Pt has been bedbound for >2 years. She is showered weekly by staff and approx. twice a year she sits in a recliner. Pt has Parkinson's, dementia, declining status. Adele and Caryl are pts daughters. Daughters are requesting a better way to treat patient so she doesn't have to come into the hospital. Caryl wanting to know why [facility] (the [facility] can't treat her there. Discussed this is an assisted living and they do not diagnose or treat. Discussed pt is here for pnuemonia this visit and UTI last visit. We discussed Hospice. Caryl is on a Adele's speaker phone. Caryl becomes upset and stating, "I don't want her left to just ". Education provided about hospice and this would actually get her mom a visit from a nurse 1-2 x per week, 24 hr access to a nurse, and a direct line to the hospice Dr. Sun were discussing and Dr. Dorsey came into the room, pts HR is 170 per tele. He spoke with Adele and they will treat with IV meds. He will return later to discuss hospice with daughter.
--- NOTE | 2024-05-08 10:39 | NUR ---
CASE MANAGEMENT TO TO TALK WITH PATIENT. PATIENT HAS PULSE UP TO 214 ON BEDSIDE PULSE OX, 174 BY BLOOD PRESSURE MACHINE. UNABLE TO CAPTURE PULSE WITH PALPATION DUE TO IRREGULARITY. DR. ALONSO NOTIFIED AND IN TO TALK WITH PATIENT'S DAUGHTER. PATIENT TO HAVE EKG.
[2024-05-08] MEDS ORDERED: METOPROLOL TARTRATE 5 MG/5 ML VIAL ONE (10:45)
--- NOTE | 2024-05-08 10:45 | NUR ---
PT NOT AVAILABLE FOR VISIT. PROVIDED PRAYER.
--- NOTE | 2024-05-08 10:56 | NUR ---
PATIENT EKG IS COMPLETE, SHOWING AFIB/RVE. 5MG OF IV LOPRESSOR GIVEN. PATIENT IMMEDIATELY REDUCED HEART RATE TO 91. OXYGEN REDUCED BACK TO 1L 02 VIA NC. PATIENT DOES ANSWER YES AND NO QUESTIONS. PATIENT INDICATED THAT SHE HAD A LITTLE BIT OF PAIN. MOUTH MOISTENED WITH SWAB.
[2024-05-08] MEDS ORDERED: METOPROLOL TARTRATE 5 MG/5 ML VIAL IV ONE (11:00)
[2024-05-08] MEDS ORDERED: MAGNESIUM SULFATE 2 GM/50 ML BAG IV ONE (11:30)
[2024-05-08] MEDS ORDERED: PHARMACY RENAL DOSE ADJUSTMENT 1 DOSE MISC PO SCH (12:00)
--- NOTE | 2024-05-08 13:00 | NUR ---
Chart faxed to Hospice at . [facility] is gone, but the person I spoke to said they would have opening this week. Notes sent to Yudi at [facility] to [facility] for update. I called Yudi to confirm this pt could transition to Hospice at this facility.
--- NOTE | 2024-05-08 15:01 | NUR ---
IV FLAGYL INFUSING FOR 1 HOUR. PATIENT IS HAVING BED BATH, REPOSITIONING.
--- NOTE | 2024-05-08 15:38 | NUR ---
Bed bath completed by CNAs. New purewick inserted. Left hip floated.
[2024-05-08] MEDS ORDERED: CEFTRIAXONE/SODIUM CHLORIDE 2 GM/100 ML PIGGYBACK IV SCH (16:00)
[2024-05-08] MEDS ORDERED: AZITHROMYCIN 500 MG in DEXTROSE 5% 250 ML IV SCH (16:00)
--- NOTE | 2024-05-08 17:20 | NUR ---
IV ANTIBIOTICS INFUSING, PATIENT IS SLEEPING WITH REGULAR RESPIRATIONS.
--- NOTE | 2024-05-08 19:50 | NUR ---
pt resting, eyes closed, assessment completed. on 2L NC, CPOX on at bedside. IVF infusing w/o problems. pure wick in place, draining liht rizwan colored urine. edema to R elbow area, no changes from admit, elevated in pillows. stiffness of bilat lower extremities and contrctures of R hand and bilat arm. NPO, oral care done.
--- NOTE | 2024-05-08 21:35 | NUR ---
turned and repositioned, o2 1lnc, cpox on at bedside, sats wnl. pure wick changed
--- NOTE | 2024-05-08 22:44 | EKG ---
[facility] [address] [place] [address] Signed Atrial fibrillation with rapid ventricular response with premature ventricular or aberrantly conducted complexes Abnormal ECG When compared with ECG of 11-DEC-2023 11:50, Atrial fibrillation has replaced Sinus rhythm Nonspecific T wave abnormality has replaced inverted T waves in Anterior leads Confirmed by Sahara Alonso MD () on 05/08/2024 10:44:39 PM Electronically Signed By: SAHARA ALONSO MD 05/08/24 2244 PATIENT NAME: ROYA LIRA ISELA Electrocardiogram DATE OF : 35 PHYSICIAN: SAHARA ALONSO MD REPORT #: [id number] REPORT IS CONFIDENTIAL AND NOT TO BE RELEASED WITHOUT AUTHORIZATION
--- NOTE | 2024-05-08 22:53 | EKG ---
[facility] [address] [place] [address] Signed Atrial fibrillation with rapid ventricular response Nonspecific ST and T wave abnormality Abnormal ECG When compared with ECG of 07-MAY-2024 16:29, Nonspecific T wave abnormality now evident in Lateral leads Confirmed by Sahara Alonso MD () on 05/08/2024 10:53:22 PM Electronically Signed By: SAHARA ALONSO MD 05/08/24 2253 PATIENT NAME: ROYA LIRA ISELA Electrocardiogram DATE OF : 35 PHYSICIAN: SAHARA ALONSO MD REPORT #: [id number] REPORT IS CONFIDENTIAL AND NOT TO BE RELEASED WITHOUT AUTHORIZATION
--- NOTE | 2024-05-09 04:17 | NUR ---
Resting, eyes closed, turned and repositioned. on 1LNC, CPOX on at bedside. pure wick in place, draining small amounts of tea colored urine.IVF infusing w/o problems, contractures of hands/arms no changes, edema to R elbow no changes, elevated w pillows
[2024-05-09 05:07] VITALS: BP 141/65
--- NOTE | 2024-05-09 05:37 | NUR ---
O2 1LNC, CPOX AT BEDSIDE. MOIST GURGLING SOUNDS FROM MOUTH HEARD, YAUNKER USED AND ASPIRATED SCANT AMOUNT OF THICK CLEAR MUCUS. ORAL CARE DONE, NPO. ASPIRATION PRECAUTIONS IN PLACE, HOB ELEVATED. PROCEDURE EXPLAINED, NO ANSWER. PT VOIDED 50CC TEA COLORED URINE FROM 2200 TO NOW. BLADDER SCAN DONE SHOWING 167CC IN BLADDER, PT ON IVF. WILL NOTIFY DR ALONSO. WAS TURNED AND REPOSITIONED Q2H
--- NOTE | 2024-05-09 07:00 | NUR ---
RECIEVED SHIFT REPORT FROM SOURAV GARCIA. PT IS RESTING IN BED, EYES CLOSED BREATHING EVEN AND UNLABORED. TITRATED TO 0.5L NC SPO2 94%. CALL LIGHT IN REACH.
--- NOTE | 2024-05-09 07:24 | NUR ---
CELESTE BEEN NOTIFIED BY SOURAV GARCIA OF LOW URINE OUTPUT. NO NEW ORDERS.
[2024-05-09 08:20] LABS: BASOPHILS 1.2 % (0-2); MCHC 33.4 g/dl (30-36); MCV 92.9 fl (81-99); MONOCYTES 8.7 % (0-12); NEUTROPHILS 74.1 % (39-80); PLATELET COUNT 314 K/uL (140-440); RBC 3.55 M/ul (4.3-5.7); RDW 16.2 (10.5-15.0)
[2024-05-09 08:21] LABS: ANION GAP 13.5 (7-21); BUN/CREATININE RATIO 13.95 (6.0-28.6); CALCIUM 9.3 mg/dL (8.5-10.1); CREATININE, SERUM 0.86 mg/dL (0.55-1.02); POTASSIUM 3.5 mmol/L (3.5-5.1)
[2024-05-09 09:15] VITALS: BP 146/64
--- NOTE | 2024-05-09 09:24 | NUR ---
Shift assessment performed on patient. Danna care performed and placed new brief on patient. Pure wick changed at the same time. Patient rotated on their right side and supported with pillows. Patient has call light in reach and daughter is visting at this time.
--- NOTE | 2024-05-09 11:00 | NUR ---
Called and spoke with daughter, she is aware pt will dc to day. She does not plan on returning today. We discussed the IM letter and she gave me her fax number. I faxed the IM letter for Bety to sign. She called and did not get the full fax. I faxed the letter again.
--- NOTE | 2024-05-09 12:10 | NUR ---
Recived a telephone message from [facility]. She is calling the daughters this afternoon. They will attempt to admit pt the end of the week. It could possibly be Wednesday.
--- NOTE | 2024-05-09 12:24 | NUR ---
PT REMOVED NC. SPO2 94% ON RA. OXYGEN LEFT OFF AT THIS TIME.
[2024-05-09 13:33] VITALS: BP 145/73
--- NOTE | 2024-05-09 13:40 | NUR ---
Spoke with Pat. She is awake and able to visit and answer questions. Dr. Dorsey is in the room and she is asking him if he is a student. He let her know he is the Dr. We discussed she will be returning to [facility] today. I spoke with her daughters and she will be on [facility]. She asks about [facility] and we explained. Pt stated this sounds good.
--- NOTE | 2024-05-09 14:58 | NUR ---
I was able to reach [facility]. UPdated, pt is discharging today.She was able to conference call the daughters and they cont. to want [facility]. I let her know I confirmed with Meghan from [facility]. Pt will dc this afternoon.
[2024-05-09] MEDS ORDERED: CEFDINIR300 MG PO (15:29)
[2024-05-09] MEDS ORDERED: METRONIDAZOLE500 MG PO (15:30)
[2024-05-09 16:15] VITALS: BP 157/73
--- NOTE | 2024-05-09 17:03 | NUR ---
CALLED [facility], GAVE REPORT TO SOURAV GRADY
== END 2024-05-09 17:00 | disposition hospice, home (50) | DRG 871 ==
LOC: ED 16:10 → MS 19:27
PROVIDERS: Emergency Medicine; ADMIT Family Medicine; ATTEND Family Medicine
DX: A41.9 Sepsis, unspecified organism (principal); J69.0 Pneumonitis due to inhalation of food and vomit; J96.01 Acute respiratory failure with hypoxia; N39.0 Urinary tract infection, site not specified; F02.84 Dementia in other diseases classified elsewhere, unspecified severity, with anxiety; F02.83 Dementia in other diseases classified elsewhere, unspecified severity, with mood disturbance; Z66 Do not resuscitate; I48.91 Unspecified atrial fibrillation; Z51.5 Encounter for palliative care; E87.6 Hypokalemia; E83.42 Hypomagnesemia; G62.9 Polyneuropathy, unspecified; E03.9 Hypothyroidism, unspecified; Z99.81 Dependence on supplemental oxygen; G20.A1 Parkinson's disease without dyskinesia, without mention of fluctuations; I12.9 Hypertensive chronic kidney disease with stage 1 through stage 4 chronic kidney disease, or unspecified chronic kidney disease; N18.9 Chronic kidney disease, unspecified; I25.2 Old myocardial infarction; Z87.891 Personal history of nicotine dependence; Z95.1 Presence of aortocoronary bypass graft; Z85.43 Personal history of malignant neoplasm of ovary; Z90.710 Acquired absence of both cervix and uterus; Z87.81 Personal history of (healed) traumatic fracture; Z79.890 Hormone replacement therapy; Z79.899 Other long term (current) drug therapy; Z79.891 Long term (current) use of opiate analgesic; Z98.890 Other specified postprocedural states; Z74.01 Bed confinement status
CPT/HCPCS: 36415; 51798; 71045; 80048; 80053; 81001; 83605; 83735; 84100; 85025; 87040; 87077; 87088; 87186; 92610; 93005; 93010; 94760; 94762; 96365; 96367; 96375; 99285-25; J0456; J0696; J1650; J2405; J2470; J3475; J3480; J3490; J7030; J7060; P9612